=== PATIENT | female | born 1945 | race Caucasian/White ===

== ENCOUNTER → 2017-08-02 13:07 | Outpatient (CLI) | payer MEDICARE, OTHER, SELFPAY ==
--- NOTE | 2017-08-02 13:12 | MRI_ITS ---
STUDY: MRI THORACIC SPINE WITHOUT CONTRAST REASON FOR EXAM: Female, 72 years old. Follow-up bone lesion TECHNIQUE: Standardized fat and water weighted pulse sequences were obtained in the sagittal and axial planes. COMPARISON: January 20 2017 FINDINGS: Normal kyphosis of the thoracic spine. There is no substantial scoliosis. No evidence for acute fracture or subluxation. Tiny central disc protrusion at T7-8 without significant spinal stenosis or cord compression. Normal visualized thoracic cord. Normal conus medullaris that terminates at T12-L1 The lesion in the left T11 pedicle demonstrates slightly increased signal intensity on T1, T2 and STIR imaging sequences. This finding is stable since prior exam The soft tissue structures are unremarkable. MRI/Spine Thoracic (Routine) IMPRESSION: Tiny central disc protrusion at T7-T8 without spinal stenosis or cord compression. Stable appearance to T11 pedicle lesion likely benign Electronically Signed: Faizan Joyce MD at 21:27 EDT , Service support ,
== END ==
PROVIDERS: Family Provider Family Medicine; PCP Family Medicine; Visit Provider Family Medicine
DX: M89.8X9 Other specified disorders of bone, unspecified site (principal)
CPT/HCPCS: 72146

== ENCOUNTER 2018-01-11 08:16 | Observation (INO) | payer MEDICARE, OTHER, SELFPAY ==
[2018-01-11] VITALS (14 sets, daily range): BP systolic 136–163; BP diastolic 59–82; PULSE 60–82; RESP 10–20; TEMP 36.6–36.9; O2SAT 95–99; BMI 33.9; BMI 31.7; BMI 31.8
--- NOTE | 2018-01-11 08:33 | CT_ITS ---
STUDY: CT BRAIN WITHOUT CONTRAST REASON FOR EXAM: Female, 72 years old. Fall and facial abrasions due to a syncopal episode. RADIATION DOSAGE (If Supplied By Facility): CTDIvol = ( 44.99 ) mGy, DLP = ( 812.98 ) mGycm TECHNIQUE: Transaxial CT imaging of the brain was performed without administration of intravenous contrast material. Individualized dose optimization techniques were used for this CT. COMPARISON: None. FINDINGS: Normal soft tissue structures. There is hyperostosis frontalis internus. Normal size ventricles and extra-axial spaces for the patient's age. Normal white matter tracts of the cerebral hemispheres. Normal basal ganglia and thalami. Normal brainstem. Normal cerebellum. There is no intracranial hemorrhage. There are no findings of an acute ischemic infarction. Atherosclerotic calcification of the vertebral arteries and cavernous portions of the internal carotid arteries bilaterally. Normal visualized paranasal sinuses. CT/Brain/Head without Contrast IMPRESSION: Normal unenhanced CT scan of the brain. Electronically Signed: Jeffrey Roman MD at 9:49 EST Tel [phone], Service support ,
--- NOTE | 2018-01-11 08:34 | EKG12_ITS ---
Test Reason : FALL Blood Pressure : / mmHG Vent. 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-2001) Abnormal ECG Confirmed by ROGELIO LIRIANO, JON ([id number]), image editor TRISTAN BROOKS ([id number]) on 01/14/2018 2:24:00 PM Referred By: DAVID Confirmed By:JON MERCADO MD
--- NOTE | 2018-01-11 08:35 | CT_ITS ---
STUDY: CT CERVICAL SPINE WITHOUT CONTRAST REASON FOR EXAM: Female, 72 years old. Fall and facial abrasions secondary to a syncopal episode. RADIATION DOSAGE (If Supplied By Facility): CTDIvol = ( 22.22 ) mGy, DLP = ( 461.97 ) mGycm TECHNIQUE: High resolution transaxial imaging was performed without contrast material. Sagittal and coronal images were reconstructed. Individualized dose optimization techniques were used for this CT. COMPARISON: None FINDINGS: Normal craniovertebral junction. There are degenerative changes of the anterior atlantoaxial articulation. Normal odontoid process. There is straightening of the normal cervical lordosis. Multilevel spondylosis. C2-3: Normal endplates. Normal disc height and morphology. Normal central canal and intervertebral neuroforamina. C3-4: Normal endplates. Normal disc height and morphology. Normal central canal and intervertebral neuroforamina. C4-5: Anterior spondylosis. The disc space height is well maintained. C5-6: Minimal retrolisthesis of C5 on C6. Anterior spondylosis. Moderate degree of disc space narrowing. Uncovertebral arthrosis. Moderate degree of left neural foraminal stenosis. Subchondral sclerosis worse on the left side. C6-7: Minimal retrolisthesis of C6 on C7. Spondylosis. Uncovertebral arthrosis and a mild degree of facet joint osteoarthritis. C7-T1: Normal endplates. Normal disc height and morphology. Normal central canal and intervertebral neuroforamina. Normal visualized soft tissue structures. CT/Spine Cervical without Contras IMPRESSION: Multilevel degenerative changes, as described above. Electronically Signed: Jeffrey Roman MD at 9:51 EST Tel [phone], Service support ,
[2018-01-11] MEDS: 0.9% Normal Saline 1,000 ML 150 ML IV (09:00)
--- NOTE | 2018-01-11 09:05 | ED.RN ---
ABRASION ABOVE RT EYE BROW AND RT CHEEK UNDER EYE.
--- NOTE | 2018-01-11 09:16 | RAD_ITS ---
STUDY: X-RAY CHEST REASON FOR EXAM: Female, 72 years old. Syncopal episode. TECHNIQUE: Single AP portable view of the chest. COMPARISON: Comparison is made with prior study dated July 22, 2012. FINDINGS: EKG electrodes are seen. The lungs are clear and expanded. There is no demonstrated pleural abnormality. Normal size heart. Normal mediastinum and dorota. Normal visualized pulmonary arteries. There is atherosclerotic tortuosity of the aortic arch and descending thoracic aorta. Normal visualized thoracic spine. Normal visualized ribs, clavicles, and shoulders. There is no demonstrated abnormality of the visualized soft tissue structures of the upper abdomen. RAD/Chest 1 View (Portable) IMPRESSION: No acute abnormality is present. Electronically Signed: Jeffrey Roman MD at 9:58 EST Tel [phone], Service support ,
--- NOTE | 2018-01-11 10:18 | ED.RN ---
PT UNABLE TO GIVE UA AT THIS TIME. MD AWARE. NO NEW ORDERS AT THIS TIME.
[2018-01-11 10:20] LABS: Absolute Lymphocyte Count 1.15 X10^3/ul (0.83-4.51); Absolute Neutrophil Count 11.6 X10^3/uL (2.0-7.7); Basophil# 0.03 X10^3/uL; Basophil% 0.2 % (0-1); Eosinophil# 0.02 X10^3/uL; Eosinophils% 0.1 % (0-5); Hematocrit 42.5 % (37-47); Hemoglobin 13.6 g/dl (12.0-15.0); Lymphocyte # 1.15 X10^3/ul (4.0); Lymphocyte % 8.4 % (19-41); Mean Corpuscular Hgb 29.6 pg (27.0-32.0); Mean Corpuscular Volume 92.4 fL (81-99); Mean Platelet Vol. 9.2 fl (6.2-12.0); Monocyte# 0.82 X10^3/uL; Neutrophil # 11.58 X10^3/uL (2.7-7.7); Neutrophil % 85.2 % (47-70); Platelet Count 284 K/mm3 (150-450); RBC Distribution Width CV 14.2 % (11.6-14.6); RBC Distribution Width SD 47.7 fl (35.1-43.9); White Blood Count 13.6 K/mm3 (4.4-11.0)
[2018-01-11 10:23] LABS: POSITIVE COUNT NO; POSITIVE DIFFERENTIAL NO; POSITIVE MORPHOLOGY NO
[2018-01-11 10:36] LABS: Anion Gap 8 (5-15); BUN 10 mg/dL (7-18); BUN/Creat Ratio 13.6 RATIO (10-20); Chloride 109 mmol/L (98-107); Creatinine, Serum 0.73 mg/dL (0.55-1.02); EST Glomerular Filtration Rate 83 mL/min (>60); Est Glom Filt Rate - Afr Amer 101 mL/min (>60); Estimated Creatinine Clearance 44.56 ml/min; Glucose 115 mg/dL (74-106); Sodium Level 144 mmol/L (136-145)
--- NOTE | 2018-01-11 11:26 | ED.VISSUMM ---
- ER Visit Summary Date of Service: 01/11/18 Chief Complaint: [Syncope] History of Present Illness: The patient is a 72 F [ presents to the emergency department with complaint of syncopal episode this morning. Patient woke up to color her hair around 6:30 AM. Patient then went to the kitchen and came back into the bathroom and noted that her arms were weak when she was trying to apply the product in her hair. Patient just recalls a generalized weakness that came over her and the next thing she knew she woke up on the bathroom floor. She was actually able to get up but noted that there was some blood on the carpet where she had fallen. Patient complaining of pain in her neck and she had some burning in both hands. She was able to stand and ambulate afterwards. Patient denies any chest or abdomen pain. She denies any tachycardia or palpitations.] Physical Examination: [HEENT-PERRLA, EOMI. Cranial nerves II through XII grossly intact. TMs clear. Mucous membranes moist. No adenopathy. Patient has diffuse C-spine tenderness on palpation. No bony step-offs noted. Patient had some superficial abrasions about the right forehead and right cheek. No significant bony tenderness on exam. Cardiovascular-regular rate and rhythm without murmur or ectopy Lungs-clear to auscultation, chest wall stable without crepitus or subcu emphysema Abdomen-normoactive bowel sounds, soft, nontender, no rebound or rigidity, no peritoneal signs. Neuro atfr-isxnuj-jjfk and heel rodriguez testing within normal limits, negative Romberg, negative . Patient has normal dance critic strength bilaterally. Extremities-intact ?4, normal range of motion, normal pulses, atraumatic] Test Results: [CT scan of the brain without contrast showed chronic changes. CT of the cervical spine showed chronic changes no fractures. 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 CBC with differential showed white count 13.6, hemoglobin 13.6, hematocrit 42, platelets 284. Chemistries unremarkable. Troponin was less than 0.015. Chest x-ray was unremarkable.] Emergency Department Course and Treatment: [] Treatment Plan: [Patient case was discussed with neurologist on-call as well as the hospitalist will evaluate patient for admission. Given the paresthesias in the hands would consider cervical cord compression in the differential as the etiology for her symptoms. She may need further workup such as possibly MRI to evaluate further.] Disposition: [Admit] Impression: [Syncope Cervical strain-rule out cord compression/contusion] This note was generated with [employer] dictation software. It may contain incorrect words, spelling, and punctuation that were not noted in review of the chart prior to signing ED Disposition - Plan for ED Patient: Chief Complaint: Syncope
--- NOTE | 2018-01-11 11:30 | ED.DCSUM_ITS ---
- ER Visit Summary Date of Service: 01/11/18 Chief Complaint: [Syncope] History of Present Illness: The patient is a 72 F [ presents to the emergency department with complaint of syncopal episode this morning. Patient woke up to color her hair around 6:30 AM. Patient then went to the kitchen and came back into the bathroom and noted that her arms were weak when she was trying to apply the product in her hair. Patient just recalls a generalized weakness that came over her and the next thing she knew she woke up on the bathroom floor. She was actually able to get up but noted that there was some blood on the carpet where she had fallen. Patient complaining of pain in her neck and she had some burning in both hands. She was able to stand and ambulate afterwards. Patient denies any chest or abdomen pain. She denies any tachycardia or palpitations.] Physical Examination: [HEENT-PERRLA, EOMI. Cranial nerves II through XII grossly intact. TMs clear. Mucous membranes moist. No adenopathy. Patient has diffuse C-spine tenderness on palpation. No bony step-offs noted. Patient had some superficial abrasions about the right forehead and right cheek. No significant bony tenderness on exam. Cardiovascular-regular rate and rhythm without murmur or ectopy Lungs-clear to auscultation, chest wall stable without crepitus or subcu emphysema Abdomen-normoactive bowel sounds, soft, nontender, no rebound or rigidity, no peritoneal signs. Neuro drpt-vmcqvq-uebj and heel rodriguez testing within normal limits, negative Romberg, negative . 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 Extremities-intact ?4, normal range of motion, normal pulses, atraumatic] Test Results: [CT scan of the brain without contrast showed chronic changes. CT of the cervical spine showed chronic changes no fractures. 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 CBC with differential showed white count 13.6, hemoglobin 13.6, hematocrit 42, platelets 284. Chemistries unremarkable. Troponin was less than 0.015. Chest x-ray was unremarkable.] Emergency Department Course and Treatment: [] Treatment Plan: [Patient case was discussed with neurologist on-call as well as the hospitalist will evaluate patient for admission. Given the paresthesias in the hands would consider cervical cord compression in the differential as the e tiology for her symptoms. She may need further workup such as possibly MRI to evaluate further.] Disposition: [Admit] Impression: [Syncope Cervical strain-rule out cord compression/contusion] This note was generated with [employer] dictation software. It may contain incorrect words, spelling, and punctuation that were not noted in review of the chart pr ior to signing ED Disposition - Plan for ED Patient: Chief Complaint: Syncope
--- NOTE | 2018-01-11 12:25 | ECHOD_ITS ---
Reason For Study: SYNCOPE/NEAR SYNCOPE Procedure This was a 2D Doppler, Color Flow transthoracic echocardiogram. The study was technically difficult. Exam performed portable in patient room. Left Ventricle Normal LV size. Left ventricular systolic function is normal. The estimated ejection fraction is 65 %. No evidence for diastolic dysfunction. No regional wall motion abnormalities noted. Right Ventricle Normal RV size. Normal systolic function. Atria Normal left atrium. Normal right atrium. No doppler evidence for ASD. Mitral Valve There is no mitral annular calcification. The mitral valve chordae are thickened and/or calcified. Trivial mitral valve insufficiency. Tricuspid Valve Normal tricuspid valve. Trivial tricuspid valve insufficiency. Unable to estimate RV systolic pressure/pulmonary artery pressure due to technically difficult study. Aortic Valve The aortic valve is not well visualized. Mild focal aortic valve thickening. Pulmonic Valve The pulmonic valve is not well visualized. Great Vessels Normal aortic root. Pericardium/Pleural No pericardial effusion. MMode/2D Measurements & Calculations LVIDd: 4.7 cm IVSd: 0.93 cm Ao root diam: 3.4 cm LVIDs: 2.2 cm LVPWd: 0.84 cm RVDd: 3.1 cm FS: 53.2 % LAV(MOD-bp): 29.8 ml LVAd ap4: 29.9 cm2 SV(MOD-sp4): 64.2 ml LAV(MOD-bp) Indexed: 15.3 ml/m2 EDV(MOD-sp4): 91.8 ml LAV(MOD-sp2): 35.0 ml EDV(sp4-el): 96.8 ml LAV(MOD-sp4): 25.8 ml LVAs ap4: 14.6 cm2 ESV(MOD-sp4): 27.5 ml ESV(sp4-el): 28.3 ml EF(MOD-sp4): 70.0 % EF(sp4-el): 70.8 % SV(sp4-el): 68.5 ml LA A4 area: 12.6 cm2 LA dimension(2D): 3.6 cm RA A4 area: 11.3 cm2 Time Measurements MV dec time: 0.25 sec Doppler Measurements & Calculations MV E max ayo: 79.1 cm/sec Lat Peak E' Ayo: 10.9 cm/sec Med Peak E' Ayo: 7.4 cm/sec MV A max ayo: 104.8 cm/sec E/E' lat: 7.3 E/E' med: 10.6 MV E/A: 0.76 Ao V2 max: 142.5 cm/sec LV V1 max: 122.2 cm/sec PA V2 max: 107.6 cm/sec Ao max P.1 mmHg LV V1 max P.0 mmHg Interpretation Summary The study was technically difficult. Left ventricular systolic function is normal. The estimated ejection fraction is 65 %. The mitral valve chordae are thickened and/or calcified. Trivial mitral valve insufficiency. Trivial tricuspid valve insufficiency. Mild focal aortic valve thickening. Unable to estimate RV systolic pressure/pulmonary artery pressure due to technically difficult study. No evidence for diastolic dysfunction. Ordering Physician: Alex Moraes Referring Physician: SHAKEEL WEBSTER Performed By: Malika Ahn RDCS
--- NOTE | 2018-01-11 12:26 | CDU_ITS ---
Reason For Study: syncope Rt. Velocities/BP Lt. Velocities/BP Prox CCA 115.0/24.6 cm/sec. Prox CCA 141.0/34.6 cm/sec. Mid CCA 109.0/22.9 cm/sec. Mid CCA 116.0/29.1 cm/sec. Dist CCA 92.0/25.2 cm/sec. Dist CCA 109.0/33.8 cm/sec. Prox ICA 73.3/25.2 cm/sec. Prox ICA 110.0/28.3 cm/sec. Mid ICA 140.0/47.1 cm/sec. Mid ICA 123.0/46.4 cm/sec. Dist ICA 78.0/24.6 cm/sec. Dist ICA 114.0/44.8 cm/sec. Rt. ICA/CCA = 140.0/109.0=1.3. Lt. ICA/CCA = 123.0/116.0=1.1. Prox ECA 123.0/12.3 cm/sec. Prox ECA 138.0/18.1 cm/sec. Rt. Vert. 63.9/17.6 cm/sec. Lt. Vert. 66.0/19.6 cm/sec. Right Extracranial There is intimal thickening but no significant atherosclerotic plaque noted in the right common carotid artery. There is heterogeneous, irregular atherosclerotic plaque noted in the right internal carotid artery. There is no significant atherosclerotic plaque noted in the right external carotid artery. Antegrade flow is noted in the right vertebral artery. Left Extracranial There is intimal thickening but no significant atherosclerotic plaque noted in the left common carotid artery. There is heterogeneous, smooth atherosclerotic plaque noted in the left internal carotid artery. There is no significant atherosclerotic plaque noted in the left external carotid artery. Antegrade flow is noted in the left vertebral artery. Procedure Carotid Duplex 32721. Exam performed portable in patient room. Interpretation Summary Minimal plague at the proximal right internal carotid with 50-69% stenosis, likely closer to 50% Minimal plague at the proximal left internal carotid with <50% stenosis, close to 50% Normal flow bilateral external carotids Patent and antegrade vertebrals bilaterally Ordering Physician: Alex Moraes Referring Physician: Kannan Allen Performed By: Bernadette Leroy RDCS, RVT
--- NOTE | 2018-01-11 12:33 | PCM.HP.STD ---
Problem List (1) Syncope Status: Acute History of Present Illness Date of Admission: 01/11/18 Chief Complaint: Syncope. The patient is a 72 year old F with no significant past medical history presented to the emergency room because of syncopal event. This morning, she was standing in her bathroom, doing coloring for her, felt dizzy and lightheaded and she passed out. The patient mentioned that she was not aware and she lost her consciousness completely for about 5 minutes. When she woke up, she was still dizzy, nauseated but she woke up very quickly. Apart from dizziness and lightheadedness, she denied any other prodromal symptoms. She denied chest pain, palpitation or shortness of breath. She denies any confusion or headache after she woke up. No reported seizure activity. She denied aggravating or relieving factors. She mentioned that after she woke up, she had blurry vision on the right eye and she thinks that is because some of the hair dye came on her right eye and her vision improved after she washed her right eye. After she woke up, she complained of neck pain which is described as dull aching pain, not so severe, not radiating. Also, she complained of numbness and tingling of both hands, from the wrists down to the fingers and equal on both hands. She denied focal arm or leg weakness. She stated that long time ago, she was told that she had abnormal heart rhythm and nonspecific name given to that abnormal heart rhythm. She denied history of atrial fibrillation or other known cardiac arrhythmias. She mentioned that usually, she tends not to drink lots of water during the daytime because she does not get thirsty often. She denies fever or chills. She denied constipation or diarrhea. She denies urinary symptoms. She denies cough or sputum production. In the emergency department, her vital signs were stable. Her routine blood work was remarkable for mild leukocytosis, otherwise normal. Troponin was negative. EKG revealed normal sinus rhythm, normal GA interval, normal QRS, no evidence of acute ischemic changes or cardiac arrhythmias. Scan brain showed no acute findings. CT scan cervical spine showed mild degenerative changes, no acute fractures or dislocations. Chest x-ray showed no acute findings. She is being admitted for syncope for evaluation. Past Medical History Allergies Sulfa (Sulfonamide Antibiotics) Allergy (Verified 01/11/18 08:20) Rash Home Medications: Ambulatory Orders Medication Instructions Recorded L.acidoph,Paracasei, B.lactis 1 each PO QHS 01/11/18 [Probiotic] Multivitamin [Multiple Vitamins] 1 each PO DAILY 01/11/18 Surgical History: cholecystectomy, hysterectomy, - - Tubal ligation. 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 Review of Systems Constitutional: Reports: Weakness. Denies: Anorexia, Chills, Fever Eyes: Denies: Blurred vision, Double vision, Drainage, Redness HEENT: Denies: Difficulty Hearing, Ear Pain, Eye Pain, Nasal Congestion, Sore Throat Cardiovascular: Reports: Light Headedness, Syncope. Denies: Chest Pain, Chest Pressure, Edema, Heaviness, Palpitations Respiratory: Denies: Cough, Hemoptysis, Pleuritic Pain, Shortness of Breath, Sputum production, Wheezing Gastrointestinal: Reports: Nausea. Denies: Abdominal Pain, Constipation, Diarrhea, Vomiting Genitourinary: Denies: Dysuria, Frequency, Hematuria Musculoskeletal: Denies: Arm Pain, Back Pain, Foot Pain Skin: Denies: Dryness, Rash Neurological: Reports: Blurred vision. Denies: Balance problems, Change in Speech, Slurred speech, Confusion, Focal weakness, Headaches, Incoordination, Numbness, Tingling Psychiatric: Denies: Anxiety, Depression Endocrine: Denies: Change in Body Habitus, Polydipsia VTE Information - Inpt Only VTE Present on Admission: No VTE Mechan Device Prophylaxis: None VTE Pharm Prophylaxis ordered?: Yes Patient Problems: Active and Suspected Problems Syncope (Acute) - Physical Exam General: Alert, Oriented x3, Cooperative, No apparent distress HEENT: Atraumatic, PERRLA, EOMI, Normocephalic Oral: Moist Mucosa, No Gingival or Mucosal Lesions/ Ulcerations Neck: Supple, No JVD, Negative Carotid Bruits, Trachea Midline, Thyroid Normal Size and Texture Lungs: Clear to auscultation, No rhonchi, No wheeze, No rales, Diminished Cardiovascular: Regular rate, Regular Rhythm, Normal S1, Normal S2, No murmurs, PMI Normal Abdomen: Bowel Sounds Present, Soft, Non Tender, Non-Distended, No Hepato-splenomegaly Extremities: No clubbing, No cyanosis, No edema Skin: No rashes, No breakdown Lymphatic: No Cervical, Supraclavicular, or Inguinal Adenopathy Neurological: Cranial nerves II-XII grossly intact, Motor Exam 5/5 strength throughout Psych/Mental Status: Normal Affect, Appropriate, Alert and oriented to time, place, person, mood and affect Vital Signs Temp Pulse Resp BP Pulse Ox 97.8 F 71 10 L 145/71 H 99 01/11/18 08:17 01/11/18 10:00 01/11/18 10:00 01/11/18 10:00 01/11/18 10:00 Oxygen Delivery Method Room Air Weight: 197 lb 12.074 oz Body Mass Index (BMI) 33.9 Laboratory Tests Past 24 Hrs 01/11/18 01/11/18 10:05 10:05 WBC 13.6 H RBC 4.60 Hgb 13.6 Hct 42.5 MCV 92.4 MCH 29.6 MCHC 32.0 RDW 14.2 RDW Differential 47.7 H Plt Count 284 MPV 9.2 Immature Gran % (Auto) 0.100 Neut % (Auto) 85.2 H Lymph % (Auto) 8.4 L Reagan % (Auto) 6.0 Eos % (Auto) 0.1 Baso % (Auto) 0.2 Absolute Neuts (auto) 11.6 H Absolute Lymphs (auto) 1.15 Total Counted Not Reportable Sodium 144 Potassium 4.0 Chloride 109 H Carbon Dioxide 27.0 Anion Gap 8 BUN 10 Creatinine 0.73 Estim Creat Clear Calc 44.56 Est GFR (MDRD) Af Amer 101 Est GFR (MDRD) Non-Af 83 BUN/Creatinine Ratio 13.6 Glucose 115 H Calcium 9.0 Troponin I < 0.015 Clinical Impression(s) from Imaging Studies Brain CT 01/11/18 08:33 IMPRESSION: Normal unenhanced CT scan of the brain. Electronically Signed: Jeffrey Roman MD at 9:49 EST Tel [phone], Service support , Cervical Spine CT 01/11/18 08:35 IMPRESSION: Multilevel degenerative changes, as described above. Electronically Signed: Jeffrey Roman MD at 9:51 EST Tel [phone], Service support , Chest X-Ray 01/11/18 09:16 IMPRESSION: No acute abnormality is present. Electronically Signed: Jeffrey Roman MD at 9:58 EST Tel [phone], Service support , Assessment/Plan All Active Problems Syncope (Acute) This is a 72 years old female patient presented to the emergency room because of syncope and she is being admitted for evaluation. #1 syncope: Unclear etiology at this time. Her vital signs are stable. EKG revealed normal sinus rhythm, no evidence of cardiac arrhythmias or acute ischemic changes. CT scan brain without acute findings. Patient complained of dizziness before she passed out and she mentioned that she does not drink enough fluids. At this time, she had an episode of blurry vision on the right eye which she attributed to hair dye came on her right eye as her vision improved after she washed her right eye. She has no focal deficit on physical exam. CT scan cervical spine showed no acute findings. She complains of bilateral equal numbness and tingling of both hands. Plan: Admit to PCU for observation, cardiac monitoring, serial cardiac enzymes, NIH stroke scale, MRI brain, 2D echocardiogram, bilateral carotid Doppler, IV fluids, orthostatic vitals, repeat orthostatic vitals tomorrow, repeat CBC tomorrow, PT OT evaluation and treatment. #2 leukocytosis: Mild, likely reactive secondary to acute stress and syncope. Patient denies any symptoms or signs of infection. She stated that there was acute at her house who was sick with flulike symptoms. Plan to do a respiratory panel for viruses, as needed Tylenol. Chest x-ray showed no acute findings. #3 DVT prophylaxis: Subcu Lovenox. This note was generated with [employer] dictation software. It may contain incorrect words, spelling, and punctuation that were not noted in checking the note before signing. Code Visit OBSV E&M: 99678 Initial observation care L3
--- NOTE | 2018-01-11 12:38 | HP.PCM_ITS ---
Problem List (1) Syncope Status: Acute History of Present Illness Date of Admission: 01/11/18 Chief Complaint: Syncope. The patient is a 72 year old F with no significant past medical history presented to the emergency room because of syncopal event. This morning, she was standing in her bathroom, doing coloring for her, felt dizzy and lightheaded and she passed out. The patient mentioned that she was not aware and she lost her consciousness completely for about 5 minutes. When she woke up, she was still dizzy, nauseated but she woke up very quickly. Apart from dizziness and lightheadedness, she denied any other prodromal symptoms. She denied chest pain, palpitation or shortness of breath. She denies any confusion or headache after she woke up. No reported seizure activity. She denied aggravating or relieving factors. She mentioned that after she woke up, she had blurry vision on the right eye and she thinks that is because some of the hair dye came on her right eye and her vision improved after she washed her right eye. After she woke up, she complained of neck pain which is described as dull aching pain, not so severe, not radiating. Also, she complained of numbness and tingling of both hands, from the wrists down to the fingers and equal on both hands. She denied focal arm or leg weakness. She stated that long time ago, she was told that she had abnormal heart rhythm and nonspecific name given to that abnormal heart rhythm. She denied history of atrial fibrillation or other known cardiac arrhythmias. She mentioned that usually, she tends not to drink lots of water during the daytime because she does not get thirsty often. She denies fever or chills. She denied constipation or diarrhea. She denies urinary symptoms. She denies cough or sputum production. In the emergency department, her vital signs were stable. Her routine blood work was remarkable for mild leukocytosis, otherwise normal. Troponin was negative. EKG revealed normal sinus rhythm, normal WI interval, normal QRS, no evidence of acute ischemic changes or cardiac arrhythmias. Scan brain showed no acute findings. CT scan cervical spine showed mild degenerative changes, no acute fractures or dislocations. Chest x- ray showed no acute findings. She is being admitted for syncope for evaluation. Past Medical History Allergies Sulfa (Sulfonamide Antibiotics) Allergy (Verified 01/11/18 08:20) Rash Home Medications: Ambulatory Orders Medication Instructions Recorded L.acidoph,Paracasei, B.lactis 1 each PO QHS 01/11/18 [Probiotic] Multivitamin [Multiple Vitamins] 1 each PO DAILY 01/11/18 Surgical History: cholecystectomy, hysterectomy, - - Tubal ligation. Psychiatric History: No pertinent psych hx PATIENT SUPPORT ASSOCIATE History: No pertinent PATIENT SUPPORT ASSOCIATE history Lives: Spouse/ Significant Other Smoking Status: Never smoker Alcohol: None Drugs: None - *Family History Maternal History Items: Heart Disease, Hypertension Paternal History Items: Heart Disease, - - Congestive heart failure. Review of Systems Constitutional: Reports: Weakness. Denies: Anorexia, Chills, Fever Eyes: Denies: Blurred vision, Double vision, Drainage, Redness HEENT: Denies: Difficulty Hearing, Ear Pain, Eye Pain, Nasal Congestion, Sore Throat Cardiovascular: Reports: Light Headedness, Syncope. Denies: Chest Pain, Chest Pressure, Edema, Heaviness, Palpitations Respiratory: Denies: Cough, Hemoptysis, Pleuritic Pain, Shortness of Breath, Sputum production, Wheezing Gastrointestinal: Reports: Nausea. Denies: Abdominal Pain, Constipation, Diarr hea, Vomiting Genitourinary: Denies: Dysuria, Frequency, Hematuria Musculoskeletal: Denies: Arm Pain, Back Pain, Foot Pain Skin: Denies: Dryness, Rash Neurological: Reports: Blurred vision. Denies: Balance problems, Change in Speech, Slurred speech, Confusion, Focal weakness, Headaches, Incoordination, Numbness, Tingling Psychiatric: Denies: Anxiety, Depression Endocrine: Denies: Change in Body Habitus, Polydipsia VTE Information - Inpt Only VTE Present on Admission: No VTE Mechan Device Prophylaxis: None VTE Pharm Prophylaxis ordered?: Yes Patient Problems: Active and Suspected Problems Syncope (Acute) - Physical Exam General: Alert, Oriented x3, Cooperative, No apparent distress HEENT: Atraumatic, PERRLA, EOMI, Normocephalic Oral: Moist Mucosa, No Gingival or Mucosal Lesions/ Ulcerations Neck: Supple, No JVD, Negative Carotid Bruits, Trachea Midline, Thyroid Normal Size and Texture Lungs: Clear to auscultation, No rhonchi, No wheeze, No rales, Diminished Cardiovascular: Regular rate, Regular Rhythm, Normal S1, Normal S2, No murmurs, PMI Normal Abdomen: Bowel Sounds Present, Soft, Non Tender, Non-Distended, No Hepato-splen omegaly Extremities: No clubbing, No cyanosis, No edema Skin: No rashes, No breakdown Lymphatic: No Cervical, Supraclavicular, or Inguinal Adenopathy Neurological: Cranial nerves II-XII grossly intact, Motor Exam 5/5 strength throughout Psych/Mental Status: Normal Affect, Appropriate, Alert and oriented to time, place, person, mood and affect Vital Signs Temp Pulse Resp BP Pulse Ox 97.8 F 71 10 L 145/71 H 99 01/11/18 08:17 01/11/18 10:00 01/11/18 10:00 01/11/18 10:00 01/11/18 10:00 Oxygen Delivery Method Room Air Weight: 197 lb 12.074 oz Body Mass Index (BMI) 33.9 Laboratory Tests Past 24 Hrs 01/11/18 01/11/18 10:05 10:05 WBC 13.6 H RBC 4.60 Hgb 13.6 Hct 42.5 MCV 92.4 MCH 29.6 MCHC 32.0 RDW 14.2 RDW Differential 47.7 H Plt Count 284 MPV 9.2 Immature Gran % (Auto) 0.100 Neut % (Auto) 85.2 H Lymph % (Auto) 8.4 L [place] % (Auto) 6.0 Eos % (Auto) 0.1 Baso % (Auto) 0.2 Absolute Neuts (auto) 11.6 H Absolute Lymphs (auto) 1.15 Total Counted Not Reportable Sodium 144 Potassium 4.0 Chloride 109 H Carbon Dioxide 27.0 Anion Gap 8 BUN 10 Creatinine 0.73 Estim Creat Clear Calc 44.56 Est GFR (MDRD) Af Amer 101 Est GFR (MDRD) Non-Af 83 BUN/Creatinine Ratio 13.6 Glucose 115 H Calcium 9.0 Troponin I < 0.015 Clinical Impression(s) from Imaging Studies Brain CT 01/11/18 08:33 IMPRESSION: Normal unenhanced CT scan of the brain. Electronically Signed: Jeffrey Roman MD at 9:49 EST Tel [phone], Service support , Cervical Spine CT 01/11/18 08:35 IMPRESSION: Multilevel degenerative changes, as described above. Electronically Signed: Jeffrey Roman MD at 9:51 EST Tel [phone], Service support , Chest X-Ray 01/11/18 09:16 IMPRESSION: No acute abnormality is present. Electronically Signed: Jeffrey Roman MD at 9:58 EST Tel [phone], Service support , Assessment/Plan All Active Problems Syncope (Acute) This is a 72 years old female patient presented to the emergency room because of syncope and she is being admitted for evaluation. #1 syncope: Unclear etiology at this time. Her vital signs are stable. EKG revealed normal sinus rhythm, no evidence of cardiac arrhythmias or acute ischemic changes. CT scan brain without acute findings. Patient complained of dizziness before she passed out and she mentioned that she does not drink enough fluids. At this time, she had an episode of blurry vision on the right eye which she attributed to hair dye came on her right eye as her vision improved after she washed her right eye. She has no focal deficit on physical exam. CT scan cervical spine showed no acute findings. She complains of bilateral equal numbness and tingling of both hands. Plan: Admit to PCU for observation, cardiac monitoring, serial cardiac enzymes, NIH stroke scale, MRI brain, 2D echocardiogram, bilateral carotid Doppler, IV fluids, orthostatic vitals, repeat orthostatic vitals tomorrow, repeat CBC tomorrow, PT OT evaluation and treatment. #2 leukocytosis: Mild, likely reactive secondary to acute stress and syncope. Patient denies any symptoms or signs of infection. She stated that there was acute at her house who was sick with flulike symptoms. Plan to do a respiratory panel for viruses, as needed Tylenol. Chest x-ray showed no acute findings. #3 DVT prophylaxis: Subcu Lovenox. This note was generated with [email or web address] dictation software. It may contain incorrect words, spelling, and punctuation that were not noted in checking the note before signing. Code Visit OBSV E&M: 46961 Initial observation care L3
--- NOTE | 2018-01-11 12:41 | MRI_ITS ---
STUDY: MRI BRAIN WITHOUT CONTRAST REASON FOR EXAM: Female, 72 years old. Syncope TECHNIQUE: Standardized multiplanar fat and water weighted pulse sequences were obtained. COMPARISON: CT of the brain January 11, 2018 FINDINGS: Mild atrophy and periventricular white matter ischemic changes without mass effect or restricted diffusion.. Normal bilateral basal ganglia. Normal thalami. There is no extra-axial fluid accumulation. Normal flow voids within the major intracranial circulation suggesting patency by spin echo criteria. Partial empty sella deformity. Normal, infundibular stalk, optic chiasm and hypothalamus. Normal tectal plate and pineal gland. Normal midbrain, brianne and medulla. Normal cerebellum. Normal basal cisterns. Normal bilateral temporal bones. Normal bilateral internal auditory canals. No demonstrated orbital abnormality, within the constraints of a routine brain study. Mild mucosal thickening of the ethmoid air cells. Normal calvarium and skull base. Normal visualized soft tissue structures. Normal visualized upper cervical spine. MRI/Brain without Contrast IMPRESSION: Mild atrophy and periventricular white matter ischemic changes. No evidence for acute infarct. Electronically Signed: Faizan Joyce MD at 17:30 EST , Service support ,
[2018-01-11] MEDS: Acetaminophen 325 MG Tablet 650 MG PO ×2 (14:42→21:16)
[2018-01-11] MEDS: 0.9% Normal Saline 1,000 ML 100 ML IV (17:25)
[2018-01-12] VITALS (9 sets, daily range): BP systolic 109–150; BP diastolic 59–74; PULSE 59–76; RESP 14–18; TEMP 36.3–36.7; O2SAT 92–96
[2018-01-12] MEDS: 0.9% NaCl Peripheral Flush Adult/Peds IV (00:34)
[2018-01-12] MEDS: Acetaminophen 325 MG Tablet 650 MG PO ×2 (04:19→09:36)
[2018-01-12 06:51] LABS: Absolute Lymphocyte Count 2.66 X10^3/ul (0.83-4.51); Absolute Neutrophil Count 5.4 X10^3/uL (2.0-7.7); Basophil# 0.01 X10^3/uL; Basophil% 0.1 % (0-1); Eosinophil# 0.09 X10^3/uL; Hematocrit 38.5 % (37-47); Hemoglobin 12.2 g/dl (12.0-15.0); Lymphocyte # 2.66 X10^3/ul (4.0); Mean Corp Hgb Conc 31.7 g/gl (32-36); Mean Corpuscular Hgb 29.3 pg (27.0-32.0); Mean Corpuscular Volume 92.5 fL (81-99); Mean Platelet Vol. 9.1 fl (6.2-12.0); Monocyte# 0.68 X10^3/uL; Monocyte% 7.7 % (0-10); Neutrophil # 5.41 X10^3/uL (2.7-7.7); Neutrophil % 61.1 % (47-70); Platelet Count 283 K/mm3 (150-450); RBC Distribution Width CV 14.3 % (11.6-14.6); RBC Distribution Width SD 48.7 fl (35.1-43.9); Red Blood Count 4.16 M/mm3 (4.2-5.4); White Blood Count 8.9 K/mm3 (4.4-11.0)
[2018-01-12 06:59] LABS: POSITIVE COUNT NO; POSITIVE DIFFERENTIAL NO; POSITIVE MORPHOLOGY NO
--- NOTE | 2018-01-12 08:29 | DCINST_ITS ---
- Discharge Diagnoses Current Active Problems: Current Active and Chronic Problems Syncope (Acute) You will use the following diet at home:: Regular Your food should be the consistency of: Regular Discharge Activity: Return to Normal Activity Weight Bearing Status: Full weight bearing Call your doctor if you observe: Fever of 101 or Higher, Shortness of breath, Dizziness, Fainting spells, Chest pain, Increased palpitations (irregular heartbeat), Uncontrolled pain Allergies/Adverse Reactions: Allergies Sulfa (Sulfonamide Antibiotics) Allergy (Verified 01/11/18 08:20) Rash Medications to take at Discharge L.acidoph,Paracasei, B.lactis [Probiotic] 1 each PO QHS 01/11/18 Multivitamin [Multiple Vitamins] 1 each PO DAILY 01/11/18 Primary Care Physician: Kannan Allen MD [Primary Care Provider] - Please follow up with your Primary Care Physician in: 2 weeks. Test Results: Test results from this visit will be discussed in further detail at your follow- up appointment, if applicable.
[2018-01-12 09:29] LABS: Mucous, Urine 0 SEEN /hpf (<or=2+)
[2018-01-12 09:30] LABS: Color, Urine Yellow (Yellow); Glucose, Dipstick Normal (Normal); Ketone-Dipstick Negative (Negative); Leukocyte Esterase-Dipstick 500 /ul (Negative); Nitrite-Dipstick Positive (Negative); Occult Blood-Urine 10 /ul (Negative); Protein-Dipstick Negative (Negative); Specific Gravity, Urine 1.015 (1.002-1.030); Urine Bilirubin Dipstick Negative (Negative); Urine Clarity Sl. Cloudy (Clear); Urine Urobilinogen Normal (Normal)
[2018-01-12 09:38] LABS: Bacteria 1+ /hpf (None Seen); Red Blood Cells-Urine 0-5 SEEN /hpf (0-5); Squamous Epithelial Cells - UA 0-5 SEEN /hpf (5-10); White Blood Cells 10-25 SEEN /hpf (0-5)
--- NOTE | 2018-01-12 10:15 | CASEMGMT ---
CHRIS MERAZ INITIAL ASSESSMENT D/C PLAN: Home with and follow-up plans in place. Face to Face with patient for initial transition planning/care coordination assessment. CHRIS MERAZ introduced self and role at [facility]. Pt resting in bed, awake/alert/oriented. Willing to participate in assessment and all questions answered appropriately. Care providers, pharmacy, and demographics verified. PCP: Dr Kannan Vela Specialists: none Preferred Pharmacy: [facility] Insurance: [facility] A [facility], [place] Prescription Benefit: Yes Living Will/HPOA: States does not have either and is interested in further information but does not want to complete at this time. Given AD info packet. Also given [employer] Waste [employer] Technician flyer and made aware she can call in and make an appt to talk with SW. Pt voiced appreciation. LNOK: Living Arrangements: Lives with in a 2-story home. States their home is handicap friendly and has first-floor set up. States no steps to enter. Pt independent with all ADL's. Transportation: Pt drives. DME: Denies using any DME and denies needs. HHC/SMF: No history and denies needs. No needs identified. Pt wishes to return home. CM to follow for any further discharge planning needs that may arise. Tasha MEZA RN, CM
--- NOTE | 2018-01-12 14:19 | PCM.DC.SUM ---
Discharge Date and Diagnosis Date of Admission: 01/11/18 Date of Discharge: 01/12/18 - Primary Discharge Diagnosis #1 syncope, presumed to be vasovagal. #2 leukocytosis, reactive, resolved. #3 fall, no evidence of significant trauma. Hospital Course and Treatment Imaging Results: Clinical Impression(s) from Imaging Studies Brain CT 01/11/18 08:33 IMPRESSION: Normal unenhanced CT scan of the brain. Electronically Signed: Jeffrey Roman MD at 9:49 EST Tel [phone], Service support , Cervical Spine CT 01/11/18 08:35 IMPRESSION: Multilevel degenerative changes, as described above. Electronically Signed: Jeffrey Roman MD at 9:51 EST Tel [phone], Service support , Chest X-Ray 01/11/18 09:16 IMPRESSION: No acute abnormality is present. Electronically Signed: Jeffrey Roman MD at 9:58 EST Tel [phone], Service support , Brain MRI 01/11/18 12:41 IMPRESSION: Mild atrophy and periventricular white matter ischemic changes. No evidence for acute infarct. Electronically Signed: Faizan Joyce MD at 17:30 EST , Service support , Operations: None Procedures: 2-D Echocardiogram, EKG Summary of Care Provided: Patient seen and examined on the day of discharge and appeared to be stable to be discharged home. She has normal complaints, no syncopal episodes overnight. No more dizziness or lightheadedness. Numbness and tingling of both hands improved. Her vital signs are stable. The patient is a 72 year old F admitted because of syncope for evaluation. The syncopal event attributed to possible vasovagal syncope secondary to dehydration. Her EKG revealed normal sinus rhythm without evidence of acute ischemic changes or cardiac arrhythmias. CT scan brain showed no acute findings. Because patient had a fall after syncope, CT scan cervical spine done for neck pain and revealed mild degenerative changes without evidence of acute fractures or dislocations. Patient complains of symmetrical bilateral hand tingling which improved. She has no other focal symptoms. Her routine blood work was unremarkable. Vital signs were stable. Her orthostatic vitals were normal as well. Because of the tingling and numbness of both hands only, MRI brain done and showed no evidence of acute infarction or hemorrhage. 2D echocardiogram revealed normal ejection fraction of 65%, no significant valvular heart disease. Carotid Doppler revealed minimal plaque in the proximal right and left internal carotid arteries with less than 50% stenosis with normal bilateral external carotids and patent vertebral arteries bilaterally. Patient was given IV fluids. On admission, she did have leukocytosis which is reactive to acute illness and syncope. With IV fluids, she has no more dizziness or lightheadedness. Her vital signs stabilized. Acute stroke ruled out. Cardiac enzymes were negative x3. Patient discharged home in a stable medical condition, discharged on no medication at home, recommended follow-up with PCP in 2 week. - Physical Exam General: Alert, Oriented x3, Cooperative, No apparent distress HEENT: Atraumatic, PERRLA, EOMI, Normocephalic Oral: Moist Mucosa, No Gingival or Mucosal Lesions/ Ulcerations Neck: Supple, No JVD, Negative Carotid Bruits, Trachea Midline, Thyroid Normal Size and Texture Lungs: Clear to auscultation, Normal air movement, No rhonchi, No wheeze, No rales Cardiovascular: Regular rate, Regular Rhythm, Normal S1, Normal S2, No murmurs, No Ectopic Activity Abdomen: Bowel Sounds Present, Soft, Non Tender, Non-Distended, No Hepato-splenomegaly Extremities: No clubbing, No cyanosis, No edema Skin: No rashes, No breakdown Lymphatic: No Cervical, Supraclavicular, or Inguinal Adenopathy Neurological: Cranial nerves II-XII grossly intact, Motor Exam 5/5 strength throughout Psych/Mental Status: Normal Affect, Appropriate Vital Signs Temp Pulse Resp BP Pulse Ox 97.8 F 73 18 133/59 H 96 01/12/18 11:40 01/12/18 11:40 01/12/18 11:40 01/12/18 11:40 01/12/18 11:40 Oxygen Delivery Method Room Air Weight: 185 lb Body Mass Index (BMI) 31.7 Intake and Output for Last 24 Hours 01/10/18 01/11/18 01/12/18 23:59 23:59 23:59 Intake Total 618 / 618 1672 / 1672 Output Total 200 / 200 Balance 618 / 618 1472 / 1472 Microbiology Past 72 Hours 01/11/18 13:10 Respiratory Panel (PCR) - Final Mucosa - Nose Laboratory Tests Past 24 Hrs 01/11/18 01/11/18 01/12/18 04:00 17:32 05:55 WBC 8.9 RBC 4.16 L Hgb 12.2 Hct 38.5 MCV 92.5 MCH 29.3 MCHC 31.7 L RDW 14.3 RDW Differential 48.7 H Plt Count 283 MPV 9.1 Immature Gran % (Auto) 0.100 Neut % (Auto) 61.1 Lymph % (Auto) 30.0 [place] % (Auto) 7.7 Eos % (Auto) 1.0 Baso % (Auto) 0.1 Absolute Neuts (auto) 5.4 Absolute Lymphs (auto) 2.66 Total Counted Not Reportable Troponin I < 0.015 Urine Color Yellow Urine Clarity Sl. Cloudy Urine pH 6.0 Ur Specific [place] 1.015 Urine Protein Negative Urine Glucose (UA) Normal Urine Ketones Negative Urine Occult Blood 10 H Urine Nitrite Positive H Urine Bilirubin Negative Urine Urobilinogen Normal Ur Leukocyte Esterase 500 H Urine RBC 0-5 SEEN Urine WBC 10-25 SEEN Ur Squamous Epith Cells 0-5 SEEN Urine Bacteria 1+ Urine Mucus 0 SEEN Discharge Activity: Return to Normal Activity Weight Bearing Status: Full weight bearing Call your doctor if you observe: Fever of 101 or Higher, Shortness of breath, Dizziness, Fainting spells, Chest pain, Increased palpitations (irregular heartbeat), Uncontrolled pain Home Medications: Medications to take at Discharge L.acidoph,Paracasei, B.lactis [Probiotic] 1 each PO QHS 01/11/18 Multivitamin [Multiple Vitamins] 1 each PO DAILY 01/11/18 Primary Care Physician: Kannan Allen MD [Primary Care Provider] - Please follow up with your Primary Care Physician in: 2 weeks. Disposition: Home Minutes spent on discharge:: 25 Patient Condition:: Stable Medical Necessity - Tobacco Use Smoking Status: Never smoker Meaningful Use Info Meaningful Use Diagnoses (Choose all that apply): None applicable Code Visit OBSV E&M: 45653 Observation care discharge
--- NOTE | 2018-01-12 14:24 | DS.PCM_ITS ---
Discharge Date and Diagnosis Date of Admission: 01/11/18 Date of Discharge: 01/12/18 - Primary Discharge Diagnosis #1 syncope, presumed to be vasovagal. #2 leukocytosis, reactive, resolved. #3 fall, no evidence of significant trauma. Hospital Course and Treatment Imaging Results: Clinical Impression(s) from Imaging Studies Brain CT 01/11/18 08:33 IMPRESSION: Normal unenhanced CT scan of the brain. Electronically Signed: Jeffrey Roman MD at 9:49 EST Tel [phone], Service support , Cervical Spine CT 01/11/18 08:35 IMPRESSION: Multilevel degenerative changes, as described above. Electronically Signed: Jeffrey Roman MD at 9:51 EST Tel [phone], Service support , Chest X-Ray 01/11/18 09:16 IMPRESSION: No acute abnormality is present. Electronically Signed: Jeffrey Roman MD at 9:58 EST Tel [phone], Service support , Brain MRI 01/11/18 12:41 IMPRESSION: Mild atrophy and periventricular white matter ischemic changes. No evidence for acute infarct. Electronically Signed: Faizan Joyce MD at 17:30 EST , Service support , Operations: None Procedures: 2-D Echocardiogram, EKG Summary of Care Provided: Patient seen and examined on the day of discharge and appeared to be stable to be discharged home. She has normal complaints, no syncopal episodes overnight. No more dizziness or lightheadedness. Numbness and tingling of both hands improved. Her vital signs are stable. The patient is a 72 year old F admitted because of syncope for evaluation. The syncopal event attributed to possible vasovagal syncope secondary to dehydration. Her EKG revealed normal sinus rhythm without evidence of acute ischemic changes or cardiac arrhythmias. CT scan brain showed no acute findings. Because patient had a fall after syncope, CT scan cervical spine done for neck pain and revealed mild degenerative changes without evidence of acute fractures or dislocations. Patient complains of symmetrical bilateral hand tingling which improved. She has no other focal symptoms. Her routine blood work was unremarkable. Vital signs were stable. Her orthostatic vitals were normal as well. Because of the tingling and numbness of both hands only, MRI brain done and showed no evidence of acute infarction or hemorrhage. 2D echocardiogram revealed normal ejection fraction of 65%, no significant valvular heart disease. Carotid Doppler revealed minimal plaque in the proximal right and left internal carotid arteries with less than 50% stenosis with normal bilateral external carotids and patent vertebral arteries bilaterally. Patient was given IV fluids. On admission, she did have leukocytosis which is reactive to acute illness and syncope. With IV fluids, she has no more dizziness or lightheadedness. Her vital signs stabilized. Acute stroke ruled out. Cardiac enzymes were negative x3. Patient discharged home in a stable medical condition, discharged on no medication at home, recommended follow-up with PCP in 2 week. - Physical Exam General: Alert, Oriented x3, Cooperative, No apparent distress HEENT: Atraumatic, PERRLA, EOMI, Normocephalic Oral: Moist Mucosa, No Gingival or Mucosal Lesions/ Ulcerations Neck: Supple, No JVD, Negative Carotid Bruits, Trachea Midline, Thyroid Normal Size and Texture Lungs: Clear to auscultation, Normal air movement, No rhonchi, No wheeze, No rales Cardiovascular: Regular rate, Regular Rhythm, Normal S1, Normal S2, No murmurs, No Ectopic Activity Abdomen: Bowel Sounds Present, Soft, Non Tender, Non-Distended, No Hepato- splenomegaly Extremities: No clubbing, No cyanosis, No edema Skin: No rashes, No breakdown Lymphatic: No Cervical, Supraclavicular, or Inguinal Adenopathy Neurological: Cranial nerves II-XII grossly intact, Motor Exam 5/5 strength throughout Psych/Mental Status: Normal Affect, Appropriate Vital Signs Temp Pulse Resp BP Pulse Ox 97.8 F 73 18 133/59 H 96 01/12/18 11:40 01/12/18 11:40 01/12/18 11:40 01/12/18 11:40 01/12/18 11:40 Oxygen Delivery Method Room Air Weight: 185 lb Body Mass Index (BMI) 31.7 Intake and Output for Last 24 Hours 01/10/18 01/11/18 01/12/18 23:59 23:59 23:59 Intake Total 618 / 618 1672 / 1672 Output Total 200 / 200 Balance 618 / 618 1472 / 1472 Microbiology Past 72 Hours 01/11/18 13:10 Respiratory Panel (PCR) - Final Mucosa - Nose Laboratory Tests Past 24 Hrs 01/11/18 01/11/18 01/12/18 04:00 17:32 05:55 WBC 8.9 RBC 4.16 L Hgb 12.2 Hct 38.5 MCV 92.5 MCH 29.3 MCHC 31.7 L RDW 14.3 RDW Differential 48.7 H Plt Count 283 MPV 9.1 Immature Gran % (Auto) 0.100 Neut % (Auto) 61.1 Lymph % (Auto) 30.0 [place] % (Auto) 7.7 Eos % (Auto) 1.0 Baso % (Auto) 0.1 Absolute Neuts (auto) 5.4 Absolute Lymphs (auto) 2.66 Total Counted Not Reportable Troponin I < 0.015 Urine Color Yellow Urine Clarity Sl. Cloudy Urine pH 6.0 Ur Specific [place] 1.015 Urine Protein Negative Urine Glucose (UA) Normal Urine Ketones Negative Urine Occult Blood 10 H Urine Nitrite Positive H Urine Bilirubin Negative Urine Urobilinogen Normal Ur Leukocyte Esterase 500 H Urine RBC 0-5 SEEN Urine WBC 10-25 SEEN Ur Squamous Epith Cells 0-5 SEEN Urine Bacteria 1+ Urine Mucus 0 SEEN Discharge Activity: Return to Normal Activity Weight Bearing Status: Full weight bearing Call your doctor if you observe: Fever of 101 or Higher, Shortness of breath, Dizziness, Fainting spells, Chest pain, Increased palpitations (irregular heartbeat), Uncontrolled pain Home Medications: Medications to take at Discharge L.acidoph,Paracasei, B.lactis [Probiotic] 1 each PO QHS 01/11/18 Multivitamin [Multiple Vitamins] 1 each PO DAILY 01/11/18 Primary Care Physician: Kannan Allen MD [Primary Care Provider] - Please follow up with your Primary Care Physician in: 2 weeks. Disposition: Home Minutes spent on discharge:: 25 Patient Condition:: Stable Medical Necessity - Tobacco Use Smoking Status: Never smoker Meaningful Use Info Meaningful Use Diagnoses (Choose all that apply): None applicable Code Visit OBSV E&M: 32766 Observation care discharge
--- OUTSIDE RECORDS SUMMARY | 2018-02-22 22:20 | XMS RPT_ITS ---
:1945 Author Organization OHIP Care Team Providers Name Role Phone Ariel Brown Attending Unavailable Ashelfah, Ghasem Referring Unavailable Shakeel Webster Primary Care Unavailable Ashelfah, Ghasem Admitting Unavailable Ashelfah, Ghasem Attending Unavailable Prashant Salinas Attending Unavailable Ashelfah, Ghasem Referring Unavailable Ashelfah, Ghasem Admitting Unavailable Linkelfah, Ghasem Attending Unavailable Shakeel Webster Primary Care Unavailable Ashelfah, Ghasem Consulting Unavailable Ashelfah, Ghasem Admitting Unavailable Balwinderah, Ghasem Attending Unavailable Shakeel Webster Primary Care Unavailable Aleisha, Ghasem Consulting Unavailable Shakeel Webster Attending Unavailable Shakeel Webster Referring Unavailable Shakeel Webster Primary Care Unavailable PROBLEMS PROBLEMS DATE TYPE CONDITION / CODE ATTENDING STATUS SOURCE 01/24/2018 Unknown R55 - Syncope and Prashant Salinas Active [place] collapse / Community R55(ICD-10) Hospital Repository 08/02/2017 Unknown 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, Community unspecified / Hospital M89.9(ICD-10) Repository PROCEDURES PROCEDURES No Procedure Records FoundRESULTS RESULTS 12 LEAD ELECTROCARDIOGRAM Observed: 01/14/2018 Status: F Source: [facility] 2:24 PM [facility] REPOSITORY [facility] Cardiovascular Services [address] [place] [address] 12 Lead EKG 01/11/18 0818 MR#: [id number] Acct: [id number] Name: MARILUZ DREW Rep #: [id number] : 1945 72 From: Jose L Rivas MD Attending Dr: Alex Moraes Status: DIS CRISTOFER Ordering Dr: Raúl Turner DO Date: 01/11/18 Location: [facility] Sex: F C Admitted: 01/11/18 Test Reason : FALL Blood Pressure : / mmHG Vent. 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-2001) Abnormal ECG Confirmed by JOSE L RIVAS MD ([id number]), news copy editor TRISTAN BROOKS ([id number]) on 01/14/2018 2:24:00 PM Referred By: DAVID Confirmed By:JOSE L RIVAS MD 01/14/18 1424 Date Jose L Rivas MD CC: Alex Moraes; Shakeel Webster MD; Raúl Turner DO Signed DISCHARGE SUMMARY Observed: 01/12/2018 Status: F Source: [facility] 2:26 PM [facility] REPOSITORY [facility] Medical Records Department [address] [place] [address] Discharge Summary 01/12/18 1419 MR#: [id number] Acct: [id number] Name: MARILUZ DREW Rep #: [id number] : 1945 72 From: Alex Moraes MD PCP: Shakeel Webster MD Status: DIS CRISTOFER Y [id number] Dis[facility] Date and Diagnosis Date of Admission: 01/11/18 Date of Discharge: 01/12/18 - Primary Discharge Diagnosis #1 syncope, presumed to be vasovagal. #2 leukocytosis, reactive, resolved. #3 fall, no evidence of significant trauma. Hospital Course and Treatment Imaging Results: Clinical Impression(s) from Imaging Studies Brain CT 01/11/18 08:33 IMPRESSION: Normal unenhanced CT scan of the brain. Electronically Signed: Jeffrey Roman MD at 9:49 EST Tel [phone], Service support , Cervical Spine CT 01/11/18 08:35 IMPRESSION: Multilevel degenerative changes, as described above. Electronically Signed: Jeffrey Roman MD at 9:51 EST Tel [phone], Service support , Chest X-Ray 01/11/18 09:16 IMPRESSION: No acute abnormality is present. Electronically Signed: Jeffrey Roman MD at 9:58 EST Tel [phone], Service support , Brain MRI 01/11/18 12:41 IMPRESSION: Mild atrophy and periventricular white matter ischemic changes. No evidence for acute infarct. Electronically Signed: Faizan Joyce MD at 17:30 EST , Service support , Operations: None Procedures: 2-D Echocardiogram, EKG Summary of Care Provided: Patient seen and examined on the day of discharge and appeared to be stable to be discharged home. She has normal complaints, no syncopal episodes overnight. No more dizziness or lightheadedness. Numbness and tingling of both hands improved. Her vital signs are stable. The patient is a 72 year old F admitted because of syncope for evaluation. The syncopal event attributed to possible vasovagal syncope secondary to dehydration. Her EKG revealed normal sinus rhythm without evidence of acute ischemic changes or cardiac arrhythmias. CT scan brain showed no acute findings. Because patient had a fall after syncope, CT scan cervical spine done for neck pain and revealed mild degenerative changes without evidence of acute fractures or dislocations. Patient complains of symmetrical bilateral hand tingling which improved. She has no other focal symptoms. Her routine blood work was unremarkable. Vital signs were stable. Her orthostatic vitals were normal as well. Because of the tingling and numbness of both hands only, MRI brain done and showed no evidence of acute infarction or hemorrhage. 2D echocardiogram revealed normal ejection fraction of 65%, no significant valvular heart disease. Carotid Doppler revealed minimal plaque in the proximal right and left internal carotid arteries with less than 50% stenosis with normal bilateral external carotids and patent vertebral arteries bilaterally. Patient was given IV fluids. On admission, she did have leukocytosis which is reactive to acute illness and syncope. With IV fluids, she has no more dizziness or lightheadedness. Her vital signs stabilized. Acute stroke ruled out. Cardiac enzymes were negative x3. Patient discharged home in a stable medical condition, discharged on no medication at home, recommended follow-up with PCP in 2 week. - Physical Exam General: Alert, Oriented x3, Cooperative, No apparent distress HEENT: Atraumatic, PERRLA, EOMI, Normocephalic Oral: Moist Mucosa, No Gingival or Mucosal Lesions/ Ulcerations Neck: Supple, No JVD, Negative Carotid Bruits, Trachea Midline, Thyroid Normal Size and Texture Lungs: Clear to auscultation, Normal air movement, No rhonchi, No wheeze, No rales Cardiovascular: Regular rate, Regular Rhythm, Normal S1, Normal S2, No murmurs, No Ectopic Activity Abdomen: Bowel Sounds Present, Soft, Non Tender, Non-Distended, No Hepato-splenomegaly Extremities: No clubbing, No cyanosis, No edema Skin: No rashes, No breakdown Lymphatic: No Cervical, Supraclavicular, or Inguinal Adenopathy Neurological: Cranial nerves II-XII grossly intact, Motor Exam 5/5 strength throughout Psych/Mental Status: Normal Affect, Appropriate Vital Signs Temp Pulse Resp BP Pulse Ox 97.8 F 73 18 133/59 H 96 01/12/18 11:40 01/12/18 11:40 01/12/18 11:40 01/12/18 11:40 01/12/18 11:40 Oxygen Delivery Method Room Air Weight: 185 lb Body Mass Index (BMI) 31.7 Intake and Output for Last 24 Hours Intake Total 618 / 618 1672 / 1672 Output Total 200 / 200 Balance 618 / 618 1472 / 1472 Microbiology Past 72 Hours 01/11/18 13:10 Respiratory Panel (PCR) - Final Mucosa - Nose Laboratory Tests Past 24 Hrs WBC 8.9 RBC 4.16 L Hgb 12.2 Hct 38.5 MCV 92.5 MCH 29.3 MCHC 31.7 L RDW 14.3 RDW Differential 48.7 H Discharge Activity: Return to Normal Activity Weight Bearing Status: Full weight bearing Call your doctor if you observe: Fever of 101 or Higher, Shortness of breath, Dizziness, Fainting spells, Chest pain, Increased palpitations (irregular heartbeat), Uncontrolled pain Home Medications: Medications to take at Discharge L.acidoph,Paracasei, B.lactis [Probiotic] 1 each PO QHS 01/11/18 Multivitamin [Multiple Vitamins] 1 each PO DAILY 01/11/18 Primary Care Physician: Shakeel Webster MD [Primary Care Provider] - Please follow up with your Primary Care Physician in: 2 weeks. Disposition: Home Minutes spent on discharge:: 25 Patient Condition:: Stable Medical Necessity - Tobacco Use Smoking Status: Never smoker Meaningful Use Info Meaningful Use Diagnoses (Choose all that apply): None applicable Code Visit OBSV E AND M: 85596 Observation care discharge 01/12/186 <Electronically signed by Alex Moraes MD> Date Alex Moraes MD Cosigner Signature (if applicable): Date CC: Alex Moraes; Shakeel Webster MD Signed DISCHARGE INSTRUCTION Observed: 01/12/2018 Status: F Source: [facility] 8:29 AM [facility] REPOSITORY [facility] Medical Records Department [address] [place] [address] Instructions for Home/Discharge Instructions 01/12/18 0828 MR#: [id number] Acct: [id number] Name: MARILUZ DREW Rep #: [id number] : 1945 72 From: Alex Moraes MD PCP: Shakeel Webster MD Status: ADM CRISTOFER - Discharge Diagnoses Current Active Problems: Current Active and Chronic Problems Syncope (Acute) You will use the following diet at home:: Regular Your food should be the consistency of: Regular Discharge Activity: Return to Normal Activity Weight Bearing Status: Full weight bearing Call your doctor if you observe: Fever of 101 or Higher, Shortness of breath, Dizziness, Fainting spells, Chest pain, Increased palpitations (irregular heartbeat), Uncontrolled pain Allergies/Adverse Reactions: Allergies Sulfa (Sulfonamide Antibiotics) Allergy (Verified 01/11/18 08:20) Rash Medications to take at Discharge L.acidoph,Paracasei, B.lactis [Probiotic] 1 each PO QHS 01/11/18 Multivitamin [Multiple Vitamins] 1 each PO DAILY 01/11/18 Primary Care Physician: Shakeel Webster MD [Primary Care Provider] - Please follow up with your Primary Care Physician in: 2 weeks. Test Results: Test results from this visit will be discussed in further detail at your follow-up appointment, if applicable. 01/12/18828 <Electronically signed by Alex Moraes MD> Date lAex Moraes MD CC: Shakeel Webster MD CBC W/DIFF, AUTOMATED Collected: 01/12/2018 Status: F Source: [facility] 5:55 AM [facility] REPOSITORY TYPE CODE TESTS RESULT OUT OF RANGE REFERENCE UNITS LAB L100.1000 4.4-11.0 K/mm3 Normal WBC 8.9 LAB L100.1200 4.2-5.4 M/mm3 Low RBC 4.16 LAB L100.1300 12.0-15.0 g/dl Normal HGB 12.2 LAB L100.1400 37-47 % Normal HCT 38.5 LAB L100.1500 81-99 fL Normal MCV 92.5 LAB L100.1600 27.0-32.0 pg Normal MCH 29.3 LAB L100.1700 32-36 g/gl Low MCHC 31.7 LAB L100.1810 11.6-14.6 % Normal RDW CV 14.3 LAB L100.1820 35.1-43.9 fl High RDW SD 48.7 LAB L100.1900 150-450 K/mm3 Normal PLT 283 LAB L100.2000 6.2-12.0 fl Normal MPV 9.1 LAB L100.2100 47-70 % Normal NEUT% 61.1 LAB L100.2200 19-41 % Normal LY% 30.0 LAB L100.2300 0-10 % Normal MONO% 7.7 LAB L100.2400 0-5 % Normal EO% 1.0 LAB L100.2500 0-1 % Normal BASO% 0.1 LAB L100.2550 0.0-0.9 % Normal IM GRAN % 0.100 Result Comment: IG% - Immature Granulocytes (promyelocytes, myelocytes and metamyelocytes) > 1% indicates that a LEFT SHIFT is Present. LAB L100.2620 2.0-7.7 X10 3/uL Normal Absolute Neut 5.4 LAB L100.2720 0.83-4.51 X10 3/ul Normal Absolute Lymph 2.66 Performed By: #### L100.0100 #### [facility] [address] [place], [place], [address] TROPONIN-I Collected: 01/11/2018 Status: F Source: [facility] 5:32 PM [facility] REPOSITORY Order Comment: 'TROP' Serial specimen #1, #2 or #3: 3 TYPE CODE TESTS RESULT OUT OF RANGE REFERENCE UNITS LAB L501.4010 <0.045 ng/mL Normal < 0.015 TROPONIN-I Result Comment: TROPONIN-I EXPECTED VALUES <0.045 Negative 0.045 - 0.590 Consistent with Cardiac Damage > OR = 0.600 Critical Value Not every elevated troponin is indicative of IA. These values should be used with clinical judgement in examining the patient's clinical picture for diagnosis. To establish a diagnosis of IA versus myocardial injury, there must be a demonstrated rise and/or fall in the troponin values, in addition to ischemic symptoms, EKG changes, new regional wall motion abnormality, and/or angiographical evidence. PLEASE NOTE: REFERENCE RANGES EDITED 17 Performed By: #### L501.4010 #### [facility] [address] [place], [address] CAROTID DUPLEX Observed: 01/11/2018 Status: F Source: [facility] ULTRASOUND 4:24 PM [facility] REPOSITORY [facility] Cardiovascular Services [address] [place] [address] Carotid Duplex Ultrasound 01/11/18 1300 MR#: [id number] Acct: [id number] Name: MARILUZ DREW Rep #: [id number] : 1945 72 From: Prashant Salinas MD Attending Dr: Alex Moraes Status: ADM CRISTOFER Ordering Dr: Alex Moraes MD Date: 01/11/18 Location: [facility] Sex: F C Admitted: 01/11/18 Reason For Study: syncope Rt. Velocities/BP Lt. Velocities/BP Prox CCA 115.0/24.6 cm/sec. Prox CCA 141.0/34.6 cm/sec. Mid CCA 109.0/22.9 cm/sec. Mid CCA 116.0/29.1 cm/sec. Dist CCA 92.0/25.2 cm/sec. Dist CCA 109.0/33.8 cm/sec. Prox ICA 73.3/25.2 cm/sec. Prox ICA 110.0/28.3 cm/sec. Mid ICA 140.0/47.1 cm/sec. Mid ICA 123.0/46.4 cm/sec. Dist ICA 78.0/24.6 cm/sec. Dist ICA 114.0/44.8 cm/sec. Rt. ICA/CCA = 140.0/109.0=1.3. Lt. ICA/CCA = 123.0/116.0=1.1. Prox ECA 123.0/12.3 cm/sec. Prox ECA 138.0/18.1 cm/sec. Rt. Vert. 63.9/17.6 cm/sec. Lt. Vert. 66.0/19.6 cm/sec. Right Extracranial There is intimal thickening but no significant atherosclerotic plaque noted in the right common carotid artery. There is heterogeneous, irregular atherosclerotic plaque noted in the right internal carotid artery. There is no significant atherosclerotic plaque noted in the right external carotid artery. Antegrade flow is noted in the right vertebral artery. Left Extracranial There is intimal thickening but no significant atherosclerotic plaque noted in the left common carotid artery. There is heterogeneous, smooth atherosclerotic plaque noted in the left internal carotid artery. There is no significant atherosclerotic plaque noted in the left external carotid artery. Antegrade flow is noted in the left vertebral artery. Procedure Carotid Duplex 18418. Exam performed portable in patient room. Interpretation Summary Minimal plague at the proximal right internal carotid with 50-69% stenosis, likely closer to 50% Minimal plague at the proximal left internal carotid with <50% stenosis, close to 50% Normal flow bilateral external carotids Patent and antegrade vertebrals bilaterally Ordering Physician: Alex Moraes Referring Physician: Shakeel Webster Performed By: Bernadette Leroy, JOSE, RVT 01/11/18 1623 Date Prashant Salinas MD CC: Alex Moraes; Shakeel Webster MD Date Dictated: 01/11/18 1300 Date Transcribed: 01/11/181622 Fox Farmer: Signed ECHOCARDIOGRAM COMPLETE Observed: 01/11/2018 Status: F Source: [facility] 4:12 PM [facility] REPOSITORY [facility] Cardiovascular Services [address] [place] [address] Echo Complete 01/11/18 1501 MR#: [id number] Acct: [id number] Name: MARILUZ DREW Rep #: [id number] : 1945 72 From: Ariel Brown MD Attending Dr: Alex Moraes Status: ADM CRISTOFER Ordering Dr: Alex Moraes MD Date: 01/11/18 Location: [facility] Sex: F C Admitted: 01/11/18 Reason For Study: SYNCOPE/NEAR SYNCOPE Procedure This was a 2D Doppler, Color Flow transthoracic echocardiogram. The study was technically difficult. Exam performed portable in patient room. Left Ventricle Normal LV size. Left ventricular systolic function is normal. The estimated ejection fraction is 65 %. No evidence for diastolic dysfunction. No regional wall motion abnormalities noted. Right Ventricle Normal RV size. Normal systolic function. Atria Normal left atrium. Normal right atrium. No doppler evidence for ASD. Mitral Valve There is no mitral annular calcification. The mitral valve chordae are thickened and/or calcified. Trivial mitral valve insufficiency. Tricuspid Valve Normal tricuspid valve. Trivial tricuspid valve insufficiency. Unable to estimate RV systolic pressure/pulmonary artery pressure due to technically difficult study. Aortic Valve The aortic valve is not well visualized. Mild focal aortic valve thickening. Pulmonic Valve The pulmonic valve is not well visualized. Great Vessels Normal aortic root. Pericardium/Pleural No pericardial effusion. MMode/2D Measurements AND Calculations LVIDd: 4.7 cm IVSd: 0.93 cm Ao root diam: 3.4 cm LVIDs: 2.2 cm LVPWd: 0.84 cm RVDd: 3.1 cm FS: 53.2 % LAV(MOD-bp): 29.8 ml LVAd ap4: 29.9 cm2 SV(MOD-sp4): 64.2 ml LAV(MOD-bp) Indexed: 15.3 ml/m2 EDV(MOD-sp4): 91.8 ml LAV(MOD-sp2): 35.0 ml EDV(sp4-el): 96.8 ml LAV(MOD-sp4): 25.8 ml LVAs ap4: 14.6 cm2 ESV(MOD-sp4): 27.5 ml ESV(sp4-el): 28.3 ml EF(MOD-sp4): 70.0 % EF(sp4-el): 70.8 % SV(sp4-el): 68.5 ml LA A4 area: 12.6 cm2 LA dimension(2D): 3.6 cm RA A4 area: 11.3 cm2 Time Measurements MV dec time: 0.25 sec Doppler Measurements AND Calculations MV E max ayo: 79.1 cm/sec Lat Peak E' Ayo: 10.9 cm/sec Med Peak E' Ayo: 7.4 cm/sec MV A max ayo: 104.8 cm/sec E/E' lat: 7.3 E/E' med: 10.6 MV E/A: 0.76 Ao V2 max: 142.5 cm/sec LV V1 max: 122.2 cm/sec PA V2 max: 107.6 cm/sec Ao max P.1 mmHg LV V1 max P.0 mmHg Interpretation Summary The study was technically difficult. Left ventricular systolic function is normal. The estimated ejection fraction is 65 %. The mitral valve chordae are thickened and/or calcified. Trivial mitral valve insufficiency. Trivial tricuspid valve insufficiency. Mild focal aortic valve thickening. Unable to estimate RV systolic pressure/pulmonary artery pressure due to technically difficult study. No evidence for diastolic dysfunction. Ordering Physician: Alex Moraes Referring Physician: SHAKEEL WEBSTER Performed By: Malika Ahn RDCS 01/11/18 1610 Date Ariel Brown MD CC: Alex Moraes; Shakeel Webster MD Date Dictated: 01/11/18 1501 Date Transcribed: 01/11/18 1610 Fox Farmer: Signed Observed: 01/11/2018 Status: F Source: [facility] RESPIRATORY PANEL 1:10 PM [facility] REPOSITORY Order Date: 01/11/18 Has pt arrived? Y RP PANEL ADENOVIRUS Not Detected HUMAN METAPHNEUMO Not Detected INFLUENZA A Not Detected INFLUENZA A (SUBTYPE H1) Not Detected INFLUENZA A (SUBTYPE H3) Not Detected INFLUENZA B Not Detected PARAINFLUENZA 1 Not Detected PARAINFLUENZA 2 Not Detected PARAINFLUENZA 3 Not Detected PARAINFLUENZA 4 Not Detected RHINOVIRUS Not Detected RSV A Not Detected RSV B Not Detected NAAT METHOD Testing was performed using nucleic acid amplification Performed By: #### M100.638 #### [facility] [address] [place], [address] HISTORY AND PHYSICAL Observed: 01/11/2018 Status: F Source: [facility] EXAM 12:47 PM [facility] REPOSITORY [facility] Medical Records Department [address] [place] [address] History and Physical 01/11/18 1233 MR#: [id number] Acct: [id number] Name: MARILUZ DREW Rep #: [id number] : 1945 72 From: Alex Moraes MD PCP: Shakeel Webster MD Status: ADM CRISTOFER Y Location: [address] Problem List (1) Syncope Status: Acute History of Present Illness Date of Admission: 01/11/18 Chief Complaint: Syncope. The patient is a 72 year old F with no significant past medical history presented to the emergency room because of syncopal event. This morning, she was standing in her bathroom, doing coloring for her, felt dizzy and lightheaded and she passed out. The patient mentioned that she was not aware and she lost her consciousness completely for about 5 minutes. When she woke up, she was still dizzy, nauseated but she woke up very quickly. Apart from dizziness and lightheadedness, she denied any other prodromal symptoms. She denied chest pain, palpitation or shortness of breath. She denies any confusion or headache after she woke up. No reported seizure activity. She denied aggravating or relieving factors. She mentioned that after she woke up, she had blurry vision on the right eye and she thinks that is because some of the hair dye came on her right eye and her vision improved after she washed her right eye. After she woke up, she complained of neck pain which is described as dull aching pain, not so severe, not radiating. Also, she complained of numbness and tingling of both hands, from the wrists down to the fingers and equal on both hands. She denied focal arm or leg weakness. She stated that long time ago, she was told that she had abnormal heart rhythm and nonspecific name given to that abnormal heart rhythm. She denied history of atrial fibrillation or other known cardiac arrhythmias. She mentioned that usually, she tends not to drink lots of water during the daytime because she does not get thirsty often. She denies fever or chills. She denied constipation or diarrhea. She denies urinary symptoms. She denies cough or sputum production. In the emergency department, her vital signs were stable. Her routine blood work was remarkable for mild leukocytosis, otherwise normal. Troponin was negative. EKG revealed normal sinus rhythm, normal NM interval, normal QRS, no evidence of acute ischemic changes or cardiac arrhythmias. Scan brain showed no acute findings. CT scan cervical spine showed mild degenerative changes, no acute fractures or dislocations. Chest x-ray showed no acute findings. She is being admitted for syncope for evaluation. Past Medical History Allergies Sulfa (Sulfonamide Antibiotics) Allergy (Verified 01/11/18 08:20) Rash Home Medications: Ambulatory Orders Medication Instructions Recorded L.acidoph,Paracasei, B.lactis 1 each PO QHS 01/11/18 [Probiotic] Multivitamin [Multiple Vitamins] 1 each PO DAILY 01/11/18 Surgical History: cholecystectomy, hysterectomy, - - Tubal ligation. 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 Review of Systems Constitutional: Reports: Weakness. Denies: Anorexia, Chills, Fever Eyes: Denies: Blurred vision, Double vision, Drainage, Redness HEENT: Denies: Difficulty Hearing, Ear Pain, Eye Pain, Nasal Congestion, Sore Throat Cardiovascular: Reports: Light Headedness, Syncope. Denies: Chest Pain, Chest Pressure, Edema, Heaviness, Palpitations Respiratory: Denies: Cough, Hemoptysis, Pleuritic Pain, Shortness of Breath, Sputum production, Wheezing Gastrointestinal: Reports: Nausea. Denies: Abdominal Pain, Constipation, Diarrhea, Vomiting Genitourinary: Denies: Dysuria, Frequency, Hematuria Musculoskeletal: Denies: Arm Pain, Back Pain, Foot Pain Skin: Denies: Dryness, Rash Neurological: Reports: Blurred vision. Denies: Balance problems, Change in Speech, Slurred speech, Confusion, Focal weakness, Headaches, Incoordination, Numbness, Tingling Psychiatric: Denies: Anxiety, Depression Endocrine: Denies: Change in Body Habitus, Polydipsia VTE Information - Inpt Only VTE Present on Admission: No VTE Mechan Device Prophylaxis: None VTE Pharm Prophylaxis ordered?: Yes Patient Problems: Active and Suspected Problems Syncope (Acute) - Physical Exam General: Alert, Oriented x3, Cooperative, No apparent distress HEENT: Atraumatic, PERRLA, EOMI, Normocephalic Oral: Moist Mucosa, No Gingival or Mucosal Lesions/ Ulcerations Neck: Supple, No JVD, Negative Carotid Bruits, Trachea Midline, Thyroid Normal Size and Texture Lungs: Clear to auscultation, No rhonchi, No wheeze, No rales, Diminished Cardiovascular: Regular rate, Regular Rhythm, Normal S1, Normal S2, No murmurs, PMI Normal Abdomen: Bowel Sounds Present, Soft, Non Tender, Non-Distended, No Hepato-splenomegaly Extremities: No clubbing, No cyanosis, No edema Skin: No rashes, No breakdown Lymphatic: No Cervical, Supraclavicular, or Inguinal Adenopathy Neurological: Cranial nerves II-XII grossly intact, Motor Exam 5/5 strength throughout Psych/Mental Status: Normal Affect, Appropriate, Alert and oriented to time, place, person, mood and affect Vital Signs Temp Pulse Resp BP Pulse Ox 97.8 F 71 10 L 145/71 H 99 01/11/18 08:17 01/11/18 10:00 01/11/18 10:00 01/11/18 10:00 01/11/18 10:00 Oxygen Delivery Method Room Air Weight: 197 lb 12.074 oz Body Mass Index (BMI) 33.9 Laboratory Tests Past 24 Hrs WBC 13.6 H RBC 4.60 Hgb 13.6 Hct 42.5 MCV 92.4 MCH 29.6 MCHC 32.0 RDW 14.2 RDW Differential 47.7 H Clinical Impression(s) from Imaging Studies Brain CT 01/11/18 08:33 IMPRESSION: Normal unenhanced CT scan of the brain. Electronically Signed: Jeffrey Roman MD at 9:49 EST Tel [phone], Service support , Cervical Spine CT 01/11/18 08:35 IMPRESSION: Multilevel degenerative changes, as described above. Electronically Signed: Jeffrey Roman MD at 9:51 EST Tel [phone], Service support , Chest X-Ray 01/11/18 09:16 IMPRESSION: No acute abnormality is present. Electronically Signed: Jeffrey Roman MD at 9:58 EST Tel [phone], Service support , Assessment/Plan All Active Problems Syncope (Acute) This is a 72 years old female patient presented to the emergency room because of syncope and she is being admitted for evaluation. #1 syncope: Unclear etiology at this time. Her vital signs are stable. EKG revealed normal sinus rhythm, no evidence of cardiac arrhythmias or acute ischemic changes. CT scan brain without acute findings. Patient complained of dizziness before she passed out and she mentioned that she does not drink enough fluids. At this time, she had an episode of blurry vision on the right eye which she attributed to hair dye came on her right eye as her vision improved after she washed her right eye. She has no focal deficit on physical exam. CT scan cervical spine showed no acute findings. She complains of bilateral equal numbness and tingling of both hands. Plan: Admit to PCU for observation, cardiac monitoring, serial cardiac enzymes, NIH stroke scale, MRI brain, 2D echocardiogram, bilateral carotid Doppler, IV fluids, orthostatic vitals, repeat orthostatic vitals tomorrow, repeat CBC tomorrow, PT OT evaluation and treatment. #2 leukocytosis: Mild, likely reactive secondary to acute stress and syncope. Patient denies any symptoms or signs of infection. She stated that there was acute at her house who was sick with flulike symptoms. Plan to do a respiratory panel for viruses, as needed Tylenol. Chest x-ray showed no acute findings. #3 DVT prophylaxis: Subcu Lovenox. This note was generated with [employer] dictation software. It may contain incorrect words, spelling, and punctuation that were not noted in checking the note before signing. Code Visit OBSV E AND M: [id number] Initial observation care L3 01/11/18 1247 <Electronically signed by Alex Moraes MD> Date Alex Moraes MD Cosigner Signature: Date (if applicable) CC: Alex Moraes; Shakeel Webster MD Signed BRAIN WITHOUT Observed: 01/11/2018 Status: F Source: [place] CONTRAST 12:42 PM [facility] REPOSITORY [facility] [place] [address] Brain without Contrast MR#: [id number] Acct: [id number] Name: MARILUZ DREW Rep #: [id number] : 1945 F 72 From: Faizan Joyce MD PCP: Shakeel Webster MD Status: ADM CRISTOFER Study: Brain without Contrast Date of Exam: 01/11/18 Exam# [id number] Ordering Dr: Alex Moraes MD STUDY: MRI BRAIN WITHOUT CONTRAST REASON FOR EXAM: Female, 72 years old. Syncope TECHNIQUE: Standardized multiplanar fat and water weighted pulse sequences were obtained. COMPARISON: CT of the brain January 11, 2018 FINDINGS: Mild atrophy and periventricular white matter ischemic changes without mass effect or restricted diffusion.. Normal bilateral basal ganglia. Normal thalami. There is no extra-axial fluid accumulation. Normal flow voids within the major intracranial circulation suggesting patency by spin echo criteria. Partial empty sella deformity. Normal, infundibular stalk, optic chiasm and hypothalamus. Normal tectal plate and pineal gland. Normal midbrain, brianne and medulla. Normal cerebellum. Normal basal cisterns. Normal bilateral temporal bones. Normal bilateral internal auditory canals. No demonstrated orbital abnormality, within the constraints of a routine brain study. Mild mucosal thickening of the ethmoid air cells. Normal calvarium and skull base. Normal visualized soft tissue structures. Normal visualized upper cervical spine. MRI/Brain without Contrast IMPRESSION: Mild atrophy and periventricular white matter ischemic changes. No evidence for acute infarct. Electronically Signed: Faizan Joyce MD at 17:30 EST , Service support , CC: Alex Webster MD Fox Farmer: Signed EMERGENCY DEPARTMENT Observed: 01/11/2018 Status: F Source: OCALA SUMMARY 11:30 AM [facility] REPOSITORY [facility] Medical Records Department [address] [place] [address] Emergency Department Summary 01/11/18 1126 MR#: [id number] Acct: [id number] Name: AMRILUZ DREW Rep #: [id number] : 1945 72 From: Raúl Turner DO PCP: Shakeel Webster MD Status: ADM CRISTOFER - ER Visit Summary Date of Service: 01/11/18 Chief Complaint: [Syncope] History of Present Illness: The patient is a 72 F [ presents to the emergency department with complaint of syncopal episode this morning. Patient woke up to color her hair around 6:30 AM. Patient then went to the kitchen and came back into the bathroom and noted that her arms were weak when she was trying to apply the product in her hair. Patient just recalls a generalized weakness that came over her and the next thing she knew she woke up on the bathroom floor. She was actually able to get up but noted that there was some blood on the carpet where she had fallen. Patient complaining of pain in her neck and she had some burning in both hands. She was able to stand and ambulate afterwards. Patient denies any chest or abdomen pain. She denies any tachycardia or palpitations.] Physical Examination: [HEENT-PERRLA, EOMI. Cranial nerves II through XII grossly intact. TMs clear. Mucous membranes moist. No adenopathy. Patient has diffuse C-spine tenderness on palpation. No bony step-offs noted. Patient had some superficial abrasions about the right forehead and right cheek. No significant bony tenderness on exam. Cardiovascular-regular rate and rhythm without murmur or ectopy Lungs-clear to auscultation, chest wall stable without crepitus or subcu emphysema Abdomen-normoactive bowel sounds, soft, nontender, no rebound or rigidity, no peritoneal signs. Neuro ogxz-aqmayd-mutf and heel rodriguez testing within normal limits, negative Romberg, negative . 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 Extremities-intact 4, normal range of motion, normal pulses, atraumatic] Test Results: [CT scan of the brain without contrast showed chronic changes. CT of the cervical spine showed chronic changes no fractures. 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 CBC with differential showed white count 13.6, hemoglobin 13.6, hematocrit 42, platelets 284. Chemistries unremarkable. Troponin was less than 0.015. Chest x-ray was unremarkable.] Emergency Department Course and Treatment: [] Treatment Plan: [Patient case was discussed with neurologist on-call as well as the hospitalist will evaluate patient for admission. Given the paresthesias in the hands would consider cervical cord compression in the differential as the etiology for her symptoms. She may need further workup such as possibly MRI to evaluate further.] Disposition: [Admit] Impression: [Syncope Cervical strain-rule out cord compression/contusion] This note was generated with [employer] dictation software. It may contain incorrect words, spelling, and punctuation that were not noted in review of the chart prior to signing ED Disposition - Plan for ED Patient: Chief Complaint: Syncope What to do if you have Problems For any increased pain, shortness of breath, bleeding, nausea or vomiting, chest pain, or any unexpected problems, contact your Primary Care Provider. Call [facility] ([phone]) or report to the closest Emergency Room. Call 911 if necessary. 01/11/18 1130 <Electronically signed by Raúl Turner DO> Date Raúl Turner DO Cosigner Signature (If Indicated): Date CC: Shakeel Webster MD CBC W/DIFF, AUTOMATED Collected: 01/11/2018 Status: F Source: DACIA 10:05 AM [facility] REPOSITORY TYPE CODE TESTS RESULT OUT OF RANGE REFERENCE UNITS LAB L100.1000 4.4-11.0 K/mm3 High WBC 13.6 LAB L100.1200 4.2-5.4 M/mm3 Normal RBC 4.60 LAB L100.1300 12.0-15.0 g/dl Normal HGB 13.6 LAB L100.1400 37-47 % Normal HCT 42.5 LAB L100.1500 81-99 fL Normal MCV 92.4 LAB L100.1600 27.0-32.0 pg Normal MCH 29.6 LAB L100.1700 32-36 g/gl Normal MCHC 32.0 LAB L100.1810 11.6-14.6 % Normal RDW CV 14.2 LAB L100.1820 35.1-43.9 fl High RDW SD 47.7 LAB L100.1900 150-450 K/mm3 Normal PLT 284 LAB L100.2000 6.2-12.0 fl Normal MPV 9.2 LAB L100.2100 47-70 % High NEUT% 85.2 LAB L100.2200 19-41 % Low LY% 8.4 LAB L100.2300 0-10 % Normal MONO% 6.0 LAB L100.2400 0-5 % Normal EO% 0.1 LAB L100.2500 0-1 % Normal BASO% 0.2 LAB L100.2550 0.0-0.9 % Normal IM GRAN % 0.100 Result Comment: IG% - Immature Granulocytes (promyelocytes, myelocytes and metamyelocytes) > 1% indicates that a LEFT SHIFT is Present. LAB L100.2620 2.0-7.7 X10 3/uL High Absolute Neut 11.6 LAB L100.2720 0.83-4.51 X10 3/ul Normal Absolute Lymph 1.15 Performed By: #### L100.0100 #### [facility] [address] [place] [address]. [place], [place], [address] BASIC METABOLIC Collected: 01/11/2018 Status: F Source: [place] PROFILE (BMP) 10:05 AM [facility] REPOSITORY TYPE CODE TESTS RESULT OUT OF RANGE REFERENCE UNITS LAB L501.0100 74-106 mg/dL High GLU 115 Result Comment: Fasting Glucose result from 100 to 125 mg/dL suggests IMPAIRED HOMEOSTASIS per A.D.A. criteria. Please note revised GLUCOSE reference range effective 2017. LAB L501.1000 7-18 mg/dL Normal BUN 10 LAB L501.1100 0.55-1.02 mg/dL Normal CREAT,SERUM 0.73 Result Comment: The validity of the calculated GFR AND GFRAA in patients over 70 years has not been determined. Clinical correlation is essential. LAB L501.1110 >60 mL/min Normal EST GFR 83 Result Comment: Non- GFR Calc LAB L501.1115 >60 mL/min Normal EST GFR - AA 101 Result Comment: GFR Calc LAB L501.1255 ml/min Normal Estimated CRCL 44.56 LAB L501.1300 10-20 RATIO Normal BUN/CRE 13.6 LAB L501.2200 8.5-10 mg/dL Normal .1 CA 9.0 LAB L501.5300 136-14 mmol/L Normal 5 NA 144 LAB L501.5600 3.5-5. mmol/L Normal 1 K 4.0 LAB L501.5900 98-107 mmol/L High CL 109 LAB L501.6100 21.0-3 mmol/L Normal 2.0 CO2 27.0 LAB L501.6200 5-15 Normal GAP 8 Performed By: #### L500.2500, L501.4010 #### [facility] [address] [facility]. [place], [place], [address] TROPONIN-I Collected: 01/11/2018 Status: F Source: DACIA 10:05 AM [facility] REPOSITORY TYPE CODE TESTS RESULT OUT OF RANGE REFERENCE UNITS LAB L501.4010 <0.045 ng/mL Normal < 0.015 TROPONIN-I Result Comment: TROPONIN-I EXPECTED VALUES <0.045 Negative 0.045 - 0.590 Consistent with Cardiac Damage > OR = 0.600 Critical Value Not every elevated troponin is indicative of IA. These values should be used with clinical judgement in examining the patient's clinical picture for diagnosis. To establish a diagnosis of IA versus myocardial injury, there must be a demonstrated rise and/or fall in the troponin values, in addition to ischemic symptoms, EKG changes, new regional wall motion abnormality, and/or angiographical evidence. PLEASE NOTE: REFERENCE RANGES EDITED 17 Performed By: #### L500.2500, L501.4010 #### [facility] [address] [place], [place], [address] BRAIN/HEAD WITHOUT Observed: 01/11/2018 Status: F Source: [place] CONTRAST 8:36 AM [facility] REPOSITORY [facility] Imaging Services [address] [place] [address] Brain/Head without Contrast MR#: [id number] Acct: [id number] Name: MARILUZ DREW Rep #: [id number] : 1945 F 72 From: Jeffrey Roman MD PCP: Shakeel Webster MD Status: REG ER Study: Brain/Head without Contrast Date of Exam: 01/11/18 Exam# [id number] Ordering Dr: Raúl Turner DO STUDY: CT BRAIN WITHOUT CONTRAST REASON FOR EXAM: Female, 72 years old. Fall and facial abrasions due to a syncopal episode. RADIATION DOSAGE (If Supplied By Facility): CTDIvol = ( 44.99 ) mGy, DLP = ( 812.98 ) mGycm TECHNIQUE: Transaxial CT imaging of the brain was performed without administration of intravenous contrast material. Individualized dose optimization techniques were used for this CT. COMPARISON: None. FINDINGS: Normal soft tissue structures. There is hyperostosis frontalis internus. Normal size ventricles and extra-axial spaces for the patient's age. Normal white matter tracts of the cerebral hemispheres. Normal basal ganglia and thalami. Normal brainstem. Normal cerebellum. There is no intracranial hemorrhage. There are no findings of an acute ischemic infarction. Atherosclerotic calcification of the vertebral arteries and cavernous portions of the internal carotid arteries bilaterally. Normal visualized paranasal sinuses. CT/Brain/Head without Contrast IMPRESSION: Normal unenhanced CT scan of the brain. Electronically Signed: Jeffrey Roman MD at 9:49 EST Tel [phone], Service support , CC: Shakeel Webster MD; Raúl Turner DO Fox Farmer: Signed SPINE CERVICAL Observed: 01/11/2018 Status: F Source: DACIA WITHOUT CONTRAS 8:36 AM [facility] REPOSITORY [facility] Imaging Services [address] [place] [address] Spine Cervical without Contras MR#: [id number] Acct: [id number] Name: MARILUZ DREW Rep #: [id number] : 1945 F 72 From: Jeffrey Roman MD PCP: Shakeel Webster MD Status: REG ER Study: Spine Cervical without Contras Date of Exam: 01/11/18 Exam# [id number] Ordering Dr: Raúl Turner DO STUDY: CT CERVICAL SPINE WITHOUT CONTRAST REASON FOR EXAM: Female, 72 years old. Fall and facial abrasions secondary to a syncopal episode. RADIATION DOSAGE (If Supplied By Facility): CTDIvol = ( 22.22 ) mGy, DLP = ( 461.97 ) mGycm TECHNIQUE: High resolution transaxial imaging was performed without contrast material. Sagittal and coronal images were reconstructed. Individualized dose optimization techniques were used for this CT. COMPARISON: None FINDINGS: Normal craniovertebral junction. There are degenerative changes of the anterior atlantoaxial articulation. Normal odontoid process. There is straightening of the normal cervical lordosis. Multilevel spondylosis. C2-3: Normal endplates. Normal disc height and morphology. Normal central canal and intervertebral neuroforamina. C3-4: Normal endplates. Normal disc height and morphology. Normal central canal and intervertebral neuroforamina. C4-5: Anterior spondylosis. The disc space height is well maintained. C5-6: Minimal retrolisthesis of C5 on C6. Anterior spondylosis. Moderate degree of disc space narrowing. Uncovertebral arthrosis. Moderate degree of left neural foraminal stenosis. Subchondral sclerosis worse on the left side. C6-7: Minimal retrolisthesis of C6 on C7. Spondylosis. Uncovertebral arthrosis and a mild degree of facet joint osteoarthritis. C7-T1: Normal endplates. Normal disc height and morphology. Normal central canal and intervertebral neuroforamina. Normal visualized soft tissue structures. CT/Spine Cervical without Contras IMPRESSION: Multilevel degenerative changes, as described above. Electronically Signed: Jeffrey Roman MD at 9:51 EST Tel [phone], Service support , CC: Shakeel Webster MD; Raúl Turner DO Fox Farmer: Signed CHEST 1 VIEW Observed: 01/11/2018 Status: F Source: OCALA (PORTABLE) 8:36 AM [facility] REPOSITORY [facility] Imaging Services [address] [place] [address] Chest 1 View (Portable) MR#: [id number] Acct: [id number] Name: MARILUZ DREW Rep #: [id number] : 1945 F 72 From: Jeffrey Roman MD PCP: Shakeel Webster MD Status: REG ER Study: Chest 1 View (Portable) Date of Exam: 01/11/18 Exam# [id number] Ordering Dr: Raúl Turner DO STUDY: X-RAY CHEST REASON FOR EXAM: Female, 72 years old. Syncopal episode. TECHNIQUE: Single AP portable view of the chest. COMPARISON: Comparison is made with prior study dated July 22, 2012. FINDINGS: EKG electrodes are seen. The lungs are clear and expanded. There is no demonstrated pleural abnormality. Normal size heart. Normal mediastinum and dorota. Normal visualized pulmonary arteries. There is atherosclerotic tortuosity of the aortic arch and descending thoracic aorta. Normal visualized thoracic spine. Normal visualized ribs, clavicles, and shoulders. There is no demonstrated abnormality of the visualized soft tissue structures of the upper abdomen. RAD/Chest 1 View (Portable) IMPRESSION: No acute abnormality is present. Electronically Signed: Jeffrey Roman MD at 9:58 EST Tel [phone], Service support , CC: Shakeel Webster MD; Raúl Truner DO Fox Farmer: Signed URINALYSIS, COMPLETE Collected: 01/11/2018 Status: F Source: DACIA 4:00 AM [facility] REPOSITORY Order Comment: How was Urine Obtained? CLEAN CATCH TYPE CODE TESTS RESULT OUT OF RANGE REFERENCE UNITS LAB L400.3000 Yellow COLOR Normal Yellow LAB L400.3050 Clear Normal CLARITY Sl. Cloudy LAB L400.3200 Normal mg/dl Normal GLUCOSE, UR Normal LAB L400.3300 Negative mg/dL Normal BILIRUBIN URINE Negative LAB L400.3400 Negative mg/dl Normal KETONE UR Negative LAB L400.3465 1.002-1.030 Normal SP.GR. DIPSTX 1.015 LAB L400.3550 5.0 - 8.0 pH UR Normal 6.0 LAB L400.3600 Negative mg/dl PROT Normal DIPSTX Negative LAB L400.3700 Normal mg/dl Normal UROBILI Normal LAB L400.3750 Negative High NITRITE UR Positive LAB L400.3780 Negative /ul High 10 OCCULT BLOOD-UR LAB L400.3800 Negative /ul High LEUK ESTERASE 500 LAB L400.4050 0-5 /hpf WBC Normal 10-25 SEEN LAB L400.4100 0-5 /hpf Normal RBC-UA 0-5 SEEN LAB L400.4150 5-10 /hpf SQUAM Normal EPI 0-5 SEEN LAB L400.4300 None Seen /hpf 1+ Normal BACTERIA LAB L400.4350 <or=2+ /hpf 0 Normal MUCUS, URINE SEEN Performed By: #### L400.0001 #### [facility] [address] [place], [address] SPINE THORACIC Observed: 08/02/2017 Status: F Source: DACIA (ROUTINE) 1:12 PM [facility] REPOSITORY [facility] Imaging Services [address] [place] [address] Spine Thoracic (Routine) MR#: [id number] Acct: [id number] Name: MARILUZ DREW Rep #: [id number] : 1945 F 72 From: Faizan Joyce MD PCP: Shakeel Webster MD Status: REG CLI Study: Spine Thoracic (Routine) Date of Exam: 08/02/17 Exam# [id number] Ordering Dr: Shakeel Webster MD STUDY: MRI THORACIC SPINE WITHOUT CONTRAST REASON FOR EXAM: Female, 72 years old. Follow-up bone lesion TECHNIQUE: Standardized fat and water weighted pulse sequences were obtained in the sagittal and axial planes. COMPARISON: January 20 2017 FINDINGS: Normal kyphosis of the thoracic spine. There is no substantial scoliosis. No evidence for acute fracture or subluxation. Tiny central disc protrusion at T7-8 without significant spinal stenosis or cord compression. Normal visualized thoracic cord. Normal conus medullaris that terminates at T12-L1 The lesion in the left T11 pedicle demonstrates slightly increased signal intensity on T1, T2 and STIR imaging sequences. This finding is stable since prior exam The soft tissue structures are unremarkable. MRI/Spine Thoracic (Routine) IMPRESSION: Tiny central disc protrusion at T7-T8 without spinal stenosis or cord compression. Stable appearance to T11 pedicle lesion likely benign Electronically Signed: Faizan Joyce MD at 21:27 EDT , Service support , CC: Shakeel Webster MD Fox Farmer: Signed ALLERGIES ALLERGIES DATE TYPE / CODE NAME / CODE REACTION SEVERITY SOURCE 01/11/2018 Drug Sulfa Rash Unknown [facility] Allergy/4160 (Sulfonamide Hospital 18558(SNOMED Antibiotics)/ Repository CT) [id number](RX NORM) ENCOUNTERS ENCOUNTERS ADMIT/DISCHARGE ACCOUNT ADMITTING ENCOUNTER LOCATION SOURCE NUMBER CLASS 01/11/2018 [id number] Ambulatory BMSBuilding:W [place] 2 [facility] Repository 01/11/2018/ [id number] [place], Ambulatory [place] 8 8 [facility] ing:PCURoom: Repository [id number]: 1 01/11/2018/ [id number] Ambulatory BMSBuilding:B [place] 8 8 MS.[facility] Repository 01/11/2018 [id number] [place], Ambulatory BMSBuilding:B [place] 3 [place] MS.[facility] Repository 01/11/2018 [id number] [facility], Ambulatory BMSBuilding:B [place] 7 [place] MS.[facility] Repository 08/02/2017 [id number] Ambulatory [place] 6 [facility] ing:MRI Repository PAYERS PAYERS ENCOUNTER GUARANTOR PAYER SUBSCRIBER SOURCE 01/11/2018 RICARDA Calhoun Primary [id number] Insurance:MEDICARE DONLEYDOB: [facility] [id number] Number: Repository [id number]: [phone] [id number] [phone] () Date:2018-01-11 01/11/2018 Secondary RICARDA Calhoun [place] Insurance:AULTCAREPol DONLEYDOB: [facility] icy Number: [id number] Hospital [id number] Repository Date:2754-46-01IU [address] [place] [id number]: 01/11/2018 Tertiary NOT GIVENUNK [place] Insurance:SELF PAY [facility] Number: Effective Repository Date:2018-01-11 01/11/2018 RICARDA Calhoun Primary MARILUZ [id number] Insurance:MEDICARE DONLEYDOB: [facility] [id number] Number: Repository [address]Bxt: 330 [id number] [phone] () Date:2018-01-11 01/11/2018 Secondary RICARDA Calhoun [place] Insurance:AULTCAREPol DONLEYDOB: [facility] icy Number: [id number] [facility] [id number] Repository Date:1876-98-16FE [address] [place] [phone]: 01/11/2018 Tertiary NOT GIVENUNK [place] Insurance:SELF PAY [facility] Number: Effective Repository Date:2018-01-11 01/11/2018 RICARDA Calhoun Primary MARILUZ [id number] Insurance:MEDICARE DONLEYDOB: Community DANAE PART A [facility] [id number] Number: Repository [id number]: [phone] [id number] [phone] () Date:2018-01-11 01/11/2018 Secondary RICARDA Calhoun [place] Insurance:AULTCAREPol DONLEYDOB: [facility] icy Number: [id number] Hospital [id number] Repository Date:6985-88-00RX [address] [place] [id number]: 01/11/2018 Tertiary NOT GIVENUNK [place] Insurance:SELF PAY [facility] Number: Effective Repository Date:2018-01-11 01/11/2018 RICARDA Calhoun Primary MARILUZ Pederson [id number] S Insurance:MEDICARE DONLEYDOB: [facility] PART A [facility] [id number] Number: Repository [address]Yxo: 330 [id number] [phone] () Date:2018-01-11 01/11/2018 Secondary RICARDA Calhoun [place] Insurance:AULTCAREPol DONLEYDOB: [facility] icy Number: [id number] [id number] Repository Date:9359-21-39JB [address] [place] [address]GC: 01/11/2018 Tertiary NOT GIVENUNK [place] Insurance:SELF PAY [facility] Number: Effective Repository Date:2018-01-11 01/11/2018 RICARDA F Primary MARILUZ Pederson [id number] S Insurance:MEDICARE DONLEYDOB: [facility] DANAE PART A [facility] [id number] Number: Repository [address]Zgk: 330 [id number] [phone] () Date:2018-01-11 01/11/2018 Secondary RICARDA Calhoun [place] Insurance:AULTCAREPol DONLEYDOB: [facility] icy Number: [id number] Hospital [id number] Repository Date:6435-85-07DI [address] [place] [phone]: 01/11/2018 Tertiary NOT GIVENUNK [place] Insurance:SELF PAY [facility] Effective Repository Date:2018-01-11 08/02/2017 RICARDA Calhoun Primary MARILUZ Pederson [id number] S Insurance:MEDICARE DONLEYDOB: Community DANAE PART A [facility] [id number] Number: Repository [address]Aai: [phone] [id number] [phone] () Date:2017-07-23 08/02/2017 Secondary RICARDA Pederson Insurance:AULTCAREPol DONLEYDOB: Community icy Number: [id number] Hospital [id number] Repository Date:5484-43-38YY GUTIERREZ [address] [place] [phone]: 08/02/2017 Tertiary NOT GIVENUNK [place] Insurance:SELF PAY [facility] Number: Effective Repository Date:2017-07-23
== END 2018-01-12 08:29 | disposition home or self-care (01) ==
LOC: ED 09:11 → PCU 11:24
PROVIDERS: Admitting Provider Hospitalist; Emergency Provider Emergency Medicine; Family Provider Family Medicine; PCP Family Medicine; Visit Provider Hospitalist
DX: R55 Syncope and collapse (principal); Z23 Encounter for immunization; D72.829 Elevated white blood cell count, unspecified; S16.1XXA Strain of muscle, fascia and tendon at neck level, initial encounter; W19.XXXA Unspecified fall, initial encounter; Y93.89 Activity, other specified; Y92.9 Unspecified place or not applicable
CPT/HCPCS: 36415; 70450; 70551; 71045; 72125; 80048; 81001; 84484; 85025; 87633; 93005; 93306; 93880; 96360; 96361; 99218; 99285; G0008; J7030; 90686; A4216; G0378; J2405

== ENCOUNTER → 2018-05-11 07:51 | Outpatient (CLI) | payer MEDICARE, OTHER, SELFPAY ==
[2018-01-11 20:58] VITALS: BMI 31.7
[2018-05-11 10:23] LABS: Cholesterol 270 mg/dL (200); High Density Lipoprotein 46 mg/dL; Triglycerides 159 mg/dL; Very Low Density Lipoprotein 32 mg/dL (5-40)
== END ==
PROVIDERS: Family Provider Family Medicine; PCP Family Medicine; Referring Provider Family Medicine; Visit Provider Family Medicine
DX: E78.00 Pure hypercholesterolemia, unspecified (principal)
CPT/HCPCS: 36415; 80061

== ENCOUNTER → 2018-07-27 | Outpatient (CLI) | payer MEDICARE, OTHER, SELFPAY ==
[2018-01-11 20:58] VITALS: BMI 31.7
[2018-07-27 09:39] LABS: AST(SGOT) 20 U/L (15-37); Cholesterol 167 mg/dL (200); High Density Lipoprotein 47 mg/dL; Triglycerides 123 mg/dL; Very Low Density Lipoprotein 25 mg/dL (5-40)
[2018-07-28 10:40] LABS: Creatinine, Serum 0.66 mg/dL (0.55-1.02); EST Glomerular Filtration Rate 94 mL/min (>60); Est Glom Filt Rate - Afr Amer 114 mL/min (>60)
== END | disposition home or self-care (01) ==
PROVIDERS: Family Provider Family Medicine; PCP Family Medicine; Referring Provider Family Medicine; Visit Provider Family Medicine
DX: E78.00 Pure hypercholesterolemia, unspecified (principal); K86.2 Cyst of pancreas
CPT/HCPCS: 36415; 80061; 82565; 84450

== ENCOUNTER → 2018-08-03 | Outpatient (CLI) | payer MEDICARE, OTHER, SELFPAY ==
[2018-01-11 20:58] VITALS: BMI 31.7
--- NOTE | 2018-08-03 18:26 | MRI_ITS ---
HISTORY: CYST ON PANCREAS, RECHECKsome mid abd pain EXAMINATION: MR Abdomen WO/W Contrast TECHNIQUE: Multiplanar and multisequence MR images of the abdomen were obtained. 15 series. 893 images. IV Contrast dosage and agent: 15 mL of Dotarem COMPARISON: MRI of the abdomen and pancreas from June 24, 2016, and another from June 26, 2015 FINDINGS: LOWER CHEST: No pleural effusion. Small hiatal hernia. LIVER: No discrete mass. No intrahepatic biliary ductal dilation. GALLBLADDER AND BILIARY TREE: The gallbladder has been resected No extrahepatic biliary dilation. No choledochal filling defect observed. KIDNEYS: Normal renal size and position. No hydronephrosis. Small area of scarring on the inferior lateral aspect of the right kidney is unchanged ADRENAL GLANDS: Non-enlarged. PANCREAS: Within the head of the pancreas there remains a cyst. It remains hyperintense on T2, hypointense on T1, and nonenhancing. In long axis dimension on today's study it measures 9 mm, and has the same appearance as the previous studies. Within the tail of the pancreas, there remain 2 additional cysts. One within the tail near the splenic hilum, the other adjacent to the lesser curvature of the stomach. These also are hyperintense on T2, and hypointense on T1. The larger of the 2, the one adjacent to the lesser curvature of the stomach on the anterior aspect of the body/tail of the pancreas measures 10 mm in long axis dimensions. This compares to 11 mm on the June 24, 2016 study, accounting for differences in slice acquisition, and cursor placement, this is unchanged. The lesion within the tail of the pancreas, is perhaps best demonstrated on the T1 post gadolinium series. Is directly above the splenic artery. On today's study, it measures 6 mm. On the June 2016 study it also measures 6 mm. This is unchanged. SPLEEN: Non-enlarged. LYMPH NODES: No enlarged periportal or retroperitoneal lymph nodes. PERITONEUM: No ascites or fluid collection. VESSELS: Aorta is non-dilated. MRI/MRI Abd WITH and W/O Contrast IMPRESSION: 3 pancreatic cysts. One within the head, one at the junction of the body and the tail, and one within the tail. Accounting for differences in slice acquisition and cursor placement, these are stable compared to the June 26, 2015 and June 24, 2016 studies. Stability suggests benignity. Mood be unlikely for a malignancy to be stable for over 3 years. at 0348 Reported and signed by: Ross Helm MD Electronically Signed: Ross Helm MD at 3:47 EDT Tel , Service support ,
== END | disposition home or self-care (01) ==
LOC: MRI 17:41
PROVIDERS: Family Provider Family Medicine; PCP Family Medicine; Referring Provider Family Medicine; Visit Provider Family Medicine
DX: K86.2 Cyst of pancreas (principal)
CPT/HCPCS: 74183; A9575; A4216

== ENCOUNTER → 2019-07-27 10:23 | Outpatient (CLI) | payer MEDICARE, SELFPAY ==
[2018-01-11 20:58] VITALS: BMI 31.7
--- NOTE | 2019-07-27 10:26 | BI_ITS ---
MAMMOGRAPHY - BILATERAL SCREENING REASON FOR EXAM: Female, 74 years old. Routine annual screening examination. PERTINENT HISTORY: Grandmother with breast cancer. TECHNIQUE: Digital bilateral breast rosanna (3D mammographic acquisition) in the CC and MLO projections. 2-D mediolateral oblique (MLO) and craniocaudad (CC) views of both breasts were obtained. CAD: Full Field Digital Mammography with Computer Added Detection was performed. COMPARISON: None. FINDINGS: Breast Composition: The breasts are heterogeneously dense, which may obscure small masses. There are no dominant masses or suspicious calcifications. Small benign-appearing bilateral axillary lymph nodes. No other significant abnormalities are identified. BI/SCREEN MAMM (CAD) W/ROSANNA BILAT IMPRESSION: Negative screening mammogram. Yearly followup mammogram recommended. (A) ASSESSMENT CATEGORY: BIRADS Category 2: Benign. A letter regarding these results will be sent to the patient by the facility within 30 days. Approximately 10% of breast cancers are not detected by mammography. A normal mammogram should not delay biopsy of a clinically suspicious abnormality. [id number] Electronically Signed: Jeffrey Roman, at 11:31 EDT , Service support ,
== END ==
PROVIDERS: PCP Family Medicine; Referring Provider Family Medicine; Visit Provider Family Medicine
DX: Z12.31 Encounter for screening mammogram for malignant neoplasm of breast (principal); Z80.3 Family history of malignant neoplasm of breast
CPT/HCPCS: 77063; 77067

== ENCOUNTER → 2020-08-26 13:43 | Outpatient (CLI) | payer MEDICARE, SELFPAY ==
[2018-01-11 20:58] VITALS: BMI 31.7
--- NOTE | 2020-08-26 13:48 | BI_ITS ---
MAMMOGRAPHY - BILATERAL SCREENING REASON FOR EXAM: Female, 75 years old. Routine annual screening examination. PERTINENT HISTORY: Grandmother with breast cancer. TECHNIQUE: Digital bilateral breast rosanna (3D mammographic acquisition) in the CC and MLO projections. 2-D mediolateral oblique (MLO) and craniocaudad (CC) views of both breasts were obtained. CAD: Full Field Digital Mammography with Computer Added Detection was performed. COMPARISON: Comparison is made with prior study dated 07/27/2019. FINDINGS: Breast Composition: The breasts are heterogeneously dense, which may obscure small masses. There are no dominant masses or suspicious calcifications. Stable benign appearing bilateral axillary lymph nodes. No other significant abnormalities are identified. There has been no significant change since the prior study. BI/SCRN MAMM (CAD)W/ROSANNA BILAT IMPRESSION: Stable bilateral screening mammogram. Yearly follow-up mammogram recommended. (A) ASSESSMENT CATEGORY: BIRADS Category 2: Benign. A letter regarding these results will be sent to the patient by the facility within 30 days. Approximately 10% of breast cancers are not detected by mammography. A normal mammogram should not delay biopsy of a clinically suspicious abnormality. [id number] Electronically Signed: Jeffrey Roman MD at 14:30 EDT , Service support ,
== END ==
PROVIDERS: PCP Family Medicine; Referring Provider Family Medicine; Visit Provider Family Medicine
DX: Z12.31 Encounter for screening mammogram for malignant neoplasm of breast (principal)
CPT/HCPCS: 77063; 77067

== ENCOUNTER 2021-02-12 08:26 | Outpatient (CLI) | payer MEDICARE, SELFPAY ==
[2021-02-12 08:36] VITALS: BP 132/67; PULSE 73; RESP 16; TEMP 36.8; O2SAT 99
[2021-02-12] MEDS: 0.9% Saline Lock 10 ML Syringe IV (08:41)
[2021-02-12 09:24] VITALS: BP 113/62; PULSE 60; RESP 16; TEMP 36.7; O2SAT 98
[2021-02-12 10:13] VITALS: BP 127/65; PULSE 62; RESP 16; TEMP 36.7; O2SAT 98
== END 2021-02-12 10:37 | disposition home or self-care (01) ==
LOC: MS3OUT 08:26 → MS3 08:27
PROVIDERS: PCP Family Medicine; Referring Provider Nurse Practitioner Adult Health; Visit Provider Nurse Practitioner Adult Health
DX: Z23 Encounter for immunization (principal); U07.1 COVID-19
CPT/HCPCS: J7050; M0245; Q0245; A4216

== ENCOUNTER 2021-08-12 06:26 | Emergency (ER) | payer MEDICARE, SELFPAY ==
[2021-08-12] VITALS (17 sets, daily range): BP systolic 105–164; BP diastolic 58–83; PULSE 63–96; RESP 12–24; TEMP 35.8–36.3; O2SAT 93–100; BMI 32.2
--- NOTE | 2021-08-12 06:28 | EKG12_ITS ---
Test Reason : STROKE Blood Pressure : / mmHG Vent. Rate : 077 BPM Atrial Rate : 077 BPM P-R Int : 194 ms QRS Dur : 108 ms QT Int : 396 ms P-R-T Axes : 049 038 048 degrees QTc Int : 448 ms Normal sinus rhythm Normal ECG Confirmed by CLAUDIA LIRIANO, SAMMIE ([id number]), commissioning editor VELASQUEZ RODAS ([id number]) on 08/14/2021 10:52:46 AM Referred By: BB Confirmed By:SAMMIE TAYLOR MD
--- NOTE | 2021-08-12 06:28 | CT_ITS ---
EXAM: CT brain without contrast HISTORY: Neuro deficit, acute, stroke suspected TECHNIQUE: CT Head Stroke Protocol W/O Contrast Injection A radiation dose optimization technique was used for this scan. COMPARISON: CT brain 01/11/2018. LIMITATIONS: None. BRAIN: Right frontal lobe intraparenchymal hematoma measuring 7.4 x 5.7 x 4.8 cm with fluid-fluid level and surrounding vasogenic edema. Vasogenic edema contributes to subfalcine herniation and midline shift the left 5 mm. There is effacement of the right anterior horn and partial effacement of the third ventricle. VENTRICLES: No hydrocephalus. EXTRA-AXIAL SPACES: No fluid collections, or masses. CALVARIUM/SKULL BASE: Normal. FACE/SINUSES: Visualized portions normal. SOFT TISSUES: Normal. OTHER: None. CONCLUSION: 1. Large right frontal intraparenchymal hematoma measuring up to 7.4 cm. 2. Vasogenic edema contributes to subfalcine herniation and midline shift to the left 5 mm as above. Neurosurgical consultation recommended. Findings discussed with Hakeem Wright via phone at 4:01 PM PST on 08/04/2021. N.B. : The above Results were Read Back by Devon Mir MD to MD hakeem, and understanding confirmed on 08/12/2021 07:04:03 (ET). Electronically Signed: Devon Mir MD at 7:03 EDT , CT/STROKE Brain/Head without Cont IMPRESSION: undefined
--- NOTE | 2021-08-12 06:28 | RAD_ITS ---
INDICATION: Neuro deficit, acute, stroke suspected EXAMINATION/TECHNIQUE: X-RAY - XR Chest 1 View COMPARISON: 01/11/2018 FINDINGS: LINES/DEVICES: Enteric tube coiled in the gastric fundus terminating overlying the gastric body. Endotracheal tube terminates 6.5 cm above the gisselle. LUNGS: No consolidation, edema or effusion. No pneumothorax. MEDIASTINUM AND CARDIOVASCULAR STRUCTURES: Cardiac silhouette not enlarged. Central airways and mediastinal contour are unremarkable. BONES AND SOFT TISSUES: Unremarkable. RAD/Chest 1 View IMPRESSION: Endotracheal tube terminates 6.5 cm above the gisselle. Enteric tube in satisfactory position. Electronically Signed: Devon Mir MD at 7:48 EDT ,
--- NOTE | 2021-08-12 06:29 | ED.VIS.STROK ---
HPI History of Present Illness Chief Complaint: Neuro S/Sx Informant: patient and EMS Narrative Narrative: Found lethargic by family members and not acting right this morning. Last known well when she went to bed 11 PM last night, EMS called prehospital stroke team due to very weak throughout the left side. Airway intact, patient seen with EMS in the triage/EMS bay. [facility] Medical History (Updated 08/12/21 @ 07:[address] Randy Hawkins MD) Hyperlipidemia Hypertension Lab test negative for COVID-19 virus Medical History no medical history Home Medications L.acidoph, paracasei,B. lactis 10 billion cell capsule 1 ea PO QHS gut health 01/11/18 [History Last Taken Unknown] multivitamin (Multiple Vitamins) 1 ea PO DAILY supplement 01/11/18 [History Last Taken Unknown] atorvastatin 10 mg tablet 40 mg PO DAILY 11/01/20 [History Last Taken Unknown] Allergy/AdvReac Type Severity Reaction Status Date / Time Sulfa (Sulfonamide Allergy Rash Verified 08/12/21 06:32 Antibiotics) Surgical History H/O: hysterectomy History of laparoscopic cholecystectomy Surgical History no surgical history Social History Smoking Status: Never smoker EXAM Physical Exam Const Vital Signs: 08/12/21 06:38 08/12/21 06:42 08/12/21 06:44 Temperature Temperature Source Pulse Rate 96 Respiratory Rate 24 H Respiratory Effort Respiratory Depth Respiratory Pattern Blood Pressure 160/74 H Blood Pressure Mean 102 Blood Pressure Source Blood Pressure Location Pulse Ox 93 94 Oxygen Delivery Method Room Air Room Air Room Air Oxygen Flow Rate (L/min) Fraction of Inspired Oxygen (FIO2) 08/12/21 06:46 08/12/21 06:50 08/12/21 06:55 Temperature 97.4 F L Temperature Source Temporal Pulse Rate 84 92 Respiratory Rate 17 21 H Respiratory Effort Normal Respiratory Depth Normal Respiratory Pattern Normal Blood Pressure 153/63 H 136/62 H Blood Pressure Mean 93 86 Blood Pressure Source Blood Pressure Location Pulse Ox 94 98 Oxygen Delivery Method Room Air Ambu-Bag Oxygen Flow Rate (L/min) 15 Fraction of Inspired Oxygen (FIO2) 08/12/21 06:59 08/12/21 06:54 08/12/21 07:10 Temperature Temperature Source Pulse Rate 86 89 80 Respiratory Rate 14 14 16 Respiratory Effort Respiratory Depth Respiratory Pattern Normal Blood Pressure 136/82 H 133/83 H Blood Pressure Mean 100 99 Blood Pressure Source Blood Pressure Location Pulse Ox 98 98 99 Oxygen Delivery Method Mechanical Ventilator Mechanical Ventilator Oxygen Flow Rate (L/min) Fraction of Inspired Oxygen (FIO2) 35 35 35 08/12/21 07:14 08/12/21 07:17 08/12/21 07:21 Temperature 96.4 F L 96.6 F L 96.7 F L Temperature Source Core Temporal Pulse Rate 75 78 Respiratory Rate 14 15 Respiratory Effort Respiratory Depth Respiratory Pattern Blood Pressure 133/83 H 143/73 H Blood Pressure Mean 99 96 Blood Pressure Source Blood Pressure Location Pulse Ox 98 100 Oxygen Delivery Method Mechanical Ventilator Oxygen Flow Rate (L/min) Fraction of Inspired Oxygen (FIO2) 35 08/12/21 07:22 08/12/21 07:27 08/12/21 07:31 Temperature 96.9 F L 96.9 F L Temperature Source Core Core Pulse Rate 76 74 68 Respiratory Rate 18 14 14 Respiratory Effort Respiratory Depth Respiratory Pattern Blood Pressure 164/76 H 148/76 H 144/72 H Blood Pressure Mean 105 100 96 Blood Pressure Source Monitor Blood Pressure Location Left Arm Pulse Ox 96 98 100 Oxygen Delivery Method Room Air Mechanical Ventilator Oxygen Flow Rate (L/min) Fraction of Inspired Oxygen (FIO2) 50 35 08/12/21 07:32 08/12/21 07:46 08/12/21 08:04 Temperature 97.0 F L 97.0 F L Temperature Source Core Core Pulse Rate 68 69 64 Respiratory Rate 14 14 12 Respiratory Effort Respiratory Depth Respiratory Pattern Blood Pressure 144/72 H 126/58 H 105/68 Blood Pressure Mean 96 80 80 Blood Pressure Source Blood Pressure Location Pulse Ox 99 98 98 Oxygen Delivery Method Mechanical Ventilator Mechanical Ventilator Mechanical Ventilator Oxygen Flow Rate (L/min) Fraction of Inspired Oxygen (FIO2) 35 28 Positive well nourished and well developed General Appearance ED: well developed and NAD HEENT Reports moist mucous membranes normocephalic and atraumatic Eyes PERRL and EOMs intact bilaterally Eyes Narrative: Pinpoint pupils. No gross field deficits. Neck full ROM and supple Resp normal respiratory effort and clear to auscultation bilaterally Cardio regular rate, regular rhythm and no murmurs GI non-tender and non-distended Auscultation: normoactive bowel sounds Palpation: soft Back/Spine no CVA tenderness General Back: other FROM Extremity normal to inspection General Extremety ED: Negative for edema, pulses abnormal or tenderness General Extremity: Negative for edema or pulses abnormal Neuro Neuro Narrative: Not able to move left arm. Moves left leg but not against gravity. Moves right side well. Mute/aphasic. Stuporous. Sensorium / Orientation: stuporous Skin no rashes or lesions noted and no wounds STROKE Vital Signs/Narrative: Vital Signs Temp Pulse Resp BP Pulse Ox FiO2 08/12/21 08:04 64 12 105/68 98 08/12/21 07:46 97.0 F L 69 14 126/58 H 98 28 08/12/21 07:32 97.0 F L 68 14 144/72 H 99 35 08/12/21 07:31 96.9 F L 68 14 144/72 H 100 35 08/12/21 07:27 96.9 F L 74 14 148/76 H 98 50 08/12/21 07:22 76 18 164/76 H 96 08/12/21 07:21 96.7 F L 08/12/21 07:17 96.6 F L 78 15 143/73 H 100 35 08/12/21 07:14 96.4 F L 75 14 133/83 H 98 08/12/21 07:10 80 16 133/83 H 99 35 08/12/21 06:54 89 14 98 35 08/12/21 06:59 86 14 136/82 H 98 35 08/12/21 06:55 92 21 H 136/62 H 98 08/12/21 06:46 97.4 F L 84 17 153/63 H 94 08/12/21 06:44 94 08/12/21 06:42 96 24 H 160/74 H 93 Inital Vital Signs reviewed: Yes NIHSS Initial: 1a Level of Consciousness: 2 1b LOC Questions (Score 2 if aphasic/stupor): 2 1c LOC Commands (Only score 1st attempt): 0 2 Best Gaze (If aphasic, use reflexive mvmts.): 0 3 Visual: 0 4 Facial Palsy: 0 5 Motor Arm Right (UN = amputation/fusion): 0 5 Motor Arm Left: 4 6 Motor Leg Right: 0 6 Motor Leg Left: 3 7 Limb ataxia (Only + if out of proportion): 0 8 Sensory (Aphasia/stupor=0 or 1, coma=2): 1 9 Best Language: 3 10 Dysarthria (mute, coma=2, intubated=UN): 2 11 Extinction and Inattention (only scored if +): 0 Total Score: 17 MDM MDM MDM Narrative Medical decision making narrative: Patient was seen in the EMS bay around [address] noting that her airway was intact patient was lethargic. I saw the CT images prior to the radiologist, showing a large right frontal lobe intraparenchymal cerebral hemorrhage with midline shift. Soon after the patient arrived in the room from CT, during my examination and discussing with the family at the bedside, the patient began vomiting. Zofran was given and we set up for intubation. I discussed with neurosurgery Dr. Tanner at [facility] at 0645, who was gracious enough to help arrange the transfer and air transport, while we intubated the patient. See the procedure note. Radiology called me later regarding the CT, showing 5 mm midline shift, effacement of the right lateral ventricle, and near effacement of the third ventricle which is still technically open, along with early right subfalcine herniation. I discussed again with Dr. Tanner, he recommended watching her pupils carefully for further signs of herniation prior to transport and administering mannitol with Lasix if she progresses. On multiple reevaluations, her pupils were still 3 mm and equal bilaterally, responsive. ABG shows excellent numbers, neutral after she was on the ventilator for 20 minutes or so. With regards her blood pressure, she was given several aliquots of labetalol per order set/procedure, and when her pressure began rising into the 140-150 range systolic, Cardene drip was started. This kept her blood pressure in the 120s, the last 1 being 126/58. At 0750, again her pupils are reactive and 3 mm/equal. Helicopter crew arrived and I reevaluated the patient. Her pupils are equal and 3 mm. However by now, the paralytic and etomidate should have fully worn off, she is not localizing or withdrawing to pain anywhere, and she is not overbreathing the vent at all even when I turn frequency down to 6. I discussed again with neurosurgery who agreed that it would be reasonable to give her the mannitol and Lasix now, so we will start the mannitol here. Lab Data Attestation: I reviewed the patient's lab results. Labs: Laboratory Results - last 24 hr 08/12/21 08/12/21 08/12/21 06:15 06:15 06:15 WBC 13.1 H RBC 4.51 Hgb 13.9 Hct 41.3 MCV 91.6 MCH 30.8 MCHC 33.7 RDW Std Deviation 44.2 H RDW Coeff of Jeovanny 13.2 Plt Count 332 MPV 10.1 Immature Gran % (Auto) 0.500 Neut % (Auto) 86.6 H Lymph % (Auto) 9.2 L [place] % (Auto) 3.3 Eos % (Auto) 0.1 Baso % (Auto) 0.3 Absolute Neuts (auto) 11.4 H Absolute Lymphs (auto) 1.21 Nucleated RBC % 0 PT Cancelled INR Cancelled APTT Cancelled Sodium Cancelled Potassium Cancelled Chloride Cancelled Carbon Dioxide Cancelled Anion Gap Cancelled BUN Cancelled Creatinine Cancelled Estim Creat Clear Calc Cancelled Est GFR (MDRD) Af Amer Cancelled Est GFR (MDRD) Non-Af Cancelled BUN/Creatinine Ratio Cancelled Glucose Cancelled Calcium Cancelled Troponin I High Sens Cancelled 08/12/21 08/12/21 06:55 06:55 WBC RBC Hgb Hct MCV MCH MCHC RDW Std Deviation RDW Coeff of Jeovanny Plt Count MPV Immature Gran % (Auto) Neut % (Auto) Lymph % (Auto) [place] % (Auto) Eos % (Auto) Baso % (Auto) Absolute Neuts (auto) Absolute Lymphs (auto) Nucleated RBC % PT 13.7 INR 1.1 APTT 27.7 Sodium 142 Potassium 3.5 Chloride 110 H Carbon Dioxide 26.0 Anion Gap 6 BUN 9 Creatinine 0.73 Estim Creat Clear Calc 41.97 Est GFR (MDRD) Af Amer 100 Est GFR (MDRD) Non-Af 83 BUN/Creatinine Ratio 12.3 Glucose 178 H Calcium 9.0 Troponin I High Sens 8 ABG Data ABG results: ABG 08/12/21 07:34 Specimen Type ART Sample Site R Radial pH 7.42 Bicarbonate Actual 23.0 Total CO2 24 Base Excess -2 O2 Saturation 99 O2 % 35 ABG pCO2 35.7 ABG pO2 129 H Prince Test Positive Respiration Rate 14 O2 Delivery Device Adult Vent Vent Mode AC Tidal Volume 450 POC PEEP 5 Radiography Diagnostic Testing: Clinical Impression(s) from Imaging Studies Brain CT 08/12/21 06:28 IMPRESSION: undefined Chest X-Ray 08/12/21 06:28 IMPRESSION: Endotracheal tube terminates 6.5 cm above the gisselle. Enteric tube in satisfactory position. Electronically Signed: Devon Mir MD at 7:48 EDT , Chest X-Ray 08/12/21 07:05 IMPRESSION: Endotracheal tube not visualized. Enteric tube remains in similar position. Electronically Signed: Devon Mir MD at 7:47 EDT , Rhythm Strip Rhythm Strip: Sinus Rhythm Rate: 80 Ectopy: None EKG Initial EKG: Attestation: I personally reviewed and interpreted this EKG as follows: Interpretation: Sinus Rhythm and No Acute Injury Pattern Comments: normal EKG Stroke Documentation Questions Stroke Team Activated: Yes (prehospital) Reviewed Inclusion/Exclusion criteria: Yes Was Patient considered for Endovascular Intervention?: No-CTA not indicated IV Alteplase (t-PA) Administered: No (due to timing/bleed) Procedures Intubations Intubation Method: orotracheal (Video laryngoscopy MAC 3, 7.5 Macanese ETT visualized passing through the cords) Intubation Verification: Positive color change and Bilateral breath sounds confirmed Intubation Complications: O2 saturation decreased (Briefly into mid 80s due to blow-by facemask only, not bagging with positive pressure due to recent emesis) Procedural Sedation 1 (Initial Baseline): Consent Signed: No (Emergent procedure, discussed with family who was in agreement) Any Problems With Anesthesia: No You/Your family experience fever (hyperthermia) w/anesthesia: Unknown Sedation medication: Etomidate Dose: 20 Route: IV Total Moderate Sedation Units: 10 Mallampati Score: Class II ASA Classification: I Comment:: Rocuronium 60 mg given along with etomidate as RSI for intubation. Patient on monitor with blow-by oxygenation avoiding positive pressure due to recent emesis. 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 lactis 1 EACH capsule 1 ea PO QHS Primary Care Provider: Cecile Murillo Referrals: Cecile Murillo MD [Primary Care Provider] - Disposition Disposition: Acute Care Hospital Discharge Location: [facility]
[2021-08-12] MEDS: Ondansetron 4 MG/2 ML Vial IV (06:41)
--- NOTE | 2021-08-12 06:41 | NURSING ---
0601 STROKE ALERT CALLED. ETA IS 15 MIN FACESHEET FAXED
[2021-08-12] MEDS: Labetalol (Prefilled) 20 MG/4 ML IV ×2 (06:44→07:20)
[2021-08-12 06:45] LABS: Absolute Lymphocyte Count 1.21 X10^3/uL (0.83-4.51); Absolute Neutrophil Count 11.4 X10^3/uL (2.0-7.7); Basophil# 0.04 X10^3/uL; Basophil% 0.3 % (0-1); Eosinophil# 0.01 X10^3/uL; Eosinophils% 0.1 % (0-5); Hematocrit 41.3 % (37-47); Hemoglobin 13.9 g/dL (12.0-15.0); Lymphocyte # 1.21 X10^3/ul (0.83-4.51); Lymphocyte % 9.2 % (19-41); Mean Corp Hgb Conc 33.7 g/dL (32-36); Mean Corpuscular Hgb 30.8 pg (27.0-32.0); Mean Corpuscular Volume 91.6 fL (81-99); Mean Platelet Vol. 10.1 fl (6.2-12.0); Monocyte# 0.43 X10^3/uL; Monocyte% 3.3 % (0-10); NRBC Flagged by Analyzer 0 % (0-5); Neutrophil # 11.35 X10^3/uL (2.7-7.7); Neutrophil % 86.6 % (47-70); Platelet Count 332 K/mm3 (150-450); RBC Distribution Width CV 13.2 % (11.6-14.6); RBC Distribution Width SD 44.2 fl (35.1-43.9); Red Blood Count 4.51 M/mm3 (4.2-5.4); White Blood Count 13.1 K/mm3 (4.4-11.0)
[2021-08-12] MEDS: Etomidate 20 MG/10 ML Vial IV (06:52)
--- NOTE | 2021-08-12 07:05 | RAD_ITS ---
INDICATION: ETT recheck after advancement EXAMINATION/TECHNIQUE: X-RAY - XR Chest 1 View COMPARISON: 08/12/2021 FINDINGS: LINES/DEVICES: Enteric tube coiled in the gastric fundus in satisfactory position, similar compared to the prior. Endotracheal tube not visualized. LUNGS: No consolidation, edema or effusion. No pneumothorax. MEDIASTINUM AND CARDIOVASCULAR STRUCTURES: Cardiac silhouette not enlarged. Central airways and mediastinal contour are unremarkable. BONES AND SOFT TISSUES: Unremarkable. RAD/Chest 1 View (Portable) IMPRESSION: Endotracheal tube not visualized. Enteric tube remains in similar position. Electronically Signed: Devon Mir MD at 7:47 EDT ,
[2021-08-12] MEDS: Rocuronium Bromide 50 MG/5 ML Vial 60 MG IV (07:09)
--- NOTE | 2021-08-12 07:10 | ED.RN ---
et tube advanced to 21 at the lips
[2021-08-12 07:23] LABS: Anion Gap 6 (5-15); BUN 9 mg/dL (7-18); BUN/Creat Ratio 12.3 RATIO (10-20); Chloride 110 mmol/L (98-107); Creatinine, Serum 0.73 mg/dL (0.55-1.02); EST Glomerular Filtration Rate 83 mL/min (>60); Est Glom Filt Rate - Afr Amer 100 mL/min (>60); Estimated Creatinine Clearance 41.97 ml/min; Glucose 178 mg/dL (74-106); Potassium 3.5 mmol/L (3.5-5.1); Sodium Level 142 mmol/L (136-145); Troponin-I HS (w/2H Reflex) 8 pg/mL (3.0-54.0)
--- NOTE | 2021-08-12 07:27 | NURSING ---
ETA FOR MEDFLIGHT 20 MIN
[2021-08-12] MEDS: Nicardipine HCl-0.9% Sod Chlor 20 MG/200 ML IV.SOLN 50 MG CONT INF (07:31)
[2021-08-12 07:41] LABS: Allen Test Positive; Base Excess -2 mmol/L (-2 to +2); Blood Gas Specimen Type ART; FI02 35; Mode AC; O2 Delivery Device Adult Vent; PEEP 5; PO2 129 mmHG (75-100); RR 14; SITE R Radial; SO2 99 % (95-99); Total Carbon Dioxide 24 mmol/L; Vt 450; pCO2 35.7 mmHg (35-45); pH 7.42 (7.35-7.45)
[2021-08-12 07:46] LABS: International Normalized Ratio 1.1; Partial Thromboplast Time 27.7 Seconds (24.1-36.2); Prothrombin Time (Protime)PT. 13.7 SECONDS (11.7-14.9)
--- NOTE | 2021-08-12 07:54 | ED.RN ---
medflight at the [facility] for report
[2021-08-12] MEDS: Furosemide 20 MG/2 ML VIAL 10 MG IV (08:07)
[2021-08-12 09:00] LABS: Reflex Troponin-HS? (from REC) Y
== END 2021-08-12 08:25 | disposition short-term general hospital (02) ==
PROVIDERS: Emergency Provider Emergency Medicine; PCP Family Medicine; Visit Provider Emergency Medicine
DX: I61.8 Other nontraumatic intracerebral hemorrhage (principal); I10 Essential (primary) hypertension; E78.5 Hyperlipidemia, unspecified; Z79.899 Other long term (current) drug therapy; R29.717 NIHSS score 17
CPT/HCPCS: 96375; 31500; 36600; 51702; 70450; 71045; 80048; 82803; 84484; 85025; 85610; 85730; 93005; 94002; 96365; 96368; 96376; 99251; 99285; J7030; A4216; G0463; J1940; J2405; J3010

== ENCOUNTER 2021-09-09 17:49 | Inpatient (IN) | payer MEDICARE, SELFPAY ==
[2021-09-09 17:54] VITALS: BP 102/53; PULSE 82; RESP 20; TEMP 36.4; O2SAT 94; O2SAT 96
[2021-09-09 18:52] VITALS: O2SAT 95
[2021-09-09 19:54] VITALS: BMI 29.3
--- NOTE | 2021-09-09 20:27 | HP.PCM_ITS ---
HPI - General General Date of Admission: 09/09/21 Date of Service: 09/10/21 Chief Complaint: Here for rehab. HPI Narrative 08/12/2021 MARILUZ DREW, is a 76 Female who presents to [facility] Emergency Department with Lethargy. CT head showed large right frontal hematoma ( 7.4cm), 5mm midline shift. Intubated, Lasix, Cardene given, patient flown by helicopter to [facility]. Hypotensive during transport, Cardene stopped, Mannitol given, but not finished due to pump failure. 08/12/2021 Admit to [facility]. NIH 19. CT head shows increase in bleed, 1cm midline shift. Consult Neurosurgery, MRI brain, swallowing evaluation, PT/OT/ST/SW. 08/12/2021 Neurosurgery performed left hemicraniectomy for decompression of skull. Supratentorial intraparenchymal clot evaluation. 08/22/2021 Neurosurgery performed right cranioplasty, right chronic SDH drainage. 08/24/2021 Neurosurgery performed removal of retained subgaleal drain. Washout of wound. Removal of lumbar drainage. Patient has tracheostomy, PEG tube. 09/09/2021 Admit to TCU with debility, here for rehabilitation, strengthening, prior to disposition determination. [facility] Medical History (Updated 09/09/21 @ 20:[address] Peter Narayanan MD) Hyperlipidemia Hypertension Lab test negative for COVID-19 virus Home Medications L.acidoph, paracasei,B. lactis 10 billion cell capsule 1 ea PO Q gut health 01/11/18 [History Last Taken Unknown] multivitamin (Multiple Vitamins tablet) 1 ea PO DAILY supplement 01/11/18 [History Last Taken Unknown] atorvastatin 10 mg tablet 40 mg PO DAILY Cholesterol 11/01/20 [History Last Taken Unknown] nutrition tx glu intol,lac-free,soy-fiber 0.08 gram-1.5 kcal/mL liquid (Glucerna 1.5 Godwin) 45 ml feeding tube CONT Supplement 09/09/21 [History Last Taken Unknown] Allergy/AdvReac Type Severity Reaction Status Date / Time Sulfa (Sulfonamide Allergy Rash Verified 08/12/21 06:32 Antibiotics) Surgical History (Updated 09/09/21 @ 20:[address] Peter Narayanan MD) H/O: hysterectomy History of gastrostomy History of laparoscopic cholecystectomy History of tracheostomy Social History (Updated 09/09/21 @ 20:[address] Peter Narayanan MD) household members: spouse Smoking Status: Never smoker alcohol intake: never substance use type: does not use ROS Constitutional Constitutional: Denies chills, fever(s) or weight gain ENT HEENT: Denies headache(s), nasal congestion or nasal discharge Cardiovascular Cardiovascular: Denies chest pain or palpitations Respiratory/Chest Respiratory/Chest: Denies cough, excessive phlegm production or shortness of breath with exertion Gastrointestinal Gastrointestinal: Denies abdominal pain, nausea or vomiting Genitourinary Genitourinary: Denies dysuria Musculoskeletal Musculoskeletal: Denies joint pain or joint swelling Integumentary Integumentary: Denies rash or wounds Neurologic Neurologic: Denies focal weakness, numbness or tingling Psychiatric Psychiatric: Denies anxiety, auditory hallucinations, depression, homicidal ideation or suicidal ideation Vital Signs Vital Signs Vital Signs: 09/09/21 17:54 09/09/21 17:54 09/09/21 18:52 Temperature 97.5 F L Temperature Source Temporal Pulse Rate 82 82 Pulse Rhythm Regular Pulse Strength Normal (2+) Respiratory Rate 20 H 20 H Respiratory Effort Normal Non-Labored Respiratory Depth Normal Respiratory Pattern Normal Blood Pressure 102/53 L Blood Pressure Mean 69 Blood Pressure Source Monitor Blood Pressure Position Semi-Fowlers Blood Pressure Location Right Arm Pulse Ox 94 96 95 Oxygen Delivery Method Trach Collar Trach Collar Trach Collar Oxygen Flow Rate (L/min) 5 8 8 Fraction of Inspired Oxygen (FIO2) 35 35 Physical Exam Const alert General Appearance: cooperative HEENT normocephalic HEENT Narrative: Tracheostomy present. Eyes PERRL and EOMs intact bilaterally Neck supple, no JVD and no carotid bruits Resp normal respiratory effort, normal air movement and clear to auscultation bilaterally Cardio regular rate and regular rhythm GI normal to inspection, nondistended, normoactive bowel sounds, non-tender and non-distended GI Narrative: Gastrostomy present. Extremity normal capillary refill General Extremity: Negative for edema Skin no rashes or lesions noted General Skin Exam: no breakdown Psych affect normal Appearance: appropriate Results Lab / Micro Data Result Diagrams: 09/10/21 05:29 09/10/21 05:29 Micro: Microbiology 09/09/21 18:35 Nasal Secretion SARS-CoV-2 Antigen (Rapid) - Final Assessment & Plan Assessment/Plan (1) Debility: (2) Hemorrhagic stroke: (3) Hypertension: (4) Hyperlipidemia: PLAN: Plan 76 year old female with below past medical history hospitalized for hemorrhagic stroke secondary to hypertension, underwent emergent decompression of skull 08/12/2021, status post tracheostomy, status post PEG, here for rehabilitation, strengthening, prior to disposition determination. * Debility - PT/OT. * Dysphagia - ST. * Pain - Tylenol 1000mg q6h prn pain (1-5), Oxycodone 5mg q4h prn pain (6-10). * Bowel - Miralax 17gm daily prn. * Adult immunization - Administer pneumonia vaccine, covid19 vaccine, flu vaccine as appropriate. * DVT prophylaxis - Lovenox 40mg sc daily. * Hyperlipidemia - Atorvastatin 40mg qhs. * Nutrition - Jevity 1.5 45ml/hour.
[2021-09-09] MEDS: Jevity 1.5 1,000 ML 45 ML GT (20:58)
[2021-09-10] MEDS: Atorvastatin Calcium 40 MG Tablet PO (05:04)
[2021-09-10 05:35] LABS: Absolute Neutrophil Count 5.8 X10^3/uL (2.0-7.7); Basophil# 0.03 X10^3/uL; Basophil% 0.3 % (0-1); Eosinophil# 0.28 X10^3/uL; Eosinophils% 3.1 % (0-5); Hematocrit 32.6 % (37-47); Hemoglobin 9.5 g/dL (12.0-15.0); Lymphocyte % 23.6 % (19-41); Mean Corp Hgb Conc 29.1 g/dL (32-36); Mean Corpuscular Hgb 27.9 pg (27.0-32.0); Mean Corpuscular Volume 95.6 fL (81-99); Mean Platelet Vol. 9.5 fl (6.2-12.0); Monocyte# 0.63 X10^3/uL; Monocyte% 7.1 % (0-10); NRBC Flagged by Analyzer 0 % (0-5); Neutrophil # 5.82 X10^3/uL (2.7-7.7); Neutrophil % 65.5 % (47-70); Platelet Count 404 K/mm3 (150-450); RBC Distribution Width CV 15.5 % (11.6-14.6); RBC Distribution Width SD 53.1 fl (35.1-43.9); Red Blood Count 3.41 M/mm3 (4.2-5.4); White Blood Count 8.9 K/mm3 (4.4-11.0)
[2021-09-10 06:10] LABS: Anion Gap 3 (5-15); BUN 20 mg/dL (7-18); BUN/Creat Ratio 37.5 RATIO (10-20); Calcium,Total 9.3 mg/dL (8.5-10.1); Chloride 111 mmol/L (98-107); Creatinine, Serum 0.53 mg/dL (0.55-1.02); EST Glomerular Filtration Rate 119 mL/min (>60); Est Glom Filt Rate - Afr Amer 143 mL/min (>60); Estimated Creatinine Clearance 41.97 ml/min; Glucose 173 mg/dL (74-106); Potassium 3.9 mmol/L (3.5-5.1); Sodium Level 143 mmol/L (136-145)
--- NOTE | 2021-09-10 06:58 | NURSING ---
Sutures removed from scalp and lower back this morning with assistance from 2nd nurse. Patient tolerated well. Incision edges are well approximated, with scabs noted in front end of incision, mid incision. No s/sx infection, no drainage noted.
--- NOTE | 2021-09-10 09:31 | PHA.CONS_ITS ---
TCU RX Drug Regimen Review Subjective: 76 YOF with recent hemorrhagic stroke, underwent decompression of skull 08/12/21 at [facility]. S/P tracheostomy and PEG tube placement. Admitted to TCU with debility for rehab and strengthening prior to disposition determination. Objective: Allergies Sulfa (Sulfonamide Antibiotics) Allergy (Verified 08/12/21 06:32) Rash Current Medications Generic Name Dose Route Start Last Admin Trade Name Freq PRN Reason Stop Dose Admin Acetaminophen 1,000 mg 09/10/21 07:53 Acetaminophen 500 Mg Tablet PO Q6H PRN PRN Pain Score 1-5 Atorvastatin Calcium 40 mg 09/10/21 06:00 09/10/21 05:04 Atorvastatin Calcium 40 Mg Tablet PO 40 mg DAILY REBEKA Administration Enoxaparin Sodium 40 mg 09/11/21 06:00 Enoxaparin 40 Mg/0.4 Ml Syringe SC DAILY REBEKA Enteral Nutritional Formula 1,000 mls @ 45 mls/hr 09/09/21 19:00 09/09/21 20:58 Jevity 1.5 GT 45 mls/hr .[id number] REBEKA Administration Nystatin 1 applic 09/10/21 06:00 Nystatin Powder 15gm Bottle TOPICAL BID REBEKA Protocol Oxycodone HCl 5 mg 09/10/21 07:53 Oxycodone 5 Mg Tablet PO Q4H PRN PRN Pain Score 6-10 Polyethylene Glycol 17 gm 09/10/21 07:53 Polyethylene Glycol 3350 17 Gm Packet PO DAILY PRN Constipation Tuberculin PPD 0.1 ml 09/10/21 10:00 Tuberculin,Purif.Prot.Deriv. 50 Tu/Ml Vial ID 09/10/21 10:01 X1 ONE Tuberculin PPD 0.1 ml 09/17/21 10:00 Tuberculin,Purif.Prot.Deriv. 50 Tu/Ml Vial ID 09/17/21 10:01 X1 ONE Problem List (Last Reviewed 09/09/21 @ 20:[address] Peter Narayanan MD) Hyperlipidemia (Acute) Hypertension (Chronic) Debility (Acute) Hemorrhagic stroke (Acute) Vital Signs Temp Pulse Resp BP Pulse Ox O2 Del Method O2 Flow Rate 97.5 F L 82 20 H 102/53 L 95 Trach Collar 8 09/09/21 17:54 09/09/21 17:54 09/09/21 17:54 09/09/21 17:54 09/09/21 18:52 09/09/21 18:52 09/09/21 18:52 FiO2 35 09/09/21 18:52 Oxygen Flow Rate (L/min) 8 Oxygen Delivery Method Trach Collar Weight: 77.9 kg Body Mass Index (BMI) 29.3 Sodium 143 mmol/L (136-145) 09/10/21 05:29 Potassium 3.9 mmol/L (3.5-5.1) 09/10/21 05:29 Chloride 111 mmol/L (98-107) H 09/10/21 05:29 Carbon Dioxide 29.0 mmol/L (21.0-32.0) 09/10/21 05:29 Anion Gap 3 (5-15) L 09/10/21 05:29 BUN 20 mg/dL (7-18) H 09/10/21 05:29 Creatinine 0.53 mg/dL (0.55-1.02) L 09/10/21 05:29 Est GFR (MDRD) Af Amer 143 mL/min (>60) 09/10/21 05:29 Est GFR (MDRD) Non-Af 119 mL/min (>60) 09/10/21 05:29 BUN/Creatinine Ratio 37.5 RATIO (10-20) H 09/10/21 05:29 Glucose 173 mg/dL (74-106) H 09/10/21 05:29 Assessment/Plan: Pain; s/p decompression of skull/cranioplasty: Pt currently on acetaminophen 1000mg q6h prn pain score 1-5, oxycodone 5mg q4h prn pain 6-10. Resident has not received any pain meds yet on TCU. There is no current AST/ALT on file, however, AST was normal in 2019. Continue to monitor pain scores, prn usage of meds and ability to participate in PT/OT/ST/function, sx of constipation, mental status, sedation (oxycodone). hyperlipidemia: atorvastatin 40mg daily (high intensity statin): No current AST/ALT on file here (last AST 07/27/18). No current lipid profile in EMR (last 07/27/18). Please consider ordering as clinically appropriate. Also continue to monitor for s/s of muscle pain. DVT prophylaxis: Lovenox 40mg sc daily. SCr 0.53, CrCl 42, Hgb 9.5. Continue to monitor renal function, Hgb periodically, sx of VTE as well as sx of bleeding. Nutrition: Jevity 1.5 continuous PEG tube feeding at 45ml/hr. Continue to monitor intake, weight, prealbumin/albumin as clinically indicated. Constipation: Miralax 17gm daily prn constipation. Unable to find last documented BM. Please continue to monitor for constipation/diarrhea and prn usage. Resident has not received a dose of Miralax yet. Nystatin powder bid under left breast. Continue to monitor for s/s rash/infect ion/irritation. Assessment/Plan for indications treated with psychotropic medications: None Medical chart and medication regimen reviewed. The following medication irregularities or issues were identified: None Date of Note:: 09/10/21
[2021-09-10] MEDS: Tuberculin,Purif.prot.deriv. 50 TU/ML Vial 0.1 ML ID (09:36)
[2021-09-10] MEDS: Nystatin Powder 15gm Bottle 1 APPLIC TOPICAL ×2 (10:02→18:08)
[2021-09-10 13:34] VITALS: PULSE 80; RESP 18; O2SAT 95
[2021-09-10 14:45] VITALS: O2SAT 95
[2021-09-10 15:21] VITALS: BP 112/52; PULSE 82; RESP 20; TEMP 36.7; O2SAT 95
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
[2021-09-10] MEDS: Jevity 1.5 1,000 ML 45 ML GT (21:21)
[2021-09-10 21:33] VITALS: PULSE 82; RESP 18; O2SAT 94
[2021-09-10 23:19] VITALS: RESP 18; O2SAT 97
[2021-09-11 00:50] VITALS: PULSE 81; RESP 16; O2SAT 97
[2021-09-11 03:00] VITALS: PULSE 78; RESP 16; O2SAT 97
[2021-09-11] MEDS: Enoxaparin 40 MG/0.4 ML Syringe SC (04:56)
[2021-09-11] MEDS: Atorvastatin Calcium 40 MG Tablet GT (04:56)
[2021-09-11] MEDS: Nystatin Powder 15gm Bottle 1 APPLIC TOPICAL ×2 (04:56→18:00)
[2021-09-11 04:58] VITALS: PULSE 75; RESP 16; O2SAT 94
[2021-09-11 06:53] VITALS: PULSE 75; RESP 18; O2SAT 93
[2021-09-11 07:19] VITALS: O2SAT 94
--- NOTE | 2021-09-11 10:12 | NURSING ---
checked for residual 0cc, turned tube feed up to goal rate of 50cc/hr per prep manager recommendation. pt resting in bed hob elevated, therapy getting ready to work pt.
--- NOTE | 2021-09-11 11:55 | CASEMGMT ---
Social Work HAZEL met with pt spouse Nabeel to discuss family conflict and visitor restrictions. HAZEL presented options to pt spouse including placing pt on [facility] do not publish list, setting a password for visitors and call ins, all visitors being escorted by spouse, and picture and name of pt's sister posted at nurses station to enable staff to screen for pt sister. Nabeel took time to speak with his dgt Crystal about the options and to confer about how to handle this situation. Nabeel returned to HAZEL office and informed HAZEL that he and his daughter have decided to do nothing at this time. HAZEL clarified with Nabeel that with this choice, staff will do nothing to keep any visitors away from pt. Nabeel expresses understanding and agreement with this plan. HAZEL did inform Nabeel that if he changes his mind, he an update HAZEL. HAZEL did update Bhavna, Folder Tier on above situation. SAEED Arriaga
[2021-09-11 14:44] VITALS: BP 111/59; PULSE 72; RESP 16; TEMP 35.8; O2SAT 97
[2021-09-11] MEDS: NYSTATIN 500,000 UNIT/5 ML UDC 500000 UNIT PO (20:08)
[2021-09-11] MEDS: Jevity 1.5 1,000 ML 50 ML GT (20:08)
[2021-09-12] MEDS: Acetaminophen 650 MG/20 ML UDC 1000 MG GT ×2 (00:54→22:12)
--- NOTE | 2021-09-12 01:34 | NURSING ---
Skin around PEG tube site appears red, irritated. Area washed, drain gauze applied. Will continue to monitor.
--- NOTE | 2021-09-12 01:39 | NURSING ---
Talked with patient for a short time. Noted patient grimacing when moving left arm. Tylenol administered for discomfort. Patient readjusted in bed. Will continue to monitor.
[2021-09-12] MEDS: Nystatin Powder 15gm Bottle 1 APPLIC TOPICAL ×2 (06:28→16:35)
[2021-09-12] MEDS: Atorvastatin Calcium 40 MG Tablet GT (06:28)
[2021-09-12] MEDS: Enoxaparin 40 MG/0.4 ML Syringe SC (06:28)
[2021-09-12] MEDS: NYSTATIN 500,000 UNIT/5 ML UDC 500000 UNIT PO ×4 (06:28→21:28)
--- NOTE | 2021-09-12 07:01 | NURSING ---
Patient had 0 residual this morning. Medications administered. Patient tolerated well. During care, patient had an episode of sneezing and coughing. States she doesn't really have any allergies. Will continue to monitor.
[2021-09-12 08:10] VITALS: O2SAT 96
--- NOTE | 2021-09-12 08:35 | SP.MBSS_ITS ---
Modified Barium Swallow - Patient Information Study Date: 09/12/21 Study Time: 08:35 Direct Billable Minutes: 100 Total Minutes procedure & reportin Diagnosis: dysphagia Referring Physician: Peter Narayanan Chi Reason for Referral: Referred for MBS to objectively assess swallow function for determination of diet texture/liquid consistency/compensatory strategy recommendations and improve specificity of dysphagia interventions selected for maximal patient benefit and outcome. Medical History: MARILUZ DREW, is a 76 Female who presented to [facility] Emergency Department with Lethargy on 08/12/21. CT head showed large right frontal hematoma ( 7.4cm), 5mm midline shift.? Intubated, Lasix, Cardene given, patient flown by helicopter to [facility].? Hypotensive during transport, Cardene stopped, Mannitol given, but not finished due to pump failure. Admit to [facility] on 08/12/21. NIH 19.? CT head shows increase in bleed, 1cm midline shift. Neurosurgery performed left hemicraniectomy for decompression of skull. Supratentorial intraparenchymal clot evaluation. 08/22/2021 Neurosurgery performed right cranioplasty, right chronic SDH drainage. 08/24/2021 Neurosurgery performed removal of retained subgaleal drain.? Washout of wound. Removal of lumbar drainage. Admitted to TCU on 09/09/21 d/t debility s/p CVA, here for rehabilitation. Patient has #6 Shiley tracheostomy, Passy [place] Speaking Valve and PEG tube. Current Diet Ordered: NPO w/ PEG Dentition: Natural Teeth Mental Status: WNL - sufficient for participation in MBS Respiratory Status: Oxygenating on Room Air - via #6 Shiley tracheostomy w/ Passy [place] Speaking Valve applied to trach - Penetration-Aspiration Scale Penetration-Aspiration Scale: OBJECTIVE ASSESSMENT OF SWALLOW FUNCTION (QUANTITATIVE ? PER TRIAL): PENETRATION / ASPIRATION SCALE (NG): 1 = does not enter airway 2 = enters airway/above vocal folds/ejected 3 = enters airway/above vocal folds/not ejected 4 = enters airway/contacts vocal folds/ejected 5 = enters airway/contacts vocal folds/not ejected 6 = enters airway/below vocal folds/ejected 7 = enters airway/below vocal folds/not ejected despite effort 8 = enters airway/below vocal folds/no effort - Penetration-Aspiration Scale Score Thin Liquid via teaspoon Result: 1= does not enter airway Thin Liquid via teaspoon Trial 2 Result: 1= does not enter airway Thin Liquid via sequential sips from cup Result: 1= does not enter airway Pudding Result: 1= does not enter airway Pudding Trial 2 Result: 1= does not enter airway Thin Liquid via sequential sips from straw Result: 1= does not enter airway Cookie Result: 1= does not enter airway Cookie Trial 2 Result: 1= does not enter airway Thin Liquid via sequential sips from cup Trial 2 Result: 2= enter airway/above vocal folds/ejected - Oral Phase Labial Seal: No Labial Escape Tongue Control During Bolus Hold: Posterior escape of less than half of bolus Bolus Preparation/Mastication: Slow prolonged chewing/mashing with complete recollection Bolus Transport/Lingual Motion: Repetitive/disorganized tongue motion Oral Residue: Residue collection on oral structures - Pharyngeal Phase Initiation of Pharyngeal Swallow: Bolus head in pyriforms Soft Palate Elevation: No bolus between soft palate and pharyngeal wall Laryngeal Elevation: Partial superior movement thyroid cart/partial apprx aryt- epig petiole Anterior Hyoid Excursion: Partial anterior movement Epiglottic Movement: Complete inversion Laryngeal Vestibule Closure at Height of Swallow: Incomplete; narrow column of air/contrast in laryngeal vestibule Pharyngeal Stripping Wave: Present - complete Pharyngoesophageal Segment Opening: Complete distension and complete duration; no obstruction of flow Tongue Base Retraction: Narrow column of contrast between tongue base & post. pharyngeal wall Pharyngeal Residue: Collection of residue within or on pharyngeal structures - Esophageal Phase Esophageal Clearance: Complete clearance - Diagnosis/Impression Diagnosis: moderate oral dysphagia (R13.11); mild pharyngeal dysphagia (R13.13) Impression: Swallow function is characterized by suboptimal control w/ bolus spillage into the pharynx prior to swallow onset - spillage to the valleculae w/ all trials except for thin liquid via straw which demonstrated spillage to the pyriforms. Slow and prolonged mastication w/ munching pattern noted. Delayed initiation w/ disorganized lingual motion for A-P bolus transportation. Mod oral residue retention w/ increased bolus viscosity (cookie). Reduced tongue base retraction resulting in bolus residue accumulation along the base of tongue into the valleculae. A liquid wash was effective to clear BOT/vallecular residue. Pharyngeal swallow onset was timely. Despite partially reduced laryngeal elevation/anterior hyoid excursion, the patient was able to maintain sufficient laryngeal vestibule closure w/ transient penetration occurring w/ large volume sequential swallows which ejected entirely w/ swallow completion. Esophageal phase was unremarkable. Diet Recommended: * Pureed Texture (IDDSI: 4) * Thin Liquid (IDDSI: 0) * Recommended diet to initiate 09/15/21 under direct PROFESSIONAL SERVICES MANAGER supervision * Ok for sips and chips w/ staff supervision following thorough oral hygiene until PO diet is initiated * May initially benefit from shorter meals if demonstrating signs of fatigue w/ intake and require PEG tube feeding supplementation Compensatory Strategies Recommended: * Supervised intake * Small bites * Sips one at a time * OK for straw use * Check oral cavity for clearance * Alternate bites w/ sips * Seated upright at 90 degrees for PO intake * Oral hygiene after meals/meds Additional Speech Therapy Services Recommended: * continued diet texture management * training and implementation of recommended compensatory strategies * training and implementation of recommended oral strengthening exercises to facilitate improved lingual strength and coordination * training and implementation of recommended oropharyngeal strengthening exercises to facilitate improved tongue base retraction and laryngeal elevation/anterior hyoid movement for improved laryngeal vestibule closure Education Provided: * Results and recommendations were discussed with the Patient immediately following MBS completion, with the Patient verbalizing understanding and agreement with all recommendations and education provided.?Anticipate need for reinforcement of recommendations/strategies to ensure compliance. - Status Active ST Patient: Active - Contact Information [facility] Speech Therapy:: Charito Wallace M.A., CCC-PROFESSIONAL SERVICES MANAGER [place] [address] [place] [address] [phone] [email or web address]
[2021-09-12 10:00] VITALS: PULSE 69; RESP 20; O2SAT 96
[2021-09-12 15:41] VITALS: BP 106/54; PULSE 69; RESP 20; TEMP 36.4; O2SAT 96
--- NOTE | 2021-09-12 16:07 | NURSING ---
Patient and family updated on COVID positive staff member. Appreciative of update.
[2021-09-12 19:12] VITALS: O2SAT 95
[2021-09-12] MEDS: Jevity 1.5 1,000 ML 50 ML GT (20:07)
[2021-09-12 20:30] VITALS: PULSE 80; RESP 16; O2SAT 97
--- NOTE | 2021-09-12 22:20 | NURSING ---
Facial grimacing observed with turn and reposition, zero residual from peg tube, PRN tylenol administered as ordered via peg tube. Jevity infusing per order via g-tube. Peg site without redness, heat, edema, or drainage. Trach collar in place with O2 at 8l/min. No resp distress observed or reported. Suction per order, patient tolerated well. Call light in reach.
[2021-09-12 22:22] VITALS: PULSE 84; RESP 16; O2SAT 99
[2021-09-13 02:00] VITALS: PULSE 75; RESP 16; O2SAT 97
[2021-09-13] MEDS: Menthol/Lanolin/Calamine/Znox 113 GM Tube 1 APPLIC TOPICAL ×2 (04:55→17:51)
[2021-09-13] MEDS: Nystatin Powder 15gm Bottle 1 APPLIC TOPICAL ×2 (04:55→17:51)
[2021-09-13] MEDS: Atorvastatin Calcium 40 MG Tablet GT (05:03)
[2021-09-13] MEDS: NYSTATIN 500,000 UNIT/5 ML UDC 500000 UNIT PO ×4 (05:03→20:06)
[2021-09-13] MEDS: Enoxaparin 40 MG/0.4 ML Syringe SC (05:03)
[2021-09-13 05:05] VITALS: PULSE 63; RESP 18; O2SAT 99
[2021-09-13 06:54] VITALS: O2SAT 96
[2021-09-13 15:12] VITALS: BP 117/52; PULSE 75; RESP 18; TEMP 36.4; O2SAT 94
[2021-09-13] MEDS: Jevity 1.5 1,000 ML 50 ML GT (19:33)
[2021-09-13 20:15] VITALS: PULSE 80; RESP 16; O2SAT 91
[2021-09-14] MEDS: Atorvastatin Calcium 40 MG Tablet GT (05:57)
[2021-09-14] MEDS: Enoxaparin 40 MG/0.4 ML Syringe SC (05:57)
[2021-09-14] MEDS: NYSTATIN 500,000 UNIT/5 ML UDC 500000 UNIT PO ×4 (05:57→20:37)
[2021-09-14] MEDS: Menthol/Lanolin/Calamine/Znox 113 GM Tube 1 APPLIC TOPICAL ×2 (05:59→17:32)
[2021-09-14] MEDS: Nystatin Powder 15gm Bottle 1 APPLIC TOPICAL ×2 (06:00→17:32)
[2021-09-14] MEDS: Acetaminophen 650 MG/20 ML UDC 1000 MG GT (06:37)
--- NOTE | 2021-09-14 07:03 | NURSING ---
Patient residual 5mL this AM. Tube feed continues at 50mL/hour continuously. Feels warm to touch, temperature temporal 97.3. C/o headache, pain noted on right side and base of skull. No issues with vision. Readjusted in bed, Tylenol administered, will continue to monitor.
[2021-09-14 15:14] VITALS: BP 119/58; PULSE 78; RESP 18; TEMP 36.3; O2SAT 93
[2021-09-14 15:26] VITALS: O2SAT 96
[2021-09-14] MEDS: Jevity 1.5 1,000 ML 50 ML GT (17:36)
[2021-09-14 20:32] VITALS: BP 125/69; PULSE 80; RESP 18; TEMP 36.3; O2SAT 93
[2021-09-15] MEDS: Menthol/Lanolin/Calamine/Znox 113 GM Tube 1 APPLIC TOPICAL ×2 (06:49→18:43)
[2021-09-15] MEDS: Nystatin Powder 15gm Bottle 1 APPLIC TOPICAL ×2 (06:50→18:42)
[2021-09-15] MEDS: NYSTATIN 500,000 UNIT/5 ML UDC 500000 UNIT PO ×4 (06:51→22:10)
[2021-09-15] MEDS: Enoxaparin 40 MG/0.4 ML Syringe SC (06:51)
[2021-09-15] MEDS: Atorvastatin Calcium 40 MG Tablet GT (06:51)
--- NOTE | 2021-09-15 11:58 | NURSING ---
pt to have telehealth appt with Dr. Tanner on 09/29/21 between 3-3:30pm. See nursing communication.
[2021-09-15 12:42] VITALS: O2SAT 97
--- NOTE | 2021-09-15 12:55 | NURSING ---
peg tube residual 0cc at this time. insertion site dressing D/I.
--- NOTE | 2021-09-15 15:52 | NURSING ---
outer trach/skin cleansed per MD order. inner cannula changed at this time. pt suctioned per request with minimal output obtained. tolerated well.
[2021-09-15 15:59] VITALS: BP 108/59; PULSE 88; RESP 18; TEMP 36.2
[2021-09-15] MEDS: Jevity 1.5. 1,000 ML Bottle 300 ML GT ×2 (18:41→22:09)
--- NOTE | 2021-09-15 19:02 | NURSING ---
pt ate 25% on dinner with minimal difficulty. 0cc residual obtained prior to bolus feed given. pt tolerated well. HOB left elevated.
[2021-09-15 22:02] VITALS: PULSE 82; O2SAT 93
--- NOTE | 2021-09-15 22:08 | NURSING ---
This nurse checked patients residual and got back 60ml. residual placed back and bolus feed was given. patient tolerated bolus well. No issues or complaints
[2021-09-15 22:30] VITALS: RESP 18
--- NOTE | 2021-09-16 06:05 | NURSING ---
residual check and 0ml was pulled back. Medication given
[2021-09-16] MEDS: Atorvastatin Calcium 40 MG Tablet GT (06:06)
[2021-09-16] MEDS: Enoxaparin 40 MG/0.4 ML Syringe SC (06:06)
[2021-09-16] MEDS: NYSTATIN 500,000 UNIT/5 ML UDC 500000 UNIT PO ×3 (06:06→21:31)
[2021-09-16] MEDS: Nystatin Powder 15gm Bottle 1 APPLIC TOPICAL ×2 (06:07→21:32)
[2021-09-16] MEDS: Menthol/Lanolin/Calamine/Znox 113 GM Tube 1 APPLIC TOPICAL ×2 (06:07→21:31)
[2021-09-16 07:21] VITALS: O2SAT 93
--- NOTE | 2021-09-16 07:56 | NURSING ---
Patient inner cannula removed and changed on tracheostomy, small amount of drainage noted upon cleansing. Stoma dry and intact, tolerated overall well.
[2021-09-16] MEDS: oxyCODONE 5 MG Tablet GT (08:39)
[2021-09-16] MEDS: Jevity 1.5. 1,000 ML Bottle 300 ML GT ×3 (09:42→21:33)
--- NOTE | 2021-09-16 09:58 | NURSING ---
Patient residual 60cc before bolus feed. Nutritional intake less than 25%. Patient tolerated bolus well with 200 mL free flush. PEG tube flushing patently.
[2021-09-16 10:00] VITALS: PULSE 86; RESP 16
[2021-09-16] MEDS: Acetaminophen 650 MG/20 ML UDC 1000 MG GT (13:54)
--- NOTE | 2021-09-16 14:29 | PN_ITS ---
Subjective Subjective Asked by nursing to see this pt for R side BENITEZ. She is ordered Oxy IR 5 mg every 4 hours as needed for pain however this seems to significantly sedate her. Nursing is requesting I review the pain medication regimen. Pt is a 76 YO female who had a Hemorrhagic CVA with midline shift and went on to have a craniotomy to decompress at [facility] on 08/12/21. While at [facility] she had a trach and a PEG. Afebrile VSS-blood pressure is well controlled. Maintaining appropriate oxygen saturation on RA She is getting Jevity 1.5 TF via PEG. She is incontinent of urine. Date of last bowel movement is 09/14/2021. Discussed with nursing - no problems that need addressed Reviewed the PT/OT/ST notes Medication list reviewed. MRS is a 5 Pt is non-verbal, she was verbal this AM. She also can not write on the Sweeten board and she was doing that previously. She has a dysconjugate gaze. She blinks to confrontation. She can not move the left side at all and it is flaccid. She is not following commands and was in the recent past. No tremors. Does not withdraw the Left leg or arm to a painful stimulus. Good strength on the R side. She is awake with her eyes open, not responding to her today. H-RRR, no gallop Lungs - scattered mild wheezing......may be being transmitted from the trach. Trach site is not erythematous and has no DC. Abd is soft and NT. No distension and BS's are present. No guarding with palpation. Impression 1. Acute mental status change in a pt with hemorrhagic stroke and craniotomy to decompress on 08/12/21. Will send to the ED to be seen. Needs a stat NC CTB to assess for new bleeding. Also will need a W/U to exclude infection as etiology for the acute change. Will D/W the ER doc after results of testing are back. Called ahead to the ED to alert them as to why the pt is being sent to the ED and her recent hx. Objective Data Objective Data Vital Signs: Vital Signs Temp Pulse Resp BP Pulse Ox O2 Del Method O2 Flow Rate 97.1 F L 86 16 108/59 L 93 Room Air 95 09/15/21 15:59 09/16/21 10:00 09/16/21 10:00 09/15/21 15:59 09/16/21 07:21 09/16/21 10:00 09/15/21 15:59 FiO2 94 09/13/21 21:15 Oxygen Flow Rate (L/min) 95 Oxygen Delivery Method Room Air Weight: 171 lb 11.841 oz Body Mass Index (BMI) 29.3 Intake & Output: Intake and Output for Last 24 Hours 09/14/21 09/15/21 09/16/21 23:59 23:59 23:59 Intake Total 1150 / 1150 1570 / 1570 510 / 510 Balance 1150 / 1150 1570 / 1570 510 / 510 Lab / Micro Data Result Diagrams: 09/10/21 05:29 09/10/21 05:29 Micro: Microbiology 09/09/21 18:35 Nasal Secretion SARS-CoV-2 Antigen (Rapid) - Final Charges/Coding Visit Charges Inpatient E&M: [address] [facility] Subs L3
--- NOTE | 2021-09-16 15:00 | NURSING ---
Patient taken to ED for STAT CT Scan per Doctor
--- NOTE | 2021-09-16 15:52 | CASEMGMT ---
Addendum entered by Collette Christie 09/16/21 15:57: BIMS dashed due to patient not participating in assessment. Patient participated in PHQ-9 assessment with shakes of head yes or no. Patient has speaking valve and has been able to talk. Nursing updated. Original Note: Social Work Brief interview for mental status (BIMS) and resident mood interview (PHQ-9) completed on this day. Jackie REED, NIRMALAS
[2021-09-16 16:00] VITALS: BP 104/58; PULSE 82; RESP 16; TEMP 36.3; O2SAT 93
--- NOTE | 2021-09-16 18:30 | NURSING ---
respiratory notified of pt needing EEG per Dr Samaniego order, they wont be able to get to it until tomorrow AM
[2021-09-16 22:10] LABS: Bedside Glucose 74 mg/dL (74-106)
[2021-09-17 05:43] LABS: Absolute Lymphocyte Count 2.22 X10^3/uL (0.83-4.51); Absolute Neutrophil Count 4.9 X10^3/uL (2.0-7.7); Basophil# 0.04 X10^3/uL; Basophil% 0.5 % (0-1); Eosinophil# 0.23 X10^3/uL; Eosinophils% 2.9 % (0-5); Hematocrit 30.3 % (37-47); Lymphocyte # 2.22 X10^3/ul (0.83-4.51); Lymphocyte % 27.5 % (19-41); Mean Corp Hgb Conc 29.7 g/dL (32-36); Mean Corpuscular Volume 94.1 fL (81-99); Mean Platelet Vol. 9.5 fl (6.2-12.0); Monocyte# 0.68 X10^3/uL; Monocyte% 8.4 % (0-10); NRBC Flagged by Analyzer 0 % (0-5); Neutrophil # 4.88 X10^3/uL (2.7-7.7); Neutrophil % 60.5 % (47-70); Platelet Count 333 K/mm3 (150-450); RBC Distribution Width CV 15.5 % (11.6-14.6); RBC Distribution Width SD 53.4 fl (35.1-43.9); Red Blood Count 3.22 M/mm3 (4.2-5.4); White Blood Count 8.1 K/mm3 (4.4-11.0)
[2021-09-17] MEDS: Menthol/Lanolin/Calamine/Znox 113 GM Tube 1 APPLIC TOPICAL ×2 (05:49→16:23)
[2021-09-17] MEDS: Nystatin Powder 15gm Bottle 1 APPLIC TOPICAL ×2 (05:50→16:24)
[2021-09-17] MEDS: Atorvastatin Calcium 40 MG Tablet GT (05:50)
[2021-09-17] MEDS: Enoxaparin 40 MG/0.4 ML Syringe SC (05:50)
[2021-09-17] MEDS: NYSTATIN 500,000 UNIT/5 ML UDC 500000 UNIT PO ×4 (05:51→21:44)
[2021-09-17 06:19] LABS: Anion Gap 4 (5-15); BUN 10 mg/dL (7-18); BUN/Creat Ratio 22.2 RATIO (10-20); Calcium,Total 8.8 mg/dL (8.5-10.1); Chloride 108 mmol/L (98-107); Creatinine, Serum 0.45 mg/dL (0.55-1.02); EST Glomerular Filtration Rate 144 mL/min (>60); Est Glom Filt Rate - Afr Amer 175 mL/min (>60); Estimated Creatinine Clearance 41.97 ml/min; Glucose 91 mg/dL (74-106); Potassium 3.9 mmol/L (3.5-5.1); Sodium Level 142 mmol/L (136-145)
[2021-09-17 07:36] LABS: Hemoglobin A1c 4.8 % (3.8-5.6)
--- NOTE | 2021-09-17 07:41 | TELEMED_ITS ---
SOC Telemed has confirmed receipt of a request for visit. This document confirms receipt of the order initiating the consult. To find the results of the consultation, please view the patient's reports for the scanned Telemed Consult.
[2021-09-17] MEDS: Jevity 1.5. 1,000 ML Bottle 300 ML GT ×3 (08:56→21:40)
--- NOTE | 2021-09-17 09:49 | CASEMGMT ---
Social Work Plan of care meeting held. Patient present as well as patient spouse, Nabeel and daughter, Oumou. Patient working with physical, occupational and speech therapy. Patient progressing with therapies. This certified social workers in health care communicating that next insurance update is due on 09/23/2021 with anticipated discharge/discontinued coverage to be on 10/02/2021. This certified social workers in health care communicating to patient/patient family that continued stay approval past 10/02/2021 is not anticipated but no guarantee of what insurance will decide to do based on patient progress and medical status. This certified social workers in health care broached conversation of discharge plan for patient in the event that patient is not able to return to home with spouse. Patient/patient family open to mcc placement, if needed. This certified social workers in health care provided list of nursing facilities that are local to patient geographical region. This certified social workers in health care communicating that if insurance discontinues coverage on the Transitional Care Unit they are discontinuing coverage of skilled services and this included all mcc. This certified social workers in health care communicating that patient would be private pay at another mcc if transitioning after insurance discontinues coverage. Patent family voiced understanding and report that private pay is not an issue for paying the mcc. This certified social workers in health care thanked family for information. This certified social workers in health care encouraged patient/patient family to look over mcc list and pick out their top three choices and social work will follow up with family next week on options. Active support and listening provided. Patient to continue with further care and treatment on the Transitional Care Unit. Social Work to continue to follow. Jackie REED, BOBBY
[2021-09-17 10:00] VITALS: PULSE 84; RESP 18; O2SAT 96
[2021-09-17 10:18] VITALS: O2SAT 93
[2021-09-17] MEDS: Tuberculin,Purif.prot.deriv. 50 TU/ML Vial 0.1 ML ID (10:51)
--- NOTE | 2021-09-17 14:08 | NURSING ---
Patient not wearing helmet at this time. Patient says it's uncomfortable. Educated on the importance of wearing helmet when out of bed. Bolus given d/t intake of less than 50%. Will continue to monitor.
[2021-09-17 16:00] VITALS: BP 112/62; PULSE 84; RESP 18; TEMP 36.7; O2SAT 94
[2021-09-17] MEDS: Acetaminophen 650 MG/20 ML UDC 1000 MG GT (21:42)
[2021-09-18] MEDS: NYSTATIN 500,000 UNIT/5 ML UDC 500000 UNIT PO ×3 (04:53→18:34)
[2021-09-18] MEDS: Enoxaparin 40 MG/0.4 ML Syringe SC (04:53)
[2021-09-18] MEDS: Atorvastatin Calcium 40 MG Tablet GT (04:53)
[2021-09-18] MEDS: Menthol/Lanolin/Calamine/Znox 113 GM Tube 1 APPLIC TOPICAL ×2 (04:54→18:34)
[2021-09-18] MEDS: Nystatin Powder 15gm Bottle 1 APPLIC TOPICAL ×2 (04:54→18:35)
[2021-09-18 07:13] VITALS: O2SAT 93
[2021-09-18 12:06] VITALS: PULSE 85; RESP 18; O2SAT 96
[2021-09-18 15:18] VITALS: BP 117/67; PULSE 87; RESP 18; TEMP 36.3; O2SAT 95
--- NOTE | 2021-09-18 16:53 | PCM.PROGNOTE ---
Subjective Subjective Afebrile VSS Maintaining appropriate oxygen saturation on RA Oral intake getting better. She has not had to receive the bolus feeding through the PEG tube for 3 times in a row now and has been eating at least 50% of her meals. Fluid intake over the past 3 days has not been good. Discussed with nursing - no problems that need addressed Reviewed the PT/OT/ST notes Medication list reviewed. I reviewed the SOC EEG report and it is abnormal. There is right hemispheric slowing which is maximal in the frontotemporal region with rare sharp waves that are suggestive of a focal cerebral dysfunction. The presence of sharp waves denotes increased risk for partial seizures. On 09/16/2021 she became unresponsive, could not talk, could not write, could not follow commands and could not move her left side. A noncontrast CT brain showed resolution of the previous right frontal parenchymal hematoma with no evidence of acute hemorrhage. While she was in the ER she became more alert and was back to her baseline.......I suspect she had a seizure and was post ictal when I saw her. She is not on an antiepileptic. Nursing has asked me to see her today because of a pruritic rash on her back. Objective Data Objective Data Vital Signs: Vital Signs Temp Pulse Resp BP Pulse Ox O2 Del Method O2 Flow Rate 97.4 F L 87 18 117/67 95 Room Air 95 09/18/21 15:18 09/18/21 15:18 09/18/21 15:18 09/18/21 15:18 09/18/21 15:18 09/18/21 15:18 09/15/21 15:59 FiO2 94 09/13/21 21:15 Oxygen Flow Rate (L/min) 95 Oxygen Delivery Method Room Air Weight: 171 lb 11.841 oz Body Mass Index (BMI) 29.3 Intake & Output: Intake and Output for Last 24 Hours 09/16/21 09/17/21 09/18/21 23:59 23:59 23:59 Intake Total 510 / 510 630 / 630 560 / 560 Balance 510 / 510 630 / 630 560 / 560 Lab / Micro Data Result Diagrams: 09/17/21 05:23 09/17/21 05:23 Micro: Microbiology 09/17/21 06:00 Nasal Secretion SARS-CoV-2 Antigen (Rapid) - Final 09/09/21 18:35 Nasal Secretion SARS-CoV-2 Antigen (Rapid) - Final Physical Exam Const alert Constitutional Narrative: Able to speak and is appropriate. She told me that the rash and the itching only involve her back. Skin Skin Narrative: She is in a gown with the back open but, she now has a second gown on to cover her back. She has a maculopapular rash on her back that appears to be an allergic dermatitis. I see this frequently and it is usually due to friction between the sheets and the skin and the detergent the hospital uses. Neuro Neuro Narrative: She is moving all extremities now. She is verbal and appropriate. Assessment & Plan Assessment/Plan (1) Hemorrhagic stroke: (2) S/P craniotomy: (3) Seizure disorder: PLAN: Start Keppra 500 mg BID. (4) Abnormal EEG: (5) Allergic dermatitis: PLAN: Keep the back covered and start hydrocortisone cream. Charges/Coding Visit Charges Inpatient E&M: 97929 [facility] Subs L2
[2021-09-18] MEDS: levETIRAcetam Oral Solution 500 MG/5 ML GT (18:39)
[2021-09-18] MEDS: Hydrocortisone 2.5% Crm 1 APPLIC TOPICAL (23:10)
[2021-09-18] MEDS: Jevity 1.5. 1,000 ML Bottle 300 ML GT (23:11)
--- NOTE | 2021-09-19 00:59 | NURSING ---
Trach care completed. New inner cannula placed. Patient tolerated well.
[2021-09-19] MEDS: Hydrocortisone 2.5% Crm 1 APPLIC TOPICAL ×3 (05:11→22:13)
[2021-09-19] MEDS: levETIRAcetam Oral Solution 500 MG/5 ML GT ×2 (05:12→17:38)
[2021-09-19] MEDS: Atorvastatin Calcium 40 MG Tablet GT (05:12)
[2021-09-19] MEDS: NYSTATIN 500,000 UNIT/5 ML UDC 500000 UNIT PO ×4 (05:12→22:21)
[2021-09-19] MEDS: Enoxaparin 40 MG/0.4 ML Syringe SC (05:12)
[2021-09-19] MEDS: Menthol/Lanolin/Calamine/Znox 113 GM Tube 1 APPLIC TOPICAL ×2 (05:35→17:38)
[2021-09-19] MEDS: Nystatin Powder 15gm Bottle 1 APPLIC TOPICAL ×2 (05:36→17:40)
[2021-09-19 08:38] VITALS: O2SAT 94
[2021-09-19 15:27] VITALS: BP 100/54; PULSE 86; RESP 16; TEMP 36.1; O2SAT 94
[2021-09-19 22:00] VITALS: O2SAT 98
[2021-09-19] MEDS: Jevity 1.5. 1,000 ML Bottle 300 ML GT (22:24)
[2021-09-20] MEDS: levETIRAcetam Oral Solution 500 MG/5 ML GT ×2 (05:22→17:38)
[2021-09-20] MEDS: Enoxaparin 40 MG/0.4 ML Syringe SC (05:22)
[2021-09-20] MEDS: Atorvastatin Calcium 40 MG Tablet GT (05:22)
[2021-09-20] MEDS: NYSTATIN 500,000 UNIT/5 ML UDC 500000 UNIT PO ×4 (05:22→21:58)
[2021-09-20] MEDS: Nystatin Powder 15gm Bottle 1 APPLIC TOPICAL ×2 (05:23→17:39)
[2021-09-20] MEDS: Menthol/Lanolin/Calamine/Znox 113 GM Tube 1 APPLIC TOPICAL ×2 (05:23→17:38)
[2021-09-20] MEDS: Hydrocortisone 2.5% Crm 1 APPLIC TOPICAL ×3 (05:23→21:58)
[2021-09-20] MEDS: Jevity 1.5. 1,000 ML Bottle 300 ML GT ×4 (09:39→21:59)
[2021-09-20 10:00] VITALS: PULSE 81; RESP 18; O2SAT 97
[2021-09-20 15:22] VITALS: BP 110/58; PULSE 81; RESP 18; TEMP 36.8; O2SAT 97
[2021-09-21] MEDS: Menthol/Lanolin/Calamine/Znox 113 GM Tube 1 APPLIC TOPICAL ×2 (05:07→18:09)
[2021-09-21] MEDS: Hydrocortisone 2.5% Crm 1 APPLIC TOPICAL ×2 (05:07→14:40)
[2021-09-21] MEDS: levETIRAcetam Oral Solution 500 MG/5 ML GT ×2 (05:07→18:09)
[2021-09-21] MEDS: Enoxaparin 40 MG/0.4 ML Syringe SC (05:08)
[2021-09-21] MEDS: Atorvastatin Calcium 40 MG Tablet GT (05:08)
[2021-09-21] MEDS: NYSTATIN 500,000 UNIT/5 ML UDC 500000 UNIT PO ×4 (05:08→20:52)
[2021-09-21] MEDS: Nystatin Powder 15gm Bottle 1 APPLIC TOPICAL ×2 (05:08→18:09)
[2021-09-21] MEDS: Jevity 1.5. 1,000 ML Bottle 300 ML GT ×3 (09:30→20:52)
[2021-09-21] MEDS: Acetaminophen 650 MG/20 ML UDC 1000 MG GT (15:16)
[2021-09-21 16:00] VITALS: BP 131/54; PULSE 77; RESP 18; TEMP 36.7; O2SAT 96
--- NOTE | 2021-09-21 23:49 | NURSING ---
new disposable shilley 5.5 put in. Site cleaned with ns and 1/2 hydrogen peroxide. Pt tolerated it well. sutures intact
[2021-09-22] MEDS: Enoxaparin 40 MG/0.4 ML Syringe SC (05:47)
[2021-09-22] MEDS: levETIRAcetam Oral Solution 500 MG/5 ML GT ×2 (05:48→18:32)
[2021-09-22] MEDS: Atorvastatin Calcium 40 MG Tablet GT (05:48)
[2021-09-22] MEDS: Menthol/Lanolin/Calamine/Znox 113 GM Tube 1 APPLIC TOPICAL ×2 (05:49→18:32)
[2021-09-22] MEDS: Nystatin Powder 15gm Bottle 1 APPLIC TOPICAL ×2 (05:49→18:31)
[2021-09-22] MEDS: Acetaminophen 650 MG/20 ML UDC 1000 MG GT (10:04)
--- NOTE | 2021-09-22 11:18 | PCM.PN.BLA ---
Progress Note Afebrile Vital signs are stable She is well saturated on room air Asked by nursing to see her for a swollen red hand on the R. Continues with the rash on her back but, denies pruritis. She is alert, cooperative and appears in no acute distress. She tells me that the redness of the R hand is chronic and comes and goes. She tells me it is due to arthritis. She denies pruritus and Hydrocortisone is now PRN. Physical Exam Extremity Extremity Narrative: The dorsal surface of the middle finger from the PIP joint through the MCP joint is red. There are no openings in the skin. There is a very mild increased warmth to touch. No previous IV sticks apparent. There is mild swelling of the CMP joint and she has mild pain with palpation of the MCP joint. Assessment & Plan Assessment/Plan (1) Allergic dermatitis: PLAN: Still with a rash but the pruritus has resolved. Hydrocortisone has been changed to twice daily as needed pruritus. I suspect the rash is due to a combination of sweating when sitting for long periods of time in a chair with a plastic covering and detergent. No sign infection. (2) Osteoarthritis: PLAN: This has been a recurring problem for Magali in the R hand. Will try applying a compounded arthritis cream containing baclofen, Voltaren and lidocaine to see if this is effective. (3) History of tracheostomy: PLAN: Will start capping the trach and when she can tolerate 24 H the RT will notify Dr. Redd or Dr. Louise and they will address decanulation at that time. Visit Charges Inpatient E&M: 88278 [facility] Subs L1
--- NOTE | 2021-09-22 12:01 | EX.PCM.CONCC ---
HPI Consult Data Date of Consult: 09/22/21 HPI Narrative Reason for Consultation: Tracheostomy decannulation HPI Narrative: The patient is a 76-year-old female, with a history as outlined below, who was admitted to the inpatient rehab unit on September 09 after following an intracranial bleed which required surgical intervention in July 2021. During her hospitalization at [facility] she did require tracheostomy and PEG tube placement. [facility] Medical History Hyperlipidemia Hypertension Lab test negative for COVID-19 virus Home Medications L.acidoph, paracasei,B. lactis 10 billion cell capsule 1 ea PO QHS gut health 01/11/18 [History Last Taken Unknown] multivitamin (Multiple Vitamins tablet) 1 ea PO DAILY supplement 01/11/18 [History Last Taken Unknown] atorvastatin 10 mg tablet 40 mg PO DAILY Cholesterol 11/01/20 [History Last Taken Unknown] nutrition tx glu intol,lac-free,soy-fiber 0.08 gram-1.5 kcal/mL liquid (Glucerna 1.5 Godwin) 45 ml feeding tube CONT Supplement 09/09/21 [History Last Taken Unknown] Allergy/AdvReac Type Severity Reaction Status Date / Time Sulfa (Sulfonamide Allergy Rash Verified 09/16/21 15:12 Antibiotics) Surgical History H/O: hysterectomy History of gastrostomy History of laparoscopic cholecystectomy History of tracheostomy Social History household members: spouse Smoking Status: Never smoker alcohol intake: never substance use type: does not use Lab / Micro Data Result Diagrams: 09/17/21 05:23 09/17/21 05:23
--- NOTE | 2021-09-22 12:55 | MDS.RN ---
Information for the mds was obtained from review of the clinical record, interview of resident, staff, and direct obsvation of resident's care.
[2021-09-22] MEDS: Hydrocortisone 2.5% Crm 1 APPLIC TOPICAL (13:40)
[2021-09-22] MEDS: Jevity 1.5. 1,000 ML Bottle 300 ML GT ×3 (13:42→22:32)
[2021-09-22 13:54] VITALS: O2SAT 100
[2021-09-22 15:24] VITALS: BP 121/62; PULSE 82; RESP 18; TEMP 36.4; O2SAT 98
--- NOTE | 2021-09-22 15:32 | CPS ---
Resident was placed on Cap Trach trial at 13:54 09/22/21. Tolerating well, will continue to monitor. RN aware.
[2021-09-22] MEDS: Arthritis Pain Compound 60 CLICK TUBE TOPICAL ×2 (15:33→22:05)
[2021-09-23] MEDS: Menthol/Lanolin/Calamine/Znox 113 GM Tube 1 APPLIC TOPICAL ×2 (05:40→18:14)
[2021-09-23] MEDS: Arthritis Pain Compound 60 CLICK TUBE TOPICAL ×3 (05:40→22:53)
[2021-09-23] MEDS: levETIRAcetam Oral Solution 500 MG/5 ML GT ×2 (05:40→18:14)
[2021-09-23] MEDS: Atorvastatin Calcium 40 MG Tablet GT (05:41)
[2021-09-23] MEDS: oxyCODONE 5 MG Tablet 2.5 MG GT (05:42)
[2021-09-23] MEDS: Nystatin Powder 15gm Bottle 1 APPLIC TOPICAL ×2 (05:47→18:14)
[2021-09-23] MEDS: Enoxaparin 40 MG/0.4 ML Syringe SC (05:47)
[2021-09-23] MEDS: Jevity 1.5. 1,000 ML Bottle 300 ML GT ×4 (09:40→22:53)
[2021-09-23] MEDS: Acetaminophen 650 MG/20 ML UDC 1000 MG GT (10:47)
[2021-09-23 14:30] VITALS: BP 116/59; PULSE 89; RESP 18; TEMP 36.4; O2SAT 95
[2021-09-23 14:58] VITALS: O2SAT 96
--- NOTE | 2021-09-23 14:59 | CPS ---
Removed cap, placed speaking valve on. Tolerates well, denies any dyspnea, distress.
--- NOTE | 2021-09-23 18:34 | NURSING ---
Inner cannula changed this shift, site care provided. pt had zero residual before each feeding.
[2021-09-23 22:00] VITALS: PULSE 85; RESP 18; O2SAT 94
[2021-09-24] MEDS: Acetaminophen 650 MG/20 ML UDC 1000 MG GT ×2 (01:53→18:37)
[2021-09-24] MEDS: Arthritis Pain Compound 60 CLICK TUBE TOPICAL ×3 (05:44→22:15)
[2021-09-24] MEDS: Menthol/Lanolin/Calamine/Znox 113 GM Tube 1 APPLIC TOPICAL ×2 (05:45→18:36)
[2021-09-24] MEDS: Enoxaparin 40 MG/0.4 ML Syringe SC (05:45)
[2021-09-24] MEDS: Atorvastatin Calcium 40 MG Tablet GT (05:45)
[2021-09-24] MEDS: levETIRAcetam Oral Solution 500 MG/5 ML GT ×2 (05:45→18:37)
[2021-09-24 05:52] LABS: Absolute Lymphocyte Count 3.22 X10^3/uL (0.83-4.51); Absolute Neutrophil Count 6.6 X10^3/uL (2.0-7.7); Basophil# 0.04 X10^3/uL; Basophil% 0.4 % (0-1); Eosinophil# 0.21 X10^3/uL; Eosinophils% 1.9 % (0-5); Hematocrit 31.3 % (37-47); Hemoglobin 9.7 g/dL (12.0-15.0); Lymphocyte # 3.22 X10^3/ul (0.83-4.51); Lymphocyte % 29.3 % (19-41); Mean Corpuscular Volume 93.4 fL (81-99); Mean Platelet Vol. 9.4 fl (6.2-12.0); Monocyte% 8.2 % (0-10); NRBC Flagged by Analyzer 0 % (0-5); Neutrophil % 59.9 % (47-70); Platelet Count 391 K/mm3 (150-450); RBC Distribution Width CV 15.9 % (11.6-14.6); RBC Distribution Width SD 54.4 fl (35.1-43.9); Red Blood Count 3.35 M/mm3 (4.2-5.4)
[2021-09-24 06:22] LABS: Anion Gap 3 (5-15); BUN 12 mg/dL (7-18); BUN/Creat Ratio 30.5 RATIO (10-20); Calcium,Total 9.2 mg/dL (8.5-10.1); Chloride 108 mmol/L (98-107); Creatinine, Serum 0.39 mg/dL (0.55-1.02); EST Glomerular Filtration Rate 168 mL/min (>60); Est Glom Filt Rate - Afr Amer 204 mL/min (>60); Estimated Creatinine Clearance 41.97 ml/min; Glucose 83 mg/dL (74-106); Potassium 3.9 mmol/L (3.5-5.1); Sodium Level 141 mmol/L (136-145)
[2021-09-24] MEDS: Nystatin Powder 15gm Bottle 1 APPLIC TOPICAL ×2 (07:02→18:36)
[2021-09-24 09:00] VITALS: O2SAT 95
--- NOTE | 2021-09-24 09:18 | CPS ---
Trach Cap placed on @09:00, cap is to be left on for [address] Louise
[2021-09-24] MEDS: Jevity 1.5. 1,000 ML Bottle 300 ML GT (09:48)
[2021-09-24 10:00] VITALS: PULSE 82; RESP 18; O2SAT 94
[2021-09-24 15:04] VITALS: BP 122/56; PULSE 82; RESP 18; TEMP 36.6; O2SAT 94
[2021-09-24] MEDS: Jevity 1.5. 1,000 ML Bottle 240 ML GT ×2 (18:41→22:16)
[2021-09-25] MEDS: Enoxaparin 40 MG/0.4 ML Syringe SC (05:49)
[2021-09-25] MEDS: levETIRAcetam Oral Solution 500 MG/5 ML GT ×2 (05:49→18:27)
[2021-09-25] MEDS: Menthol/Lanolin/Calamine/Znox 113 GM Tube 1 APPLIC TOPICAL ×2 (05:49→18:27)
[2021-09-25] MEDS: Atorvastatin Calcium 40 MG Tablet GT (05:49)
[2021-09-25] MEDS: Arthritis Pain Compound 60 CLICK TUBE TOPICAL ×3 (05:49→20:50)
[2021-09-25] MEDS: Nystatin Powder 15gm Bottle 1 APPLIC TOPICAL ×2 (05:50→18:28)
--- NOTE | 2021-09-25 08:24 | NURSING ---
CT approved by insurance, approval #[id number]
--- NOTE | 2021-09-25 09:50 | CPS ---
Took pt's tracheostomy out per Dr Louise, pt alert, site pink on outer edges, removed one stitch, covered with multiple layers of gauze. small dot of blood noted, no complications. SpO2=97%. pt says site is sore so RT will let RN know pt wants something for pain.
[2021-09-25 09:55] VITALS: O2SAT 97
[2021-09-25 14:28] VITALS: BP 132/57; PULSE 94; RESP 17; TEMP 36.5; O2SAT 100
[2021-09-25] MEDS: Acetaminophen 650 MG/20 ML UDC 1000 MG GT (15:35)
[2021-09-25] MEDS: Jevity 1.5. 1,000 ML Bottle 240 ML GT ×2 (18:28→20:51)
[2021-09-25 22:00] VITALS: PULSE 94; RESP 16; O2SAT 97
[2021-09-26] MEDS: Arthritis Pain Compound 60 CLICK TUBE TOPICAL ×3 (04:58→22:35)
[2021-09-26] MEDS: levETIRAcetam Oral Solution 500 MG/5 ML GT ×2 (04:59→18:13)
[2021-09-26] MEDS: Atorvastatin Calcium 40 MG Tablet GT (04:59)
[2021-09-26] MEDS: Nystatin Powder 15gm Bottle 1 APPLIC TOPICAL ×2 (04:59→18:13)
[2021-09-26] MEDS: Menthol/Lanolin/Calamine/Znox 113 GM Tube 1 APPLIC TOPICAL ×2 (04:59→18:13)
[2021-09-26] MEDS: Enoxaparin 40 MG/0.4 ML Syringe SC (04:59)
[2021-09-26 07:51] VITALS: O2SAT 97
[2021-09-26 15:08] VITALS: BP 106/64; PULSE 95; RESP 14; TEMP 36.1; O2SAT 94
[2021-09-26] MEDS: Acetaminophen 650 MG/20 ML UDC 1000 MG GT (22:35)
[2021-09-26] MEDS: Jevity 1.5. 1,000 ML Bottle 240 ML GT (22:36)
[2021-09-26 23:50] VITALS: PULSE 67; RESP 16; O2SAT 94
[2021-09-27] MEDS: Nystatin Powder 15gm Bottle 1 APPLIC TOPICAL ×2 (04:53→18:35)
[2021-09-27] MEDS: Enoxaparin 40 MG/0.4 ML Syringe SC (04:55)
[2021-09-27] MEDS: Atorvastatin Calcium 40 MG Tablet GT (04:55)
[2021-09-27] MEDS: levETIRAcetam Oral Solution 500 MG/5 ML GT ×2 (04:55→18:31)
[2021-09-27] MEDS: Arthritis Pain Compound 60 CLICK TUBE TOPICAL ×3 (04:55→22:17)
[2021-09-27] MEDS: Menthol/Lanolin/Calamine/Znox 113 GM Tube 1 APPLIC TOPICAL ×2 (04:56→18:36)
[2021-09-27] MEDS: Jevity 1.5. 1,000 ML Bottle 240 ML GT ×3 (08:24→22:21)
[2021-09-27 15:45] VITALS: BP 128/53; PULSE 100; RESP 18; TEMP 36.7; O2SAT 94
[2021-09-27] MEDS: Acetaminophen 650 MG/20 ML UDC 1000 MG GT (22:17)
[2021-09-28] VITALS: BP 126/57; PULSE 82; RESP 16; TEMP 36.2; O2SAT 94
[2021-09-28 00:20] LABS: Bedside Glucose 194 mg/dL (74-106)
--- NOTE | 2021-09-28 00:20 | NURSING ---
Addendum entered by Carol Denton 09/28/21 07:49: Pt. loan servicing representative/spouse (Nabeel) contacted per facesheet, notified of fall, CT in ED, UTI and new order for Cipro per . Nabeel states he is ok with room change if needed to promote safety and states will be in later this morning to visit. Addendum entered by Carol Denton 09/28/21 06:26: updated via telephone regarding urinalysis and CT scan finding. Allergy and blood thinner reviewed. Urine culture pending. New order received for Cipro 250mg BID PO x7days start first dose now. Orders repeated back. Addendum entered by Carol Denton 09/28/21 03:59: Patient transferred back to unit from ED via cot at 03:30, no new orders reported by ED RN, CT of head completed. Urine obtained via straight cath for UA C&S with patient consent upon return to TCU, tolerated well, neuro checks WNL, trach site dry and intact with no s/sx infection. No distress observed or reported. Encouraged not to get out of bed unassisted, educated on fall prevention. Patient forgetful, alert and oriented x2 at this time. Toileting schedule in place, continue frequent rounds. Bed locked, in lowest position, personal items within reach. Call light within reach. Urine sent to lab. 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 ED able to accept patient at this time Original Note: at 00:00 rounds patient observed on bilat knees kneeling at bedside, sitting upright with bilat elbows resting on mattress. Second RN present to assist. Patient poor historian alert to person/place. Assisted to bed x3 assist. No inward/outward rotation observed to any extremity, no c/o pain. Denies head strike. Patient states I was just going to go to the bathroom. NO obvious signs of injury observed or reported. Observed incontinent of urine at this time, urine foul in odor. VSS. Neuro WNL. Left arm weak per baseline. contacted via telephone notified of fall, received new order for CT of head without contrast, send to ED if needed due to insurance, straight cath UA C&S.
[2021-09-28 04:03] VITALS: BP 137/64; PULSE 84; RESP 16
[2021-09-28 04:03] LABS: Mucous, Urine 0 SEEN /hpf (<or=2+)
[2021-09-28 04:33] LABS: Color, Urine Yellow (Yellow); Glucose, Dipstick Normal (Normal); Ketone-Dipstick Negative (Negative); Leukocyte Esterase-Dipstick 500 /ul (Negative); Nitrite-Dipstick Positive (Negative); Occult Blood-Urine 10 /ul (Negative); Protein-Dipstick 30 mg/dl (Negative); Urine Bilirubin Dipstick Negative (Negative); Urine Clarity Sl. Cloudy (Clear); Urine Urobilinogen Normal (Normal)
[2021-09-28 04:44] LABS: Red Blood Cells-Urine 0-5 SEEN /hpf (0-5); Squamous Epithelial Cells - UA 0-5 SEEN /hpf (5-10); White Blood Cells 50-100 SEEN /hpf (0-5)
[2021-09-28 04:45] LABS: Bacteria 4+ /hpf (None Seen)
[2021-09-28 05:00] VITALS: BP 127/63; PULSE 75; RESP 14
[2021-09-28] MEDS: Nystatin Powder 15gm Bottle 1 APPLIC TOPICAL ×2 (05:30→18:08)
[2021-09-28] MEDS: Enoxaparin 40 MG/0.4 ML Syringe SC (05:31)
[2021-09-28] MEDS: Arthritis Pain Compound 60 CLICK TUBE TOPICAL ×3 (05:31→19:30)
[2021-09-28] MEDS: Menthol/Lanolin/Calamine/Znox 113 GM Tube 1 APPLIC TOPICAL ×2 (05:31→18:07)
[2021-09-28] MEDS: Atorvastatin Calcium 40 MG Tablet GT (05:31)
[2021-09-28] MEDS: levETIRAcetam Oral Solution 500 MG/5 ML GT ×2 (05:31→18:08)
[2021-09-28 08:41] VITALS: O2SAT 95
[2021-09-28] MEDS: Ciprofloxacin 250 MG Tablet GT ×2 (08:42→18:08)
[2021-09-28] MEDS: Jevity 1.5. 1,000 ML Bottle 240 ML GT ×3 (08:43→19:29)
[2021-09-28] MEDS: Hydrocortisone 2.5% Crm 1 APPLIC TOPICAL (14:03)
[2021-09-28 16:00] VITALS: BP 125/66; PULSE 94; RESP 16; TEMP 35.7; O2SAT 96
[2021-09-28] MEDS: Acetaminophen 650 MG/20 ML UDC 1000 MG GT (19:30)
[2021-09-28 22:51] VITALS: PULSE 88; RESP 16; O2SAT 92
[2021-09-29] MEDS: Arthritis Pain Compound 60 CLICK TUBE TOPICAL ×3 (05:18→21:55)
[2021-09-29] MEDS: levETIRAcetam Oral Solution 500 MG/5 ML GT ×2 (05:18→18:40)
[2021-09-29] MEDS: Atorvastatin Calcium 40 MG Tablet GT (05:18)
[2021-09-29] MEDS: Enoxaparin 40 MG/0.4 ML Syringe SC (05:18)
[2021-09-29] MEDS: Nystatin Powder 15gm Bottle 1 APPLIC TOPICAL ×2 (05:19→18:40)
[2021-09-29] MEDS: Ciprofloxacin 250 MG Tablet GT ×2 (05:19→18:40)
[2021-09-29] MEDS: Menthol/Lanolin/Calamine/Znox 113 GM Tube 1 APPLIC TOPICAL ×2 (05:34→18:41)
[2021-09-29 07:20] VITALS: O2SAT 93
[2021-09-29] MEDS: Jevity 1.5. 1,000 ML Bottle 240 ML GT ×2 (13:32→22:08)
[2021-09-29] MEDS: Acetaminophen 650 MG/20 ML UDC 1000 MG GT ×2 (13:33→21:59)
[2021-09-29] MEDS: oxyCODONE 5 MG Tablet 2.5 MG GT (15:14)
[2021-09-29 16:00] VITALS: BP 111/62; PULSE 88; RESP 16; TEMP 36.9; O2SAT 97
--- NOTE | 2021-09-29 16:32 | CASEMGMT ---
Addendum entered by Jillian Marrufo 09/30/21 15:01: [facility] able to accept in a semi-private room. SW spoke with - agreed to semi-private room and placement. appreciative. Goal DC to [facility] once insurance issues DC date. Addendum entered by Jillian Marrufo 09/30/21 12:45: Received voicemail from dtr requesting referral to [facility]. Referral made via email. Original Note: Social Work Received call from dtr inquiring about DC plan and the next steps. Answered questions and discussed options. Dtr states family knows pt is not ready to DC home at this time and are agreeable to a SNF placement. SW encouraged to provide SNF choices to this worker to begin referrals. Dtr to discuss with family from list SW previously provided and notify SW. SW received insurance outcome of approval with [facility] 10/03. Contacted dtr to update. Dtr appreciative. SW to continue to follow. Jillian Marrufo, BRIANNA MEDELLINW
[2021-09-29 20:00] VITALS: PULSE 85; RESP 16; O2SAT 93
[2021-09-30 06:03] VITALS: BP 108/57; PULSE 86; RESP 16; O2SAT 93
[2021-09-30] MEDS: Arthritis Pain Compound 60 CLICK TUBE TOPICAL ×3 (06:05→21:16)
[2021-09-30] MEDS: Menthol/Lanolin/Calamine/Znox 113 GM Tube 1 APPLIC TOPICAL ×2 (06:07→17:57)
[2021-09-30] MEDS: Ciprofloxacin 250 MG Tablet GT ×2 (06:07→17:58)
[2021-09-30] MEDS: Enoxaparin 40 MG/0.4 ML Syringe SC (06:08)
[2021-09-30] MEDS: levETIRAcetam Oral Solution 500 MG/5 ML GT ×2 (06:08→17:58)
[2021-09-30] MEDS: Atorvastatin Calcium 40 MG Tablet GT (06:08)
[2021-09-30] MEDS: Nystatin Powder 15gm Bottle 1 APPLIC TOPICAL ×2 (06:09→17:58)
[2021-09-30] MEDS: Acetaminophen 650 MG/20 ML UDC 1000 MG GT ×3 (06:09→21:16)
[2021-09-30 09:53] VITALS: PULSE 84; RESP 17
[2021-09-30 14:54] VITALS: BP 111/60; PULSE 85; RESP 14; TEMP 36.6; O2SAT 96
--- NOTE | 2021-09-30 15:28 | NURSING ---
Late entry. Updated next of kin that a staff member tested positive for COVID.
--- NOTE | 2021-09-30 16:22 | CHAPLAIN ---
Type of Pastoral Visit _x__ Initial Visit ___ Follow-up Visit ___ On-call Visit ___ General Patient Visit ___ Spiritual Assessment ___ Family Conference ___ Bereavement ___ Rapid Response ___ Code Blue ___ Other (describe below) Pastoral Care Referral From ___ Patient ___ Family _x__ Nurse ___ Physician ___ Tip Banding Machine Operator ___ Panel Saw Operator ___ Other (describe below) Sacrament/Intervention _x__ Active listening ___ Anointing ___ Taoism ___ Bereavement ___ Communion _x__ Citlaly exploration ___ _x__ Life review _x__ Prayer ___ Reconciliation ___ Sacrament of Sick __x_ Supportive presence ___ Wedding ___ Other (describe below) Pastoral Comments [facility] notifies this submarine operator that patient would like cheondoism reading material and a visit from submarine operator; patient, spouse, and a visitor were in the room but visitor soon left; introduction to role of submarine operator to pt and spouse; both are very welcoming and stated such; pt would like reading material; pt is asked some question but she defers to ; defers back to her you have to work on your memory so you should answer these questions; pt speaks of God being the one to get her through this and that she has had a blessed life; after visit this submarine operator brought requested materials to pt to read; [facility] had given a Bible to pt too
--- NOTE | 2021-09-30 18:08 | NURSING ---
message left with daughterOumou regarding Telehealth appt w/Dr Ciro CHAPPELL neurology appt. Therapy wondering how long pt has to wear helmet?
[2021-09-30] MEDS: Jevity 1.5. 1,000 ML Bottle 240 ML GT (21:16)
[2021-09-30 22:00] VITALS: PULSE 72; RESP 16; O2SAT 96
[2021-10-01 05:29] LABS: Absolute Lymphocyte Count 2.88 X10^3/uL (0.83-4.51); Basophil# 0.03 X10^3/uL; Basophil% 0.3 % (0-1); Eosinophil# 0.21 X10^3/uL; Eosinophils% 2.4 % (0-5); Hematocrit 33.7 % (37-47); Hemoglobin 10.1 g/dL (12.0-15.0); Lymphocyte # 2.88 X10^3/ul (0.83-4.51); Lymphocyte % 32.8 % (19-41); Mean Corpuscular Hgb 28.4 pg (27.0-32.0); Mean Corpuscular Volume 94.7 fL (81-99); Mean Platelet Vol. 8.9 fl (6.2-12.0); Monocyte# 0.64 X10^3/uL; Monocyte% 7.3 % (0-10); NRBC Flagged by Analyzer 0 % (0-5); Neutrophil # 4.95 X10^3/uL (2.7-7.7); Neutrophil % 56.4 % (47-70); Platelet Count 406 K/mm3 (150-450); RBC Distribution Width CV 16.2 % (11.6-14.6); RBC Distribution Width SD 55.8 fl (35.1-43.9); Red Blood Count 3.56 M/mm3 (4.2-5.4); White Blood Count 8.8 K/mm3 (4.4-11.0)
[2021-10-01] MEDS: Menthol/Lanolin/Calamine/Znox 113 GM Tube 1 APPLIC TOPICAL ×2 (05:51→18:18)
[2021-10-01] MEDS: Arthritis Pain Compound 60 CLICK TUBE TOPICAL ×3 (05:51→21:28)
[2021-10-01] MEDS: levETIRAcetam Oral Solution 500 MG/5 ML GT ×2 (05:52→18:20)
[2021-10-01] MEDS: Nystatin Powder 15gm Bottle 1 APPLIC TOPICAL ×2 (05:52→18:20)
[2021-10-01] MEDS: Atorvastatin Calcium 40 MG Tablet GT (05:52)
[2021-10-01] MEDS: Enoxaparin 40 MG/0.4 ML Syringe SC (05:52)
[2021-10-01] MEDS: Ciprofloxacin 250 MG Tablet GT ×2 (05:52→18:20)
[2021-10-01] MEDS: Acetaminophen 650 MG/20 ML UDC 1000 MG GT ×3 (05:53→21:28)
[2021-10-01 05:55] LABS: Anion Gap 2 (5-15); BUN 11 mg/dL (7-18); BUN/Creat Ratio 21.6 RATIO (10-20); Chloride 109 mmol/L (98-107); Creatinine, Serum 0.51 mg/dL (0.55-1.02); EST Glomerular Filtration Rate 125 mL/min (>60); Est Glom Filt Rate - Afr Amer 152 mL/min (>60); Estimated Creatinine Clearance 41.97 ml/min; Glucose 94 mg/dL (74-106); Potassium 4.1 mmol/L (3.5-5.1); Sodium Level 142 mmol/L (136-145)
[2021-10-01 13:43] VITALS: BP 114/64; PULSE 82; RESP 16; TEMP 36.4; O2SAT 96
[2021-10-01] MEDS: Jevity 1.5. 1,000 ML Bottle 240 ML GT ×2 (18:20→21:28)
[2021-10-01 22:00] VITALS: PULSE 74; RESP 18; O2SAT 96
[2021-10-02] MEDS: levETIRAcetam Oral Solution 500 MG/5 ML GT ×2 (05:36→18:55)
[2021-10-02] MEDS: Menthol/Lanolin/Calamine/Znox 113 GM Tube 1 APPLIC TOPICAL ×2 (05:36→18:54)
[2021-10-02] MEDS: Enoxaparin 40 MG/0.4 ML Syringe SC (05:36)
[2021-10-02] MEDS: Ciprofloxacin 250 MG Tablet GT ×2 (05:36→18:54)
[2021-10-02] MEDS: Arthritis Pain Compound 60 CLICK TUBE TOPICAL ×3 (05:36→23:03)
[2021-10-02] MEDS: Atorvastatin Calcium 40 MG Tablet GT (05:37)
[2021-10-02] MEDS: Nystatin Powder 15gm Bottle 1 APPLIC TOPICAL ×2 (05:37→18:55)
[2021-10-02] MEDS: Acetaminophen 650 MG/20 ML UDC 1000 MG GT ×3 (05:38→23:02)
[2021-10-02] MEDS: Jevity 1.5. 1,000 ML Bottle 240 ML GT ×3 (09:18→23:03)
--- NOTE | 2021-10-02 12:58 | NURSING ---
Talked to by phone and informed him of a covid positive patient in TCU.
[2021-10-02 13:43] VITALS: BP 110/59; PULSE 84; RESP 14; TEMP 36.3; O2SAT 97
[2021-10-03] MEDS: Arthritis Pain Compound 60 CLICK TUBE TOPICAL ×3 (06:26→23:32)
[2021-10-03] MEDS: Acetaminophen 650 MG/20 ML UDC 1000 MG GT ×3 (06:26→23:34)
[2021-10-03] MEDS: levETIRAcetam Oral Solution 500 MG/5 ML GT ×2 (06:27→19:11)
[2021-10-03] MEDS: Enoxaparin 40 MG/0.4 ML Syringe SC (06:27)
[2021-10-03] MEDS: Atorvastatin Calcium 40 MG Tablet GT (06:28)
[2021-10-03] MEDS: Menthol/Lanolin/Calamine/Znox 113 GM Tube 1 APPLIC TOPICAL ×2 (06:28→19:11)
[2021-10-03] MEDS: Ciprofloxacin 250 MG Tablet GT ×2 (06:28→19:11)
[2021-10-03] MEDS: Nystatin Powder 15gm Bottle 1 APPLIC TOPICAL ×2 (06:39→19:12)
--- NOTE | 2021-10-03 13:49 | DS.PCM_ITS ---
Providers Date of Admission: 09/09/21 Primary Care Physician: Dr. Cecile Murillo MD Consultations 09/22/21 10:59 Consult: Ceo And Founder / Pulmonary Medicine Routine Consulting Provider: Pulmonary Medicine cheyanne Pederson Reason for Consult: EVAL FOR READINESS TO D/C TRACH EMERGENT Consult: No MD Notified: Yes Date Notified: 09/22/21 Time Notified: 11:01 Method of Notification: Verbal Method of Consult:: In-Person Comments:: DR LOUISE INFORMED VIA TELEPHONE Reason For Visit: CVA Diagnosis Discharge Diagnosis (1) Hemorrhagic stroke: Status: Acute Code(s): I61.9 - Nontraumatic intracerebral hemorrhage, unspecified (2) S/P craniotomy: Status: Acute Code(s): Z98.890 - Other specified postprocedural states (3) Seizure disorder: Status: Acute Code(s): G40.909 - Epilepsy, unspecified, not intractable, without status epilepticus (4) Abnormal EEG: Status: Acute Code(s): R94.01 - Abnormal electroencephalogram [EEG] (5) Allergic dermatitis: Status: Acute Code(s): L23.9 - Allergic contact dermatitis, unspecified cause Plan 76 year old female with below past medical history hospitalized for hemorrhagic stroke secondary to hypertension, underwent emergent decompression of skull 08/12/2021, status post tracheostomy, status post PEG, here for rehabilitation, strengthening, prior to disposition determination. * Debility - PT/OT. * Dysphagia - ST. * Pain - Tylenol 1000mg q6h prn pain (1-5), Oxycodone 5mg q4h prn pain (6-10). * Bowel - Miralax 17gm daily prn. * Adult immunization - Administer pneumonia vaccine, covid19 vaccine, flu vaccine as appropriate. * DVT prophylaxis - Lovenox 40mg sc daily. * Hyperlipidemia - Atorvastatin 40mg qhs. * Nutrition - Jevity 1.5 45ml/hour. Medications at Discharge Home Medications atorvastatin 10 mg tablet 40 mg feeding tube DAILY Cholesterol 11/01/20 acetaminophen 650 mg/20.3 mL oral solution 1,000 mg (31.2308 mL) G-tube TID #0 mL 10/03/21 enoxaparin 40 mg/0.4 mL subcutaneous syringe 40 mg (0.4 mL) subcut DAILY #0 mL 10/03/21 lactose-reduced food with fiber 0.06 gram-1.5 kcal/mL oral liquid (Jevity 1.5 Godwin) 240 ml G-tube QHS #0 mL 10/03/21 lactose-reduced food with fiber 0.06 gram-1.5 kcal/mL oral liquid (Jevity 1.5 Godwin) 240 ml G-tube [facility] #0 mL 10/03/21 levetiracetam 100 mg/mL oral solution 500 mg (5 mL) G-tube BID #0 mL 10/03/21 menthol 0.44 %-zinc oxide 20.6 % topical ointment (Calmoseptine) 1 applic topical BID #0 grams 10/03/21 nystatin 100,000 unit/gram topical powder (Nyamyc) 1 applic topical BID #0 grams 10/03/21 Hospital Course Operations - (decompression of skull.) Procedures None Summary of Care Provided Minutes Spent on Discharge: 35 Hospital Course: 76 year old female with below past medical history hospitalized for hemorrhagic stroke secondary to hypertension, underwent emergent decompression of skull 08/12/2021, status post tracheostomy, status post PEG, here for rehabilitation, strengthening, prior to disposition determination. Discharge to [facility] 10/06/2021, intermediate level of care, PT/OT/ST. Physical Exam Const alert General Appearance: cooperative HEENT normocephalic HEENT Narrative: Helmet. Eyes PERRL and EOMs intact bilaterally Neck supple, no JVD and no carotid bruits Resp normal respiratory effort, normal air movement and clear to auscultation bilaterally Cardio regular rate and regular rhythm GI normal to inspection, nondistended, normoactive bowel sounds, non-tender and non-distended Extremity normal capillary refill General Extremity: Negative for edema Skin no rashes or lesions noted General Skin Exam: no breakdown Psych affect normal Appearance: appropriate Weight / BMI Weight Weight: 77.655 kg Body Mass Index (BMI) 29.3 ABG / Lab / Microbiology Data Result Diagrams: 10/01/21 05:23 10/01/21 05:23 Microbiology: Microbiology 10/02/21 06:00 Nasal Secretion SARS-CoV-2 Antigen (Rapid) - Final 09/28/21 03:50 Urine, Random Urine Culture - Final Presumptive E. coli 09/25/21 15:49 Nasal Secretion SARS-CoV-2 Antigen (Rapid) - Final 09/18/21 18:30 Nasal Secretion SARS-CoV-2 Antigen (Rapid) - Final 09/17/21 06:00 Nasal Secretion SARS-CoV-2 Antigen (Rapid) - Final 09/09/21 18:35 Nasal Secretion SARS-CoV-2 Antigen (Rapid) - Final D/C Instructions Discharge Diet: No restrictions Discharge Activity: Return to Normal Activity, May Shower and Use Walker Weight Bearing Status: Weight bearing as tolerated Call your doctor if you observe: Fever of 101 or Higher, Inability to urinate, Inability to have a bowel movement, Shortness of breath, Dizziness, Fainting spells, Swelling in the ankles, Chest pain and Uncontrolled pain Additional Instructions: Discharge to [facility] 10/06/2021, intermediate level of care, PT/OT/ST. Please Follow Up With: Dante Tanner MD When: As scheduled. Meaningful Use Info Meaningful Use Diagnoses (Choose all that apply): Hemorrhagic CVA CVA Therapy Assessed for PT,OT and/or ST?: Yes Discharge Plan Admission Admit Date/Time: 09/09/21 17:49 Primary Reason for Your Visit: Debility. Attending Provider: Peter Narayanan Chi Primary Care Provider: Cecile Murillo Consulting Providers: Ken Redd ; Kyle Louise ; Aleshia Welsh SUPERVISOR BRINE Instructions Additional Instructions / Restrictions: Discharge to [facility] 10/06/2021, intermediate level of care, PT/OT/ST. Discharge Orders/Prescriptions Prescriptions: New enoxaparin 40 mg/0.4 mL Syringe 40 mg subcut DAILY Qty: 0 0RF levetiracetam 100 mg/mL Solution 500 mg G-tube BID Qty: 0 0RF acetaminophen 650 mg/20.3 mL Solution 1,000 mg G-tube TID Qty: 0 0RF menthol-zinc oxide [Calmoseptine] 0.44-20.6 % Ointment 1 applic topical BID Qty: 0 0RF Protocol: *Topical Application Instructions APPLICATION INSTRUCTIONS: bilat buttocks Jevity 1.5 Godwin 0.06 gram-1.5 kcal/mL Liquid 240 ml G-tube QHS Qty: 0 0RF Jevity 1.5 Godwin 0.06 gram-1.5 kcal/mL Liquid 240 ml G-tube [facility] Qty: 0 0RF nystatin [Nyamyc] 100,000 unit/gram Powder 1 applic topical BID Qty: 0 0RF Protocol: *Topical Application Instructions APPLICATION INSTRUCTIONS: Apply under left breast Continued atorvastatin 10 mg tablet 40 mg feeding tube DAILY Discontinued polyethylene glycol 3350 [Miralax] 17 gram Powder In Packet 17 g PO DAILY levetiracetam 500 mg Tablet 500 mg PO BID enoxaparin [Lovenox] 40 mg/0.4 mL Syringe 40 mg SUBCUT DAILY menthol-zinc oxide [Calmoseptine] 0.44-20.6 % Ointment 1 applic TOPICAL BID Jevity 1.5 Godwin 0.06 gram-1.5 kcal/mL Liquid 240 ml feeding tube 4X/DAY Rx Instructions: [facility], [facility] Referrals / Follow Up: Cecile Murillo MD [Primary Care Provider] - Disposition Disposition (needs filled in before D/C Order can be placed): NonSkilled NH/Intermed Care
--- NOTE | 2021-10-03 13:55 | TREXTCAR_ITS ---
Diet Diet Order/Speech Therapy: 09/15/21 13:51 Diet: Regular - General Food consistency:: Mechanical (Minced/Moist) Liquid Consistency:: Regular/Thin Type of Dietary Supplement:: Ensure Compact Is pt able to select menu?: No Diet Comments: ensure compact tid, MC w/ L - 1:1 sup w/ all PO intake, asp precautions Routine Orders/Code Status Code Status: Full Code Wound(s) Midline surgical incision to proximal scalp extending down to the right side to proximal earlobe: Wound Type: Surgical Incision Left breast fold: Wound Type: Excoriation Dressing Change: Nystatin powder applied Old drain site to lower back: Wound Type: Surgical Incision PEG to Left upper quad: Wound Type: PEG Dressing Change: split gauze Tracheostomy site: Wound Type: Surgical Incision Dressing Change: Dry Sterile Dressing Therapies Weight Bearing: Weight bearing as tolerated Extremity Affected:: Bilateral Lower Physical Therapy: Eval and Treat Occupational Therapy: Eval and Treat Speech Therapy: Eval and Treat Problem/Diagnosis (1) Hemorrhagic stroke: Status: Acute Code(s): I61.9 - Nontraumatic intracerebral hemorrhage, unspecified (2) S/P craniotomy: Status: Acute Code(s): Z98.890 - Other specified postprocedural states (3) Seizure disorder: Status: Acute Code(s): G40.909 - Epilepsy, unspecified, not intractable, without status epilepticus (4) Abnormal EEG: Status: Acute Code(s): R94.01 - Abnormal electroencephalogram [EEG] (5) Allergic dermatitis: Status: Acute Code(s): L23.9 - Allergic contact dermatitis, unspecified cause Plan 76 year old female with below past medical history hospitalized for hemorrhagic stroke secondary to hypertension, underwent emergent decompression of skull 08/12/2021, status post tracheostomy, status post PEG, here for rehabilitation, strengthening, prior to disposition determination. * Debility - PT/OT. * Dysphagia - ST. * Pain - Tylenol 1000mg q6h prn pain (1-5), Oxycodone 5mg q4h prn pain (6-10). * Bowel - Miralax 17gm daily prn. * Adult immunization - Administer pneumonia vaccine, covid19 vaccine, flu vaccine as appropriate. * DVT prophylaxis - Lovenox 40mg sc daily. * Hyperlipidemia - Atorvastatin 40mg qhs. * Nutrition - Jevity 1.5 45ml/hour. Allergies/Procedures Done in Hospital Allergies Sulfa (Sulfonamide Antibiotics) Allergy (Verified 09/16/21 15:12) Rash Procedures: - (Craniotomy, tracheostomy.) Type of Care/Length of Stay Estimated LOS: More Than 30 Days Type of Care Needed: Intermediate Rehab Potential: Fair Prognosis: Fair Additional Orders/Day of Discharge Day of Discharge: 10/06/21 Dietary and Speech Recommendations Dietitian Recommendations/Changes: Will provide magic cup ice cream w/ lunch for increased nutrition if consumed. Will provide ensure compact tid w/ meals Will continue liberal Regular diet - consistency per [employer]PER[employer]ING [employer]AMPING Will continue bolus feedings as ordered: 240 ml Jevity 1.5 w/ 150 ml water flush IF PO intake <50% at meals 240 ml Jevity 1.5 w/ 150 ml water flush at HS Each bolus feed would provide ~ 360 bryan/ 16 gm pro/ 328 ml free water per bolus feed. Monitor wts daily Speech Linguistic Eval Summary: Informal Cognitive-Linguistic evaluation completed. Pt w/ cuffed Shiley #[address] 8L O2 via trach collar. Cuff deflated and Passy Dameon Speaking Valve applied to trach. Pt tolerated PMSV placement well w/ minor coughing upon application. O2 sats and RR remained stable t/o 45 minute trial of PMSV. Verbal expression: Pt able to state first/last name and spouses name. Able to repeat at the word, phrase (3 word) and sentence (5 word) level. Confrontation namin/3. Patient denies word finding deficits. Pt is able to achieve voicing w/ PMSV in place, albeit breathy. Requires encouragement to use verbal expression rather than gestures. Comprehension: Bradyphrenia evident w/ slowed processing and increased response time appreciated. Able to follow 1 step commands w/ 3/3 accuracy. Able to read at the word level and demonstrate comprehension. Immediate recall of 3 word sequence was 3/3. Answered yes/no questions re: self/environment w/ 80% accuracy (errored response to ?Did you have a stroke??), simple concept yes/no ?s w/ 100% accuracy and grammatically complex/comparison yes/no ?s answered w/ 50-75% accuracy. Follow Up Care Please Follow Up With: Dante Tanner MD Please Follow Up With: Department of Radiology Please Follow Up With: Dai Cox APRN GARBAGE TRUCK HELPER Discharge Plan Admission Admit Date/Time: 09/09/21 17:49 Primary Reason for Your Visit: Debility. Attending Provider: Peter Narayanan Chi Primary Care Provider: Cecile Murillo Consulting Providers: Ken Redd ; Kyle Louise ; Aleshia Welsh TOP LIFT TRIMMER Instructions Additional Instructions / Restrictions: Discharge to [facility] 10/06/2021, intermediate level of care, PT/OT/ST. Discharge Orders/Prescriptions Prescriptions: New enoxaparin 40 mg/0.4 mL Syringe 40 mg subcut DAILY Qty: 0 0RF levetiracetam 100 mg/mL Solution 500 mg G-tube BID Qty: 0 0RF acetaminophen 650 mg/20.3 mL Solution 1,000 mg G-tube TID Qty: 0 0RF menthol-zinc oxide [Calmoseptine] 0.44-20.6 % Ointment 1 applic topical BID Qty: 0 0RF Protocol: *Topical Application Instructions APPLICATION INSTRUCTIONS: bilat buttocks Jevity 1.5 Bryan 0.06 gram-1.5 kcal/mL Liquid 240 ml G-tube QHS Qty: 0 0RF Jevity 1.5 Bryan 0.06 gram-1.5 kcal/mL Liquid 240 ml G-tube TIDPC Qty: 0 0RF nystatin [Nyamyc] 100,000 unit/gram Powder 1 applic topical BID Qty: 0 0RF Protocol: *Topical Application Instructions APPLICATION INSTRUCTIONS: Apply under left breast Continued atorvastatin 10 mg tablet 40 mg feeding tube DAILY Discontinued polyethylene glycol 3350 [Miralax] 17 gram Powder In Packet 17 g PO DAILY levetiracetam 500 mg Tablet 500 mg PO BID enoxaparin [Lovenox] 40 mg/0.4 mL Syringe 40 mg SUBCUT DAILY menthol-zinc oxide [Calmoseptine] 0.44-20.6 % Ointment 1 applic TOPICAL BID Jevity 1.5 Bryan 0.06 gram-1.5 kcal/mL Liquid 240 ml feeding tube 4X/DAY Rx Instructions: TIDPC, QHS Referrals / Follow Up: Cecile Murillo MD [Primary Care Provider] - Disposition Disposition (needs filled in before D/C Order can be placed): NonSkilled [facility]
[2021-10-03] MEDS: Jevity 1.5. 1,000 ML Bottle 240 ML GT ×3 (14:41→23:33)
[2021-10-03 15:15] VITALS: BP 107/56; PULSE 77; RESP 16; TEMP 36.5; O2SAT 91
--- NOTE | 2021-10-03 16:13 | CASEMGMT ---
Social Work Insurance issued LCD 10/05, DC 10/06. Spoke with whom is agreeable. Updated W. Cot transport scheduled through [facility] for 10 am. Attempted to complete PASRR but pt has open document from [facility]. Attempted to contact [facility] but unsuccessful. DARWIN provided email of [facility] CM - email sent to contact this worker. DC orders emailed to [facility]. Plan: DC 10/06 to [facility], nonskilled BRIANNA Phan RETAIL MARKETING SPECIALIST
--- NOTE | 2021-10-03 20:30 | NURSING ---
updated COVID positive staff member and on patient status. Appreciative of update.
[2021-10-03 23:40] VITALS: PULSE 85; RESP 16; O2SAT 95
[2021-10-04] MEDS: Acetaminophen 650 MG/20 ML UDC 1000 MG GT ×3 (06:33→22:28)
[2021-10-04] MEDS: Arthritis Pain Compound 60 CLICK TUBE TOPICAL ×3 (06:34→22:37)
[2021-10-04] MEDS: Menthol/Lanolin/Calamine/Znox 113 GM Tube 1 APPLIC TOPICAL ×2 (06:35→18:58)
[2021-10-04] MEDS: Enoxaparin 40 MG/0.4 ML Syringe SC (06:35)
[2021-10-04] MEDS: levETIRAcetam Oral Solution 500 MG/5 ML GT ×2 (06:35→18:48)
[2021-10-04] MEDS: Ciprofloxacin 250 MG Tablet GT ×2 (06:36→18:47)
[2021-10-04] MEDS: Atorvastatin Calcium 40 MG Tablet GT (06:36)
[2021-10-04] MEDS: Nystatin Powder 15gm Bottle 1 APPLIC TOPICAL ×2 (06:37→18:57)
[2021-10-04 10:01] VITALS: BP 126/62; PULSE 84; RESP 16; TEMP 37.1; O2SAT 95
[2021-10-04] MEDS: Jevity 1.5. 1,000 ML Bottle 240 ML GT ×3 (13:08→22:28)
--- NOTE | 2021-10-04 14:02 | NURSING ---
Pt spouse notified of positive COVID pt on TCU.
[2021-10-04 15:26] VITALS: BP 109/60; PULSE 83; RESP 14; TEMP 36.4; O2SAT 93
--- NOTE | 2021-10-04 17:44 | CASEMGMT ---
HAZEL called software developer consultant social science analyst at [facility] and spoke to Edgar. Edgar was able to delete the HENS that was started at [facility]. HAZEL completed the PASSR for patient. HAZEL went to TCU and put the completed PASSR under HAZEL Lin's office door. No further HAZEL services needed at this time. Mirlande DUBON
[2021-10-04 18:00] VITALS: BP 128/61; PULSE 90; RESP 17; TEMP 37; O2SAT 95
[2021-10-05] MEDS: Menthol/Lanolin/Calamine/Znox 113 GM Tube 1 APPLIC TOPICAL ×2 (05:19→18:22)
[2021-10-05] MEDS: Arthritis Pain Compound 60 CLICK TUBE TOPICAL ×3 (05:19→22:58)
[2021-10-05] MEDS: Enoxaparin 40 MG/0.4 ML Syringe SC (05:19)
[2021-10-05] MEDS: Ciprofloxacin 250 MG Tablet GT (05:21)
[2021-10-05] MEDS: Acetaminophen 650 MG/20 ML UDC 1000 MG GT ×3 (05:21→22:45)
[2021-10-05] MEDS: Atorvastatin Calcium 40 MG Tablet GT (05:21)
[2021-10-05] MEDS: Nystatin Powder 15gm Bottle 1 APPLIC TOPICAL ×2 (05:23→18:20)
[2021-10-05] MEDS: levETIRAcetam Oral Solution 500 MG/5 ML GT ×2 (05:24→18:21)
[2021-10-05 15:51] VITALS: BP 104/73; PULSE 82; RESP 16; TEMP 36.8; O2SAT 95
[2021-10-05 22:30] VITALS: PULSE 70; RESP 16; O2SAT 94
[2021-10-05] MEDS: Jevity 1.5. 1,000 ML Bottle 240 ML GT (22:58)
[2021-10-06] MEDS: Atorvastatin Calcium 40 MG Tablet GT (06:57)
[2021-10-06] MEDS: Arthritis Pain Compound 60 CLICK TUBE TOPICAL (06:57)
[2021-10-06] MEDS: Enoxaparin 40 MG/0.4 ML Syringe SC (06:57)
[2021-10-06] MEDS: levETIRAcetam Oral Solution 500 MG/5 ML GT (06:58)
[2021-10-06] MEDS: Menthol/Lanolin/Calamine/Znox 113 GM Tube 1 APPLIC TOPICAL (06:58)
[2021-10-06] MEDS: Acetaminophen 650 MG/20 ML UDC 1000 MG GT (06:59)
[2021-10-06] MEDS: Nystatin Powder 15gm Bottle 1 APPLIC TOPICAL (06:59)
[2021-10-06] MEDS: Jevity 1.5. 1,000 ML Bottle 240 ML GT (09:06)
[2021-10-06 09:59] VITALS: BP 116/57; PULSE 83; RESP 18; TEMP 36.1; O2SAT 95
== END 2021-10-06 10:09 | DRG 949 ==
PROVIDERS: Internal Medicine; Admitting Provider Family Medicine Geriatric Medicine; PCP Family Medicine; Visit Provider Family Medicine Geriatric Medicine
DX: Z48.812 Encounter for surgical aftercare following surgery on the circulatory system (principal); I61.9 Nontraumatic intracerebral hemorrhage, unspecified; Z93.0 Tracheostomy status; G40.909 Epilepsy, unspecified, not intractable, without status epilepticus; Z93.1 Gastrostomy status; E78.5 Hyperlipidemia, unspecified; I10 Essential (primary) hypertension; M19.90 Unspecified osteoarthritis, unspecified site; L23.89 Allergic contact dermatitis due to other agents; Z79.899 Other long term (current) drug therapy; Z79.01 Long term (current) use of anticoagulants
CPT/HCPCS: 36415; 74230; 80048; 81001; 82962; 83036; 85025; 87086; 87088; 87186; 87811; 92507; 92523; 92526; 92610; 92611; 95819; 97110; 97112; 97116; 97140; 97162; 97166; 97530; 97535; 97802; 97803

== ENCOUNTER 2021-09-16 15:06 | Emergency (ER) | payer MEDICARE, SELFPAY ==
[2021-09-16 15:07] VITALS: BP 113/63; PULSE 84; RESP 12; TEMP 36.9; O2SAT 95; BMI 31.3
--- NOTE | 2021-09-16 15:30 | EKG12_ITS ---
Test Reason : neuro Blood Pressure : / mmHG Vent. Rate : 076 BPM Atrial Rate : 076 BPM P-R Int : 172 ms QRS Dur : 092 ms QT Int : 382 ms P-R-T Axes : 052 048 047 degrees QTc Int : 429 ms Sinus rhythm with Premature supraventricular complexes Possible Lateral infarct , age undetermined Abnormal ECG Confirmed by ROGELIO LIRIANO, JON ([id number]), newspaper photo editor VELASQUEZ RODAS ([id number]) on 09/18/2021 2:02:06 PM Referred By: Jarred Confirmed By:JON MERCADO MD
--- NOTE | 2021-09-16 15:31 | ED.VIS.STROK ---
HPI History of Present Illness Chief Complaint: Neuro S/Sx Narrative Narrative: 76-year-old female presenting from the TCU due to change in ability to right. Patient had a hemorrhagic stroke on 08/12/2021 and was transferred to [facility]. Patient has been in the TCU since 09/09/2021 for rehab. Per her who is at the bedside he states that her baseline deficits since her stroke are left arm and left leg weakness. She has a trach. She has been unable to speak but has been able to nod and shake her head to communicate yes and no. She was previously able to write some things but has not been able to do this today. Her states that he tried to get her right today and she just karan a yurok. also states that she was able to feed herself previously but has not been able to do that today either. When I asked her if her vision has changed she shakes her head no. When asked if she has a headache, dizziness, nausea she shakes her head no. When asked if she has any pain she shakes her head no. There has been no reported fever. [facility] Medical History Hyperlipidemia Hypertension Lab test negative for COVID-19 virus Home Medications L.acidoph, paracasei,B. lactis 10 billion cell capsule 1 ea PO Q gut health 01/11/18 [History Last Taken Unknown] multivitamin (Multiple Vitamins tablet) 1 ea PO DAILY supplement 01/11/18 [History Last Taken Unknown] atorvastatin 10 mg tablet 40 mg PO DAILY Cholesterol 11/01/20 [History Last Taken Unknown] nutrition tx glu intol,lac-free,soy-fiber 0.08 gram-1.5 kcal/mL liquid (Glucerna 1.5 Godwin) 45 ml feeding tube CONT Supplement 09/09/21 [History Last Taken Unknown] Allergy/AdvReac Type Severity Reaction Status Date / Time Sulfa (Sulfonamide Allergy Rash Verified 09/16/21 15:12 Antibiotics) Surgical History H/O: hysterectomy History of gastrostomy History of laparoscopic cholecystectomy History of tracheostomy Social History household members: spouse Smoking Status: Never smoker alcohol intake: never substance use type: does not use ROS ROS ED Constitutional Constitutional ED: Denies chills or fever(s) Eyes Eyes: Denies change in vision or diplopia ENT ENT ED: Denies rhinorrhea or sore throat Cardiovascular Cardiovascular: Denies chest pain or palpitations Respiratory/Chest Respiratory/Chest: Denies cough or dyspnea Gastrointestinal Gastrointestinal: Denies abdominal pain, nausea or vomiting Genitourinary Genitourinary ED: Denies dysuria Musculoskeletal Musculoskeletal: Denies arthralgias or back pain Integumentary Denies abscess or Abrasions Neurologic Neurologic: Denies headache(s) Psychiatric Psychiatric: Denies anxiety or depression EXAM Physical Exam Const Vital Signs: 09/16/21 15:07 09/16/21 16:38 09/16/21 17:18 Temperature 98.4 F Temperature Source Temporal Pulse Rate 84 74 81 Respiratory Rate 12 15 13 Blood Pressure 113/63 101/45 L 97/50 L Blood Pressure Mean 79 63 65 Pulse Ox 95 97 97 Oxygen Delivery Method Room Air Room Air Room Air Positive well nourished General Appearance ED: NAD HEENT Reports dry mucous membranes Mouth ED: Yes dry mucous membranes Mouth: dry mucous membranes Eyes PERRL and EOMs intact bilaterally General Eye ED: Negative for pale conjunctiva or scleral icterus Resp normal respiratory effort and clear to auscultation bilaterally Auscultation: Negative for rales, rhonchi or wheezes Cardio Rate: regular rate Rhythm: regular rhythm GI normal to inspection, nondistended, normoactive bowel sounds Neuro oriented x3 Sensorium / Orientation: awake and alert STROKE Vital Signs/Narrative: Vital Signs Temp Pulse Resp BP Pulse Ox O2 Del Method 09/16/21 17:18 81 13 97/50 L 97 Room Air 09/16/21 16:38 74 15 101/45 L 97 Room Air 09/16/21 15:07 98.4 F 84 12 113/63 95 Room Air MDM MDM MDM Narrative Medical decision making narrative: Patient presenting with decreased ability to write words and decreased speaking. Initially the told me she could only write words, but later stated that she could talk. Her examination appears to be at baseline when testing with the patient's at the bed side. She is able to move all 4 extremities although her left arm and left leg are weak. She is answering questions by head nods and shaking her head but appears appropriate. She does not seem to have any complaints. Her CBC and CMP are unremarkable. EKG on my interpretation is sinus rhythm with a ventricular of 76 bpm. No evidence of ischemic change on my interpretation. Chest x-ray on my trip this shows no acute cardiopulmonary process. Radiologist agree. Urinalysis negative for infection. High sensitive troponin is 4. CT of the brain shows resolution of previous hemorrhagic stroke. On reevaluation patient still at baseline. states that she has talking and requested a cup of decaf coffee. I discussed this with Dr. Samaniego who felt the patient could come back over to the TCU. All results discussed patient's and he is amenable to this as well. Patient transferred in stable condition. Impression: 1. History of hemorrhagic stroke 2. Altered mental status resolved 3. Weakness Lab Data Labs: Laboratory Results - last 24 hr 09/16/21 09/16/21 09/16/21 14:30 15:15 15:15 WBC 8.9 RBC 3.56 L Hgb 9.9 L Hct 33.8 L MCV 94.9 MCH 27.8 MCHC 29.3 L RDW Std Deviation 55.1 H RDW Coeff of Jeovanny 15.9 H Plt Count 387 MPV 10.0 Immature Gran % (Auto) 0.500 Neut % (Auto) 61.4 Lymph % (Auto) 27.3 Story % (Auto) 7.8 Eos % (Auto) 2.7 Baso % (Auto) 0.3 Absolute Neuts (auto) 5.4 Absolute Lymphs (auto) 2.42 Nucleated RBC % 0 Sodium 140 Potassium 4.1 Chloride 107 Carbon Dioxide 32.0 Anion Gap 1 L BUN 13 Creatinine 0.60 Estim Creat Clear Calc 41.97 Est GFR (MDRD) Af Amer 125 Est GFR (MDRD) Non-Af 103 BUN/Creatinine Ratio 21.6 H Glucose 179 H Calcium 9.0 Total Bilirubin 0.50 AST 19 ALT 28 Alkaline Phosphatase 104 Troponin I High Sens 4 Total Protein 6.4 Albumin 2.4 L Globulin 4.0 Albumin/Globulin Ratio 0.6 L Urine Color Yellow Urine Clarity Sl. Cloudy Urine pH 6.5 Ur Specific [place] 1.020 Urine Protein Negative Urine Glucose (UA) Normal Urine Ketones Negative Urine Occult Blood 25 H Urine Nitrite Negative Urine Bilirubin Negative Urine Urobilinogen Normal Ur Leukocyte Esterase 500 H Urine RBC 0-5 SEEN Urine WBC 5-10 SEEN Ur Squamous Epith Cells 5-10 SEEN Urine Bacteria 1+ Urine Mucus 0 SEEN Urine Yeast 4+ Radiography Diagnostic Testing: Clinical Impression(s) from Imaging Studies Chest X-Ray 09/16/21 15:40 IMPRESSION: No radiographic evidence of acute cardiopulmonary disease. Electronically Signed: John Chowdary MD at 16:30 EDT , Brain CT 09/16/21 16:02 IMPRESSION: Resolution of the previously visualized right frontal parenchymal hematoma, no evidence of acute hemorrhage is is seen. Electronically Signed: John Chowdary MD at 16:28 EDT Reading Location ID and State: [facility] / [place] Tel , Service support , Discharge Plan Triage Chief Complaint: Neuro S/Sx ED Provider: Abdirizak Stern Dx/Rx/DC Orders Instructions: ED ALOC Prescriptions: No Action atorvastatin 10 mg tablet 40 mg PO DAILY multivitamin [Multiple Vitamins] 1 EACH tablet 1 ea PO DAILY L.acidoph, paracasei,B. lactis 1 EACH capsule 1 ea PO QHS Glucerna 1.5 Godwin 0.08-1.5 gram-kcal/mL Liquid 45 ml feeding tube CONT Rx Instructions: 45ml/hr Primary Care Provider: Cecile Murillo Referrals: Cecile Murillo MD [Primary Care Provider] - Disposition Disposition: Home, Self Care
--- NOTE | 2021-09-16 15:40 | RAD_ITS ---
INDICATION: ams EXAMINATION/TECHNIQUE: X-RAY - XR Chest 1 View COMPARISON: None. FINDINGS: LINES/DEVICES: Tracheostomy tube visualized in position.. LUNGS: No consolidation, edema or effusion. No pneumothorax. MEDIASTINUM AND CARDIOVASCULAR STRUCTURES: Cardiac silhouette not enlarged. Central airways and mediastinal contour are unremarkable. BONES AND SOFT TISSUES: Unremarkable. RAD/Chest 1 View (Portable) IMPRESSION: No radiographic evidence of acute cardiopulmonary disease. Electronically Signed: John Chowdary MD at 16:30 EDT ,
[2021-09-16 15:48] LABS: Absolute Lymphocyte Count 2.42 X10^3/uL (0.83-4.51); Absolute Neutrophil Count 5.4 X10^3/uL (2.0-7.7); Basophil# 0.03 X10^3/uL; Basophil% 0.3 % (0-1); Eosinophil# 0.24 X10^3/uL; Eosinophils% 2.7 % (0-5); Hematocrit 33.8 % (37-47); Hemoglobin 9.9 g/dL (12.0-15.0); Lymphocyte # 2.42 X10^3/ul (0.83-4.51); Lymphocyte % 27.3 % (19-41); Mean Corp Hgb Conc 29.3 g/dL (32-36); Mean Corpuscular Hgb 27.8 pg (27.0-32.0); Mean Corpuscular Volume 94.9 fL (81-99); Monocyte# 0.69 X10^3/uL; Monocyte% 7.8 % (0-10); NRBC Flagged by Analyzer 0 % (0-5); Neutrophil # 5.44 X10^3/uL (2.7-7.7); Neutrophil % 61.4 % (47-70); Platelet Count 387 K/mm3 (150-450); RBC Distribution Width CV 15.9 % (11.6-14.6); RBC Distribution Width SD 55.1 fl (35.1-43.9); Red Blood Count 3.56 M/mm3 (4.2-5.4); White Blood Count 8.9 K/mm3 (4.4-11.0)
--- NOTE | 2021-09-16 16:02 | CT_ITS ---
INDICATION: ams EXAMINATION: CT BRAIN - CT Head or Brain W/O Contrast Injection TECHNIQUE: Multiple axial images were obtained of the head without intravenous contrast. A radiation dose optimization technique was used for this scan. IV Contrast dosage and agent: None. COMPARISON: 08/12/2021. FINDINGS: Right frontoparietal craniectomy visualized. Area of low attenuation visualized in the anterolateral right frontal lobe underlying the operative site, there has been resolution of the previously visualized hematoma, focal central low attenuation with overlying tong matter is visualized, mild prominence of the extra-axial CSF spaces is visualized but no evidence of acute hemorrhage is seen. No evidence of new parenchymal hemorrhages visualized. No evidence of parenchymal hemorrhages or contusions. No evidence of intra or extra-axial fluid collection. Subtle areas of low attenuation are visualized but no evidence of acute territorial infarct. No evidence of intracranial mass or mass effect, no evidence of midline shift is seen. Unremarkable aeration of the paranasal sinuses and the mastoid air cells. No discrete lytic or blastic bone abnormalities. Both globes, extraocular muscles, optic nerves and retrobulbar fat appear unremarkable. CT/Brain/Head without Contrast IMPRESSION: Resolution of the previously visualized right frontal parenchymal hematoma, no evidence of acute hemorrhage is is seen. Electronically Signed: John Chowdary MD at 16:28 EDT Reading Location ID and State: [facility] / [place] Tel , Service support ,
[2021-09-16 16:10] LABS: ALB/GLOB Ratio 0.6 RATIO (0.9-2.4); AST(SGOT) 19 U/L (15-37); Alanine Aminotransfer ALT/SGPT 28 U/L (13-56); Albumin, Serum 2.4 g/dL (3.2-5.0); Alkaline Phosphatase 104 U/L (45-117); Anion Gap 1 (5-15); BUN 13 mg/dL (7-18); BUN/Creat Ratio 21.6 RATIO (10-20); Chloride 107 mmol/L (98-107); EST Glomerular Filtration Rate 103 mL/min (>60); Est Glom Filt Rate - Afr Amer 125 mL/min (>60); Estimated Creatinine Clearance 41.97 ml/min; Glucose 179 mg/dL (74-106); Potassium 4.1 mmol/L (3.5-5.1); Protein, Total 6.4 g/dL (6.4-8.2); Sodium Level 140 mmol/L (136-145); Troponin-I HS 4 pg/mL (3.0-54.0)
[2021-09-16 16:38] VITALS: BP 101/45; PULSE 74; RESP 15; O2SAT 97
[2021-09-16 16:42] LABS: Mucous, Urine 0 SEEN /hpf (<or=2+)
[2021-09-16 16:51] LABS: Color, Urine Yellow (Yellow); Glucose, Dipstick Normal (Normal); Ketone-Dipstick Negative (Negative); Leukocyte Esterase-Dipstick 500 /ul (Negative); Nitrite-Dipstick Negative (Negative); Occult Blood-Urine 25 /ul (Negative); Protein-Dipstick Negative (Negative); Urine Bilirubin Dipstick Negative (Negative); Urine Clarity Sl. Cloudy (Clear); Urine Urobilinogen Normal (Normal); Urine pH 6.5 (5.0 - 8.0)
[2021-09-16 17:09] LABS: Red Blood Cells-Urine 0-5 SEEN /hpf (0-5); White Blood Cells 5-10 SEEN /hpf (0-5)
[2021-09-16 17:10] LABS: Bacteria 1+ /hpf (None Seen); Squamous Epithelial Cells - UA 5-10 SEEN /hpf (5-10); Yeast-Urine 4+ /hpf (None Seen)
[2021-09-16 17:18] VITALS: BP 97/50; PULSE 81; RESP 13; O2SAT 97
== END 2021-09-16 19:20 | disposition home or self-care (01) ==
PROVIDERS: Emergency Provider Student in an Organized Health Care Education/Training Program; PCP Family Medicine; Visit Provider Student in an Organized Health Care Education/Training Program
DX: R53.1 Weakness (principal); I10 Essential (primary) hypertension; E78.5 Hyperlipidemia, unspecified; Z86.73 Personal history of transient ischemic attack (TIA), and cerebral infarction without residual deficits; Z79.899 Other long term (current) drug therapy
CPT/HCPCS: 70450; 71045; 80053; 81001; 84484; 85025; 93005; 96360; 99285; J7040; A4216

== ENCOUNTER → 2021-09-16 | Outpatient (CLI) | payer MEDICARE, SELFPAY | END | disposition home or self-care (01) | LOC: CT 15:02 | PROVIDERS: PCP Family Medicine; Referring Provider Internal Medicine; Visit Provider Internal Medicine | DX: Z00.00 Encounter for general adult medical examination without abnormal findings (principal) ==

== ENCOUNTER → 2021-09-25 | Outpatient (CLI) | payer MEDICARE, SELFPAY ==
--- NOTE | 2021-09-25 11:56 | CT_ITS ---
STUDY: CT BRAIN WITHOUT CONTRAST REASON FOR EXAM: Female, 76 years old. STROKE. Left arm and leg weakness. RADIATION DOSAGE (If Supplied By Facility): CTDIvol = ( 44.99 ) mGy, DLP = ( 812.98 ) mGycm TECHNIQUE: Transaxial CT imaging of the brain was performed without administration of intravenous contrast material. Individualized dose optimization techniques were used for this CT. COMPARISON: Comparison is made with prior study dated 09/23/2021. FINDINGS: Normal soft tissue structures. There is hyperostosis frontalis internus. The patient is status post right frontal craniotomy. Postoperative change. Stable small right chronic subdural CSF collection. There is evidence of decreased attenuation in the right frontal lobe. This is unchanged and most likely represents an area of Normal white matter tracts of the cerebral hemispheres. Normal basal ganglia and thalami. Normal brainstem. Normal cerebellum. There is no intracranial hemorrhage. There are no findings of an acute ischemic infarction. Normal visualized paranasal sinuses. CT/Brain/Head without Contrast IMPRESSION: Stable examination. Electronically Signed: Jeffrey Roman MD at 13:16 EDT ,
== END | disposition home or self-care (01) ==
PROVIDERS: PCP Family Medicine; Referring Provider Family Medicine Geriatric Medicine; Visit Provider Family Medicine Geriatric Medicine
DX: I63.9 Cerebral infarction, unspecified (principal)
CPT/HCPCS: 70450

== ENCOUNTER 2021-09-28 00:45 | Emergency (ER) | payer MEDICARE, SELFPAY ==
[2021-09-28 00:45] VITALS: BP 109/55; PULSE 78; RESP 18; TEMP 36.3; O2SAT 96; BMI 29.9
--- NOTE | 2021-09-28 01:23 | CT_ITS ---
STUDY: CT BRAIN WITHOUT CONTRAST REASON FOR EXAM: Female, 76 years old. trauma RADIATION DOSAGE (If Supplied By Facility): CTDIvol = ( 44.99 ) mGy, DLP = ( 846.73 ) mGycm TECHNIQUE: Transaxial CT imaging of the brain was performed without administration of intravenous contrast material. Individualized dose optimization techniques were used for this CT. COMPARISON: CT head 09/25/2021. FINDINGS: BRAIN: No acute bleed. Decreased attenuation in the right frontal region is not significantly changed. No midline shift. VENTRICLES AND SULCI: Not dilated. EXTRA-AXIAL: Small low-attenuation extra-axial collection in the right frontoparietal region 6 mm thickness is unchanged. No acute extra-axial hematoma. CALVARIUM / SKULL BASE: Right craniotomy. FACE/SINUSES: Unremarkable. SOFT TISSUES: Unremarkable. CT/Brain/Head without Contrast IMPRESSION: No acute findings. Postsurgical changes stable with small right chronic subdural collection and low attenuation in the right frontal lobe. Electronically Signed: America Martinez MD at 2:41 EDT ,
--- NOTE | 2021-09-28 01:23 | EDS_ITS ---
HPI HPI - Fall History of Present Illness Chief Complaint: Fall Informant: patient Narrative Narrative: Did not presents after possible fall. She is on TCU. She had recent hemorrhagic stroke and surgery. She does not recall this. She does not recall having surgery. She does recall being on her knees next to the bed and not being able to get up. She does not know if she fell. Evidently she was found by staff so they do not know if she fell. She denies any pain anywhere. She in fact denies any and all review of system questions. But she is alert to person. She knew she was in a hospital but it took quite some time to get that from her. I cannot get the date. PFSH PFS Medical History Hemorrhagic stroke Hyperlipidemia Hypertension Lab test negative for COVID-19 virus Home Medications atorvastatin 10 mg tablet 40 mg feeding tube DAILY Cholesterol 11/01/20 [History Last Taken Unknown] enoxaparin 40 mg/0.4 mL subcutaneous syringe (Lovenox) 40 mg subcut DAILY 09/28/21 [History Last Taken Unknown] lactose-reduced food with fiber 0.06 gram-1.5 kcal/mL oral liquid (Jevity 1.5 Godwin) 240 ml feeding tube 4X/DAY 09/28/21 [History Last Taken Unknown] levetiracetam 500 mg tablet 500 mg PO BID 09/28/21 [History Last Taken Unknown] menthol 0.44 %-zinc oxide 20.6 % topical ointment (Calmoseptine) 1 applic topical BID 09/28/21 [History Last Taken Unknown] polyethylene glycol 3350 17 gram oral powder packet (Miralax) 17 g PO DAILY 09/28/21 [History Last Taken Unknown] Allergy/AdvReac Type Severity Reaction Status Date / Time Sulfa (Sulfonamide Allergy Rash Verified 09/16/21 15:12 Antibiotics) Surgical History H/O: hysterectomy History of gastrostomy History of laparoscopic cholecystectomy History of tracheostomy Social History household members: spouse Smoking Status: Never smoker alcohol intake: never substance use type: does not use ROS ROS ED Constitutional Constitutional ED: Denies fever(s) Eyes Eyes: Denies blurry vision ENT ENT ED: Denies rhinorrhea Cardiovascular Cardiovascular: Denies chest pain Respiratory/Chest Respiratory/Chest: Denies dyspnea Gastrointestinal Gastrointestinal: Denies abdominal pain or nausea Musculoskeletal Musculoskeletal: Denies arthralgias, back pain, myalgias or neck pain Neurologic Neurologic: Denies headache(s) Hematologic/Lymphatic Hematologic/Lymphatic: Denies easy bleeding or easy bruising Allergic/Immunologic Allergic/Immunologic ED: Denies urticaria EXAM Physical Exam Const Vital Signs: 09/28/21 00:45 09/28/21 01:00 Temperature 97.4 F L Temperature Source Temporal Pulse Rate 78 Respiratory Rate 18 Respiratory Effort Normal Non-Labored Respiratory Depth Normal Respiratory Pattern Normal Blood Pressure 109/55 L Blood Pressure Mean 73 Pulse Ox 96 Oxygen Delivery Method Room Air Room Air Positive well nourished and well developed Constitutional Narrative: Patient is alert and pleasant. No acute distress. General Appearance ED: well developed and NAD HEENT HEENT Narrative: Well-healing scar on the top of the head. No sign of any acute contusions or abrasions are found anywhere. Eyes General Eye ED: Negative for scleral icterus Neck full ROM and no lymphadenopathy General: Negative for tenderness Chest Wall inspection of chest normal and palpation of chest normal Resp normal respiratory effort and no retractions Cardio regular rate and regular rhythm GI non-tender and non-distended GI Narrative: PEG tube looks clean. Back/Spine no CVA tenderness Cervical Spine: Negative for cervical spine tenderness Thoracic Spine / Upper Back: Negative for thoracic spinal tenderness Lumbar Spine / Lower Back: Negative for lumbar spinal tenderness or paraspinal muscle tenderness Neuro Neuro Narrative: Oriented to person and place. Patient does have some slight weakness on the left side. She describes it as heavy. This is most likely related to her recent event Sensorium / Orientation: alert Psych mental status grossly normal Attitude: No agitated Mood & Affect: Negative for anxious Skin Skin Narrative: I see no abrasions or contusions anywhere. This includes on her head and not her knees. Lesions: no lesions Rashes: no rashes MDM MDM MDM Narrative Medical decision making narrative: Patient CT scan showed no acute processes but there are postsurgical changes. Every port that we had that is that she was on her knees. There is no indication she hit her head. There is no sign of external trauma. Her CT is normal and she is at baseline. I think she can go back to rehab. No sign of other areas of pain. No pain with motion of her hips. No shortening or rotation. No spinal tenderness. Radiography Diagnostic Testing: Clinical Impression(s) from Imaging Studies Brain CT 09/28/21 01:23 IMPRESSION: No acute findings. Postsurgical changes stable with small right chronic subdural collection and low attenuation in the right frontal lobe. Electronically Signed: America Martinez MD at 2:41 EDT , Discharge Plan Triage Chief Complaint: Fall ED Provider: Titi Cabezas Dx/Rx/DC Orders Clinical Impression: Fall at intermediate Instructions: ED Fall Prevention Prescriptions: No Action atorvastatin 10 mg tablet 40 mg feeding tube DAILY polyethylene glycol 3350 [Miralax] 17 gram Powder In Packet 17 g PO DAILY levetiracetam 500 mg Tablet 500 mg PO BID enoxaparin [Lovenox] 40 mg/0.4 mL Syringe 40 mg SUBCUT DAILY menthol-zinc oxide [Calmoseptine] 0.44-20.6 % Ointment 1 applic TOPICAL BID Jevity 1.5 Godwin 0.06 gram-1.5 kcal/mL Liquid 240 ml feeding tube 4X/DAY Rx Instructions: [facility], [facility] Primary Care Provider: Cecile Murillo Referrals: Cecile Murillo MD [Primary Care Provider] - Peter Naraaynan Chi, MD [Med Staff - Active Staff] - 1 Day for another exam Disposition Disposition: Inpatient Rehab Unit/Facility
[2021-09-28 02:55] VITALS: BP 108/58; PULSE 78; RESP 15; O2SAT 97
== END 2021-09-28 03:21 ==
PROVIDERS: Emergency Provider Emergency Medicine; PCP Family Medicine; Visit Provider Emergency Medicine
DX: R53.1 Weakness (principal); I10 Essential (primary) hypertension; E78.5 Hyperlipidemia, unspecified; Z79.899 Other long term (current) drug therapy; W19.XXXA Unspecified fall, initial encounter; Y92.122 Bedroom in nursing home as the place of occurrence of the external cause; Z86.73 Personal history of transient ischemic attack (TIA), and cerebral infarction without residual deficits
CPT/HCPCS: 70450; 99281

== ENCOUNTER 2021-10-11 18:57 | Emergency (ER) | payer MEDICARE, SELFPAY ==
[2021-10-11 18:59] VITALS: BP 131/64; PULSE 90; RESP 18; TEMP 37.1; O2SAT 97; BMI 25.1
--- NOTE | 2021-10-11 19:00 | EKG12_ITS ---
Test Reason : DYSRHYTHMIA Blood Pressure : / mmHG Vent. Rate : 088 BPM Atrial Rate : 088 BPM P-R Int : 162 ms QRS Dur : 094 ms QT Int : 368 ms P-R-T Axes : 035 010 030 degrees QTc Int : 445 ms Normal sinus rhythm Normal ECG Confirmed by CLAUDIA LIRIANO, SAMMIE ([id number]), editorial manager VELASQUEZ RODAS ([id number]) on 10/14/2021 7:51:11 AM Referred By: VELMA Confirmed By:SAMMIE TAYLOR MD
[2021-10-11 19:07] VITALS: O2SAT 96
--- NOTE | 2021-10-11 19:10 | CT_ITS ---
STUDY: CT BRAIN WITHOUT CONTRAST REASON FOR EXAM: Female, 76 years old. HEAD INJURY RADIATION DOSAGE (If Supplied By Facility): CTDIvol = ( 44.99 ) mGy, DLP = ( 812.98 ) mGycm TECHNIQUE: Transaxial CT imaging of the brain was performed without administration of intravenous contrast material. Individualized dose optimization techniques were used for this CT. COMPARISON: 09/28/2021 FINDINGS: Normal soft tissue structures. Right frontal/parietal craniotomy/operative changes. There is mild cerebral atrophy with widening of the extra-axial spaces and ventricular dilatation. There are areas of decreased attenuation within the white matter tracts of the supratentorial brain, consistent with microvascular disease changes. Localized encephalomalacia and gliosis of the right frontal lobe is stable. Persistent low density right frontal-parietal subdural fluid. Normal basal ganglia and thalami. Normal brainstem. Normal cerebellum. There is no intracranial hemorrhage. There are no findings of an acute ischemic infarction. Normal visualized paranasal sinuses. CT/Brain/Head without Contrast IMPRESSION: Stable exam. Electronically Signed: Derek Tong MD (Brooks) at 20:15 EDT Reading Location ID and State: [facility] / [place] , Service support ,
--- NOTE | 2021-10-11 20:32 | CT_ITS ---
STUDY: CT CERVICAL SPINE WITHOUT CONTRAST REASON FOR EXAM: Female, 76 years old. Trauma. Fall. Head trauma. RADIATION DOSAGE (If Supplied By Facility): CTDIvol = ( 20.33 ) mGy, DLP = ( 856.67 ) mGycm TECHNIQUE: High resolution transaxial imaging was performed without contrast material. Sagittal and coronal images were reconstructed. Individualized dose optimization techniques were used for this CT. COMPARISON: 01/11/2018 FINDINGS: Normal craniovertebral junction. There are degenerative changes of the anterior atlantoaxial articulation. Normal odontoid process. There is straightening of the normal cervical lordosis. Normal vertebral bodies and posterior osseous elements. C2-3: Minimal endplate spondylosis. Slight loss of disc height with bulging annulus. Mild facet joint degenerative change. Normal central canal and intervertebral neuroforamina. C3-4: Normal endplates. Normal disc height and morphology. Mild facet joint degenerative change. Normal central canal and intervertebral neuroforamina. C4-5: Endplate spondylosis. Mild loss of disc height with bulging annulus. Facet joint degenerative change. Normal central canal and intervertebral neuroforamina. C5-6: Endplate spondylosis. Marked loss of disc height with bulging annulus. Facet and uncovertebral joint degenerative change. Mild stenosis of central canal and narrowing the bilateral intervertebral neuroforamina. C6-7: Endplate spondylosis. Marked loss of disc height with bulging annulus. Facet and uncovertebral joint degenerative change. Mild stenosis of central canal and narrowing the bilateral intervertebral neuroforamina. C7-T1: Normal endplates. Normal disc height and morphology. Normal central canal and intervertebral neuroforamina. Normal visualized soft tissue structures. CT/Spine Cervical without Contras IMPRESSION: Stable degenerative changes of the cervical spine without visualized fracture or subluxation. Note: MRI is more sensitive than CT in detecting cord injury, ligamentous injury and epidural hematoma. If there is continued clinical concern for any of these entities, MRI should be considered. Electronically Signed: Prosper Huggins DO at 21:27 EDT Reading Location ID and State: [facility] Tel [phone], Service support ,
--- NOTE | 2021-10-11 20:38 | ED.VIS.FALL ---
HPI HPI - Fall History of Present Illness Chief Complaint: Fall Informant: patient Narrative Narrative: Patient states she tripped on something and fell backwards. She is not sure what she tripped on. She states she hit her head. She has soreness in the left side of her forehead, her neck and her left wrist. She states she never lost consciousness. She had no palpitations chest pain or trouble breathing. She feels fine now other than soreness in those 3 areas. PFSH PFSH Medical History Arthritis Dysphagia Epilepsy Hemorrhagic stroke Hyperlipidemia Hypertension Lab test negative for COVID-19 virus Home Medications atorvastatin 10 mg tablet 40 mg feeding tube DAILY Cholesterol 11/01/20 [History Last Taken Unknown] acetaminophen 650 mg/20.3 mL oral solution 1,000 mg (31.2308 mL) G-tube TID #0 mL 10/03/21 [Rx Last Taken Unknown] enoxaparin 40 mg/0.4 mL subcutaneous syringe 40 mg (0.4 mL) subcut DAILY #0 mL 10/03/21 [Rx Last Taken Unknown] lactose-reduced food with fiber 0.06 gram-1.5 kcal/mL oral liquid (Jevity 1.5 Godwin) 240 ml G-tube QHS #0 mL 10/03/21 [Rx Last Taken Unknown] lactose-reduced food with fiber 0.06 gram-1.5 kcal/mL oral liquid (Jevity 1.5 Godwin) 240 ml G-tube TIDPC #0 mL 10/03/21 [Rx Last Taken Unknown] levetiracetam 100 mg/mL oral solution 500 mg (5 mL) G-tube BID #0 mL 10/03/21 [Rx Last Taken Unknown] menthol 0.44 %-zinc oxide 20.6 % topical ointment (Calmoseptine) 1 applic topical BID #0 grams 10/03/21 [Rx Last Taken Unknown] nystatin 100,000 unit/gram topical powder (Nyamyc) 1 applic topical BID #0 grams 10/03/21 [Rx Last Taken Unknown] Allergy/AdvReac Type Severity Reaction Status Date / Time Sulfa (Sulfonamide Allergy Rash Verified 09/16/21 15:12 Antibiotics) Surgical History H/O: hysterectomy History of gastrostomy History of laparoscopic cholecystectomy History of tracheostomy Social History household members: spouse Smoking Status: Never smoker alcohol intake: never substance use type: does not use ROS ROS ED Constitutional Constitutional ED: Denies fever(s) Eyes Eyes: Denies change in vision ENT ENT ED: Denies sore throat Cardiovascular Cardiovascular: Denies chest pain or palpitations Respiratory/Chest Respiratory/Chest: Denies cough or dyspnea Gastrointestinal Gastrointestinal: Denies nausea or vomiting Musculoskeletal Musculoskeletal: Reports arthralgias and neck pain; Denies back pain Integumentary Reports other Details: Laceration left forehead. Neurologic Neurologic: Reports headache(s) Hematologic/Lymphatic Hematologic/Lymphatic: Reports easy bleeding and easy bruising Allergic/Immunologic Allergic/Immunologic ED: Denies urticaria EXAM Physical Exam Const Vital Signs: 10/11/21 18:59 10/11/21 19:07 10/11/21 21:15 Temperature 98.7 F Temperature Source Temporal Pulse Rate 90 Respiratory Rate 18 16 Respiratory Effort Normal Respiratory Depth Normal Respiratory Pattern Normal Blood Pressure 131/64 H Blood Pressure Mean 86 Pulse Ox 97 96 Oxygen Delivery Method Room Air Room Air Positive well nourished and well developed General Appearance ED: well developed HEENT HEENT Narrative: Patient is about 2 cm laceration above the left eye that is not bleeding. No notable swelling. She also has a well-healed incision across top of her head. Eyes EOMs intact bilaterally Neck Neck Narrative: There is nonfocal posterior cervical tenderness but no step-off. No focal bony tenderness. General: Negative for tenderness Chest Wall inspection of chest normal and palpation of chest normal Resp normal respiratory effort Cardio regular rate and regular rhythm GI non-tender and non-distended Back/Spine Cervical Spine: cervical spine tenderness Thoracic Spine / Upper Back: Negative for thoracic spinal tenderness Lumbar Spine / Lower Back: Negative for lumbar spinal tenderness Neuro Neuro Narrative: Patient is alert oriented to person, hospital. She thought it was 2020. She did know that Tello Red was the president. Despite being relatively oriented, she did not recall the reason for the surgical wound on her head. Sensorium / Orientation: alert Psych mental status grossly normal Psych Narrative: Mildly flat affect. Skin Skin Narrative: Laceration left forehead as above. MDM MDM MDM Narrative Medical decision making narrative: Patient CT shows stable exam with no acute process. CT of the C-spine is also okay. Wrist x-ray shows questionable small avulsion fracture. She will be placed in a splint. Procedure: Suture laceration: Here above the eye was cleansed and draped. It is too close to the eyebrow related to glue. It was anesthetized with LET then about 1-1/2 cc of 1% lidocaine locally. Good anesthesia. It was scrubbed and cleaned further. It was sutured with 4 interrupted 6-0 Ethilon sutures with good cosmesis hemostasis. No significant bleeding. Patient tolerated well. Radiography Diagnostic Testing: Clinical Impression(s) from Imaging Studies Brain CT 10/11/21 19:10 IMPRESSION: Stable exam. Electronically Signed: Derek Tong MD (Brooks) at 20:15 EDT Reading Location ID and State: [facility] / [place] , Service support , Cervical Spine CT 10/11/21 20:32 IMPRESSION: Stable degenerative changes of the cervical spine without visualized fracture or subluxation. Note: MRI is more sensitive than CT in detecting cord injury, ligamentous injury and epidural hematoma. If there is continued clinical concern for any of these entities, MRI should be considered. Electronically Signed: Prosper Huggins DO at 21:27 EDT Reading Location ID and State: [facility] / [place] Tel [phone], Service support , Wrist X-Ray 10/11/21 20:55 IMPRESSION: 1. Osteopenia and degenerative changes. 2. Small bony density posterior to the lunate seen lateral views questionable small avulsion fracture. Electronically Signed: Prosper Huggins DO at 21:32 EDT Reading Location ID and State: [facility] / [place] Tel [phone], Service support , Discharge Plan Triage Chief Complaint: Fall ED Provider: Titi Cabezas Dx/Rx/DC Orders Clinical Impression: Fall, Forehead laceration, Closed head injury, Fracture of left wrist Instructions: ED Head Injury (Adult), ED Laceration: All Closures, ED Fracture, Wrist, General Prescriptions: No Action atorvastatin 10 mg tablet 40 mg feeding tube DAILY enoxaparin 40 mg/0.4 mL Syringe 40 mg subcut DAILY Qty: 0 0RF levetiracetam 100 mg/mL Solution 500 mg G-tube BID Qty: 0 0RF acetaminophen 650 mg/20.3 mL Solution 1,000 mg G-tube TID Qty: 0 0RF menthol-zinc oxide [Calmoseptine] 0.44-20.6 % Ointment 1 applic topical BID Qty: 0 0RF Protocol: *Topical Application Instructions APPLICATION INSTRUCTIONS: bilat buttocks Jevity 1.5 Godwin 0.06 gram-1.5 kcal/mL Liquid 240 ml G-tube QHS Qty: 0 0RF Jevity 1.5 Godwin 0.06 gram-1.5 kcal/mL Liquid 240 ml G-tube TIDPC Qty: 0 0RF nystatin [Nyamyc] 100,000 unit/gram Powder 1 applic topical BID Qty: 0 0RF Protocol: *Topical Application Instructions APPLICATION INSTRUCTIONS: Apply under left breast Primary Care Provider: Cecile Murillo Referrals: Cecile Murillo MD [Primary Care Provider] - 5 Days for suture removal Phuc Brannon DO [Med Staff - Active Staff] - 3-5 Days Disposition Disposition: [facility]
[2021-10-11] MEDS: Lidocaine/Epi/Tetracaine 50 ML 1 APPLIC TOPICAL (20:40)
[2021-10-11] MEDS: Lidocaine 1% (20 ml mdv) 20 ML Vial INFILT (20:41)
--- NOTE | 2021-10-11 20:55 | RAD_ITS ---
STUDY: X-RAY - LEFT WRIST REASON FOR EXAM: Female, 76 years old. Fall today. Left wrist pain. TECHNIQUE: 3 view(s) of the wrist were obtained. COMPARISON: None. FINDINGS: There is demineralization of the radius and ulna. There is degenerative arthrosis of the radiocarpal articulation. Normal distal radioulnar articulation. There is demineralization of the carpal bones. Small bony density posterior to the lunate. The possibility of small avulsion fracture cannot be ruled out. There is degenerative arthrosis of the carpal articulations. There is degenerative arthrosis of the carpometacarpal articulation of the thumb. Normal second through fifth carpometacarpal articulations. There is demineralization of the metacarpal bones. There is mild generalized soft tissue swelling about the wrist. RAD/Wrist min 3 Views IMPRESSION: 1. Osteopenia and degenerative changes. 2. Small bony density posterior to the lunate seen lateral views questionable small avulsion fracture. Electronically Signed: Prosper Huggins DO at 21:32 EDT ,
[2021-10-11 21:15] VITALS: RESP 16
[2021-10-11 22:52] VITALS: BP 140/78; PULSE 75; RESP 17; O2SAT 99
--- NOTE | 2021-10-11 22:56 | ED.RN ---
updated on patient and aware waiting on ride back
--- NOTE | 2021-10-11 22:59 | NURSING ---
[facility] updated
[2021-10-11 23:00] VITALS: RESP 16
== END 2021-10-11 23:14 | disposition skilled nursing facility (03) ==
PROVIDERS: Emergency Provider Emergency Medicine; PCP Family Medicine; Visit Provider Emergency Medicine
DX: S01.81XA Laceration without foreign body of other part of head, initial encounter (principal); I10 Essential (primary) hypertension; E78.5 Hyperlipidemia, unspecified; M19.90 Unspecified osteoarthritis, unspecified site; Z79.899 Other long term (current) drug therapy; W01.0XXA Fall on same level from slipping, tripping and stumbling without subsequent striking against object, initial encounter; S62.102A Fracture of unspecified carpal bone, left wrist, initial encounter for closed fracture
CPT/HCPCS: 12011; 70450; 72125; 73110; 93005; 99284; A4216

== ENCOUNTER → 2021-10-15 | Outpatient (REF) | payer MEDICARE, SELFPAY ==
[2021-10-15 09:22] LABS: Hematocrit 35.6 % (37-47); Hemoglobin 10.6 g/dL (12.0-15.0); Mean Corp Hgb Conc 29.8 g/dL (32-36); Mean Corpuscular Hgb 28.6 pg (27.0-32.0); Mean Corpuscular Volume 96.2 fL (81-99); Mean Platelet Vol. 9.7 fl (6.2-12.0); Platelet Count 450 K/mm3 (150-450); RBC Distribution Width CV 16.6 % (11.6-14.6); White Blood Count 8.7 K/mm3 (4.4-11.0)
[2021-10-15 09:46] LABS: Anion Gap 6 (5-15); BUN 9 mg/dL (7-18); BUN/Creat Ratio 18.1 RATIO (10-20); Calcium,Total 9.7 mg/dL (8.5-10.1); Chloride 109 mmol/L (98-107); EST Glomerular Filtration Rate 128 mL/min (>60); Est Glom Filt Rate - Afr Amer 155 mL/min (>60); Glucose 97 mg/dL (74-106); Potassium 3.7 mmol/L (3.5-5.1); Sodium Level 141 mmol/L (136-145)
== END ==
LOC: OLS.WHLEAS 05:00
PROVIDERS: PCP Family Medicine; Visit Provider Family Medicine
DX: I10 Essential (primary) hypertension (principal); I61.9 Nontraumatic intracerebral hemorrhage, unspecified; G40.909 Epilepsy, unspecified, not intractable, without status epilepticus; R54 Age-related physical debility; Z48.811 Encounter for surgical aftercare following surgery on the nervous system
CPT/HCPCS: 36415; 80048; 85027

== ENCOUNTER → 2021-11-10 | Outpatient (REF) | payer MEDICARE, SELFPAY ==
[2021-11-10 09:08] LABS: Hemoglobin 11.3 g/dL (12.0-15.0); Mean Corp Hgb Conc 30.5 g/dL (32-36); Mean Corpuscular Hgb 29.4 pg (27.0-32.0); Mean Corpuscular Volume 96.4 fL (81-99); Mean Platelet Vol. 9.5 fl (6.2-12.0); Platelet Count 404 K/mm3 (150-450); RBC Distribution Width CV 15.5 % (11.6-14.6); RBC Distribution Width SD 55.3 fl (35.1-43.9); Red Blood Count 3.84 M/mm3 (4.2-5.4); White Blood Count 8.2 K/mm3 (4.4-11.0)
[2021-11-10 09:23] LABS: Anion Gap 7 (5-15); BUN 12 mg/dL (7-18); BUN/Creat Ratio 26.4 RATIO (10-20); Calcium,Total 9.4 mg/dL (8.5-10.1); Chloride 109 mmol/L (98-107); Creatinine, Serum 0.46 mg/dL (0.55-1.02); EST Glomerular Filtration Rate 142 mL/min (>60); Est Glom Filt Rate - Afr Amer 172 mL/min (>60); Glucose 97 mg/dL (74-106); Sodium Level 142 mmol/L (136-145)
== END ==
LOC: OLS.WHLEAS 05:00
PROVIDERS: PCP Family Medicine; Visit Provider Family Medicine
DX: I10 Essential (primary) hypertension (principal); I61.9 Nontraumatic intracerebral hemorrhage, unspecified; G40.909 Epilepsy, unspecified, not intractable, without status epilepticus; R54 Age-related physical debility; Z48.811 Encounter for surgical aftercare following surgery on the nervous system
CPT/HCPCS: 36415; 80048; 85027

== ENCOUNTER → 2021-11-12 | Outpatient (REF) | payer MEDICARE, SELFPAY ==
[2021-11-12 08:42] LABS: Hematocrit 39.4 % (37-47); Hemoglobin 12.1 g/dL (12.0-15.0); Mean Corp Hgb Conc 30.7 g/dL (32-36); Mean Corpuscular Volume 97.5 fL (81-99); Mean Platelet Vol. 9.7 fl (6.2-12.0); Platelet Count 380 K/mm3 (150-450); RBC Distribution Width CV 15.6 % (11.6-14.6); Red Blood Count 4.04 M/mm3 (4.2-5.4); White Blood Count 9.1 K/mm3 (4.4-11.0)
[2021-11-12 08:55] LABS: Anion Gap 7 (5-15); BUN 10 mg/dL (7-18); BUN/Creat Ratio 21.1 RATIO (10-20); Calcium,Total 9.6 mg/dL (8.5-10.1); Chloride 111 mmol/L (98-107); Creatinine, Serum 0.47 mg/dL (0.55-1.02); EST Glomerular Filtration Rate 136 mL/min (>60); Est Glom Filt Rate - Afr Amer 165 mL/min (>60); Glucose 84 mg/dL (74-106); Potassium 4.3 mmol/L (3.5-5.1); Sodium Level 143 mmol/L (136-145)
== END ==
LOC: OLS.WHLEAS 05:03
PROVIDERS: PCP Family Medicine; Visit Provider Family Medicine
DX: I10 Essential (primary) hypertension (principal); I61.9 Nontraumatic intracerebral hemorrhage, unspecified; G40.909 Epilepsy, unspecified, not intractable, without status epilepticus; R54 Age-related physical debility; Z48.811 Encounter for surgical aftercare following surgery on the nervous system
CPT/HCPCS: 36415; 80048; 85027

== ENCOUNTER 2021-11-22 18:32 | Emergency (ER) | payer MEDICARE, SELFPAY ==
[2021-11-22 18:32] VITALS: BP 116/57; PULSE 85; RESP 16; TEMP 36.7; O2SAT 97; BMI 25.4
--- NOTE | 2021-11-22 18:59 | EX.ED.DYSGE1 ---
HPI History of Present Illness Chief Complaint: Other, Pain/Inj Detail of Chief Complaint: Pulled out Peg tube. Informant: patient and spouse/S.O. Onset/Context/Timing Onset: Today and Hours Context: Sudden Onset Timing: Continuous Narrative Narrative: 76 yo female. Hx of IC Bleed / CVA. Able to eat and swallow. No aspiration per spouse. Peg tube accidentally pulled out today. Sent in by SNF to replace. Pt to be d/c from SNF to home on Wednesday. Denies any complaints. Prior similar symptoms: No Recent Illness/Hospitalization: Yes [facility]SH [facility], [facility] Medical History Arthritis Dysphagia Epilepsy Hemorrhagic stroke Hyperlipidemia Hypertension Lab test negative for COVID-19 virus Stroke/cerebrovascular accident Home Medications atorvastatin 10 mg tablet 40 mg feeding tube DAILY Cholesterol 11/01/20 [History Last Taken Unknown] acetaminophen 650 mg/20.3 mL oral solution 1,000 mg (31.2308 mL) G-tube TID #0 mL 10/03/21 [Rx Last Taken Unknown] enoxaparin 40 mg/0.4 mL subcutaneous syringe 40 mg (0.4 mL) subcut DAILY #0 mL 10/03/21 [Rx Last Taken Unknown] lactose-reduced food with fiber 0.06 gram-1.5 kcal/mL oral liquid (Jevity 1.5 Godwin) 240 ml G-tube QHS #0 mL 10/03/21 [Rx Last Taken Unknown] lactose-reduced food with fiber 0.06 gram-1.5 kcal/mL oral liquid (Jevity 1.5 Godwin) 240 ml G-tube TIDPC #0 mL 10/03/21 [Rx Last Taken Unknown] levetiracetam 100 mg/mL oral solution 500 mg (5 mL) G-tube BID #0 mL 10/03/21 [Rx Last Taken Unknown] menthol 0.44 %-zinc oxide 20.6 % topical ointment (Calmoseptine) 1 applic topical BID #0 grams 10/03/21 [Rx Last Taken Unknown] nystatin 100,000 unit/gram topical powder (Nyamyc) 1 applic topical BID #0 grams 10/03/21 [Rx Last Taken Unknown] Allergy/AdvReac Type Severity Reaction Status Date / Time Sulfa (Sulfonamide Allergy Rash Verified 11/22/21 18:36 Antibiotics) Surgical History H/O: hysterectomy History of embolic filter insertion History of gastrostomy History of laparoscopic cholecystectomy History of tracheostomy Social History household members: spouse Smoking Status: Never smoker alcohol intake: never substance use type: does not use ROS ROS ED ROS Narrative Denies. Review of Systems ROS Unobtainable: Denies due to encephalopathy Constitutional Constitutional ED: Denies chills or fever(s) Eyes Eyes: Denies blurry vision ENT ENT ED: Denies ear pain Cardiovascular Cardiovascular: Denies chest pain Respiratory/Chest Respiratory/Chest: Denies cough or dyspnea Gastrointestinal Gastrointestinal: Denies abdominal pain Genitourinary Genitourinary ED: Denies dysuria or hematuria Musculoskeletal Musculoskeletal: Denies arthralgias Integumentary Denies abscess or Abrasions Neurologic Neurologic: Denies headache(s) Psychiatric Psychiatric: Denies anxiety Endocrine Endocrinology: Denies cold intolerance Hematologic/Lymphatic Hematologic/Lymphatic: Reports none Allergic/Immunologic Allergic/Immunologic ED: Denies mouth swelling or tongue swelling EXAM Physical Exam Narrative Exam Narrative: 76 yo female. NAD. VS stable and afebrile. Exam benigne. Left arm weakness from prior stroke. Otherwise unremarkable. Gastrostomy hole but no gastrostomy tube in place. Abdomen benign. Nontender nondistended. Const Vital Signs: 11/22/21 18:32 11/22/21 19:15 Temperature 98.0 F Temperature Source Oral Pulse Rate 85 84 Respiratory Rate 16 16 Blood Pressure 116/57 L 116/57 L Blood Pressure Mean 76 76 Pulse Ox 97 98 Oxygen Delivery Method Room Air Room Air Positive well nourished and well developed; Negative for obese, cachectic, contractures or unkempt General Appearance ED: well developed and NAD; Negative for unkempt, cachectic, contractures, cyanotic, diaphoretic or pallor Nutritional Appearance: Negative for cachectic or obese HEENT Reports moist mucous membranes; Denies dry mucous membranes Negative for trauma or tenderness Mouth ED: No dry mucous membranes Mouth: No dry mucous membranes Eyes PERRL and EOMs intact bilaterally General Eye ED: Negative for pale conjunctiva or scleral icterus Neck no lymphadenopathy, supple and no JVD General: Negative for tenderness Lymph Lymphatic: Negative for other Chest Wall inspection of chest normal and palpation of chest normal Chest: Negative for other Resp normal respiratory effort and clear to auscultation bilaterally Effort and Inspection: Negative for retractions Auscultation: Negative for rales, rhonchi or wheezes Cardio regular rate, regular rhythm, S1 normal heart sound, S2 normal heart sound and no murmurs Palpation: Negative for palpable S3 Rate: Negative for bradycardia Rhythm: Negative for abnormal rhythm GI normal to inspection, nondistended, normoactive bowel sounds, non-tender, non-distended and no masses Inspection: Negative for abdominal distention Auscultation: normoactive bowel sounds Palpation: soft; Negative for tender or guarding Back/Spine no CVA tenderness General Back: Negative for CVA tenderness Cervical Spine: Negative for cervical spine tenderness Thoracic Spine / Upper Back: Negative for thoracic spinal tenderness Lumbar Spine / Lower Back: Negative for lumbar spinal tenderness Extremity normal to inspection Extremity Narrative: Left arm weakness. Old from prior CVA. General Extremety ED: Negative for edema or tenderness General Extremity: Negative for edema Neuro oriented x3 Sensorium / Orientation: alert; Negative for orientation impaired, lethargic or stuporous Motor Exam: strength abnormal; Negative for strength 5/5 throughout Psych mental status grossly normal Appearance: Negative for unkempt Attitude: No agitated Mood & Affect: Negative for depressed, anxious or tearful Skin no rashes or lesions noted and no wounds General Skin Exam: Negative for jaundice or pallor Lesions: No lesion noted Rashes: No rashes noted Trauma: Negative for abrasion Wounds: Negative for wounds noted MDM MDM MDM Narrative Medical decision making narrative: 76-year-old female from a prison who is gastrostomy tube came out. We were able to easily replace it. We did a KUB with Gastrografin and appears to be in good position. She will be [facility] back to the prison. Discussed with the patient and her . Patient doing well will be discharged home on repeat exam at 10:05 PM. Radiography Diagnostic Testing: Clinical Impression(s) from Imaging Studies KUB X-Ray 11/22/21 19:18 IMPRESSION: Gastrostomy tube in satisfactory position. Electronically Signed: Prosper Huggins DO at 19:55 EDT Reading Location ID and State: [address] [place] [address] Tel [phone], Service support , KUB, single view, interpreted by myself and radiologist. Shows a gastrostomy tube in good position with contrast in the stomach. Otherwise nonspecific bowel gas pattern. Discharge Plan Triage Chief Complaint: Other, Pain/Inj ED Provider: Jeramie Wells Dx/Rx/DC Orders Clinical Impression: Problem with gastrostomy tube, History of stroke Prescriptions: No Action atorvastatin 10 mg tablet 40 mg feeding tube DAILY enoxaparin 40 mg/0.4 mL Syringe 40 mg subcut DAILY Qty: 0 0RF levetiracetam 100 mg/mL Solution 500 mg G-tube BID Qty: 0 0RF acetaminophen 650 mg/20.3 mL Solution 1,000 mg G-tube TID Qty: 0 0RF menthol-zinc oxide [Calmoseptine] 0.44-20.6 % Ointment 1 applic topical BID Qty: 0 0RF Protocol: *Topical Application Instructions APPLICATION INSTRUCTIONS: bilat buttocks Jevity 1.5 Godwin 0.06 gram-1.5 kcal/mL Liquid 240 ml G-tube QHS Qty: 0 0RF Jevity 1.5 Godwin 0.06 gram-1.5 kcal/mL Liquid 240 ml G-tube TIDPC Qty: 0 0RF nystatin [Nyamyc] 100,000 unit/gram Powder 1 applic topical BID Qty: 0 0RF Protocol: *Topical Application Instructions APPLICATION INSTRUCTIONS: Apply under left breast Primary Care Provider: Cecile Murillo Referrals: Cecile Murillo MD [Primary Care Provider] - As Needed Activity Restrictions/Additional Instructions: We replaced the feeding tube. X-ray showed some good position. You may use it as needed. Disposition Disposition: Home, Self Care
[2021-11-22 19:15] VITALS: BP 116/57; PULSE 84; RESP 16; O2SAT 98
--- NOTE | 2021-11-22 19:18 | RAD_ITS ---
STUDY: X-RAY - ABDOMEN/PELVIS REASON FOR EXAM: Female, 76 years old. Percutaneous gastrostomy tube placement. TECHNIQUE: A single AP view the abdomen was performed following the injection of Via indwelling gastrostomy tube. COMPARISON: None. FINDINGS: Normal visualized lung bases. There is an unremarkable bowel gas pattern. Contrast is seen within the gastric lumen. The balloon lies within the gastric body. There is no evidence of leakage. There is no reflux. There is no demonstrated free abdominal air. The visualized liver, spleen and kidneys are grossly normal in size and morphology. Normal soft tissue structures. Normal visualized osseous structures. RAD/Abdomen Single View IMPRESSION: Gastrostomy tube in satisfactory position. Electronically Signed: Prosper Huggins DO at 19:55 EDT ,
--- NOTE | 2021-11-22 19:46 | NURSING ---
#[address] PÉREZ. PT TOLERATED WELL.
[2021-11-22 21:00] VITALS: BP 112/50; PULSE 70; RESP 16; O2SAT 97
[2021-11-22 22:33] VITALS: BP 112/54; PULSE 73; RESP 16; O2SAT 97
--- NOTE | 2021-11-22 22:35 | NURSING ---
REPORT CALLED TO [facility]. NOTIFIED TO TRANSPORT PT BACK. DC INSTRUCTIONS SENT WITH PT AND
== END 2021-11-22 22:42 | disposition skilled nursing facility (03) ==
PROVIDERS: Emergency Provider Emergency Medicine; PCP Family Medicine; Visit Provider Emergency Medicine
DX: K94.29 Other complications of gastrostomy (principal); E78.5 Hyperlipidemia, unspecified; I10 Essential (primary) hypertension; Z86.73 Personal history of transient ischemic attack (TIA), and cerebral infarction without residual deficits; Z79.899 Other long term (current) drug therapy
CPT/HCPCS: 43762; 74018; 99284

== ENCOUNTER 2021-11-23 05:15 | Emergency (ER) | payer MEDICARE, SELFPAY ==
[2021-11-23 05:16] VITALS: BP 131/66; PULSE 73; RESP 15; TEMP 36.1; O2SAT 97; BMI 27.8
--- NOTE | 2021-11-23 05:20 | EX.ED.GENINJ ---
HPI History of Present Illness Chief Complaint: Other, Pain/Inj Informant: patient Narrative Narrative: Peg came out at [facility] again. Came in with balloon deflated. [facility] Medical History Arthritis Dysphagia Epilepsy Hemorrhagic stroke Hyperlipidemia Hypertension Lab test negative for COVID-19 virus Stroke/cerebrovascular accident Home Medications atorvastatin 10 mg tablet 40 mg feeding tube DAILY Cholesterol 11/01/20 [History Last Taken Unknown] acetaminophen 650 mg/20.3 mL oral solution 1,000 mg (31.2308 mL) G-tube TID #0 mL 10/03/21 [Rx Last Taken Unknown] enoxaparin 40 mg/0.4 mL subcutaneous syringe 40 mg (0.4 mL) subcut DAILY #0 mL 10/03/21 [Rx Last Taken Unknown] lactose-reduced food with fiber 0.06 gram-1.5 kcal/mL oral liquid (Jevity 1.5 Godwin) 240 ml G-tube QHS #0 mL 10/03/21 [Rx Last Taken Unknown] lactose-reduced food with fiber 0.06 gram-1.5 kcal/mL oral liquid (Jevity 1.5 Godwin) 240 ml G-tube TIDPC #0 mL 10/03/21 [Rx Last Taken Unknown] levetiracetam 100 mg/mL oral solution 500 mg (5 mL) G-tube BID #0 mL 10/03/21 [Rx Last Taken Unknown] menthol 0.44 %-zinc oxide 20.6 % topical ointment (Calmoseptine) 1 applic topical BID #0 grams 10/03/21 [Rx Last Taken Unknown] nystatin 100,000 unit/gram topical powder (Nyamyc) 1 applic topical BID #0 grams 10/03/21 [Rx Last Taken Unknown] Allergy/AdvReac Type Severity Reaction Status Date / Time Sulfa (Sulfonamide Allergy Rash Verified 11/22/21 18:36 Antibiotics) Surgical History H/O: hysterectomy History of embolic filter insertion History of gastrostomy History of laparoscopic cholecystectomy History of tracheostomy Social History household members: spouse Smoking Status: Never smoker alcohol intake: never substance use type: does not use ROS ROS ED Constitutional Constitutional ED: Denies chills or fever(s) Cardiovascular Cardiovascular: Denies chest pain Respiratory/Chest Respiratory/Chest: Denies dyspnea Gastrointestinal Gastrointestinal: Denies abdominal pain, constipation, diarrhea, melena, nausea or vomiting Musculoskeletal Musculoskeletal: Denies back pain Integumentary Denies rash Neurologic Neurologic: Denies headache(s) Allergic/Immunologic Allergic/Immunologic ED: Denies urticaria EXAM Physical Exam Const Vital Signs: 11/23/21 05:16 11/23/21 05:21 Temperature 96.9 F L Temperature Source Temporal Pulse Rate 73 Respiratory Rate 15 Respiratory Effort Normal Non-Labored Respiratory Pattern Normal Blood Pressure 131/66 H Blood Pressure Mean 87 Pulse Ox 97 Oxygen Delivery Method Room Air Positive well nourished and well developed General Appearance ED: well developed and NAD Chest Wall inspection of chest normal Resp normal respiratory effort and clear to auscultation bilaterally Cardio regular rhythm and no murmurs GI normal to inspection, nondistended, normoactive bowel sounds, non-tender, non-distended and no masses GI Narrative: Peg sight looks mature. Not red or swollen. PEG tube out but deflated. When I inflated with air it did not leak and was functional and intact. Not sure how it was deflated. Extremity General Extremety ED: Negative for tenderness Neuro Sensorium / Orientation: alert Skin no rashes or lesions noted PROC Procedures Other Procedures Procedure(s): PEG tube replacement-see MDM MDM MDM MDM Narrative Medical decision making narrative: Procedure: PEG tube replacement. 20 Fr PEG lubricated and inserted without any difficulty and patient tolerated very well. Positive gastric content flashback. Again inflated with 8cc (Had tested before insertion and held air). Xray ordered for placement Xray looked at by me shows good placement. Port will be taped over to avoid accidental deflation. Discharge Plan Triage Chief Complaint: Other, Pain/Inj ED Provider: Titi Cabezas Dx/Rx/DC Orders Clinical Impression: Problem with gastrostomy tube Instructions: ED Feeding Tube Replacement Prescriptions: No Action atorvastatin 10 mg tablet 40 mg feeding tube DAILY enoxaparin 40 mg/0.4 mL Syringe 40 mg subcut DAILY Qty: 0 0RF levetiracetam 100 mg/mL Solution 500 mg G-tube BID Qty: 0 0RF acetaminophen 650 mg/20.3 mL Solution 1,000 mg G-tube TID Qty: 0 0RF menthol-zinc oxide [Calmoseptine] 0.44-20.6 % Ointment 1 applic topical BID Qty: 0 0RF Protocol: *Topical Application Instructions APPLICATION INSTRUCTIONS: bilat buttocks Jevity 1.5 Godwin 0.06 gram-1.5 kcal/mL Liquid 240 ml G-tube QHS Qty: 0 0RF Jevity 1.5 Godwin 0.06 gram-1.5 kcal/mL Liquid 240 ml G-tube TIDPC Qty: 0 0RF nystatin [Nyamyc] 100,000 unit/gram Powder 1 applic topical BID Qty: 0 0RF Protocol: *Topical Application Instructions APPLICATION INSTRUCTIONS: Apply under left breast Primary Care Provider: Cecile Murillo Referrals: Cecile Murillo MD [Primary Care Provider] - As Needed Disposition Disposition: Home, Self Care
--- NOTE | 2021-11-23 06:00 | RAD_ITS ---
STUDY: X-RAY - ABDOMEN/PELVIS REASON FOR EXAM: Female, 76 years old. PEG TUBE PLACEMENT TECHNIQUE: AP portable. 6:00 AM. COMPARISON: Abdominal x-ray 11/22/2021. FINDINGS: G tube overlying the left mid abdomen. There is contrast in the stomach which confirms intraluminal placement. There is less opaque contrast in the distal small bowel and colon from prior study. No definite extraluminal contrast, although somewhat limited due to the background of contrast from earlier. No dilated bowel. RAD/Abdomen Single View (Portable) IMPRESSION: G-tube as described. Electronically Signed: America Martinez MD at 6:51 EDT ,
[2021-11-23 06:32] VITALS: BP 129/66; PULSE 71; RESP 15; O2SAT 97
[2021-11-23 06:33] VITALS: BP 129/66; PULSE 71; RESP 15; O2SAT 97
== END 2021-11-23 07:19 | disposition home or self-care (01) ==
PROVIDERS: Emergency Provider Emergency Medicine; PCP Family Medicine; Visit Provider Emergency Medicine
DX: K94.23 Gastrostomy malfunction (principal); E78.5 Hyperlipidemia, unspecified; I10 Essential (primary) hypertension
CPT/HCPCS: 43762; 74018; 99284

== ENCOUNTER 2022-01-07 20:19 | Inpatient (IN) | payer MEDICARE, SELFPAY ==
[2022-01-07] VITALS (8 sets, daily range): BP systolic 101–127; BP diastolic 59–72; PULSE 71–118; RESP 16–22; TEMP 36.6–38.3; O2SAT 93–98; BMI 28.1; BMI 28.6
--- NOTE | 2022-01-07 20:42 | EKG12_ITS ---
Test Reason : WEAKNESS Blood Pressure : / mmHG Vent. Rate : 110 BPM Atrial Rate : 110 BPM P-R Int : 172 ms QRS Dur : 086 ms QT Int : 320 ms P-R-T Axes : 043 019 037 degrees QTc Int : 433 ms Sinus tachycardia Possible Lateral infarct , age undetermined Abnormal ECG Confirmed by ROGELIO LIRIANO, JON ([id number]), legal editor VELASQUEZ RODAS ([id number]) on 01/12/2022 11:45:36 AM Referred By: Confirmed By:JON MERCADO MD
--- NOTE | 2022-01-07 20:43 | EX.ED.DYSGE1 ---
HPI History of Present Illness Chief Complaint: Weakness Informant: patient, spouse/S.O. and family Narrative Narrative: 76-year-old female presenting to the emergency room with altered mental status. The patient suffered a hemorrhagic stroke status postcraniotomy in the spring. She has finally returned home where she has in-home care. She lives with her . Normally she is able to get up and ambulate and is conversant. Today was noted to not really be able to get out of bed and was sleeping more than normal. EMS was called and they noted to of 100.7. She has not had any diarrhea but has been constipated. No cough rhinorrhea. She denies any urinary symptoms. No nausea. She has no wounds. [facility] Medical History Arthritis Dysphagia Epilepsy Hemorrhagic stroke Hyperlipidemia Hypertension Lab test negative for COVID-19 virus Stroke/cerebrovascular accident Home Medications atorvastatin 10 mg tablet 40 mg PO DAILY Cholesterol 11/01/20 [History Last Taken Unknown] acetaminophen 650 mg/20.3 mL oral solution 1,000 mg (31.2308 mL) G-tube TID #0 mL 10/03/21 [Rx Last Taken Unknown] enoxaparin 40 mg/0.4 mL subcutaneous syringe 40 mg (0.4 mL) subcut DAILY #0 mL 10/03/21 [Rx Last Taken Unknown] lactose-reduced food with fiber 0.06 gram-1.5 kcal/mL oral liquid (Jevity 1.5 Godwin) 240 ml G-tube QHS #0 mL 10/03/21 [Rx Last Taken Unknown] lactose-reduced food with fiber 0.06 gram-1.5 kcal/mL oral liquid (Jevity 1.5 Godwin) 240 ml G-tube TIDPC #0 mL 10/03/21 [Rx Last Taken Unknown] menthol 0.44 %-zinc oxide 20.6 % topical ointment (Calmoseptine) 1 applic topical BID #0 grams 10/03/21 [Rx Last Taken Unknown] nystatin 100,000 unit/gram topical powder (Nyamyc) 1 applic topical BID #0 grams 10/03/21 [Rx Last Taken Unknown] levetiracetam 100 mg/mL oral solution 500 mg PO BID 01/07/22 [History Last Taken Unknown] Allergy/AdvReac Type Severity Reaction Status Date / Time Sulfa (Sulfonamide Allergy Rash Verified 01/07/22 20:20 Antibiotics) Surgical History H/O: hysterectomy History of embolic filter insertion History of gastrostomy History of laparoscopic cholecystectomy History of tracheostomy Social History household members: spouse Smoking Status: Never smoker alcohol intake: never substance use type: does not use ROS ROS ED ROS Narrative Lethargy Constitutional Constitutional ED: Reports chills and fever(s); Denies weight loss Eyes Eyes: Denies change in vision or diplopia ENT ENT ED: Denies ear pain, rhinorrhea or sore throat Cardiovascular Cardiovascular: Denies chest pain, orthopnea, palpitations or racing heartbeat Respiratory/Chest Respiratory/Chest: Denies cough, dyspnea or orthopnea Gastrointestinal Gastrointestinal: Reports constipation; Denies abdominal pain, diarrhea, nausea or vomiting Genitourinary Genitourinary ED: Denies dysuria, hematuria or urinary frequency Musculoskeletal Musculoskeletal: Denies arthralgias or myalgias Integumentary Denies abscess or rash Neurologic Neurologic: Denies headache(s) or weakness Psychiatric Psychiatric: Denies anxiety, depression, suicidal ideation or suicidal thoughts Endocrine Endocrinology: Denies polydipsia, polyphagia or polyuria Allergic/Immunologic Allergic/Immunologic ED: Denies mouth swelling, tongue swelling or urticaria EXAM Physical Exam Const Vital Signs: 01/07/22 20:21 01/07/22 20:23 01/07/22 20:24 Temperature 101 F H 101 F H Temperature Source Oral Oral Pulse Rate 118 H 118 H Respiratory Rate 22 H 22 H Respiratory Effort Normal Non-Labored Respiratory Pattern Normal Blood Pressure 119/72 119/72 Blood Pressure Mean 87 87 Pulse Ox 98 98 Oxygen Delivery Method Room Air Room Air 01/07/22 20:44 01/07/22 21:45 Temperature 99.3 F H Temperature Source Temporal Pulse Rate 101 H Respiratory Rate 22 H Respiratory Effort Respiratory Pattern Blood Pressure 127/66 H Blood Pressure Mean 86 Pulse Ox 96 95 Oxygen Delivery Method Room Air Room Air Positive well nourished, well developed and obese General Appearance ED: well developed Nutritional Appearance: obese HEENT Reports normocephalic, head/scalp atraumatic and moist mucous membranes Eyes PERRL and EOMs intact bilaterally Neck no lymphadenopathy, supple and no JVD Resp normal respiratory effort and clear to auscultation bilaterally Cardio regular rate, regular rhythm and no murmurs GI normal to inspection, nondistended, normoactive bowel sounds and non-tender Palpation: soft Back/Spine no CVA tenderness and normal ROM Extremity normal to inspection General Extremety ED: Negative for edema General Extremity: Negative for edema Neuro CN's II-XII intact bilaterally Sensorium / Orientation: alert and orientation impaired Motor Exam: strength 5/5 throughout Psych mental status grossly normal Mood & Affect: Negative for depressed or tearful Skin no rashes or lesions noted and no wounds MDM MDM MDM Narrative Medical decision making narrative: White count is 8.5 with a hemoglobin of 13.6 and platelet count of 316. Lactic acid elevated at 2.4. Urinalysis cath specimen which does not demonstrate any infection. My interpretation of the chest x-ray is no acute process. COVID and influenza swabs were negative. Glucose of 142. Coags normal. Patient received IV fluids as well as Tylenol. Blood and urine cultures were obtained. She received a dose of Zosyn. Fever at this point we do not see a obvious source for the patient's fever but we will continue to await the cultures and will add on a respiratory panel. Lab Data Attestation: I reviewed the patient's lab results. Labs: Laboratory Results - last 24 hr 01/07/22 01/07/22 01/07/22 20:39 20:39 20:45 WBC 8.5 RBC 4.60 Hgb 13.6 Hct 41.8 MCV 90.9 MCH 29.6 MCHC 32.5 RDW Std Deviation 45.4 H RDW Coeff of Jeovanny 13.7 Plt Count 316 MPV 9.6 Immature Gran % (Auto) 0.400 Neut % (Auto) 76.6 H Lymph % (Auto) 11.0 L Claiborne % (Auto) 11.5 H Eos % (Auto) 0.1 Baso % (Auto) 0.4 Absolute Neuts (auto) 6.5 Absolute Lymphs (auto) 0.94 Nucleated RBC % 0 PT INR APTT Sodium Potassium Chloride Carbon Dioxide Anion Gap BUN Creatinine Estim Creat Clear Calc Est GFR (MDRD) Af Amer Est GFR (MDRD) Non-Af BUN/Creatinine Ratio Glucose Lactic Acid 2.4 H* Calcium Total Bilirubin AST ALT Alkaline Phosphatase Troponin I High Sens Total Protein Albumin Globulin Albumin/Globulin Ratio Urine Color Yellow Urine Clarity Sl. Cloudy Urine pH 7.0 Ur Specific Hollenberg 1.015 Urine Protein 15 H Urine Glucose (UA) Normal Urine Ketones Negative Urine Occult Blood 10 H Urine Nitrite Negative Urine Bilirubin Negative Urine Urobilinogen Normal Ur Leukocyte Esterase 25 H Urine RBC 0 SEEN Urine WBC 0-5 SEEN Ur Squamous Epith Cells 0 SEEN Amorphous Sediment 1+ Urine Bacteria 0 SEEN Urine Mucus 0 SEEN 01/07/22 01/07/22 20:45 20:45 WBC RBC Hgb Hct MCV MCH MCHC RDW Std Deviation RDW Coeff of Jeovanny Plt Count MPV Immature Gran % (Auto) Neut % (Auto) Lymph % (Auto) Claiborne % (Auto) Eos % (Auto) Baso % (Auto) Absolute Neuts (auto) Absolute Lymphs (auto) Nucleated RBC % PT 13.5 INR 1.1 APTT 29.4 Sodium 140 Potassium 3.7 Chloride 107 Carbon Dioxide 25.0 Anion Gap 8 BUN 8 Creatinine 0.75 Estim Creat Clear Calc 45.50 Est GFR (MDRD) Af Amer 97 Est GFR (MDRD) Non-Af 80 BUN/Creatinine Ratio 10.7 Glucose 142 H Lactic Acid Calcium 9.6 Total Bilirubin 0.60 AST 27 ALT 49 Alkaline Phosphatase 116 Troponin I High Sens 7 Total Protein 7.8 Albumin 3.5 Globulin 4.3 H Albumin/Globulin Ratio 0.8 L Urine Color Urine Clarity Urine pH Ur Specific Hollenberg Urine Protein Urine Glucose (UA) Urine Ketones Urine Occult Blood Urine Nitrite Urine Bilirubin Urine Urobilinogen Ur Leukocyte Esterase Urine RBC Urine WBC Ur Squamous Epith Cells Amorphous Sediment Urine Bacteria Urine Mucus Radiography Diagnostic Testing: Clinical Impression(s) from Imaging Studies Chest X-Ray 01/07/22 21:05 IMPRESSION: There are no acute findings. Electronically Signed: Prakash Vernon MD at 21:30 EST , EKG Initial EKG: Attestation: I personally reviewed and interpreted this EKG as follows: Comments: Sinus tachycardia with a ventricular rate of 110 bpm Discharge Plan Dx/Rx/DC Orders Clinical Impression: Acute febrile illness, Acute encephalopathy Disposition Disposition: Acute Care Hospital [facility]
[2022-01-07 20:53] LABS: Bacteria 0 SEEN /hpf (None Seen); Mucous, Urine 0 SEEN /hpf (<or=2+); Red Blood Cells-Urine 0 SEEN /hpf (0-5); Squamous Epithelial Cells - UA 0 SEEN /hpf (5-10)
[2022-01-07] MEDS: Acetaminophen 500 MG Tablet 1000 MG PO (20:56)
[2022-01-07] MEDS: 0.9% Normal Saline 1,000 ML 999 ML IV ×2 (20:56→22:05)
[2022-01-07 20:58] LABS: Absolute Lymphocyte Count 0.94 X10^3/uL (0.83-4.51); Absolute Neutrophil Count 6.5 X10^3/uL (2.0-7.7); Basophil# 0.03 X10^3/uL; Basophil% 0.4 % (0-1); Eosinophil# 0.01 X10^3/uL; Eosinophils% 0.1 % (0-5); Hematocrit 41.8 % (37-47); Hemoglobin 13.6 g/dL (12.0-15.0); Lymphocyte # 0.94 X10^3/ul (0.83-4.51); Mean Corp Hgb Conc 32.5 g/dL (32-36); Mean Corpuscular Hgb 29.6 pg (27.0-32.0); Mean Corpuscular Volume 90.9 fL (81-99); Mean Platelet Vol. 9.6 fl (6.2-12.0); Monocyte# 0.98 X10^3/uL; Monocyte% 11.5 % (0-10); NRBC Flagged by Analyzer 0 % (0-5); Neutrophil # 6.52 X10^3/uL (2.7-7.7); Neutrophil % 76.6 % (47-70); Platelet Count 316 K/mm3 (150-450); RBC Distribution Width CV 13.7 % (11.6-14.6); RBC Distribution Width SD 45.4 fl (35.1-43.9); White Blood Count 8.5 K/mm3 (4.4-11.0)
[2022-01-07 21:00] LABS: Color, Urine Yellow (Yellow); Glucose, Dipstick Normal (Normal); Ketone-Dipstick Negative (Negative); Leukocyte Esterase-Dipstick 25 /ul (Negative); Nitrite-Dipstick Negative (Negative); Occult Blood-Urine 10 /ul (Negative); Protein-Dipstick 15 mg/dl (Negative); Specific Gravity, Urine 1.015 (1.002-1.030); Urine Bilirubin Dipstick Negative (Negative); Urine Clarity Sl. Cloudy (Clear); Urine Urobilinogen Normal (Normal)
[2022-01-07 21:03] LABS: White Blood Cells 0-5 SEEN /hpf (0-5)
[2022-01-07 21:04] LABS: Amorphous Sediment 1+
--- NOTE | 2022-01-07 21:05 | RAD_ITS ---
STUDY: X-RAY CHEST REASON FOR EXAM: Female, 76 years old. fever TECHNIQUE: XR Chest 1 View COMPARISON: 8.2.22 FINDINGS: There is atherosclerotic calcification of the aortic arch with tortuosity. There are diffuse degenerative changes of the visualized thoracic spine. There is degenerative osteoarthritis of the bilateral shoulders. There is no demonstrated pleural abnormality. Normal size heart. Normal mediastinum and dorota. Normal visualized pulmonary arteries. There is no demonstrated abnormality of the visualized soft tissue structures of the upper abdomen. RAD/Chest 1 View (Portable) IMPRESSION: There are no acute findings. Electronically Signed: Prakash Vernon MD at 21:30 EST ,
[2022-01-07 21:11] LABS: International Normalized Ratio 1.1; Prothrombin Time (Protime)PT. 13.5 SECONDS (11.7-14.9)
[2022-01-07 21:12] LABS: Partial Thromboplast Time 29.4 Seconds (24.1-36.2)
[2022-01-07 21:20] LABS: ALB/GLOB Ratio 0.8 RATIO (0.9-2.4); AST(SGOT) 27 U/L (15-37); Alanine Aminotransfer ALT/SGPT 49 U/L (13-56); Albumin, Serum 3.5 g/dL (3.2-5.0); Alkaline Phosphatase 116 U/L (45-117); Anion Gap 8 (5-15); BUN 8 mg/dL (7-18); BUN/Creat Ratio 10.7 RATIO (10-20); Calcium,Total 9.6 mg/dL (8.5-10.1); Chloride 107 mmol/L (98-107); Creatinine, Serum 0.75 mg/dL (0.55-1.02); EST Glomerular Filtration Rate 80 mL/min (>60); Est Glom Filt Rate - Afr Amer 97 mL/min (>60); Globulin 4.3 g/dL (2.2-4.2); Glucose 142 mg/dL (74-106); Potassium 3.7 mmol/L (3.5-5.1); Protein, Total 7.8 g/dL (6.4-8.2); Sodium Level 140 mmol/L (136-145); Troponin-I HS 7 pg/mL (3.0-54.0)
[2022-01-07 21:36] LABS: Lactic Acid 2.4 mmol/L (0.4-1.9)
--- NOTE | 2022-01-07 22:20 | HP.PCM.HOS_ITS ---
HPI - General General Date of Admission: 01/07/22 Date of Service: 01/07/22 Chief Complaint: altered mental status HPI Narrative MARILUZ DREW, is a 76 F with a significant history of hemorrhagic stroke status post craniotomy who presents to the emergency department with progressive worsening altered mental status that started the same day of presentation. Reportedly patient has been very sleepy. Also she has been very weak. Her voice has been low. Reportedly patient temperature was 101.7 F en route to the hospital. History was taken for patient was at the bedside because patient could not provide history [facility] Medical History Arthritis Dysphagia Epilepsy Hemorrhagic stroke Hyperlipidemia Hypertension Lab test negative for COVID-19 virus Stroke/cerebrovascular accident Home Medications atorvastatin 10 mg tablet 40 mg PO DAILY Cholesterol 11/01/20 [History Last Taken Unknown] acetaminophen 650 mg/20.3 mL oral solution 1,000 mg (31.2308 mL) G-tube TID #0 m L 10/03/21 [Rx Last Taken Unknown] enoxaparin 40 mg/0.4 mL subcutaneous syringe 40 mg (0.4 mL) subcut DAILY #0 mL 10/03/21 [Rx Last Taken Unknown] lactose-reduced food with fiber 0.06 gram-1.5 kcal/mL oral liquid (Jevity 1.5 Godwin) 240 ml G-tube QHS #0 mL 10/03/21 [Rx Last Taken Unknown] lactose-reduced food with fiber 0.06 gram-1.5 kcal/mL oral liquid (Jevity 1.5 Godwin) 240 ml G-tube TIDPC #0 mL 10/03/21 [Rx Last Taken Unknown] menthol 0.44 %-zinc oxide 20.6 % topical ointment (Calmoseptine) 1 applic topical BID #0 grams 10/03/21 [Rx Last Taken Unknown] nystatin 100,000 unit/gram topical powder (Nyamyc) 1 applic topical BID #0 grams 10/03/21 [Rx Last Taken Unknown] levetiracetam 100 mg/mL oral solution 500 mg PO BID 01/07/22 [History Last Taken Unknown] Allergy/AdvReac Type Severity Reaction Status Date / Time Sulfa (Sulfonamide Allergy Rash Verified 01/07/22 20:20 Antibiotics) Family History unable to obtain unable to obtain (secondary to confusion) Surgical History H/O: hysterectomy History of embolic filter insertion History of gastrostomy History of laparoscopic cholecystectomy History of tracheostomy Social History household members: spouse Smoking Status: Never smoker alcohol intake: never substance use type: does not use ROS Review of Systems ROS Unobtainable: due to mental status Vital Signs Vital Signs Vital Signs: 01/07/22 20:21 01/07/22 20:23 01/07/22 20:24 Temperature 101 F H 101 F H Temperature Source Oral Oral Pulse Rate 118 H 118 H Respiratory Rate 22 H 22 H Respiratory Effort Normal Non-Labored Respiratory Pattern Normal Blood Pressure 119/72 119/72 Blood Pressure Mean 87 87 Pulse Ox 98 98 Oxygen Delivery Method Room Air Room Air 01/07/22 20:44 01/07/22 21:45 Temperature 99.3 F H Temperature Source Temporal Pulse Rate 101 H Respiratory Rate 22 H Respiratory Effort Respiratory Pattern Blood Pressure 127/66 H Blood Pressure Mean 86 Pulse Ox 96 95 Oxygen Delivery Method Room Air Room Air Weight Weight: 79.2 kg Body Mass Index (BMI) 28.1 Physical Exam Narrative Physical exam: General: Well-nourished, well-developed. Head: Normocephalic, atraumatic, no tenderness Eyes: Vision is grossly intact. EOMI ENT, no trauma, moist mucous membranes, no rhinorrhea Neck: Nontender, full range of motion, no spinal tenderness, deformities, step- off CVS: Regular rate and rhythm. S1-S2 present. No murmur, gallop or rub. Respiratory : clear to auscultation bilaterally, chest wall nontender, no wheezing Abdomen: Soft, nontender, nondistended, normal bowel sounds, no masses : Deferred Back: Nontender, no CVA tenderness, no midline spinal tenderness, deformities, step-offs Extremities: Nontender full range of motion, no trauma Skin: Normal color, no trauma, abrasions; clammy Neuro: Lethargic; confused; knows the month; cranial nerves II through XII grossly intact. Psychiatry: Normal mood. Normal affect. Not depressed. Not anxious. Results Lab / Micro Data Result Diagrams: 01/07/22 20:45 01/07/22 20:45 Labs: Laboratory Results - last 24 hr 01/07/22 20:39: Lactic Acid 2.4 H* 01/07/22 20:39: Urine Color Yellow, Urine Clarity Sl. Cloudy, Urine pH 7.0, Ur Specific [place] 1.015, Urine Protein 15 H, Urine Glucose (UA) Normal, Urine Ketones Negative, Urine Occult Blood 10 H, Urine Nitrite Negative, Urine Bilirubin Negative, Urine Urobilinogen Normal, Ur Leukocyte Esterase 25 H, Urine RBC 0 SEEN, Urine WBC 0-5 SEEN, Ur Squamous Epith Cells 0 SEEN, Amorphous Sediment 1+, Urine Bacteria 0 SEEN, Urine Mucus 0 SEEN 01/07/22 20:45: WBC 8.5, RBC 4.60, Hgb 13.6, Hct 41.8, MCV 90.9, MCH 29.6, MCHC 32.5, RDW Std Deviation 45.4 H, RDW Coeff of Jeovanny 13.7, Plt Count 316, MPV 9.6, Immature Gran % (Auto) 0.400, Neut % (Auto) 76.6 H, Lymph % (Auto) 11.0 L, [place] % (Auto) 11.5 H, Eos % (Auto) 0.1, Baso % (Auto) 0.4, Absolute Neuts (auto) 6.5, Absolute Lymphs (auto) 0.94, Nucleated RBC % 0 01/07/22 20:45: PT 13.5, INR 1.1, APTT 29.4 01/07/22 20:45: Sodium 140, Potassium 3.7, Chloride 107, Carbon Dioxide 25.0, Anion Gap 8, BUN 8, Creatinine 0.75, Estim Creat Clear Calc 45.50, Est GFR (MDRD) Af Amer 97, Est GFR (MDRD) Non-Af 80, BUN/Creatinine Ratio 10.7, Glucose 142 H, Calcium 9.6, Total Bilirubin 0.60, AST 27, ALT 49, Alkaline Phosphatase 116, Troponin I High Sens 7, Total Protein 7.8, Albumin 3.5, Globulin 4.3 H, Albumin/Globulin Ratio 0.8 L Micro: Microbiology 01/07/22 20:50 Nasal Secretion SARS-CoV-2 & FLU Antigen (Rapid) - Final Radiology Impression Chest X-Ray 01/07/22 21:05 IMPRESSION: There are no acute findings. Electronically Signed: Prakash Vernon MD at 21:30 EST , Assessment & Plan Assessment/Plan (1) Acute febrile illness: (2) Acute encephalopathy: PLAN: Plan Acute febrile illness/acute infectious encephalopathy Urinalysis was reviewed; unremarkable. Actual chest x-ray image was visualized and independently interpreted. I agree with radiologist interpretation of no acute cardiopulmonary process. Rapid COVID antigen and rapid flu negative. Respiratory pathogen panel PCR negative. Blood culture x2 obtained at the emergency department and pending. BMP is unremarkable. CBC showed normal white count. Trend CBC and BMP. Tylenol as needed ordered. Started on Zosyn at the emergency department and continued. Dehydration Patient with dry mucous membrane. Gentle IV hydration ordered. Trend BMP. DVT prophylaxis With history of a brain bleed. Will avoid chemical chemoprophylaxis. SCDs ordered. Charges/Coding Visit Charges Inpatient E&M: 03910 Init Hosp L3
[2022-01-07] MEDS: 0.9% Normal Saline 1,000 ML 150 ML IV (23:55)
[2022-01-08] VITALS (9 sets, daily range): BP systolic 101–140; BP diastolic 57–70; PULSE 77–97; RESP 16–18; TEMP 36.9–38.2; O2SAT 93–98
[2022-01-08 00:53] LABS: Reflex Lactate? Y
[2022-01-08 02:16] LABS: Lactic Acid 0.7 mmol/L (0.4-1.9)
[2022-01-08] MEDS: 0.9% Normal Saline 1,000 ML 100 ML IV ×3 (02:27→23:04)
[2022-01-08 05:10] LABS: Absolute Lymphocyte Count 1.04 X10^3/uL (0.83-4.51); Basophil# 0.01 X10^3/uL; Basophil% 0.1 % (0-1); Eosinophil# 0.01 X10^3/uL; Eosinophils% 0.1 % (0-5); Hematocrit 38.9 % (37-47); Hemoglobin 12.2 g/dL (12.0-15.0); Lymphocyte # 1.04 X10^3/ul (0.83-4.51); Mean Corp Hgb Conc 31.4 g/dL (32-36); Mean Corpuscular Hgb 29.6 pg (27.0-32.0); Mean Corpuscular Volume 94.4 fL (81-99); Mean Platelet Vol. 9.5 fl (6.2-12.0); Monocyte# 0.35 X10^3/uL; Monocyte% 4.7 % (0-10); NRBC Flagged by Analyzer 0 % (0-5); Neutrophil % 80.7 % (47-70); Platelet Count 250 K/mm3 (150-450); RBC Distribution Width CV 13.8 % (11.6-14.6); Red Blood Count 4.12 M/mm3 (4.2-5.4); White Blood Count 7.4 K/mm3 (4.4-11.0)
[2022-01-08 06:20] LABS: Anion Gap 6 (5-15); BUN 7 mg/dL (7-18); BUN/Creat Ratio 12.1 RATIO (10-20); Calcium,Total 8.9 mg/dL (8.5-10.1); Chloride 113 mmol/L (98-107); Creatinine, Serum 0.58 mg/dL (0.55-1.02); EST Glomerular Filtration Rate 108 mL/min (>60); Est Glom Filt Rate - Afr Amer 131 mL/min (>60); Estimated Creatinine Clearance 41.97 ml/min; Glucose 101 mg/dL (74-106); Potassium 3.7 mmol/L (3.5-5.1); Sodium Level 142 mmol/L (136-145)
--- NOTE | 2022-01-08 08:16 | PN.HOSP_ITS ---
Subjective Subjective Doing better, according to the . However not back to baseline. Patient had a very complicated picture over the summer where she developed what sounds like either a subdural or epidural hematoma that required surgical decompression with removing part of her skull. I was on the right, while she was in the h ospital, she developed a left bleed as well and then they treated that by actually replacing the removed skull back which seemed to alleviate the problem. Patient was in the hospital for 30 days then was in rehab for around 60 more days. Patient has been home for about a month and a half. She has been getting around okay. Patient did have a broken bone in her hand which required her to have a splint on her arm. It was not removed as had been requested and since then she has been having difficulty moving her left arm. Objective Data Objective Data Vital Signs: Vital Signs Temp Pulse Resp BP Pulse Ox O2 Del Method 37.5 C H 88 18 140/70 H 94 Room Air 01/08/22 04:33 01/08/22 04:33 01/08/22 04:33 01/08/22 04:33 01/08/22 07:49 01/08/22 07:49 Oxygen Delivery Method Room Air Weight: 75.8 kg Body Mass Index (BMI) 28.6 Intake & Output: Intake and Output for Last 24 Hours 01/06/22 01/07/22 01/08/22 23:59 23:59 23:59 Intake Total 2099 372.5 / 372.5 Balance 2099 372.5 / 372.5 Lab / Micro Data Result Diagrams: 01/08/22 04:50 01/08/22 04:50 Labs: Laboratory Results - last 24 hr 01/07/22 20:39: Lactic Acid 2.4 H* 01/07/22 20:39: Urine Color Yellow, Urine Clarity Sl. Cloudy, Urine pH 7.0, Ur Specific [place] 1.015, Urine Protein 15 H, Urine Glucose (UA) Normal, Urine Ketones Negative, Urine Occult Blood 10 H, Urine Nitrite Negative, Urine Bilirubin Negative, Urine Urobilinogen Normal, Ur Leukocyte Esterase 25 H, Urine RBC 0 SEEN, Urine WBC 0-5 SEEN, Ur Squamous Epith Cells 0 SEEN, Amorphous Sediment 1+, Urine Bacteria 0 SEEN, Urine Mucus 0 SEEN 01/07/22 20:45: WBC 8.5, RBC 4.60, Hgb 13.6, Hct 41.8, MCV 90.9, MCH 29.6, MCHC 32.5, RDW Std Deviation 45.4 H, RDW Coeff of Jeovanny 13.7, Plt Count 316, MPV 9.6, Immature Gran % (Auto) 0.400, Neut % (Auto) 76.6 H, Lymph % (Auto) 11.0 L, [place] % (Auto) 11.5 H, Eos % (Auto) 0.1, Baso % (Auto) 0.4, Absolute Neuts (auto) 6.5, Absolute Lymphs (auto) 0.94, Nucleated RBC % 0 01/07/22 20:45: PT 13.5, INR 1.1, APTT 29.4 01/07/22 20:45: Sodium 140, Potassium 3.7, Chloride 107, Carbon Dioxide 25.0, Anion Gap 8, BUN 8, Creatinine 0.75, Estim Creat Clear Calc 45.50, Est GFR (MDRD) Af Amer 97, Est GFR (MDRD) Non-Af 80, BUN/Creatinine Ratio 10.7, Glucose 142 H, Calcium 9.6, Total Bilirubin 0.60, AST 27, ALT 49, Alkaline Phosphatase 116, Troponin I High Sens 7, Total Protein 7.8, Albumin 3.5, Globulin 4.3 H, Albumin/Globulin Ratio 0.8 L 01/08/22 01:05: Lactic Acid 0.7 01/08/22 04:50: WBC 7.4, RBC 4.12 L, Hgb 12.2, Hct 38.9, MCV 94.4, MCH 29.6, MCHC 31.4 L, RDW Std Deviation 48.0 H, RDW Coeff of Jeovanny 13.8, Plt Count 250, MPV 9.5, Immature Gran % (Auto) 0.400, Neut % (Auto) 80.7 H, Lymph % (Auto) 14.0 L, [place] % (Auto) 4.7, Eos % (Auto) 0.1, Baso % (Auto) 0.1, Absolute Neuts (auto) 6.0, Absolute Lymphs (auto) 1.04, Nucleated RBC % 0 01/08/22 04:50: Sodium 142, Potassium 3.7, Chloride 113 H, Carbon Dioxide 23.0, Anion Gap 6, BUN 7, Creatinine 0.58, Estim Creat Clear Calc 41.97, Est GFR (MDRD) Af Amer 131, Est GFR (MDRD) Non-Af 108, BUN/Creatinine Ratio 12.1, Glucose 101, Calcium 8.9 Micro: Microbiology 01/07/22 21:59 Mucosa - Nose Respiratory Panel (PCR) - Final 01/07/22 20:50 Nasal Secretion SARS-CoV-2 & FLU Antigen (Rapid) - Final Radiography Diagnostic Testing: Radiology Impression Chest X-Ray 01/07/22 21:05 IMPRESSION: There are no acute findings. Electronically Signed: Prakash Vernon MD at 21:30 EST , Physical Exam Const alert and no apparent distress HEENT head/scalp atraumatic and moist oral mucous membranes Resp normal respiratory effort, no retractions, no use of accessory muscles and clear to auscultation bilaterally Cardio regular rate, regular rhythm, S1 normal heart sound and S2 normal heart sound GI normal to inspection, nondistended, normoactive bowel sounds Extremity normal to inspection Neuro Neuro Narrative: Muscle strength 3 out of 5 in the left upper extremity and 4-5 in the left lower extremity. Psych Psych Narrative: Flat affect Assessment & Plan Assessment/Plan (1) Acute febrile illness: PLAN: Work-up thus far has been unremarkable. Chest x-ray, urinalysis, respiratory panel, COVID-19, influenza all negative. In the absence of any clear infection will discontinue antibiotics (2) Acute encephalopathy: PLAN: Resolved but not back to her baseline. Likely what ever was the acute illness likely led to exaggerated symptoms. Patient has had a history of what sounds like to brain bleeds, the etiology I do not have the records to validate the patient did require her skull being removed to help with the edema.. The patient's paints a picture that she does pretty well but it sounds, the more I speak with him that she is really not back to her baseline and likely these brain lesions had a pretty dramatic effect on her chronically. I did discuss with the patient's daughter, Oumou. Likely due to what may be causing her fever plus dehydration plus her history of a hemorrhagic stroke and prior craniotomy PT OT evaluate and treat PLAN: Plan DVT prophylaxis With history of a brain bleed. Will avoid chemical chemoprophylaxis. SCDs ordered. Greater than 35 minutes of which greater than 50% of time was discussing the patient's history and reviewing the patient's history with the , discussing her symptoms and how the likelihood of her significant brain bleeds has led to chest profound deconditioning of the patient. Charges/Coding Visit Charges Inpatient E&M: 22540 Subs Hosp L3
[2022-01-08] MEDS: Acetaminophen 325 MG Tablet 650 MG PO ×2 (08:54→18:39)
[2022-01-08] MEDS: levETIRAcetam Oral Solution 500 MG/5 ML PO ×2 (09:30→23:04)
[2022-01-08] MEDS: Ensure Plus High Protein 120 ML LIQUID PO ×2 (18:40→23:04)
[2022-01-08] MEDS: 0.9% Saline Lock 10 ML Syringe IV (23:04)
[2022-01-08] MEDS: Atorvastatin Calcium 40 MG Tablet PO (23:04)
[2022-01-09] VITALS (9 sets, daily range): BP systolic 111–137; BP diastolic 57–65; PULSE 75–88; RESP 16–18; TEMP 36.9–38; O2SAT 93–95
[2022-01-09] MEDS: Acetaminophen 325 MG Tablet 650 MG PO (02:34)
--- NOTE | 2022-01-09 08:16 | PCM.PN.HOSP ---
Subjective Subjective Still feels weak Objective Data Objective Data Vital Signs: Vital Signs Temp Pulse Resp BP Pulse Ox O2 Del Method 36.9 C 75 18 111/57 L 93 Room Air 01/09/22 08:15 01/09/22 08:15 01/09/22 08:15 01/09/22 08:15 01/09/22 08:15 01/09/22 08:15 Oxygen Delivery Method Room Air Weight: 75.8 kg Body Mass Index (BMI) 28.6 Intake & Output: Intake and Output for Last 24 Hours 01/07/22 01/08/22 01/09/22 23:59 23:59 23:59 Intake Total 2099 2782.5 / 2782.5 Output Total 850 / 1150 400 / 400 Balance 2099 1932.5 / 1632.5 -400 / -400 Lab / Micro Data Result Diagrams: 01/08/22 04:50 01/08/22 04:50 Micro: Microbiology 01/07/22 21:59 Mucosa - Nose Respiratory Panel (PCR) - Final 01/07/22 20:50 Nasal Secretion SARS-CoV-2 & FLU Antigen (Rapid) - Final Physical Exam Const alert and no apparent distress Constitutional Narrative: Listless. Afebrile. Resp normal respiratory effort, no retractions, no use of accessory muscles and clear to auscultation bilaterally Cardio regular rate, regular rhythm, S1 normal heart sound and S2 normal heart sound GI normal to inspection, nondistended, normoactive bowel sounds Neuro Neuro Narrative: Muscle strength 3 out of 3 in the left upper and left lower extremity. Assessment & Plan Assessment/Plan (1) Acute febrile illness: PLAN: Work-up thus far has been unremarkable. Chest x-ray, urinalysis, respiratory panel, COVID-19, influenza all negative. In the absence of any clear infection will discontinue antibiotics (2) Acute encephalopathy: PLAN: Resolved but not back to her baseline. Likely what ever was the acute illness likely led to exaggerated symptoms. Patient has had a history of what sounds like to brain bleeds, the etiology I do not have the records to validate the patient did require her skull being removed to help with the edema.. The patient's paints a picture that she does pretty well but it sounds, the more I speak with him that she is really not back to her baseline and likely these brain lesions had a pretty dramatic effect on her chronically. I did discuss with the patient's daughter, Oumou. Likely due to what may be causing her fever plus dehydration plus her history of a hemorrhagic stroke and prior craniotomy PT OT evaluate and treat Check head CT given patient's prior history PLAN: Plan DVT prophylaxis With history of a brain bleed. Will avoid chemical chemoprophylaxis. SCDs ordered. Greater than 35 minutes of which greater than 50% of time was discussing the patient's history and reviewing the patient's history with the , discussing her symptoms and how the likelihood of her significant brain bleeds has led to chest profound deconditioning of the patient. Charges/Coding Visit Charges Inpatient E&M: 07432 Subs Hosp L2
[2022-01-09] MEDS: 0.9% Normal Saline 1,000 ML 100 ML IV ×2 (08:20→17:32)
[2022-01-09] MEDS: levETIRAcetam Oral Solution 500 MG/5 ML PO ×2 (08:21→21:07)
[2022-01-09] MEDS: Ensure Plus High Protein 120 ML LIQUID PO ×3 (14:30→21:08)
--- NOTE | 2022-01-09 15:29 | CT_ITS ---
EXAM: CT HEAD WITHOUT INTRAVENOUS CONTRAST CLINICAL INDICATION: left sided weakness. h/o ICH. TECHNIQUE: Multiple axial images were obtained of the head without intravenous contrast. This CT exam was performed using one or more of the following dose reduction techniques: automated exposure control, adjustment of the mA and/or kV according to patient size, and/or use of iterative reconstruction technique. This report was created using [employer] report generation technology. COMPARISON: CT Head dated 10/11/2021 FINDINGS: BRAIN AND EXTRA-AXIAL SPACES: Encephalomalacic changes of the right frontal and temporal lobes related to prior surgery. 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 No intra- or extra-axial hemorrhage. No evidence of acute infarct. No intracranial mass or mass effect. There is preservation of the tong/white matter interface. Posterior fossa structures are unremarkable. Basal cisterns are patent. BONES/JOINTS: Extensive right-sided craniectomy defect again seen. No discrete lytic or blastic abnormalities. SINUSES: Unremarkable as visualized. No acute sinusitis. MASTOID AIR CELLS: Normal. Clear. ORBITS: Visualized globes, extraocular muscles, optic nerves and retrobulbar fat appear unremarkable. CT/Brain/Head without Contrast IMPRESSION: No acute intracranial abnormality. No significant interval change. Electronically Signed: Shamar Salazar MD at 16:18 EST ,
--- NOTE | 2022-01-09 15:30 | CASEMGMT ---
Addendum entered by Nuris Hudson 01/09/22 16:50: states pt was getting [facility] for therapy and that it was set up through [facility]. RN MARIYA placed call to [facility]. They confirmed they set pt up w/[facility] but pt has been discharged from [facility]. states, if pt is strong enough to return home, then he would like her to have them again. He declines wanting list of other [facility] agencies. Addendum entered by Nuris Hudson 01/09/22 16:41: Trupti OLIVA, made aware would like to go to [facility] if she has any skilled days remaining under her insurance. Original Note: RN CM SHIRT CREASER CM to room to meet with patient and for initial transition planning/care coordination assessment. RN MARIYA introduced self and role at [facility]. voices understanding and consents to assessment at this time. Pt sitting up in recliner chair. Pt is awake, but talking very quietly, and let pt do most of the talking. Care providers, pharmacy, and demographics verified/updated at this time. PCP: Dr Murillo Specialists: JOSE FRANCISCO Sandy-onur Preferred Pharmacy: [facility] Insurance: [employer] [facility] Prescription Benefit: Yes Living Will/HPOA: Pt does not currently have LW/HCPOA and declines info at this time. LNOK: , Nabeel. 4 adult children Living Arrangements: Lives w/ in 2-story home. [employer]. No steps to enter. Someone is with pt 07/09. They hire private-duty caregiver 40 hrs/week who assists pt w/bathing/dressing, medications, meals, and home mgmt tasks. or other family members are with pt any time caregiver is not there. states when pt is @ her baseline, she ambulates independently w/no DME. Pt became very weak this past Wed and started needing 1-2 assist when up. Transportation: DME: Has the following DME: shower chair, cane, 2 walkers, grab bars, W/C, adjustable bed. HHC/SNF: [facility] and [facility]. states pt was private-pay @ [facility]. He is not sure if pt has any more skilled days remaining. He states if she does have skilled days available, he is interested in pt going to [facility]. A list of SNF providers including quality and resource use data and consistent with the patient?s preferred geographic region, medical needs, and insurance network were provided from the [employer]. states, if pt has no SNF days available, then they do have enough family and available caregivers that he thinks they can have 2 people w/pt / for awhile until pt becomes stronger. also provided w/list of local Private-duty agency's for aides. PLAN: TBD by pt's progress w/therapy and if pt has any skilled days available @ a SNF. SNF vs Home w/HHC. Tasha MEZA RN CM
[2022-01-09] MEDS: Atorvastatin Calcium 40 MG Tablet PO (21:07)
[2022-01-10] VITALS (8 sets, daily range): BP systolic 113–124; BP diastolic 57–67; PULSE 62–77; RESP 16; TEMP 36.5–37.7; O2SAT 92–96
[2022-01-10] MEDS: 0.9% Normal Saline 1,000 ML 100 ML IV ×3 (03:12→22:47)
--- NOTE | 2022-01-10 06:56 | PCM.PN.HOSP ---
Subjective Subjective Still feels weak Objective Data Objective Data Vital Signs: Vital Signs Temp Pulse Resp BP Pulse Ox O2 Del Method 37.7 C H 73 16 124/59 H 92 Room Air 01/10/22 03:11 01/10/22 03:11 01/10/22 03:11 01/10/22 03:11 01/10/22 03:11 01/10/22 03:11 Oxygen Delivery Method Room Air Weight: 75.8 kg Body Mass Index (BMI) 28.6 Intake & Output: Intake and Output for Last 24 Hours 01/08/22 01/09/22 01/10/22 23:59 23:59 23:59 Intake Total 2782.5 / 2782.5 2566.67 / 2566.67 1086.67 / 1086.67 Output Total 850 / 1150 975 / 975 Balance 1932.5 / 1632.5 1591.67 / 1591.67 1086.67 / 1086.67 Lab / Micro Data Result Diagrams: 01/10/22 06:53 01/10/22 06:53 Micro: Microbiology 01/07/22 20:39 Urine, Catheterized Urine Culture - Final Culture exhibits no growth. 01/07/22 21:59 Mucosa - Nose Respiratory Panel (PCR) - Final 01/07/22 20:50 Nasal Secretion SARS-CoV-2 & FLU Antigen (Rapid) - Final Radiography Diagnostic Testing: Radiology Impression Brain CT 01/09/22 15:29 IMPRESSION: No acute intracranial abnormality. No significant interval change. Electronically Signed: Shamar Salazar MD at 16:18 EST , Physical Exam Const alert and no apparent distress Constitutional Narrative: Flat affect Resp normal respiratory effort, no retractions, no use of accessory muscles and clear to auscultation bilaterally Cardio regular rate, regular rhythm, S1 normal heart sound and S2 normal heart sound GI normal to inspection, nondistended, normoactive bowel sounds Extremity Extremity Narrative: Tenderness in right glenohumeral joint Psych Psych Narrative: Flat affect Assessment & Plan Assessment/Plan (1) Acute febrile illness: PLAN: Work-up thus far has been unremarkable. Chest x-ray, urinalysis, respiratory panel, COVID-19, influenza all negative. Blood cultures negative In the absence of any clear infection will discontinue antibiotics (2) Acute encephalopathy: PLAN: Resolved but not back to her baseline. Likely what ever was the acute illness likely led to exaggerated symptoms. Patient has had a history of what sounds like to brain bleeds, the etiology I do not have the records to validate the patient did require her skull being removed to help with the edema.. The patient's paints a picture that she does pretty well but it sounds, the more I speak with him that she is really not back to her baseline and likely these brain lesions had a pretty dramatic effect on her chronically. I did discuss with the patient's daughter, Oumou. 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 No change from September. Ventricles are noted to be enlarged PLAN: Plan DVT prophylaxis With history of a brain bleed. Will avoid chemical chemoprophylaxis. SCDs ordered. Disposition: To be determined. Looking to see if patient has more skilled days or not. Patient is very debilitated and unable to be adequately cared for at home by her given the patient's history of brain injury and complications associated with that. Charges/Coding Visit Charges Inpatient E&M: 86302 Subs Hosp L2
[2022-01-10 07:13] LABS: Absolute Lymphocyte Count 2.16 X10^3/uL (0.83-4.51); Absolute Neutrophil Count 2.2 X10^3/uL (2.0-7.7); Basophil# 0.01 X10^3/uL; Basophil% 0.2 % (0-1); Eosinophil# 0.01 X10^3/uL; Eosinophils% 0.2 % (0-5); Hematocrit 34.2 % (37-47); Hemoglobin 10.9 g/dL (12.0-15.0); Lymphocyte # 2.16 X10^3/ul (0.83-4.51); Lymphocyte % 45.4 % (19-41); Mean Corp Hgb Conc 31.9 g/dL (32-36); Mean Corpuscular Hgb 29.8 pg (27.0-32.0); Mean Corpuscular Volume 93.4 fL (81-99); Monocyte# 0.37 X10^3/uL; Monocyte% 7.8 % (0-10); NRBC Flagged by Analyzer 0 % (0-5); Neutrophil % 46.2 % (47-70); Platelet Count 170 K/mm3 (150-450); RBC Distribution Width CV 13.5 % (11.6-14.6); RBC Distribution Width SD 46.2 fl (35.1-43.9); Red Blood Count 3.66 M/mm3 (4.2-5.4); White Blood Count 4.8 K/mm3 (4.4-11.0)
[2022-01-10 08:10] LABS: Anion Gap 6 (5-15); BUN 6 mg/dL (7-18); BUN/Creat Ratio 16.7 RATIO (10-20); Calcium,Total 8.1 mg/dL (8.5-10.1); Chloride 112 mmol/L (98-107); Creatinine, Serum 0.36 mg/dL (0.55-1.02); EST Glomerular Filtration Rate 187 mL/min (>60); Est Glom Filt Rate - Afr Amer 226 mL/min (>60); Estimated Creatinine Clearance 41.97 ml/min; Glucose 87 mg/dL (74-106); Potassium 3.2 mmol/L (3.5-5.1); Sodium Level 143 mmol/L (136-145)
[2022-01-10] MEDS: levETIRAcetam Oral Solution 500 MG/5 ML PO ×2 (10:14→22:45)
[2022-01-10] MEDS: Ensure Plus High Protein 120 ML LIQUID PO ×4 (10:32→22:44)
[2022-01-10] MEDS: Atorvastatin Calcium 40 MG Tablet PO (22:46)
[2022-01-11 03:49] VITALS: BP 110/64; PULSE 61; RESP 16; TEMP 36.5; O2SAT 93
[2022-01-11 05:00] VITALS: BP 110/64; PULSE 61; RESP 16; TEMP 36.5; O2SAT 93
--- NOTE | 2022-01-11 08:12 | PN.HOSP_ITS ---
Subjective Subjective Feels much better today. Objective Data Objective Data Vital Signs: Vital Signs Temp Pulse Resp BP Pulse Ox O2 Del Method 36.5 C L 61 16 110/64 93 Room Air 01/11/22 05:00 01/11/22 05:00 01/11/22 05:00 01/11/22 05:00 01/11/22 05:00 01/11/22 08:10 Oxygen Delivery Method Room Air Weight: 75.8 kg Body Mass Index (BMI) 28.6 Intake & Output: Intake and Output for Last 24 Hours 01/09/22 01/10/22 01/11/22 23:59 23:59 23:59 Intake Total 2566.67 / 2566.67 4085.00 / 4085.00 Output Total 975 / 975 1700 / 2100 800 / 800 Balance 1591.67 / 1591.67 2385.00 / 1985.00 -800 / -800 Lab / Micro Data Result Diagrams: 01/10/22 06:53 01/10/22 06:53 Micro: Microbiology 01/07/22 21:30 Blood Culture (Wb) - Anticubital Right Blood Culture - Preliminary No growth in 48 hours. 01/07/22 20:45 Blood Culture (Wb) - Anticubital Right Blood Culture - Preliminary No growth in 48 hours. 01/07/22 20:39 Urine, Catheterized Urine Culture - Final Culture exhibits no growth. 01/07/22 21:59 Mucosa - Nose Respiratory Panel (PCR) - Final 01/07/22 20:50 Nasal Secretion SARS-CoV-2 & FLU Antigen (Rapid) - Final Physical Exam Const alert and no apparent distress Constitutional Narrative: Flat affect HEENT head/scalp atraumatic and moist oral mucous membranes Resp normal respiratory effort, no retractions, no use of accessory muscles and clear to auscultation bilaterally Cardio regular rate, regular rhythm, S1 normal heart sound and S2 normal heart sound GI normal to inspection, nondistended, normoactive bowel sounds Extremity normal to inspection Extremity Narrative: Tenderness in right glenohumeral joint Neuro Neuro Narrative: Muscle strength limited in left upper extremity due to pain in her left shoulder. Muscle strength is 5-5 in the left lower extremity Psych Psych Narrative: Flat affect Assessment & Plan Assessment/Plan (1) Acute febrile illness: PLAN: Work-up thus far has been unremarkable. Chest x-ray, urinalysis, respirat ory panel, COVID-19, influenza all negative. Blood cultures negative In the absence of any clear infection will discontinue antibiotics (2) Acute encephalopathy: PLAN: Resolved but not back to her baseline. Likely what ever was the acute illness likely led to exaggerated symptoms. Patient has had a history of what sounds like to brain bleeds, the etiology I do not have the records to validate the patient did require her skull being removed to help with the edema.. The patient's paints a picture that she does pretty well but it sounds, the more I speak with him that she is really not back to her baseline and likely these brain lesions had a pretty dramatic effect on her chronically. I did discuss with the patient's daughter, Oumou. 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 No change from September. Ventricles are noted to be enlarged PLAN: Plan DVT prophylaxis With history of a brain bleed. Will avoid chemical chemoprophylaxis. SCDs ordered. Disposition: To be determined. Looking to see if patient has more skilled days or not. Patient is very debilitated and unable to be adequately cared for at home by her given the patient's history of brain injury and complications associated with that. Discussed with patient's at bedside Charges/Coding Visit Charges Inpatient E&M: 59199 Subs Hosp L2
[2022-01-11] MEDS: levETIRAcetam Oral Solution 500 MG/5 ML PO ×2 (08:43→22:15)
[2022-01-11] MEDS: Ensure Plus High Protein 120 ML LIQUID PO ×4 (08:43→22:15)
[2022-01-11] MEDS: 0.9% Normal Saline 1,000 ML 100 ML IV ×2 (08:43→18:43)
[2022-01-11 09:40] VITALS: BP 108/47; PULSE 77; RESP 16; TEMP 37.1; O2SAT 94
[2022-01-11] MEDS: Potassium Chloride Oral Tablet 20 MEQ 40 MEQ PO (12:45)
[2022-01-11 15:40] VITALS: BP 118/62; PULSE 61; RESP 16; TEMP 37.2; O2SAT 98
[2022-01-11 21:40] VITALS: BP 115/65; PULSE 75; RESP 17; TEMP 36.7; O2SAT 98
[2022-01-11] MEDS: Atorvastatin Calcium 40 MG Tablet PO (22:15)
[2022-01-11 23:00] VITALS: BP 115/65; PULSE 81; RESP 17; TEMP 36.6
[2022-01-12 03:40] VITALS: BP 135/90; PULSE 73; RESP 16; TEMP 36.8; O2SAT 97
[2022-01-12] MEDS: 0.9% Normal Saline 1,000 ML 100 ML IV (03:45)
[2022-01-12 04:19] VITALS: BP 135/90; PULSE 73; RESP 16; TEMP 36.8; O2SAT 97
[2022-01-12] MEDS: levETIRAcetam Oral Solution 500 MG/5 ML PO ×2 (09:20→21:52)
[2022-01-12] MEDS: Ensure Plus High Protein 120 ML LIQUID PO ×2 (09:23→17:23)
[2022-01-12 09:40] VITALS: BP 132/70; PULSE 70; RESP 15; TEMP 36.9; O2SAT 94
--- NOTE | 2022-01-12 10:35 | CASEMGMT ---
SW was advised patient did not do well with therapy and patient's preferred [facility] TCU. TCU is able to take patient. SW called patient's , Nabeel. Introduced self and role at [facility]. HAZEL confirmed he would like [facility] TCU for patient. HAZEL let Nabeel know that TCU can take patient once insurance approves. HAZEL let him know someone would call him and let him know when she is leaving. Plan: d/c to [facility] TCU under skilled level of care pending insurance approval. Krystina Kidd MOLD ENGRAVERLee SCHRADER
--- NOTE | 2022-01-12 11:56 | TREXTCAR_ITS ---
Diet Diet Order/Speech Therapy: 01/08/22 02:21 Diet: Cardiac - Heart Healthy Food consistency:: Regular Liquid Consistency:: Regular/Thin Routine Orders/Code Status Code Status: DNRCC-A (no intubation) Therapies Weight Bearing: Full weight bearing Physical Therapy: Eval and Treat Occupational Therapy: Eval and Treat Speech Therapy: Eval and Treat (cognitive issues) Problem/Diagnosis (1) Acute febrile illness: Status: Acute Code(s): R50.9 - Fever, unspecified Comment: cause unknown (2) Acute encephalopathy: Status: Acute Code(s): G93.40 - Encephalopathy, unspecified Comment: etiology unknown (3) Seizure disorder: Status: Chronic Code(s): G40.909 - Epilepsy, unspecified, not intractable, without status epilepticus (4) History of stroke: Status: Chronic Code(s): Z86.73 - Personal history of transient ischemic attack (TIA), and cerebral infarction without residual deficits (5) Hyperlipidemia: Status: Chronic Code(s): E78.5 - Hyperlipidemia, unspecified Allergies/Procedures Done in Hospital Allergies Sulfa (Sulfonamide Antibiotics) Allergy (Verified 01/07/22 20:20) Rash Procedures: None Type of Care/Length of Stay Estimated LOS: Convalescent Care Less Than 30 days Type of Care Needed: Skilled Rehab Potential: Good Prognosis: Good Additional Orders/Day of Discharge H&P will serve as current which was dated: 01/07/22 Day of Discharge: 01/12/22 Dietary and Speech Recommendations Dietitian Recommendations/Changes: Will continue Cardiac diet as ordered Continue 4 oz ensure plus high protein w/ meals for increased nutrition if consumed. Discharge Plan Admission Admit Date/Time: 01/07/22 22:08 Primary Reason for Your Visit: debility, decreased mental status Attending Provider: Fabio Kaur Primary Care Provider: Cecile Murillo Consulting Providers: Neal Mullen ; Radhames Nance Discharge Orders/Prescriptions Prescriptions: New acetaminophen [Tylenol] 325 mg Tablet 650 mg PO Q6H PRN PRN (Reason: Pain 1-10 Or Fever) Qty: 0 0RF Ensure Plus High Protein 0.08 gram-1.5 kcal/mL Liquid 120 ml PO 4X/DAY Qty: 0 0RF Continued atorvastatin 10 mg tablet 40 mg PO DAILY levetiracetam 100 mg/mL solution 500 mg PO BID Discontinued enoxaparin 40 mg/0.4 mL Syringe 40 mg subcut DAILY Qty: 0 0RF acetaminophen 650 mg/20.3 mL Solution 1,000 mg G-tube TID Qty: 0 0RF menthol-zinc oxide [Calmoseptine] 0.44-20.6 % Ointment 1 applic topical BID Qty: 0 0RF Protocol: *Topical Application Instructions APPLICATION INSTRUCTIONS: bilat buttocks Jevity 1.5 Godwin 0.06 gram-1.5 kcal/mL Liquid 240 ml G-tube QHS Qty: 0 0RF Jevity 1.5 Godwin 0.06 gram-1.5 kcal/mL Liquid 240 ml G-tube TIDPC Qty: 0 0RF nystatin [Nyamyc] 100,000 unit/gram Powder 1 applic topical BID Qty: 0 0RF Protocol: *Topical Application Instructions APPLICATION INSTRUCTIONS: Apply under left breast Referrals / Follow Up: Cecile Murillo MD [Primary Care Provider] - Disposition Disposition (needs filled in before D/C Order can be placed): Nursing Home Facility
--- NOTE | 2022-01-12 12:17 | DS.PCM_ITS ---
Providers Date of Admission: 01/07/22 Date of Discharge: 01/13/22 Primary Care Physician: Dr. Cecile Murillo MD Reason For Visit: ACUTE FEBRILE ILLNESS Diagnosis Discharge Diagnosis (1) Acute febrile illness: Status: Acute Code(s): R50.9 - Fever, unspecified (2) Acute encephalopathy: Status: Acute Code(s): G93.40 - Encephalopathy, unspecified (3) Seizure disorder: Status: Chronic Code(s): G40.909 - Epilepsy, unspecified, not intractable, without status epilepticus (4) History of stroke: Status: Chronic Code(s): Z86.73 - Personal history of transient ischemic attack (TIA), and cerebral infarction without residual deficits (5) Hyperlipidemia: Status: Chronic Code(s): E78.5 - Hyperlipidemia, unspecified Plan Final diagnosis: #1 COVID-19 infection without hypoxia causing fever #2 acute metabolic encephalopathy secondary to COVID-19 infection #3 seizure disorder #4 cerebrovascular disease #5 hyperlipidemia Medications at Discharge Home Medications atorvastatin 10 mg tablet 40 mg PO DAILY Cholesterol 11/01/20 levetiracetam 100 mg/mL oral solution 500 mg PO BID 01/07/22 acetaminophen 325 mg tablet (Tylenol) 650 mg PO Q6H PRN PRN Pain 1-10 Or Fever #0 tabs 01/12/22 food supplemt, lactose-reduced 0.08 gram-1.5 kcal/mL oral liquid (Ensure Plus High Protein) 120 ml PO 4X/DAY ##0 01/12/22 Hospital Course Operations None Procedures None Summary of Care Provided Minutes Spent on Discharge: 31 Hospital Course: This 76-year-old white female presented to the emergency room at [facility] with altered mental status, patient had previous craniotomy in the spring 2021 due to a hemorrhagic stroke, patient normally is able to get up and ambulate on her own and is conversant, she was brought to the emergency room because she was not able to get out of bed and was sleeping more than normal. Squad noted the patient's temperature to be 100.7, labs obtained in the emergency room showed normal white blood cell count, chest x-ray showed no acute process, patient had COVID and influenza swabs obtained and these were negative. Urinalysis was unremarkable. Patient received IV fluids and Tylenol in the e mergency room, blood and urine cultures were obtained and she was given a dose of Zosyn. Patient was admitted to PCU, IV antibiotics were continued and labs were followed. Patient became more alert over the next several days, she was seen by PT and OT, it was recommended that the patient go to a group home facility for short-term rehab services. Due to negative blood cultures and urine cultures, patient's antibiotic coverage was stopped, her mental status did not deteriorate. Patient was set to go to an extended care facility for short- term rehab services and this required a COVID antigen test and unfortunately it was positive and plans had to be made to transfer the patient to a different facility. It was felt that the patient's febrile illness was due to COVID-19 infection. On 01/13/2022, patient was seen and examined: On examination she does not appear to be in any distress. Vital signs as documented. Skin warm and dry and without overt rashes. Neck without JVD, thyroid appears normal, trachea is midline, neck is supple. Lungs clear, normal air movement was noted. Heart exam notable for regular rhythm, normal sounds and absence of murmurs, rubs or gallops. Abdomen unremarkable and without evidence of organomegaly, masses, or abdominal aortic enlargement, bowel sounds are present in all 4 quadrants, no abdominal tenderness was noted. Extremities nonedematous, no cyanosis was noted, no clubbing was noted. Neuro: Cranial nerves II through XII are grossly intact, no focal motor deficits were noted, sensation to light touch and pinprick is intact, motor exam 5/5 throughout. Psych: Patient is alert and oriented x3, she does not appear anxious or depressed, she does not appear agitated. Patient's affect is flat On 01/13/2022, patient appeared medically stable for [facility]. Weight / BMI Weight Weight: 75.8 kg Body Mass Index (BMI) 28.6 ABG / Lab / Microbiology Data Result Diagrams: 01/10/22 06:53 01/10/22 06:53 Microbiology: Microbiology 01/07/22 21:30 Blood Culture (Wb) - Anticubital Right Blood Culture - Preliminary No growth in 48 hours. 01/07/22 20:45 Blood Culture (Wb) - Anticubital Right Blood Culture - Preliminary No growth in 48 hours. 01/07/22 20:39 Urine, Catheterized Urine Culture - Final Culture exhibits no growth. 01/07/22 21:59 Mucosa - Nose Respiratory Panel (PCR) - Final 01/07/22 20:50 Nasal Secretion SARS-CoV-2 & FLU Antigen (Rapid) - Final Meaningful Use Info Meaningful Use Diagnoses (Choose all that apply): None applicable Discharge Plan Admission Admit Date/Time: 01/07/22 22:08 Primary Reason for Your Visit: debility, decreased mental status Attending Provider: Fabio Kaur Primary Care Provider: Cecile Murillo Consulting Providers: Neal Mullen ; Radhames Nance Discharge Orders/Prescriptions Prescriptions: New acetaminophen [Tylenol] 325 mg Tablet 650 mg PO Q6H PRN PRN (Reason: Pain 1-10 Or Fever) Qty: 0 0RF Ensure Plus High Protein 0.08 gram-1.5 kcal/mL Liquid 120 ml PO 4X/DAY Qty: 0 0RF Continued atorvastatin 10 mg tablet 40 mg PO DAILY levetiracetam 100 mg/mL solution 500 mg PO BID Discontinued enoxaparin 40 mg/0.4 mL Syringe 40 mg subcut DAILY Qty: 0 0RF acetaminophen 650 mg/20.3 mL Solution 1,000 mg G-tube TID Qty: 0 0RF menthol-zinc oxide [Calmoseptine] 0.44-20.6 % Ointment 1 applic topical BID Qty: 0 0RF Protocol: *Topical Application Instructions APPLICATION INSTRUCTIONS: bilat buttocks Jevity 1.5 Godwin 0.06 gram-1.5 kcal/mL Liquid 240 ml G-tube QHS Qty: 0 0RF Jevity 1.5 Godwin 0.06 gram-1.5 kcal/mL Liquid 240 ml G-tube TIDPC Qty: 0 0RF nystatin [Nyamyc] 100,000 unit/gram Powder 1 applic topical BID Qty: 0 0RF Protocol: *Topical Application Instructions APPLICATION INSTRUCTIONS: Apply under left b reast Referrals / Follow Up: Cecile Murillo MD [Primary Care Provider] - Disposition Disposition (needs filled in before D/C Order can be placed): [facility]irement Facility Charges/Coding Visit Charges Inpatient E&M: 99741 Disch Hosp
--- NOTE | 2022-01-12 12:50 | CASEMGMT ---
Patient is ready for discharge to TCU today. This SW and SW Jacque went to patient's room. Patient's was present and he was aware patient was going to TCU today as he spoke with physician. Plan: d/c to [facility] TCU under skilled level of care. Krystina SCHRADER
--- NOTE | 2022-01-12 13:04 | CHAPLAIN ---
Type of Pastoral Visit _x__ Initial Visit ___ Follow-up Visit ___ On-call Visit ___ General Patient Visit ___ Spiritual Assessment ___ Family Conference ___ Bereavement ___ Rapid Response ___ Code Blue ___ Other (describe below) Pastoral Care Referral From ___ Patient _x__ Family ___ Nurse ___ Physician ___ Review Manager ___ Entertainment Lawyer ___ Other (describe below) Sacrament/Intervention ___ Active listening ___ Anointing ___ Sikhism ___ Bereavement ___ Communion ___ Citlaly exploration ___ ___ Life review ___ Prayer ___ Reconciliation ___ Sacrament of Sick _x__ Supportive presence ___ Wedding ___ Other (describe below) Pastoral Comments patient is quietly resting in bed; spouse is at bedside; pt responds to questions but does not engage in conversation; pt spouse reports that pt has had a set back of unknown reason or understanding; pt is expected to be moved to [facility] today; pt does say thank you for coming but does not indicate concerns; offer of spouse support as desired as well
--- NOTE | 2022-01-12 13:52 | PHA.DC.MR ---
Pharmacy Service has performed discharge medication reconciliation for this patient. The patient's discharge medication list was reviewed for discrepancies and discrepancies were resolved. Home Medications atorvastatin 10 mg tablet 40 mg PO DAILY Cholesterol 11/01/20 levetiracetam 100 mg/mL oral solution 500 mg PO BID 01/07/22 acetaminophen 325 mg tablet (Tylenol) 650 mg PO Q6H PRN PRN Pain 1-10 Or Fever #0 tabs 01/12/22 food supplemt, lactose-reduced 0.08 gram-1.5 kcal/mL oral liquid (Ensure Plus High Protein) 120 ml PO 4X/DAY ##0 01/12/22
--- NOTE | 2022-01-12 14:25 | CASEMGMT ---
Patient tested positive for COVID therefore she cannot go to TCU. HAZEL spoke with patient's and let him know. HAZEL gave patient's a list of the 3 facilities that are accepting positive COVID patients. After reviewing [facility] [employer] website the only facility on the list that takes patient's insurance is [facility]. SW went to patient's room. Patient's was on the phone with their daughter, Oumou. HAZEL explained [facility] is the only in network facility that takes patient's insurance out of the 3 places. They were not happy with this option. Oumou asked HAZEL to send a referral to [facility] and maybe her out of network benefits are okay. Plan B would be [facility]. HZAEL asked Shelly augustine/c planning management it specialist to please send a referral to [facility]. HAZEL notified Kathy in TCU that patient is positive for COVID so she won't be coming. RN CM notified physician. Krystina Kidd GOLD LEAF LAYER RACIEL
--- NOTE | 2022-01-12 14:27 | CASEMGMT ---
Discharge Finance Associate This ad copy writer sent a referral to [facility] via [facility]. Amina ROJAS Lockstitch Front Edge Tape Sewer
--- NOTE | 2022-01-12 15:35 | CASEMGMT ---
Discharge Print Finishing Worker This consumer loan underwriter sent referral to [facility]. Mindy from [facility] reached out and due to there bed situation they are unable to take patient. HAZEL Falherty notified. Amina ROJAS Property Management Supervisor
[2022-01-12 15:40] VITALS: BP 117/74; PULSE 87; RESP 16; TEMP 36.6; O2SAT 98
--- NOTE | 2022-01-12 15:49 | CASEMGMT ---
SW let patient's know that [facility] is not going to have any availability for patient. SW let patient's know SW can send the referral to [facility], their second choice. SW will check back in with them tomorrow. SW did send a referral to [facility]. Plan: SNF accepting COVID patients. Krystina SCHRADER
--- NOTE | 2022-01-12 16:56 | PN.HOSP_ITS ---
Subjective Subjective Patient was seen and examined today, she answers some questions appropriately but was slow to answer them. I talked with her at length, we did obtain a bed in PCU for the patient to be transferred to for rehab services, unfortunately the patient tested positive for COVID-19 and the transfer had to be canceled. Patient is not requiring any oxygen and appears comfortable at rest. Objective Data Objective Data Vital Signs: Vital Signs Temp Pulse Resp BP Pulse Ox O2 Del Method 97.9 F 87 16 117/74 98 Room Air 01/12/22 15:40 01/12/22 15:40 01/12/22 15:40 01/12/22 15:40 01/12/22 15:40 01/12/22 15:40 Oxygen Delivery Method Room Air Weight: 75.8 kg Body Mass Index (BMI) 28.6 Intake & Output: Intake and Output for Last 24 Hours 01/10/22 01/11/22 01/12/22 23:59 23:59 23:59 Intake Total 4085.00 / 4085.00 2593.33 / 2593.33 2023.33 / 2023.33 Output Total 1700 / 2100 1450 / 2150 1400 / 1400 Balance 2385.00 / 1985.00 1143.33 / 443.33 623.33 / 623.33 Lab / Micro Data Result Diagrams: 01/10/22 06:53 01/10/22 06:53 Micro: Microbiology 01/12/22 13:15 Nasal Secretion SARS-CoV-2 Antigen (Rapid) - Final SARS-CoV-2 (COVID 19) 01/07/22 21:30 Blood Culture (Wb) - Anticubital Right Blood Culture - Preliminary No growth in 48 hours. 01/07/22 20:45 Blood Culture (Wb) - Anticubital Right Blood Culture - Preliminary No growth in 48 hours. 01/07/22 20:39 Urine, Catheterized Urine Culture - Final Culture exhibits no growth. 01/07/22 21:59 Mucosa - Nose Respiratory Panel (PCR) - Final 01/07/22 20:50 Nasal Secretion SARS-CoV-2 & FLU Antigen (Rapid) - Final Physical Exam Const alert, no apparent distress and well nourished HEENT head/scalp atraumatic, moist oral mucous membranes and oropharynx normal Eyes PERRL, EOMs intact bilaterally and conjunctivae normal Neck supple and no JVD Resp normal respiratory effort, no retractions and no use of accessory muscles Cardio regular rate, regular rhythm, S1 normal heart sound, S2 normal heart sound, no murmurs and no rub GI normal to inspection, nondistended, normoactive bowel sounds, soft to palpation and non-tender Extremity normal to inspection and full ROM Neuro CN's II-XII intact bilaterally and moves all extremities Sensorium / Orientation: awake, alert and oriented to person Psych Psych Narrative: Patient has a flat affect and is slow to answer questions Assessment & Plan Assessment/Plan (1) Acute encephalopathy: PLAN: Plan 1. Acute encephalopathy-etiology unclear, continue supportive care, patient will need placement in a jail facility for rehab services on a short- term basis #2 febrile illness-most probably secondary to COVID-19 infection, patient is not hypoxic, I do not feel she needs treatment with any medication #3 seizure disorder-patient will remain on her present medication #4 hyperlipidemia-patient remains on atorvastatin #5 acute debility-PT and OT will continue to see the patient, she will need placement for short-term rehab services and jail facility Charges/Coding Visit Charges Inpatient E&M: 58331 Subs Hosp L2
[2022-01-12] MEDS: Atorvastatin Calcium 40 MG Tablet PO (21:52)
[2022-01-12] MEDS: Hydrocortisone 2.5% Crm 1 APPLIC TOPICAL (21:56)
[2022-01-12] MEDS: Nystatin Powder 15gm Bottle 1 APPLIC TOPICAL (21:56)
[2022-01-12 22:05] VITALS: BP 104/69; PULSE 79; RESP 14; TEMP 36.5; O2SAT 99
[2022-01-13 04:49] VITALS: BP 114/58; PULSE 71; RESP 16; TEMP 36.9; O2SAT 98
--- NOTE | 2022-01-13 08:15 | CASEMGMT ---
Discharge Color Repairer HAZEL reached out. Patient has been accepted. Pre-cert will be started today. Amina ROJAS Early Head Start Director
--- NOTE | 2022-01-13 09:30 | CASEMGMT ---
HAZEL called patient's . HAZEL let him know [facility] is accepting COVID patients. He asked SW to send a referral to [facility]. Patient's then told SW that he is now sick so he will not be in to the hospital. HAZEL asked if he would like SW to call his daughter and he said he would. HAZEL called patient's daughter Oumou. HAZEL let Oumou know [facility] is accepting COVID patients and would she like a referral sent there. Oumou wanted a referral sent. Shelly d/c housing assistant found out that [facility] is taking some COVID patients. In the meantime [facility] declined patient. HAZEL called Oumou and let her know [facility] declined patient, however [facility] is now taking some COVID patients. Oumou wanted a referral sent to [facility]. Oumou said she will call patient's and notify him. Shelly augustine/robin housing assistant sent a referral and [facility] accepted patient and they will start pre-cert. Plan: d/c to [facility] pending pre-cert. Krystina Kidd DIRECTOR OF CARDIOLOGY SERVICE LINE RACIEL
--- NOTE | 2022-01-13 10:05 | CASEMGMT ---
Addendum entered by Shelly Watkins 01/13/22 10:20: This race and sports book writer also sent referral to [facility] [place] via [facility]. Amina ROJAS Registered Nurse Fetal Original Note: Discharge Roustabout Crew This race and sports book writer sent a referral to [facility] via [facility] [place] Registered Nurse Fetal
--- NOTE | 2022-01-13 10:24 | CASEMGMT ---
Discharge Leaflet Distributor [facility] declined patient due to bed status. Amina ROJAS Chemical Strength Tester
--- NOTE | 2022-01-13 10:39 | CASEMGMT ---
Discharge Medical [facility] Representative Referral with [facility] canceled. [facility] accepted and starting pre-cert. Amina ROJAS Release And Technical Records Clerk
[2022-01-13 10:48] VITALS: BP 125/64; PULSE 74; RESP 14; TEMP 36.1; O2SAT 92
[2022-01-13 10:50] VITALS: BP 125/64; PULSE 74; RESP 14; TEMP 36.1; O2SAT 96
[2022-01-13] MEDS: levETIRAcetam Oral Solution 500 MG/5 ML PO (10:51)
[2022-01-13] MEDS: Nystatin Powder 15gm Bottle 1 APPLIC TOPICAL (10:52)
[2022-01-13] MEDS: Ensure Plus High Protein 120 ML LIQUID PO ×2 (10:52→13:51)
[2022-01-13] MEDS: 0.9% Saline Lock 10 ML Syringe IV (10:55)
[2022-01-13 11:15] VITALS: O2SAT 96
--- NOTE | 2022-01-13 12:17 | PCM.DC.SUM ---
Providers Date of Admission: 01/07/22 Date of Discharge: 01/13/22 Primary Care Physician: Dr. Cecile Murillo MD Reason For Visit: ACUTE FEBRILE ILLNESS Diagnosis Discharge Diagnosis (1) Acute febrile illness: Status: Acute Code(s): R50.9 - Fever, unspecified (2) Acute encephalopathy: Status: Acute Code(s): G93.40 - Encephalopathy, unspecified (3) Seizure disorder: Status: Chronic Code(s): G40.909 - Epilepsy, unspecified, not intractable, without status epilepticus (4) History of stroke: Status: Chronic Code(s): Z86.73 - Personal history of transient ischemic attack (TIA), and cerebral infarction without residual deficits (5) Hyperlipidemia: Status: Chronic Code(s): E78.5 - Hyperlipidemia, unspecified Plan Final diagnosis: #1 COVID-19 infection without hypoxia causing fever #2 acute metabolic encephalopathy secondary to COVID-19 infection #3 seizure disorder #4 cerebrovascular disease #5 hyperlipidemia Medications at Discharge Home Medications atorvastatin 10 mg tablet 40 mg PO DAILY Cholesterol 11/01/20 levetiracetam 100 mg/mL oral solution 500 mg PO BID 01/07/22 acetaminophen 325 mg tablet (Tylenol) 650 mg PO Q6H PRN PRN Pain 1-10 Or Fever #0 tabs 01/12/22 food supplemt, lactose-reduced 0.08 gram-1.5 kcal/mL oral liquid (Ensure Plus High Protein) 120 ml PO 4X/DAY ##0 01/12/22 Hospital Course Operations None Procedures None Summary of Care Provided Minutes Spent on Discharge: 31 Hospital Course: This 76-year-old white female presented to the emergency room at [facility] with altered mental status, patient had previous craniotomy in the spring 2021 due to a hemorrhagic stroke, patient normally is able to get up and ambulate on her own and is conversant, she was brought to the emergency room because she was not able to get out of bed and was sleeping more than normal. Squad noted the patient's temperature to be 100.7, labs obtained in the emergency room showed normal white blood cell count, chest x-ray showed no acute process, patient had COVID and influenza swabs obtained and these were negative. Urinalysis was unremarkable. Patient received IV fluids and Tylenol in the emergency room, blood and urine cultures were obtained and she was given a dose of Zosyn. Patient was admitted to PCU, IV antibiotics were continued and labs were followed. Patient became more alert over the next several days, she was seen by PT and OT, it was recommended that the patient go to a half-way facility for short-term rehab services. Due to negative blood cultures and urine cultures, patient's antibiotic coverage was stopped, her mental status did not deteriorate. Patient was set to go to an extended care facility for short-term rehab services and this required a COVID antigen test and unfortunately it was positive and plans had to be made to transfer the patient to a different facility. It was felt that the patient's febrile illness was due to COVID-19 infection. On 01/13/2022, patient was seen and examined: On examination she does not appear to be in any distress. Vital signs as documented. Skin warm and dry and without overt rashes. Neck without JVD, thyroid appears normal, trachea is midline, neck is supple. Lungs clear, normal air movement was noted. Heart exam notable for regular rhythm, normal sounds and absence of murmurs, rubs or gallops. Abdomen unremarkable and without evidence of organomegaly, masses, or abdominal aortic enlargement, bowel sounds are present in all 4 quadrants, no abdominal tenderness was noted. Extremities nonedematous, no cyanosis was noted, no clubbing was noted. Neuro: Cranial nerves II through XII are grossly intact, no focal motor deficits were noted, sensation to light touch and pinprick is intact, motor exam 5/5 throughout. Psych: Patient is alert and oriented x3, she does not appear anxious or depressed, she does not appear agitated. Patient's affect is flat On 01/13/2022, patient appeared medically stable for transfer to the [facility] for inpatient half-way services. Weight / BMI Weight Weight: 75.8 kg Body Mass Index (BMI) 28.6 ABG / Lab / Microbiology Data Result Diagrams: 01/10/22 06:53 01/10/22 06:53 Microbiology: Microbiology 01/07/22 21:30 Blood Culture (Wb) - Anticubital Right Blood Culture - Preliminary No growth in 48 hours. 01/07/22 20:45 Blood Culture (Wb) - Anticubital Right Blood Culture - Preliminary No growth in 48 hours. 01/07/22 20:39 Urine, Catheterized Urine Culture - Final Culture exhibits no growth. 01/07/22 21:59 Mucosa - Nose Respiratory Panel (PCR) - Final 01/07/22 20:50 Nasal Secretion SARS-CoV-2 & FLU Antigen (Rapid) - Final Meaningful Use Info Meaningful Use Diagnoses (Choose all that apply): None applicable Discharge Plan Admission Admit Date/Time: 01/07/22 22:08 Primary Reason for Your Visit: debility, decreased mental status Attending Provider: Fabio Kaur Primary Care Provider: Cecile Murlilo Consulting Providers: Neal Mullen ; Radhames Nance Discharge Orders/Prescriptions Prescriptions: New acetaminophen [Tylenol] 325 mg Tablet 650 mg PO Q6H PRN PRN (Reason: Pain 1-10 Or Fever) Qty: 0 0RF Ensure Plus High Protein 0.08 gram-1.5 kcal/mL Liquid 120 ml PO 4X/DAY Qty: 0 0RF Continued atorvastatin 10 mg tablet 40 mg PO DAILY levetiracetam 100 mg/mL solution 500 mg PO BID Discontinued enoxaparin 40 mg/0.4 mL Syringe 40 mg subcut DAILY Qty: 0 0RF acetaminophen 650 mg/20.3 mL Solution 1,000 mg G-tube TID Qty: 0 0RF menthol-zinc oxide [Calmoseptine] 0.44-20.6 % Ointment 1 applic topical BID Qty: 0 0RF Protocol: *Topical Application Instructions APPLICATION INSTRUCTIONS: bilat buttocks Jevity 1.5 Godwin 0.06 gram-1.5 kcal/mL Liquid 240 ml G-tube QHS Qty: 0 0RF Jevity 1.5 Godwin 0.06 gram-1.5 kcal/mL Liquid 240 ml G-tube TIDPC Qty: 0 0RF nystatin [Nyamyc] 100,000 unit/gram Powder 1 applic topical BID Qty: 0 0RF Protocol: *Topical Application Instructions APPLICATION INSTRUCTIONS: Apply under left breast Referrals / Follow Up: Cecile Murillo MD [Primary Care Provider] - Disposition Disposition (needs filled in before D/C Order can be placed): Halfway Facility Charges/Coding Visit Charges Inpatient E&M: 43534 Disch Hosp
[2022-01-13 12:23] VITALS: O2SAT 96
--- NOTE | 2022-01-13 14:16 | CASEMGMT ---
Discharge Stock Receiver [facility] reached out. Pre-cert has been obtained. HAZEL Flaherty and Dr. Kaur notified. Amina ROJAS Certified Appliance Service Technician
--- NOTE | 2022-01-13 15:03 | CASEMGMT ---
Patient was approved. HAZEL completed 7000 in [employer] system. Shelly d/c planning and analysis manager is setting up discharge. Plan: d/c to [facility] [place] under skilled level of care on a convalescent stay. Krystina Kidd MSW RACIEL
--- NOTE | 2022-01-13 15:08 | CASEMGMT ---
Discharge Saw Filer This automotive service writer sent d/c orders to [facility]. This automotive service writer called [facility] with a pick time of 3:30pm. Nursing staff made aware. Amina ROJAS Neurology Manager
[2022-01-13 15:13] VITALS: BP 102/60; PULSE 73; RESP 16; TEMP 36.1; O2SAT 96
== END 2022-01-13 15:52 | disposition skilled nursing facility (03) | DRG 177 ==
LOC: ED 22:25 → PCU 22:56
PROVIDERS: Admitting Provider Hospitalist; Emergency Provider Emergency Medicine; PCP Family Medicine; Visit Provider Internal Medicine
DX: U07.1 COVID-19 (principal); G93.41 Metabolic encephalopathy; G40.909 Epilepsy, unspecified, not intractable, without status epilepticus; E78.5 Hyperlipidemia, unspecified; G93.9 Disorder of brain, unspecified; I10 Essential (primary) hypertension; G93.89 Other specified disorders of brain; Z79.01 Long term (current) use of anticoagulants; Z66 Do not resuscitate; Z86.73 Personal history of transient ischemic attack (TIA), and cerebral infarction without residual deficits
CPT/HCPCS: 36415; 70450; 71045; 80048; 80053; 81001; 83605; 84484; 85025; 85610; 85730; 87040; 87086; 87426; 87428; 87633; 93005; 97110; 97116; 97162; 97166; 97530; 97535; 97802; 99285; J7030; A4216

== ENCOUNTER → 2022-08-20 | Outpatient (CLI) | payer MEDICARE, SELFPAY ==
[2022-08-20 12:12] LABS: Hemoglobin 14.1 g/dL (12.0-15.0); Mean Corpuscular Hgb 30.5 pg (27.0-32.0); Mean Corpuscular Volume 101.7 fL (81-99); Mean Platelet Vol. 10.7 fl (6.2-12.0); Platelet Count 224 K/mm3 (150-450); RBC Distribution Width CV 13.4 % (11.6-14.6); RBC Distribution Width SD 50.4 fl (35.1-43.9); Red Blood Count 4.62 M/mm3 (4.2-5.4); White Blood Count 10.7 K/mm3 (4.4-11.0)
[2022-08-20 12:51] LABS: Vitamin B12 405 pg/mL (211-911)
[2022-08-20 13:18] LABS: ALB/GLOB Ratio 0.7 RATIO (0.9-2.4); AST(SGOT) 35 U/L (15-37); Alanine Aminotransfer ALT/SGPT 79 U/L (13-56); Albumin, Serum 2.9 g/dL (3.2-5.0); Alkaline Phosphatase 98 U/L (45-117); Anion Gap 6 (5-15); BUN 16 mg/dL (7-18); BUN/Creat Ratio 25.6 RATIO (10-20); Chloride 111 mmol/L (98-107); Cholesterol 174 mg/dL (200); Creatinine, Serum 0.63 mg/dL (0.55-1.02); EST Glomerular Filtration Rate 98 mL/min (>60); Est Glom Filt Rate - Afr Amer 119 mL/min (>60); Globulin 3.9 g/dL (2.2-4.2); Glucose 89 mg/dL (74-106); High Density Lipoprotein 62 mg/dL; Magnesium 2.3 mg/dL (1.6-2.6); Protein, Total 6.8 g/dL (6.4-8.2); Sodium Level 142 mmol/L (136-145); Thyroid Stim Hormone (TSH) 1.97 uIU/mL (0.358-3.74); Triglycerides 103 mg/dL; Very Low Density Lipoprotein 21 mg/dL (5-40)
[2022-08-24 19:07] LABS: Free Kappa Light Chains 14.4 mg/L (3.3-19.4); Free Lambda Light Chains 15.4 mg/L (5.7-26.3); KEPPRA (LEVETIRACETAM) 6.4 ug/mL (10.0-40.0); Vitamin B1, Thiamine 135.8 nmol/L (66.5-200.0)
== END | disposition home or self-care (01) ==
LOC: MFPLAB 10:31
PROVIDERS: PCP Family Medicine; Visit Provider Psychiatry & Neurology Neurology
DX: G62.9 Polyneuropathy, unspecified (principal); R94.01 Abnormal electroencephalogram [EEG]; Z86.79 Personal history of other diseases of the circulatory system; E78.5 Hyperlipidemia, unspecified; R53.81 Other malaise
CPT/HCPCS: 36415; 80053; 80061; 80177; 82140; 82607; 82746; 83735; 83883; 84425; 84443; 85027

== ENCOUNTER → 2022-08-28 | Outpatient (CLI) | payer MEDICARE, SELFPAY ==
--- NOTE | 2022-08-28 09:45 | CDU_ITS ---
Reason For Study: HX Frontal Lobe Infarct Rt. Velocities/BP Lt. Velocities/BP Prox CCA 46.7/6.1 cm/sec. Prox CCA 59.8/8.4 cm/sec. Mid CCA 44.6/7.5 cm/sec. Mid CCA 59.0/11.0 cm/sec. Dist CCA 44.3/6.6 cm/sec. Dist CCA 43.3/11.9 cm/sec. Prox ICA 46.6/10.7 cm/sec. Prox ICA 35.4/10.1 cm/sec. Mid ICA 71.5/16.4 cm/sec. Mid ICA 63.4/19.2 cm/sec. Dist ICA 58.9/15.4 cm/sec. Dist ICA 69.5/19.2 cm/sec. Rt. ICA/CCA = 1.6. Lt. ICA/CCA = 1.2. Prox ECA 96.6/6.0 cm/sec. Prox ECA 79.3/9.3 cm/sec. Rt. Vert. 29.5/5.3 cm/sec. Lt. Vert. 39.8/7.5 cm/sec. Right Extracranial There is intimal thickening but no significant atherosclerotic plaque noted in the right common carotid artery. There is heterogeneous, irregular atherosclerotic plaque noted in the right internal carotid artery. There is intimal thickening but no significant atherosclerotic plaque noted in the right external carotid artery. Antegrade flow is noted in the right vertebral artery. Left Extracranial There is homogeneous, smooth atherosclerotic plaque noted in the left common carotid artery. There is heterogeneous, irregular atherosclerotic plaque noted in the left internal carotid artery. There is intimal thickening but no significant atherosclerotic plaque noted in the left external carotid artery. Antegrade flow is noted in the left vertebral artery. Procedure Carotid Duplex 91632. This is a Carotid Duplex examination using B-mode, color flow and specral Doppler. The exam was diagnostic. Exam performed in department. VL/Carotid Duplex Ultrasound Interpretation Summary Mild (<50%) stenosis right extracranial internal carotid. Mild (<50%) stenosis left extracranial internal carotid. Patent and antegrade vertebrals bilaterally Ordering Physician: Fan Wei Referring Physician: Ariana Muniz Performed By: Sadiq Dunaway RVT
--- NOTE | 2022-08-28 09:45 | ECHOD_ITS ---
Reason For Study: ISCH CMP Procedure This was a 2D Doppler, Color Flow transthoracic echocardiogram. Exam performed in department. Left Ventricle Normal LV size. Left ventricular systolic function is normal. The estimated ejection fraction is 60 %. No regional wall motion abnormalities noted. Right Ventricle Normal RV size. Normal systolic function. Atria Normal left atrium. Normal right atrium. Mitral Valve Mild (1+) mitral valve insufficiency. Tricuspid Valve Normal tricuspid valve. Mild (1+) tricuspid valve insufficiency. Pulmonary artery systolic pressure is 26 mmHg. Aortic Valve Trisinus/trileaflet aortic valve. Mild focal aortic valve calcification. Pulmonic Valve Normal pulmonic valve. Great Vessels Normal aortic root. The pulmonary artery is normal size. Normal inferior vena cava. Pericardium/Pleural No pericardial effusion. MMode/2D Measurements & Calculations LVIDd: 5.0 cm IVSd: 0.95 cm Ao root diam: 3.6 cm LVIDs: 2.5 cm LVPWd: 1.0 cm RVDd: 3.7 cm FS: 49.7 % LAV(MOD-bp): 44.5 ml LVAd ap4: 25.2 cm2 SV(MOD-sp4): 48.5 ml LAV(MOD-bp) Indexed: 24.3 ml/m2 LVLd ap4: 7.2 cm LAV(MOD-sp2): 40.4 ml EDV(MOD-sp4): 69.7 ml LAV(MOD-sp4): 43.8 ml EDV(sp4-el): 74.7 ml LVAs ap4: 12.4 cm2 LVLs ap4: 6.0 cm ESV(MOD-sp4): 21.2 ml ESV(sp4-el): 21.8 ml EF(MOD-sp4): 69.6 % EF(sp4-el): 70.8 % SV(sp4-el): 52.9 ml LA A4 area: 16.3 cm2 LA dimension(2D): 3.3 cm RA A4 area: 16.5 cm2 TAPSE: 1.5 cm Time Measurements MV dec time: 0.20 sec Doppler Measurements & Calculations MV E max ayo: 82.8 cm/sec Lat Peak E' Ayo: 5.3 cm/sec Med Peak E' Ayo: 6.0 cm/sec MV A max ayo: 72.1 cm/sec E/E' lat: 15.5 E/E' med: 13.9 MV E/A: 1.1 MV V2 max: 83.7 cm/sec Ao V2 max: 113.4 cm/sec MV max P.8 mmHg MV dec slope: 417.8 cm/sec2 Ao max P.1 mmHg MV V2 mean: 47.3 cm/sec Ao V2 mean: 78.8 cm/sec MV mean P.1 mmHg Ao mean P.8 mmHg MV V2 VTI: 29.5 cm Ao V2 VTI: 29.0 cm AV (velocity ratio): 0.74 LV V1 max: 83.5 cm/sec PA V2 max: 71.2 cm/sec TR max ayo: 242.7 cm/sec LV V1 max P.8 mmHg PA V2 mean: 52.4 cm/sec TR max P.6 mmHg LV V1 mean P.5 mmHg LV V1 mean: 57.9 cm/sec LV V1 VTI: 21.6 cm ECHO/Echo Complete Interpretation Summary Normal LV size. Left ventricular systolic function is normal. The estimated ejection fraction is 60 %. Pulmonary artery systolic pressure is 26 mmHg. Ordering Physician: Fan Wei Referring Physician: Fan Wei Performed By: Crystal Canales RCS
== END | disposition home or self-care (01) ==
LOC: CVS 09:44
PROVIDERS: PCP Family Medicine; Referring Provider Psychiatry & Neurology Neurology; Visit Provider Psychiatry & Neurology Neurology
DX: I25.2 Old myocardial infarction (principal); I63.9 Cerebral infarction, unspecified; R94.31 Abnormal electrocardiogram [ECG] [EKG]; Z86.79 Personal history of other diseases of the circulatory system; R55 Syncope and collapse
CPT/HCPCS: 93306; 93880

== ENCOUNTER → 2022-09-01 | Outpatient (CLI) | payer MEDICARE, SELFPAY | END | disposition home or self-care (01) | LOC: PSN 08:23 | PROVIDERS: PCP Family Medicine; Referring Provider Psychiatry & Neurology Neurology; Visit Provider Psychiatry & Neurology Neurology | DX: I63.9 Cerebral infarction, unspecified (principal); Z98.890 Other specified postprocedural states; Z86.79 Personal history of other diseases of the circulatory system | CPT/HCPCS: 95819 ==

== ENCOUNTER 2022-11-15 10:19 | Inpatient (IN) | payer MEDICARE, SELFPAY ==
[2022-11-15] VITALS (8 sets, daily range): BP systolic 112–153; BP diastolic 78–80; PULSE 64–106; RESP 14–18; TEMP 35.9–36.8; O2SAT 93–99; BMI 30.4; BMI 30.6
--- NOTE | 2022-11-15 10:50 | CT_ITS ---
STUDY: CT BRAIN WITHOUT CONTRAST REASON FOR EXAM: Female, 77 years old. Seizure RADIATION DOSAGE (If Supplied By Facility): CTDIvol = ( ) mGy, DLP = ( 1780 ) mGycm TECHNIQUE: Transaxial CT imaging of the brain was performed without administration of intravenous contrast material. Individualized dose optimization techniques were used for this CT. COMPARISON: January 09, 2022 FINDINGS: Normal soft tissue structures. There are right-sided craniotomies. There is moderate cerebral atrophy with widening of the extra-axial spaces and ventricular dilatation. There are areas of decreased attenuation within the white matter tracts of the supratentorial brain, consistent with microvascular disease changes. There is right frontal and temporal volume loss and encephalomalacia. Normal basal ganglia and thalami. Normal brainstem. Normal cerebellum. There is no intracranial hemorrhage. There are no findings of an acute ischemic infarction. Normal visualized paranasal sinuses. CT/Brain/Head without Contrast IMPRESSION: Chronic involutional changes of the brain. Stable appearance. Electronically Signed: Randy Mcgowan MD at 12:00 EDT ,
--- NOTE | 2022-11-15 10:50 | EKG12_ITS ---
Test Reason : GENERAL Blood Pressure : / mmHG Vent. Rate : 089 BPM Atrial Rate : 089 BPM P-R Int : 210 ms QRS Dur : 096 ms QT Int : 382 ms P-R-T Axes : 046 037 051 degrees QTc Int : 464 ms Sinus rhythm with 1st degree A-V block Possible Lateral infarct (cited on or before 07-JAN-2022) Possible Inferior infarct , age undetermined Abnormal ECG Confirmed by JON MERCADO MD ([id number]), market editor JONATHAN HATHAWAY ([id number]) on 11/17/2022 2:32:21 PM Referred By: Confirmed By:JON MERCADO MD
[2022-11-15 11:03] LABS: Absolute Neutrophil Count 6.9 X10^3/uL (2.0-7.7); Basophil# 0.07 X10^3/uL; Basophil% 0.6 % (0-1); Eosinophil# 0.14 X10^3/uL; Eosinophils% 1.1 % (0-5); Hematocrit 43.9 % (37-47); Hemoglobin 14.1 g/dL (12.0-15.0); Lymphocyte % 34.5 % (19-41); Mean Corp Hgb Conc 32.1 g/dL (32-36); Mean Corpuscular Hgb 30.9 pg (27.0-32.0); Mean Corpuscular Volume 96.3 fL (81-99); Mean Platelet Vol. 9.3 fl (6.2-12.0); Monocyte# 0.67 X10^3/uL; Monocyte% 5.5 % (0-10); NRBC Flagged by Analyzer 0 % (0-5); Neutrophil # 6.91 X10^3/uL (2.7-7.7); Neutrophil % 56.7 % (47-70); Platelet Count 315 K/mm3 (150-450); RBC Distribution Width CV 13.8 % (11.6-14.6); RBC Distribution Width SD 49.2 fl (35.1-43.9); Red Blood Count 4.56 M/mm3 (4.2-5.4); White Blood Count 12.2 K/mm3 (4.4-11.0)
--- NOTE | 2022-11-15 11:14 | ED.RN ---
PT WAS ON WAY BACK FROM CT. STARTED TO SIEZE. DR. REYES TO ROOM. PT. PLACED ON 15L NON-REBREATHER.
[2022-11-15] MEDS: 0.9% Normal Saline (1000mL) 1,000 ML 1000 ML IV (11:17)
--- NOTE | 2022-11-15 11:17 | RAD_ITS ---
STUDY: X-RAY CHEST REASON FOR EXAM: Female, 77 years old. Stroke TECHNIQUE: Single AP portable view of the chest. COMPARISON: January 07, 2022 FINDINGS: The lungs are clear and expanded. There is no demonstrated pleural abnormality. There is mild cardiac enlargement. Normal mediastinum and dorota. Normal visualized pulmonary arteries. Normal visualized aortic arch and descending thoracic aorta. There is demineralization of the osseous structures. Normal visualized ribs, clavicles, and shoulders. There is no demonstrated abnormality of the visualized soft tissue structures of the upper abdomen. RAD/Chest 1 View (Portable) IMPRESSION: No acute cardiopulmonary disease. Electronically Signed: Randy Mcgowan MD at 11:42 EDT ,
[2022-11-15 11:22] LABS: AST(SGOT) 23 U/L (15-37); Alanine Aminotransfer ALT/SGPT 48 U/L (13-56); Albumin, Serum 2.9 g/dL (3.2-5.0); Alkaline Phosphatase 96 U/L (45-117); Anion Gap 9 (5-15); BUN 17 mg/dL (7-18); BUN/Creat Ratio 20.7 RATIO (10-20); Bilirubin, Direct 0.13 mg/dL (0.00-0.30); Calcium,Total 8.9 mg/dL (8.5-10.1); Chloride 114 mmol/L (98-107); Creatinine, Serum 0.82 mg/dL (0.55-1.02); EST Glomerular Filtration Rate 72 mL/min (>60); Est Glom Filt Rate - Afr Amer 87 mL/min (>60); Globulin 3.4 g/dL (2.2-4.2); Glucose 116 mg/dL (74-106); Potassium 3.8 mmol/L (3.5-5.1); Protein, Total 6.3 g/dL (6.4-8.2); Sodium Level 143 mmol/L (136-145); Troponin-I HS 6 pg/mL (3.0-54.0)
[2022-11-15] MEDS: LORazepam 2 MG/ML Syringe 0.5 MG IV (11:35)
[2022-11-15 11:36] LABS: Mucous, Urine 0 SEEN /hpf (<or=2+); Red Blood Cells-Urine 0 SEEN /hpf (0-5)
[2022-11-15 11:39] LABS: Color, Urine Yellow (Yellow); Glucose, Dipstick Normal (Normal); Ketone-Dipstick 5 mg/dl (Negative); Leukocyte Esterase-Dipstick 100 /ul (Negative); Nitrite-Dipstick Positive (Negative); Occult Blood-Urine 10 /ul (Negative); Protein-Dipstick 15 mg/dl (Negative); Urine Bilirubin Dipstick Negative (Negative); Urine Clarity Sl. Cloudy (Clear); Urine Urobilinogen Normal (Normal)
[2022-11-15] MEDS: levETIRAcetam IV 500 MG in 0.9% Normal Saline (100mL Bag) 100 ML 400 MG IV (11:53)
[2022-11-15 11:54] LABS: Bacteria 3+ /hpf (None Seen); Squamous Epithelial Cells - UA 0-5 SEEN /hpf (5-10); White Blood Cells 10-25 SEEN /hpf (0-5)
[2022-11-15 12:12] LABS: Partial Thromboplast Time 27.2 Seconds (24.1-36.2)
--- NOTE | 2022-11-15 12:19 | EDS_ITS ---
HPI History of Present Illness Chief Complaint: Seizure Informant: family and EMS Narrative Narrative: 77-year-old female presenting to the emergency department chief complaint of seizure. Patient had a hemorrhagic right frontal stroke in spring 2021. Daughter states that since that time she has been on Keppra. This morning she had a reported approximately 1 minute generalized seizure. Reportedly was postictal for EMS and concern was for left-sided weakness which coincides with her prior hemorrhagic stroke. Patient is DNR comfort care only per the daughter but I do not have paperwork readily available to me at this time. The patient appears postictal answering some questions but appearing very drowsy. Nursing notes that her urine is very foul-smelling. No reports that she has not taken her medications PFSH PFSH Medical History Arthritis Dysphagia Epilepsy Hemorrhagic stroke History of stroke Hyperlipidemia Hypertension Lab test negative for COVID-19 virus Stroke/cerebrovascular accident Home Medications acetaminophen 325 mg tablet (Tylenol) 650 mg (2 x 325 mg) PO Q6H PRN PRN Pain 1- 10 Or Fever #0 tabs 01/12/22 [Rx Last Taken Unknown] food supplemt, lactose-reduced 0.08 gram-1.5 kcal/mL oral liquid (Ensure Plus High Protein) 120 ml PO 4X/DAY ##0 01/12/22 [Rx Last Taken Unknown] atorvastatin 40 mg tablet 40 mg PO DAILY #30 tabs 08/20/22 [Rx Last Taken Unknown] levetiracetam 500 mg tablet 500 mg PO BID #60 tabs 10/15/22 [Rx Last Taken Unknown] Allergy/AdvReac Type Severity Reaction Status Date / Time Sulfa (Sulfonamide Allergy Rash Verified 11/15/22 10:20 Antibiotics) Surgical History H/O: hysterectomy History of embolic filter insertion History of gastrostomy History of laparoscopic cholecystectomy History of tracheostomy Social History household members: spouse Smoking Status: Never smoker alcohol intake: never substance use type: does not use ROS ROS ED Review of Systems ROS Unobtainable: due to mental status EXAM Physical Exam Const Vital Signs: 11/15/22 10:20 11/15/22 10:19 11/15/22 10:28 Temperature 97.6 F L Temperature Source Temporal Pulse Rate 100 64 Respiratory Rate 16 16 Blood Pressure 144/80 H 140/79 H Blood Pressure Mean 101 99 Pulse Ox 93 95 Oxygen Delivery Method Room Air Room Air 11/15/22 11:59 Temperature Temperature Source Pulse Rate 102 H Respiratory Rate 14 Blood Pressure 153/78 H Blood Pressure Mean 103 Pulse Ox 98 Oxygen Delivery Method Room Air Positive well nourished, well developed and obese General Appearance ED: well developed Nutritional Appearance: obese HEENT Reports normocephalic, head/scalp atraumatic and moist mucous membranes Eyes PERRL and EOMs intact bilaterally Neck no lymphadenopathy, supple and no JVD Resp normal respiratory effort and clear to auscultation bilaterally Cardio regular rate, regular rhythm and no murmurs Rate: tachycardic GI normal to inspection, nondistended, normoactive bowel sounds and non-tender Palpation: soft Back/Spine no CVA tenderness and normal ROM Extremity normal to inspection General Extremety ED: Negative for edema General Extremity: Negative for edema Neuro Neuro Narrative: Moves right and left leg. Right arm movement. Minimal left arm movement but not against gravity participation exam is minimal as she falls asleep quickly Sensorium / Orientation: lethargic Skin no rashes or lesions noted and no wounds MDM MDM MDM Narrative Medical decision making narrative: White count 12.2. Urinalysis shows infection was sent for culture. Blood cultures obtained. Patient received IV fluids. My interpretation of the chest x-ray is no acute process. On the way back from the CT scan the patient had a less than 1 minute generalized seizure per transport. She had postictal symptoms. She received 1/2 mg of Ativan followed by 500 mg of Keppra IV. Patient's lactic acid is 6.1. I believe this is most likely due to her seizure activity rather than overwhelming sepsis as she is not hypotensive. Plan is admission into the hospital. Lab Data Attestation: I reviewed the patient's lab results. Labs: Laboratory Results - last 24 hr 11/15/22 11/15/22 11/15/22 10:40 11:30 12:00 WBC 12.2 H RBC 4.56 Hgb 14.1 Hct 43.9 MCV 96.3 MCH 30.9 MCHC 32.1 RDW Std Deviation 49.2 H RDW Coeff of Jeovanny 13.8 Plt Count 315 MPV 9.3 Immature Gran % (Auto) 1.600 H Neut % (Auto) 56.7 Lymph % (Auto) 34.5 [place] % (Auto) 5.5 Eos % (Auto) 1.1 Baso % (Auto) 0.6 Absolute Neuts (auto) 6.9 Absolute Lymphs (auto) 4.20 Nucleated RBC % 0 PT Cancelled 13.7 INR Cancelled 1.1 APTT Cancelled 27.2 Sodium 143 Potassium 3.8 Chloride 114 H Carbon Dioxide 20.0 L Anion Gap 9 BUN 17 Creatinine 0.82 Estim Creat Clear Calc 50.40 Est GFR (MDRD) Af Amer 87 Est GFR (MDRD) Non-Af 72 BUN/Creatinine Ratio 20.7 H Glucose 116 H Lactic Acid 6.1 H* Calcium 8.9 Total Bilirubin 0.60 Direct Bilirubin 0.13 AST 23 ALT 48 Alkaline Phosphatase 96 Troponin I High Sens 6 Total Protein 6.3 L Albumin 2.9 L Globulin 3.4 Urine Color Yellow Urine Clarity Sl. Cloudy Urine pH 5.0 Ur Specific [place] 1.030 Urine Protein 15 H Urine Glucose (UA) Normal Urine Ketones 5 H Urine Occult Blood 10 H Urine Nitrite Positive H Urine Bilirubin Negative Urine Urobilinogen Normal Ur Leukocyte Esterase 100 H Urine RBC 0 SEEN Urine WBC 10-25 SEEN Ur Squamous Epith Cells 0-5 SEEN Urine Bacteria 3+ Urine Mucus 0 SEEN Radiography Diagnostic Testing: Clinical Impression(s) from Imaging Studies Brain CT 11/15/22 10:50 IMPRESSION: Chronic involutional changes of the brain. Stable appearance. Electronically Signed: Randy Mcgowan MD at 12:00 EDT , Chest X-Ray 11/15/22 11:17 IMPRESSION: No acute cardiopulmonary disease. Electronically Signed: Randy Mcgowan MD at 11:42 EDT , EKG Initial EKG: Attestation: I personally reviewed and interpreted this EKG as follows: Comments: Sinus rhythm with a first-degree AV block and a ventricular rate of 89 bpm. Management Discussion w/another healthcare provider: Hospitalist Discharge Plan Dx/Rx/DC Orders Clinical Impression: Urinary tract infection, History of cerebral parenchymal hemorrhage, Epileptic seizure Disposition Disposition: Acute Care Hospital [facility]
[2022-11-15] MEDS: Ceftriaxone 1 GM/50 ML BAG IV (12:22)
[2022-11-15 12:23] LABS: International Normalized Ratio 1.1; Prothrombin Time (Protime)PT. 13.7 SECONDS (11.7-14.9)
[2022-11-15 13:01] LABS: Lactic Acid 6.1 mmol/L (0.4-1.9)
--- NOTE | 2022-11-15 13:05 | HP.PCM.HOS_ITS ---
HPI - General General Date of Admission: 11/15/22 Date of Service: 11/15/22 Chief Complaint: seizure HPI Narrative MARILUZ DREW, is a 77 F who presented to the emergency [place] at [facility] on 11/15/2022 with new onset seizure. Patient has a history of a right frontal hemorrhagic stroke in 2021 after which she was placed on Keppra prophylactically. She has had no previous seizure however this morning she had about 1 minute generalized tonic-clonic seizure and was postictal at the time of EMS arrival. There was concern for new onset left-sided weakness which coincides with her previous hemorrhagic stroke however her daughter reports this is chronic. At this time of evaluation in the emergency department she was transported to [place] for imaging and on return from transport she had another generalized tonic-clonic seizure which was treated with a half a milligram of Ativan and aborted. Her daughter reports that she had some urinary frequency yesterday but does not note the quality of her urine and her mother has not had any complaints. At baseline she lives with her however is very dependent for care. Baseline mental status is oriented to self only. Her health and quality of life have dramatically decreased since her hemorrhagic stroke in the spring 2021. Vital signs on presentation showed temperature of 97.6, heart rate has been anywhere from 64-102, blood pressure is 140/79, respirate 16 oxygen saturations of anywhere from 93 to 99% on room air. CBC shows a mild leukocytosis at 12.2. Coags are normal. Her chemistry panel shows fairly unremarkable electrolytes. Her serum bicarb is down a little on her initial with a normal gap however I suspect this is related to her lactic acidosis from her seizure activity. Renal function is normal. Glucose was 116. Lactic acid was 6.1 but again I suspect this is related to her seizure activity prior to arrival. Her liver functions are unremarkable. EKG is normal sinus rhythm with a first-degree heart block and no ST-T wave changes concerning for acute ischemia. WA interval is 202. Her urine is suggestive of infection showing nitrites, positive leuk esterase, white cells and 3+ bacteria. CT of the brain shows no acute abnormalities and chest x-ray is unremarkable. We suspect that her seizure activity is related to her infection. She follows with Dr. Wei as an outpatient for her previous hemorrhagic stroke. She was loaded with Keppra IV in the emergency department 500 mg and started on ceftriaxone for her suspected UTI. Cultures were sent prior to initiating antibiotics. [facility] Medical History Arthritis Dysphagia Epilepsy Hemorrhagic stroke History of stroke Hyperlipidemia Hypertension Lab test negative for COVID-19 virus Stroke/cerebrovascular accident Home Medications atorvastatin 40 mg tablet 40 mg PO DAILY cholesterol #30 tabs 08/20/22 [Rx Last Taken 11/14/22] levetiracetam 500 mg tablet 500 mg PO BID seizures #60 tabs 10/15/22 [Rx Last Taken 11/14/22] Allergy/AdvReac Type Severity Reaction Status Date / Time Sulfa (Sulfonamide Allergy Rash Verified 11/15/22 10:20 Antibiotics) Surgical History (Updated 11/15/22 @ 13:[address] Cynthia Abraham DO) H/O: hysterectomy History of craniotomy History of embolic filter insertion History of gastrostomy History of laparoscopic cholecystectomy History of tracheostomy Social History household members: spouse Smoking Status: Never smoker alcohol intake: never substance use type: does not use ROS ROS Narrative Most of history provided by her daughter who was at the bedside Review of Systems ROS Unobtainable: due to mental status Vital Signs Vital Signs Vital Signs: 11/15/22 10:20 11/15/22 10:19 11/15/22 10:28 Temperature 97.6 F L Temperature Source Temporal Pulse Rate 100 64 Respiratory Rate 16 16 Blood Pressure 144/80 H 140/79 H Blood Pressure Mean 101 99 Pulse Ox 93 95 Oxygen Delivery Method Room Air Room Air 11/15/22 11:59 Temperature Temperature Source Pulse Rate 102 H Respiratory Rate 14 Blood Pressure 153/78 H Blood Pressure Mean 103 Pulse Ox 98 Oxygen Delivery Method Room Air Weight Weight: 80.3 kg Body Mass Index (BMI) 30.4 Physical Exam Const alert and well nourished Constitutional Narrative: Obese, elderly, white female, lying in bed, daughter at bedside, appears comfortable and nontoxic oriented only to self, daughter reports this is pretty close to baseline for her General Appearance: cooperative HEENT normocephalic, head/scalp atraumatic, hearing grossly normal bilaterally and moist oral mucous membranes HEENT Narrative: Mallampati 3, thrush Resp normal respiratory effort, no retractions, no use of accessory muscles and clear to auscultation bilaterally Auscultation: Negative for rales, rhonchi or wheezes Cardio regular rate, regular rhythm, S1 normal heart sound, S2 normal heart sound, no murmurs, no rub, no gallops and no clicks GI normal to inspection, nondistended, normoactive bowel sounds and soft to palpation; Negative for non-tender GI Narrative: Mild suprapubic tenderness Extremity no clubbing, cyanosis or edema Extremity Narrative: Pedal pulses are 1+ bilaterally Neuro oriented x3 Neuro Narrative: Able to move all extremities Speech: speech normal Psych Psych Narrative: Affect is flat Results Lab / Micro Data Attestation: I reviewed the patient's lab results. 11/15/22 10:40 11/15/22 10:40 Labs: Laboratory Results - last 24 hr 11/15/22 10:40: WBC 12.2 H, RBC 4.56, Hgb 14.1, Hct 43.9, MCV 96.3, MCH 30.9, MCHC 32.1, RDW Std Deviation 49.2 H, RDW Coeff of Jeovanny 13.8, Plt Count 315, MPV 9.3, Immature Gran % (Auto) 1.600 H, Neut % (Auto) 56.7, Lymph % (Auto) 34.5, [place] % (Auto) 5.5, Eos % (Auto) 1.1, Baso % (Auto) 0.6, Absolute Neuts (auto) 6.9, Absolute Lymphs (auto) 4.20, Nucleated RBC % 0, PT Cancelled, INR Cancelled, APTT Cancelled, Sodium 143, Potassium 3.8, Chloride 114 H, Carbon Dioxide 20.0 L, Anion Gap 9, BUN 17, Creatinine 0.82, Estim Creat Clear Calc 50.40, Est GFR (MDRD) Af Amer 87, Est GFR (MDRD) Non-Af 72, BUN/Creatinine Ratio 20.7 H, Glucose 116 H, Lactic Acid 6.1 H*, Calcium 8.9, Total Bilirubin 0.60, Direct Bilirubin 0.13, AST 23, ALT 48, Alkaline Phosphatase 96, Troponin I High Sens 6, Total Protein 6.3 L, Albumin 2.9 L, Globulin 3.4 11/15/22 11:30: Urine Color Yellow, Urine Clarity Sl. Cloudy, Urine pH 5.0, Ur Specific [place] 1.030, Urine Protein 15 H, Urine Glucose (UA) Normal, Urine Ketones 5 H, Urine Occult Blood 10 H, Urine Nitrite Positive H, Urine Bilirubin Negative, Urine Urobilinogen Normal, Ur Leukocyte Esterase 100 H, Urine RBC 0 SEEN, Urine WBC 10-25 SEEN, Ur Squamous Epith Cells 0-5 SEEN, Urine Bacteria 3+, Urine Mucus 0 SEEN 11/15/22 12:00: PT 13.7, INR 1.1, APTT 27.[address] 11/15/22 10:50 IMPRESSION: Chronic involutional changes of the brain. Stable appearance. Electronically Signed: Randy Mcgowan MD at 12:00 EDT , Chest X-Ray 11/15/22 11:17 IMPRESSION: No acute cardiopulmonary disease. Electronically Signed: Randy Mcgowan MD at 11:42 EDT , Assessment & Plan Assessment/Plan (1) Epileptic seizure: (2) Urinary tract infection: (3) Lactic acidosis: (4) Leukocytosis: PLAN: Plan Generalized tonic-clonic seizure -Suspect related to UTI with previous infarct -Patient did have an EEG in August 2022 that showed an left epileptogenic structural abnormality in the right temporal region with superimposed mild on moderate diffuse encephalopathy with no seizure patterns -We will check an EEG currently to make sure there is no active seizure activity -Increase Keppra dose from 500 mg p.o. twice daily to 750 -We will hold off on any further imaging at this time with history -Consult [facility] neurology Acute cystitis -UA is suggestive of infection -Culture was sent -Continue ceftriaxone 1 mg daily -Narrow antibiotics once identification and sensitivities have been reported Lactic acidosis -Suspect related to seizure activity and not infection -Repeat per protocol Leukocytosis -Overall suspect reactive and likely not related to acute UTI however will repeat CBC in a.m. History of right hemorrhagic stroke -Status postcraniotomy -Has been on Keppra prophylactically prescribed by neurosurgery -No new findings -We will hold off on MRI unless recommended by neurology -Continue outpatient follow-up with Dr. Mukherjee Hyperlipidemia -Continue home simvastatin Hypertension -Patient is not on any baseline medications -Blood pressures are somewhat elevated on admission -Monitor and evaluate need for antihypertensives DVT prophylaxis -Subcu Lovenox 40 daily CODE STATUS -DNR CCA with no intubation as per discussion with daughter on presentation Charges/Coding Visit Charges Inpatient E&M: 04200 Init Hosp L2
[2022-11-15] MEDS: levETIRAcetam 750 MG Tablet PO (15:23)
[2022-11-15 16:13] LABS: Reflex Lactate? Y
[2022-11-15 16:59] LABS: Lactic Acid 1.3 mmol/L (0.4-1.9)
[2022-11-16 02:45] VITALS: BP 128/74; PULSE 76; RESP 16; TEMP 36.2; O2SAT 97
[2022-11-16 03:56] LABS: Absolute Lymphocyte Count 2.84 X10^3/uL (0.83-4.51); Absolute Neutrophil Count 8.8 X10^3/uL (2.0-7.7); Basophil# 0.05 X10^3/uL; Basophil% 0.4 % (0-1); Eosinophil# 0.19 X10^3/uL; Eosinophils% 1.5 % (0-5); Hematocrit 40.7 % (37-47); Hemoglobin 13.1 g/dL (12.0-15.0); Lymphocyte # 2.84 X10^3/ul (0.83-4.51); Lymphocyte % 22.1 % (19-41); Mean Corp Hgb Conc 32.2 g/dL (32-36); Mean Corpuscular Hgb 30.1 pg (27.0-32.0); Mean Corpuscular Volume 93.6 fL (81-99); Mean Platelet Vol. 9.4 fl (6.2-12.0); Monocyte# 0.94 X10^3/uL; Monocyte% 7.3 % (0-10); NRBC Flagged by Analyzer 0 % (0-5); Neutrophil # 8.79 X10^3/uL (2.7-7.7); Neutrophil % 68.4 % (47-70); Platelet Count 309 K/mm3 (150-450); RBC Distribution Width CV 13.7 % (11.6-14.6); RBC Distribution Width SD 46.5 fl (35.1-43.9); Red Blood Count 4.35 M/mm3 (4.2-5.4); White Blood Count 12.9 K/mm3 (4.4-11.0)
[2022-11-16 04:34] LABS: ALB/GLOB Ratio 0.8 RATIO (0.9-2.4); AST(SGOT) 21 U/L (15-37); Alanine Aminotransfer ALT/SGPT 44 U/L (13-56); Alkaline Phosphatase 100 U/L (45-117); Anion Gap 4 (5-15); BUN 12 mg/dL (7-18); BUN/Creat Ratio 24.9 RATIO (10-20); Calcium,Total 8.9 mg/dL (8.5-10.1); Chloride 111 mmol/L (98-107); Creatinine, Serum 0.48 mg/dL (0.55-1.02); EST Glomerular Filtration Rate 133 mL/min (>60); Est Glom Filt Rate - Afr Amer 161 mL/min (>60); Estimated Creatinine Clearance 41.33 ml/min; Globulin 3.6 g/dL (2.2-4.2); Glucose 95 mg/dL (74-106); Magnesium 2.3 mg/dL (1.6-2.6); Phosphorus 2.9 mg/dL (2.5-4.9); Potassium 3.4 mmol/L (3.5-5.1); Protein, Total 6.6 g/dL (6.4-8.2); Sodium Level 142 mmol/L (136-145)
--- NOTE | 2022-11-16 10:55 | PN_ITS ---
Subjective Subjective Patient seen and examined. She had no active complaints. She had just had an EEG of the brain. She denied any dizziness, fever, chills, cough, chest pain, palpitations, dizziness, nausea, vomiting or any other symptoms. REview of systems is otherwise negative. Objective Data Objective Data Vital Signs: Vital Signs Temp Pulse Resp BP Pulse Ox O2 Del Method O2 Flow Rate 97.1 F L 76 16 128/74 H 97 Room Air 2 11/16/22 02:45 11/16/22 02:45 11/16/22 02:45 11/16/22 02:45 11/16/22 02:45 11/16/22 02:45 11/15/22 20:45 Oxygen Flow Rate (L/min) 2 Oxygen Delivery Method Room Air Weight: 178 lb 5.663 oz Body Mass Index (BMI) 30.6 Intake & Output: Intake and Output for Last 24 Hours 11/14/22 11/15/22 11/16/22 23:59 23:59 23:59 Intake Total 1205 / 1205 100 / 100 Output Total 200 / 300 100 / 100 Balance 1005 / 905 0 / 0 Lab / Micro Data 11/16/22 03:44 11/16/22 03:44 Labs: Laboratory Results - last 24 hr 11/15/22 06:30: Lactic Acid 1.3 11/15/22 10:40: WBC 12.2 H, RBC 4.56, Hgb 14.1, Hct 43.9, MCV 96.3, MCH 30.9, MCHC 32.1, RDW Std Deviation 49.2 H, RDW Coeff of Jeovanny 13.8, Plt Count 315, MPV 9.3, Immature Gran % (Auto) 1.600 H, Neut % (Auto) 56.7, Lymph % (Auto) 34.5, Wallace % (Auto) 5.5, Eos % (Auto) 1.1, Baso % (Auto) 0.6, Absolute Neuts (auto) 6.9, Absolute Lymphs (auto) 4.20, Nucleated RBC % 0, PT Cancelled, INR Cancelled, APTT Cancelled, Sodium 143, Potassium 3.8, Chloride 114 H, Carbon Dioxide 20.0 L, Anion Gap 9, BUN 17, Creatinine 0.82, Estim Creat Clear Calc 50.40, Est GFR (MDRD) Af Amer 87, Est GFR (MDRD) Non-Af 72, BUN/Creatinine Ratio 20.7 H, Glucose 116 H, Lactic Acid 6.1 H*, Calcium 8.9, Total Bilirubin 0.60, Direct Bilirubin 0.13, AST 23, ALT 48, Alkaline Phosphatase 96, Troponin I High Sens 6, Total Protein 6.3 L, Albumin 2.9 L, Globulin 3.4 11/15/22 11:30: Urine Color Yellow, Urine Clarity Sl. Cloudy, Urine pH 5.0, Ur Specific [place] 1.030, Urine Protein 15 H, Urine Glucose (UA) Normal, Urine Ketones 5 H, Urine Occult Blood 10 H, Urine Nitrite Positive H, Urine Bilirubin Negative, Urine Urobilinogen Normal, Ur Leukocyte Esterase 100 H, Urine RBC 0 SEEN, Urine WBC 10-25 SEEN, Ur Squamous Epith Cells 0-5 SEEN, Urine Bacteria 3+, Urine Mucus 0 SEEN 11/15/22 12:00: PT 13.7, INR 1.1, APTT 27.2 11/16/22 03:44: WBC 12.9 H, RBC 4.35, Hgb 13.1, Hct 40.7, MCV 93.6, MCH 30.1, MCHC 32.2, RDW Std Deviation 46.5 H, RDW Coeff of Jeovanny 13.7, Plt Count 309, MPV 9.4, Immature Gran % (Auto) 0.300, Neut % (Auto) 68.4, Lymph % (Auto) 22.1, [place] % (Auto) 7.3, Eos % (Auto) 1.5, Baso % (Auto) 0.4, Absolute Neuts (auto) 8.8 H, Absolute Lymphs (auto) 2.84, Nucleated RBC % 0, Sodium 142, Potassium 3.4 L, Chloride 111 H, Carbon Dioxide 27.0, Anion Gap 4 L, BUN 12, Creatinine 0.48 L, Estim Creat Clear Calc 41.33, Est GFR (MDRD) Af Amer 161, Est GFR (MDRD) Non-Af 133, BUN/Creatinine Ratio 24.9 H, Glucose 95, Calcium 8.9, Phosphorus 2.9, Magnesium 2.3, Total Bilirubin 1.10 H, AST 21, ALT 44, Alkaline Phosphatase 100, Total Protein 6.6, Albumin 3.0 L, Globulin 3.6, Albumin/Globulin Ratio 0.8 L, TSH 1.60 Micro: Microbiology 11/15/22 11:30 Urine Catheter - Catheter Urine Culture - Preliminary GNR 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 Stable appearance. Electronically Signed: Randy Mcgowan MD at 12:00 EDT , Chest X-Ray 11/15/22 11:17 IMPRESSION: No acute cardiopulmonary disease. Electronically Signed: Randy Mcgowan MD at 11:42 EDT , Physical Exam Const alert and oriented x3 General Appearance: cooperative Orientation / Consciousness: lethargic HEENT normocephalic, head/scalp atraumatic, moist oral mucous membranes and oropharynx normal Eyes PERRL and EOMs intact bilaterally Neck no lymphadenopathy and supple Lymph Lymphatic: no lymphadenopathy noted and no lymphedema noted Resp normal respiratory effort, normal air movement and clear to auscultation bilaterally Cardio regular rate, regular rhythm, S1 normal heart sound, S2 normal heart sound and no murmurs GI normal to inspection, nondistended, normoactive bowel sounds, soft to palpation and non-tender Extremity normal capillary refill, no clubbing, cyanosis or edema and no calf tenderness Skin General Skin Exam: no breakdown Neuro CN's II-XII intact bilaterally, no focal motor deficits, no sensory deficits noted and deep tendon reflexes 2+ bilaterally Psych cooperative Mood & Affect: flat affect Assessment & Plan Assessment/Plan (1) Epileptic seizure: (2) Urinary tract infection: PLAN: Plan #Seizures * admitted with a complaint of seizure. Hadnt had seizure in the past, though she was on Keppra o.a of history of frontal hemorrhagic stroke. * She had EEG in August 2022 which showed a left epileptogenic structural abnormality in the right temporal region with superimposed mild to moderate diffuse encephalopathy with no seizure patterns. * Keppra increased to 750 mg twice daily. She did have an EEG done today. Read is pending. * [facility] neurology consulted. Await recommendations. * Seizure precautions. PT OT also on board. Fall precautions. #Acute cystitis: Urinalysis showed evidence of UTI. On IV ceftriaxone. 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 Will replace and trend. #Lactic acidosis. Thought to be due to seizure activity. Should improve. #History of right hemorrhagic stroke * Status postcraniotomy. On Keppra prophylactically to prevent seizures. * Follows up with Dr. Wei outpatient basis. He is being managed for seizure disorder. * #Hypertension: not on any baseline meds. IV hydralazine prn #Hyperlipidemia: on statin DVT prophylaxis; lovenox Charges/Coding Visit Charges Inpatient E&M: 74651 Subs Hosp L2
[2022-11-16 11:24] VITALS: BP 132/66; PULSE 79; RESP 97; TEMP 36.8
[2022-11-16] MEDS: Enoxaparin 40 MG/0.4 ML Syringe SC (11:41)
[2022-11-16] MEDS: Atorvastatin Calcium 40 MG Tablet PO (11:41)
[2022-11-16] MEDS: Potassium Chloride Oral Tablet 20 MEQ PO (11:41)
[2022-11-16 11:50] VITALS: O2SAT 95
[2022-11-16] MEDS: Ceftriaxone 1 GM/50 ML BAG IV (11:58)
[2022-11-16] MEDS: 0.9% Saline Lock 10 ML Syringe IV (11:59)
--- NOTE | 2022-11-16 12:43 | CASEMGMT ---
CHRIS MERAZ Discharge Planning Assessment: Face to Face with patient for initial transition planning/care coordination assessment. Noted documentation by nursing that pt is oriented x1. Pt is alert but not answering questions appropriately. Call placed to pt's spouse, role of CHRIS MERAZ explained and pt's spouse voices understanding and is agreeable to participating in the assessment.? Care providers, pharmacy,?and demographics verified. ? Admitting Dx: Seizure, UTI PCP: Cristy Tay Pharmacy: [facility] Insurance: [facility] Prescription Benefit:?Yes Living Will/HPOA: yes, HPOA is spouse Nabeel. Per Nabeel, documents were brought in approximately one month ago to be scanned in. LNOK: spouse Nabeel Living Arrangements: Pt lives in a three story home with a first floor setup. Pt uses a walker to ambulate in the home and a w/c when outside of the home. Pt is able to ambulate independently but requires assistance with bathing and dressing. Transportation: pt's spouse or family DME: shower chair, raised toilet seat, grab bars, hand held shower, walker, w/c, adjustable mattress, bed alarm, pulse oximeter, BP monitor SNF: [facility]: denies skilled providers but currently has a DIRECTOR INDEPENDENT 9-5, 40hrs/week. Goal: Pt's spouse states he prefers for pt to return home at discharge with ongoing care from himself and their hired DIRECTOR INDEPENDENT. Pt's spouse states he is currently under the care of [facility] for skilled services. Pt's spouse states he was not happy with the care at the SNF and prefers that pt return home. Noted PT/OT evaluations ordered but results pending. Will continue to monitor and determine if pt is at baseline or requires additional therapy. Will follow-up with spouse to confirm DC plan. Jessica Mcdonald RN CM
--- NOTE | 2022-11-16 13:59 | CASEMGMT ---
Social Work Per chart review, patient has living will and power of finance attorney, identified as her , Nabeel. Documents were brought in to be scanned into patient's medical record about a month ago. BRIANNA Mantilla, THERAPIST RADIATION
[2022-11-16 15:14] VITALS: BP 122/97; PULSE 97; RESP 16; TEMP 36.4; O2SAT 97
--- NOTE | 2022-11-16 15:28 | CASEMGMT ---
CHRIS MERAZ: Phone call placed to pt's spouse to inform of pt's poor mobility with therapy this afternoon. Pt's spouse states he will contact his children to see what help they will be able to provide and decide from there what is needed at discharge. Will follow-up with pt's spouse tomorrow for further decision making. Jessica Mcdonald RN CM
[2022-11-16 20:10] VITALS: BP 129/78; PULSE 108; RESP 18; TEMP 37.1; O2SAT 95
[2022-11-16 20:15] VITALS: O2SAT 95
[2022-11-17] MEDS: 0.9% Saline Lock 10 ML Syringe IV ×3 (00:25→22:12)
[2022-11-17 03:30] VITALS: BP 119/70; PULSE 95; RESP 18; TEMP 36.5
--- NOTE | 2022-11-17 06:25 | NURSING ---
Documentation from Dai HASSAN reviewed. This RN oversaw patients this shift and agree with her findings.
[2022-11-17 07:07] LABS: Absolute Lymphocyte Count 2.46 X10^3/uL (0.83-4.51); Absolute Neutrophil Count 8.4 X10^3/uL (2.0-7.7); Basophil# 0.04 X10^3/uL; Basophil% 0.3 % (0-1); Eosinophils% 0.8 % (0-5); Hematocrit 41.9 % (37-47); Hemoglobin 13.6 g/dL (12.0-15.0); Lymphocyte # 2.46 X10^3/ul (0.83-4.51); Lymphocyte % 20.6 % (19-41); Mean Corp Hgb Conc 32.5 g/dL (32-36); Mean Corpuscular Hgb 30.1 pg (27.0-32.0); Mean Corpuscular Volume 92.7 fL (81-99); Mean Platelet Vol. 9.3 fl (6.2-12.0); Monocyte% 7.6 % (0-10); NRBC Flagged by Analyzer 0 % (0-5); Neutrophil # 8.39 X10^3/uL (2.7-7.7); Neutrophil % 70.4 % (47-70); Platelet Count 316 K/mm3 (150-450); RBC Distribution Width CV 13.9 % (11.6-14.6); RBC Distribution Width SD 47.6 fl (35.1-43.9); Red Blood Count 4.52 M/mm3 (4.2-5.4); White Blood Count 11.9 K/mm3 (4.4-11.0)
[2022-11-17 07:37] LABS: Anion Gap 4 (5-15); BUN 16 mg/dL (7-18); BUN/Creat Ratio 34.8 RATIO (10-20); Calcium,Total 8.5 mg/dL (8.5-10.1); Chloride 112 mmol/L (98-107); Creatinine, Serum 0.46 mg/dL (0.55-1.02); EST Glomerular Filtration Rate 140 mL/min (>60); Est Glom Filt Rate - Afr Amer 170 mL/min (>60); Estimated Creatinine Clearance 41.33 ml/min; Glucose 104 mg/dL (74-106); Potassium 3.8 mmol/L (3.5-5.1); Sodium Level 140 mmol/L (136-145)
[2022-11-17 07:58] VITALS: O2SAT 96
--- NOTE | 2022-11-17 08:03 | MRI_ITS ---
STUDY: MRI BRAIN WITH AND WITHOUT CONTRAST REASON FOR EXAM: Female, 77 years old. seizure, RT frontal ICH, craniectomy 08/12/21, drain placed and amp; removed, evacuation of hematoma, new seizure TECHNIQUE: Standardized multiplanar fat and water weighted pulse sequences were obtained. clariscan 17ml was administered for the contrast portion of the examination. COMPARISON: CT brain November 15, 2022 FINDINGS: Central atrophy and mild to moderate periventricular white matter ischemic changes without evidence for acute infarct. . There is disproportionate dilatation of the lateral ventricles cortical sulci raising question of communicating hydrocephalus or NPH. 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 Normal thalami. There is no extra-axial fluid accumulation. Normal flow voids within the major intracranial circulation suggesting patency by spin echo criteria. Normal venous enhancement. There is no enhancing intra-axial or extra-axial abnormality. Normal sella turcica, pituitary gland, infundibular stalk, optic chiasm and hypothalamus. Normal tectal plate and pineal gland. Normal midbrain, brianne and medulla. Normal cerebellum. Normal basal cisterns. Normal bilateral temporal bones. Normal bilateral internal auditory canals. Postop change status post right frontoparietal craniotomy.. Normal visualized paranasal sinuses. Normal calvarium and skull base. Normal visualized soft tissue structures. Normal visualized upper cervical spine. 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 [id number] periventricular white matter ischemic changes without evidence for acute infarct Other findings which also may be consistent with communicating hydrocephalus or normal pressure hydrocephalus Electronically Signed: Faizan Joyce MD at 20:30 EDT ,
[2022-11-17 08:05] VITALS: BP 125/80; PULSE 88; RESP 16; TEMP 37.1; O2SAT 95
[2022-11-17] MEDS: Ceftriaxone 1 GM/50 ML BAG IV (11:09)
[2022-11-17] MEDS: Enoxaparin 40 MG/0.4 ML Syringe SC (11:10)
[2022-11-17] MEDS: Atorvastatin Calcium 40 MG Tablet PO (11:10)
--- NOTE | 2022-11-17 13:39 | CASEMGMT ---
CHRIS MERAZ Follow-up: 1145: Call placed to pt's spouse in follow-up to discussion yesterday regarding discharge plan. Pt's spouse Nabeel requested that this CHRIS MERAZ contact their daughter Oumou to discuss. 1335: Call placed to pt's daughter Oumou. Reviewed pt's therapy evaluation and inability to ambulate which is different than pt's baseline. Pt's daughter states that it is their preference that pt be discharged to a SNF for additional tx prior to returning home. [facility] states that they cannot currently provide for pt's current needs 07/09 but can obtain additional COVERING MACHINE OPERATOR time in the future. Per O[facility], their first preference is [facility] as pt has been there in the past. Will provide a list of alternative SNF facilities if pt not accepted. Referral called to Kathy at [facility] with referral review request. DC Plan: SNF, TCU referral pending. Jessica Mcdonald RN CM
[2022-11-17 14:28] VITALS: BP 120/69; PULSE 122; RESP 16; TEMP 36.9; O2SAT 97
[2022-11-17 14:50] VITALS: BP 120/69; PULSE 122; RESP 16; TEMP 36.9; O2SAT 97
--- NOTE | 2022-11-17 16:40 | CASEMGMT ---
CHRIS MERAZ Follow-up: Backline message to Kathy at [facility] for referral update. Pt is still under review, awaiting pharmacy review. Curtis Mcdonald RN CM
[2022-11-17 22:11] VITALS: BP 133/61; PULSE 102; RESP 18; TEMP 37.2; O2SAT 95
[2022-11-18] VITALS (10 sets, daily range): BP systolic 113–129; BP diastolic 67–80; PULSE 81–122; RESP 16–18; TEMP 36.4–37; O2SAT 93–97
[2022-11-18 07:09] LABS: KEPPRA (LEVETIRACETAM) 13.1 ug/mL (10.0-40.0)
[2022-11-18 07:11] LABS: Absolute Lymphocyte Count 2.12 X10^3/uL (0.83-4.51); Absolute Neutrophil Count 7.4 X10^3/uL (2.0-7.7); Basophil# 0.04 X10^3/uL; Basophil% 0.4 % (0-1); Eosinophil# 0.09 X10^3/uL; Eosinophils% 0.8 % (0-5); Hematocrit 44.2 % (37-47); Hemoglobin 14.2 g/dL (12.0-15.0); Lymphocyte # 2.12 X10^3/ul (0.83-4.51); Mean Corp Hgb Conc 32.1 g/dL (32-36); Mean Corpuscular Hgb 30.1 pg (27.0-32.0); Mean Corpuscular Volume 93.6 fL (81-99); Mean Platelet Vol. 9.3 fl (6.2-12.0); Monocyte# 0.91 X10^3/uL; Monocyte% 8.6 % (0-10); NRBC Flagged by Analyzer 0 % (0-5); Neutrophil # 7.44 X10^3/uL (2.7-7.7); Platelet Count 310 K/mm3 (150-450); RBC Distribution Width CV 14.1 % (11.6-14.6); RBC Distribution Width SD 48.3 fl (35.1-43.9); Red Blood Count 4.72 M/mm3 (4.2-5.4); White Blood Count 10.6 K/mm3 (4.4-11.0)
[2022-11-18 07:38] LABS: Anion Gap 5 (5-15); BUN 20 mg/dL (7-18); BUN/Creat Ratio 40.7 RATIO (10-20); Chloride 113 mmol/L (98-107); Creatinine, Serum 0.49 mg/dL (0.55-1.02); EST Glomerular Filtration Rate 130 mL/min (>60); Est Glom Filt Rate - Afr Amer 157 mL/min (>60); Estimated Creatinine Clearance 41.33 ml/min; Glucose 113 mg/dL (74-106); Potassium 3.5 mmol/L (3.5-5.1); Sodium Level 141 mmol/L (136-145)
[2022-11-18] MEDS: Atorvastatin Calcium 40 MG Tablet PO (09:38)
[2022-11-18] MEDS: Ceftriaxone 1 GM/50 ML BAG IV (09:38)
[2022-11-18] MEDS: Enoxaparin 40 MG/0.4 ML Syringe SC (09:38)
--- NOTE | 2022-11-18 11:03 | CASEMGMT ---
TCU can take patient. SW will notify patient's family. Pre-cert has been started. Krystina SCHRADER
--- NOTE | 2022-11-18 11:05 | CASEMGMT ---
HAZEL called patient's daughter Ouomu and let her know TCU can take patient. HAZEL will notify [facility] once insurance approves. Plan: d/c to [facility] pending insurance approval. Krystina SCHRADER
--- NOTE | 2022-11-18 14:38 | PN_ITS ---
Subjective Subjective Patient seen and examined. She felt well and had no active complaints. She had an uneventful night. Review of systems is otherwise negative. She has remained stable. Objective Data Objective Data Vital Signs: Vital Signs Temp Pulse Resp BP Pulse Ox O2 Del Method O2 Flow Rate 97.6 F L 98 18 119/67 95 Room Air 2 11/18/22 08:40 11/18/22 08:40 11/18/22 09:20 11/18/22 08:40 11/18/22 09:21 11/18/22 13:53 11/16/22 11:50 Oxygen Flow Rate (L/min) 2 Oxygen Delivery Method Room Air Weight: 178 lb 5.663 oz Body Mass Index (BMI) 30.6 Intake & Output: Intake and Output for Last 24 Hours 11/16/22 11/17/22 11/18/22 23:59 23:59 23:59 Intake Total 150 / 200 220 / 220 410 / 410 Output Total 500 / 650 875 / 875 200 / 200 Balance -350 / -450 -655 / -655 210 / 210 Lab / Micro Data 11/18/22 06:54 11/18/22 06:54 Labs: Laboratory Results - last 24 hr 11/15/22 12:23: Levetiracetam 13.1 11/18/22 06:54: WBC 10.6, RBC 4.72, Hgb 14.2, Hct 44.2, MCV 93.6, MCH 30.1, MCHC 32.1, RDW Std Deviation 48.3 H, RDW Coeff of Jeovanny 14.1, Plt Count 310, MPV 9.3, Immature Gran % (Auto) 0.200, Neut % (Auto) 70.0, Lymph % (Auto) 20.0, [place] % (Auto) 8.6, Eos % (Auto) 0.8, Baso % (Auto) 0.4, Absolute Neuts (auto) 7.4, Absolute Lymphs (auto) 2.12, Nucleated RBC % 0, Sodium 141, Potassium 3.5, Chloride 113 H, Carbon Dioxide 23.0, Anion Gap 5, BUN 20 H, Creatinine 0.49 L, Estim Creat Clear Calc 41.33, Est GFR (MDRD) Af Amer 157, Est GFR (MDRD) Non-Af 130, BUN/Creatinine Ratio 40.7 H, Glucose 113 H, Calcium 9.0 Micro: Microbiology 11/15/22 12:20 Blood Culture (Wb) - Arm Left Blood Culture - Preliminary No growth in 48 hours. 11/15/22 10:40 Blood Culture (Wb) - Arm Right Blood Culture - Preliminary No growth in 48 hours. 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 [id number] periventricular white matter ischemic changes without evidence for acute infarct Other findings which also may be consistent with communicating hydrocephalus or normal pressure hydrocephalus Electronically Signed: Faizan Joyce MD at 20:30 EDT Reading Location ID and State: [facility] / [place] Tel , Service support , Physical Exam Const alert, oriented x3 and well nourished General Appearance: cooperative HEENT normocephalic, head/scalp atraumatic, hearing grossly normal bilaterally, moist oral mucous membranes and oropharynx normal Eyes PERRL and EOMs intact bilaterally Neck no lymphadenopathy and supple Lymph Lymphatic: no lymphadenopathy noted and no lymphedema noted Resp normal respiratory effort, normal air movement, no retractions, no use of accessory muscles and clear to auscultation bilaterally Auscultation: Negative for rales, rhonchi or wheezes Cardio regular rate, regular rhythm, S1 normal heart sound, S2 normal heart sound, no murmurs, no rub, no gallops and no clicks GI normal to inspection, nondistended, normoactive bowel sounds, soft to palpation and non-tender Extremity normal capillary refill, no clubbing, cyanosis or edema and no calf tenderness Extremity Narrative: Pedal pulses are 1+ bilaterally General Extremity: clubbing Skin General Skin Exam: no breakdown Neuro oriented x3, CN's II-XII intact bilaterally, no focal motor deficits, no sensory deficits noted and deep tendon reflexes 2+ bilaterally Neuro Narrative: Able to move all extremities Speech: speech normal Psych thought process normal and cooperative Psych Narrative: Affect is flat Mood & Affect: flat affect Assessment & Plan Assessment/Plan (1) Epileptic seizure: (2) Urinary tract infection: PLAN: Plan #Seizures * admitted with a complaint of seizure. Hadnt had seizure in the past, though she was on Keppra o.a of history of frontal hemorrhagic stroke. * She had EEG in August 2022 which showed a left epileptogenic structural abnormality in the right temporal region with superimposed mild to moderate diffuse encephalopathy with no seizure patterns. * Keppra increased to 750 mg twice daily. She did have an EEG done today. Read is pending. * SOC neurology consulted. Await recommendations. * Seizure precautions. PT OT also on board. Fall precautions. 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 On IV ceftriaxone. 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 K is 3.5. #Lactic acidosis. Thought to be due to seizure activity. resolved. #History of right hemorrhagic stroke * Status postcraniotomy. On Keppra prophylactically to prevent seizures. * Follows up with Dr. Wei outpatient basis. * #Hypertension: not on any baseline meds. BP has been in the normal range here. #Hyperlipidemia: on statin DVT prophylaxis; lovenox Charges/Coding Visit Charges Inpatient E&M: 81892 Subs Hosp L2
[2022-11-18] MEDS: levETIRAcetam 750 MG Tablet PO ×2 (15:48→21:39)
[2022-11-19 02:00] VITALS: BP 118/68; PULSE 91; RESP 16; TEMP 36.9; O2SAT 94
[2022-11-19 03:00] VITALS: BP 121/69; PULSE 89; RESP 16; TEMP 36.6; O2SAT 95
[2022-11-19 06:41] LABS: Absolute Neutrophil Count 6.7 X10^3/uL (2.0-7.7); Basophil# 0.05 X10^3/uL; Basophil% 0.5 % (0-1); Eosinophil# 0.16 X10^3/uL; Eosinophils% 1.5 % (0-5); Hemoglobin 13.6 g/dL (12.0-15.0); Lymphocyte % 22.9 % (19-41); Mean Corp Hgb Conc 30.9 g/dL (32-36); Mean Corpuscular Hgb 29.8 pg (27.0-32.0); Mean Corpuscular Volume 96.5 fL (81-99); Mean Platelet Vol. 9.8 fl (6.2-12.0); Monocyte# 1.15 X10^3/uL; NRBC Flagged by Analyzer 0 % (0-5); Neutrophil # 6.67 X10^3/uL (2.7-7.7); Neutrophil % 63.6 % (47-70); Platelet Count 291 K/mm3 (150-450); RBC Distribution Width CV 14.2 % (11.6-14.6); RBC Distribution Width SD 50.1 fl (35.1-43.9); Red Blood Count 4.56 M/mm3 (4.2-5.4); White Blood Count 10.5 K/mm3 (4.4-11.0)
[2022-11-19 07:28] LABS: Anion Gap 8 (5-15); BUN 21 mg/dL (7-18); BUN/Creat Ratio 36.1 RATIO (10-20); Chloride 113 mmol/L (98-107); Creatinine, Serum 0.58 mg/dL (0.55-1.02); EST Glomerular Filtration Rate 107 mL/min (>60); Est Glom Filt Rate - Afr Amer 129 mL/min (>60); Estimated Creatinine Clearance 41.33 ml/min; Glucose 102 mg/dL (74-106); Potassium 3.4 mmol/L (3.5-5.1); Sodium Level 143 mmol/L (136-145)
[2022-11-19 08:27] VITALS: BP 126/70; PULSE 78; RESP 16; TEMP 36.6; O2SAT 96
[2022-11-19] MEDS: Enoxaparin 40 MG/0.4 ML Syringe SC (08:30)
[2022-11-19] MEDS: levETIRAcetam 750 MG Tablet PO (08:31)
[2022-11-19] MEDS: Atorvastatin Calcium 40 MG Tablet PO (08:31)
[2022-11-19 08:49] VITALS: O2SAT 96
[2022-11-19] MEDS: Acetaminophen 325 MG Tablet PO (08:58)
[2022-11-19] MEDS: Ceftriaxone 1 GM/50 ML BAG IV (08:59)
[2022-11-19] MEDS: Potassium Chloride Oral Tablet 20 MEQ 40 MEQ PO (08:59)
--- NOTE | 2022-11-19 12:54 | PN_ITS ---
Subjective Subjective Patient seen and examined. She feels well and has no complaints. She had an uneventful night and review of symptoms otherwise negative. She has remained hemodynamically stable. Objective Data Objective Data Vital Signs: Vital Signs Temp Pulse Resp BP Pulse Ox O2 Del Method O2 Flow Rate 97.8 F 78 16 126/70 H 96 Room Air 2 11/19/22 08:27 11/19/22 08:27 11/19/22 08:27 11/19/22 08:27 11/19/22 08:49 11/19/22 08:49 11/16/22 11:50 Oxygen Flow Rate (L/min) 2 Oxygen Delivery Method Room Air Weight: 178 lb 5.663 oz Body Mass Index (BMI) 30.6 Intake & Output: Intake and Output for Last 24 Hours 11/17/22 11/18/22 11/19/22 23:59 23:59 23:59 Intake Total 220 / 220 470 / 520 100 / 100 Output Total 875 / 875 200 / 200 0 / 0 Balance -655 / -655 270 / 320 100 / 100 Lab / Micro Data 11/19/22 06:22 11/19/22 06:22 Labs: Laboratory Results - last 24 hr 11/19/22 06:22: WBC 10.5, RBC 4.56, Hgb 13.6, Hct 44.0, MCV 96.5, MCH 29.8, MCHC 30.9 L, RDW Std Deviation 50.1 H, RDW Coeff of Jeovanny 14.2, Plt Count 291, MPV 9.8, Immature Gran % (Auto) 0.500, Neut % (Auto) 63.6, Lymph % (Auto) 22.9, Bledsoe % (Auto) 11.0 H, Eos % (Auto) 1.5, Baso % (Auto) 0.5, Absolute Neuts (auto) 6.7, Absolute Lymphs (auto) 2.40, Nucleated RBC % 0, Sodium 143, Potassium 3.4 L, Chloride 113 H, Carbon Dioxide 22.0, Anion Gap 8, BUN 21 H, Creatinine 0.58, Estim Creat Clear Calc 41.33, Est GFR (MDRD) Af Amer 129, Est GFR (MDRD) Non-Af 107, BUN/Creatinine Ratio 36.1 H, Glucose 102, Calcium 9.0 Micro: Microbiology 11/15/22 12:20 Blood Culture (Wb) - Arm Left Blood Culture - Preliminary No growth in 48 hours. 11/15/22 10:40 Blood Culture (Wb) - Arm Right Blood Culture - Preliminary No growth in 48 hours. 11/15/22 11:30 Urine Catheter - Catheter Urine Culture - Final Escherichia coli Physical Exam Const alert, oriented x3, no apparent distress and well nourished General Appearance: cooperative Orientation / Consciousness: lethargic HEENT normocephalic, head/scalp atraumatic, hearing grossly normal bilaterally, moist oral mucous membranes and oropharynx normal Eyes PERRL and EOMs intact bilaterally Neck no lymphadenopathy and supple Lymph Lymphatic: no lymphadenopathy noted and no lymphedema noted Resp normal respiratory effort, normal air movement, no retractions, no use of accessory muscles and clear to auscultation bilaterally Auscultation: Negative for rales, rhonchi or wheezes Cardio regular rate, regular rhythm, S1 normal heart sound, S2 normal heart sound, no murmurs, no rub, no gallops and no clicks GI normal to inspection, nondistended, normoactive bowel sounds, soft to palpation and non-tender Extremity normal capillary refill, no clubbing, cyanosis or edema and no calf tenderness Extremity Narrative: Pedal pulses are 1+ bilaterally General Extremity: clubbing Skin General Skin Exam: no breakdown Neuro oriented x3, CN's II-XII intact bilaterally, no focal motor deficits, no sensory deficits noted and deep tendon reflexes 2+ bilaterally Neuro Narrative: Able to move all extremities Speech: speech normal Motor Exam: strength 5/5 throughout Psych thought process normal and cooperative Mood & Affect: flat affect Assessment & Plan Assessment/Plan (1) Epileptic seizure: (2) Urinary tract infection: PLAN: Plan #Seizures * admitted with a complaint of seizure. Hadnt had seizure in the past, though she was on Keppra o.a of history of frontal hemorrhagic stroke. * She had EEG in August 2022 which showed a left epileptogenic structural abnormality in the right temporal region with superimposed mild to moderate diffuse encephalopathy with no seizure patterns. * Keppra increased to 750 mg twice daily. She did have an EEG done today. Read is pending. * SOC neurology consulted. Await recommendations. * Seizure precautions. PT OT also on board. Fall precautions. 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 On IV ceftriaxone. Urine cultures growing E coli. Blood cultures negative. To complete 5 days of IV ceftriaxone #Hypokalemia: potassium is 3.4 today. Will replace and trend. #Lactic acidosis. Thought to be due to seizure activity. resolved. #History of right hemorrhagic stroke * Status postcraniotomy. On Keppra prophylactically to prevent seizures. * Follows up with Dr. Wei outpatient basis. * #Hypertension: not on any baseline meds. BP has been in the normal range here. #Hyperlipidemia: on statin DVT prophylaxis; DC Lovenox and placed on SCDs as MRI showed a small focus of hemorrhage which is likely from her old hemorrhagic stroke. Disposition: Awaiting placement. Charges/Coding Visit Charges Inpatient E&M: 45911 Subs Hosp L2
[2022-11-19 14:00] VITALS: BP 112/58; PULSE 79; RESP 18; TEMP 36.6; O2SAT 98
[2022-11-19 14:40] VITALS: BP 112/58; PULSE 73; RESP 18; TEMP 36.4; O2SAT 97
--- NOTE | 2022-11-19 15:45 | TREXTCAR_ITS ---
Diet Diet Order/Speech Therapy: 11/15/22 14:04 Diet: Cardiac - Heart Healthy Food consistency:: Regular Liquid Consistency:: Regular/Thin Is pt able to select menu?: Yes Routine Orders/Code Status Enema Type: Fleetz Enema Frequency: Daily PRN Suppository Type: Dulcolax 10mg Suppository Frequency: Daily PRN O2 Frequency: PRN Keep PO Greater than or Equal to (%): 90 Therapies Weight Bearing: Weight bearing as tolerated Physical Therapy: Eval and Treat Occupational Therapy: Eval and Treat Problem/Diagnosis (1) Epileptic seizure: Status: Acute Code(s): G40.909 - Epilepsy, unspecified, not intractable, without status epilepticus (2) Urinary tract infection: Status: Acute Code(s): N39.0 - Urinary tract infection, site not specified Plan #Seizures * admitted with a complaint of seizure. Hadnt had seizure in the past, though she was on Keppra o.a of history of frontal hemorrhagic stroke. * She had EEG in August 2022 which showed a left epileptogenic structural abnormality in the right temporal region with superimposed mild to moderate diffuse encephalopathy with no seizure patterns. * Keppra increased to 750 mg twice daily. She did have an EEG done today. Read is pending. * SOC neurology consulted. Await recommendations. * Seizure precautions. PT OT also on board. Fall precautions. 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 On IV ceftriaxone. Urine cultures growing E coli. Blood cultures negative. To complete 5 days of IV ceftriaxone #Hypokalemia: potassium is 3.4 today. Will replace and trend. #Lactic acidosis. Thought to be due to seizure activity. resolved. #History of right hemorrhagic stroke * Status postcraniotomy. On Keppra prophylactically to prevent seizures. * Follows up with Dr. Wei outpatient basis. * #Hypertension: not on any baseline meds. BP has been in the normal range here. #Hyperlipidemia: on statin DVT prophylaxis; DC Lovenox and placed on SCDs as MRI showed a small focus of hemorrhage which is likely from her old hemorrhagic stroke. Disposition: Awaiting placement. Allergies/Procedures Done in Hospital Allergies Sulfa (Sulfonamide Antibiotics) Allergy (Verified 11/15/22 10:20) Rash Procedures: Electroencephalogram Type of Care/Length of Stay Estimated LOS: Convalescent Care Less Than 30 days Type of Care Needed: Skilled Rehab Potential: Fair Prognosis: Fair Additional Orders/Day of Discharge Day of Discharge: 11/19/22 Dietary and Speech Recommendations Dietitian Recommendations/Changes: Continue Cardiac diet to manage medical conditions. Discharge Plan Admission Admit Date/Time: 11/15/22 13:08 Primary Reason for Your Visit: seizures, UTI Attending Provider: Yudith Ruth Primary Care Provider: Ariana Muniz Consulting Providers: Cynthia Abraham Instructions Patient Instructions: ED Seizure New Onset Unknown ... Discharge Orders/Prescriptions Prescriptions: New levetiracetam 750 mg Tablet 750 mg PO BID Qty: 60 2RF cefdinir 300 mg capsule 300 mg PO BID Qty: 6 0RF Continued atorvastatin 40 mg tablet 40 mg PO DAILY Qty: 30 5RF Discontinued levetiracetam 500 mg tablet 500 mg PO BID Qty: 60 4RF Referrals / Follow Up: Ariana Muniz DO [Primary Care Provider] - Within 1 Week Fan Wei MD [Non-Staff -Ordering Privileges] - Within 2 Weeks Disposition Disposition (needs filled in before D/C Order can be placed): Residential Facility
--- NOTE | 2022-11-19 15:46 | DS.PCM_ITS ---
Providers Date of Admission: 11/15/22 Date of Discharge: 11/19/22 Primary Care Physician: Ariana Muniz DO Reason For Visit: SIEZURE/UTI Diagnosis Discharge Diagnosis (1) Epileptic seizure: Status: Acute Code(s): G40.909 - Epilepsy, unspecified, not intractable, without status epilepticus (2) Urinary tract infection: Status: Acute Code(s): N39.0 - Urinary tract infection, site not specified Plan #Seizures * admitted with a complaint of seizure. Hadnt had seizure in the past, though she was on Keppra o.a of history of frontal hemorrhagic stroke. * She had EEG in August 2022 which showed a left epileptogenic structural abnormality in the right temporal region with superimposed mild to moderate diffuse encephalopathy with no seizure patterns. * Keppra increased to 750 mg twice daily. She did have an EEG done today. Read is pending. * SOC neurology consulted. Await recommendations. * Seizure precautions. PT OT also on board. Fall precautions. 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 On IV ceftriaxone. Urine cultures growing E coli. Blood cultures negative. To complete 5 days of IV ceftriaxone #Hypokalemia: potassium is 3.4 today. Will replace and trend. #Lactic acidosis. Thought to be due to seizure activity. resolved. #History of right hemorrhagic stroke * Status postcraniotomy. On Keppra prophylactically to prevent seizures. * Follows up with Dr. Wei outpatient basis. * #Hypertension: not on any baseline meds. BP has been in the normal range here. #Hyperlipidemia: on statin DVT prophylaxis; DC Lovenox and placed on SCDs as MRI showed a small focus of hemorrhage which is likely from her old hemorrhagic stroke. Disposition: Awaiting placement. Medications at Discharge Home Medications atorvastatin 40 mg tablet 40 mg PO DAILY cholesterol #30 tabs 08/20/22 cefdinir 300 mg capsule 300 mg PO BID antibiotic #6 caps 11/19/22 levetiracetam 750 mg tablet 750 mg PO BID seizure #60 tabs 11/19/22 Hospital Course Operations None Procedures Electroencephalogram Summary of Care Provided Minutes Spent on Discharge: 55 Hospital Course: Patient is a 77-year-old female with a past medical history as outlined was admitted through the ED on 11/15/2022 with a complaint of new onset seizure. Patient had had a right frontal hemorrhagic stroke in 2021 was subsequently placed on Keppra prophylactically. She had not had any seizures at that time. On the day of admission she had a generalized tonic-clonic seizure which lasted about 1 minute and so the EMS was called. There was concern that she also had new onset left-sided weakness though daughter said this was chronic. In the emergency room she had another generalized tonic-clonic seizure which was aborted by half milligram of Ativan. She had also had urinary frequency. On admission lactic acid was elevated at 6.1 but this was thought to be due to the seizure activity. EKG shows first-degree AV block and no acute ST changes. Urinalysis showed evidence of UTI. CT of the brain showed no acute pathology. She was loaded with Keppra in the ED and started on IV ceftriaxone for UTI. Urine cultures were sent. She had an MRI of the brain which showed post surgical encephalomalacia of the right frontal lobe s/p craniotomy with porencephalic dilatation of the frontal horn of right lateral ventricle and small focus of subacute hemorrhage, Hxng-nx-xkhflshd periventricular white kwame er ischemic changes without evidence for acute infarct; Other findings which also may be consistent with communicating hydrocephalus or normal pressure hydrocephalus. She had an EEG which showed a highly epileptogenic structural abnormality in the right temporal lobe superimposed on moderate diffuse encephalopathy. 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 Neurology also recommended that her Keppra be increased to 750 mg twice daily. Patient did well during her admission and remained stable. Her urine cultures grew E. coli sensitive to ceftriaxone. Blood cultures were negative. She was skilled to a shelter and was discharged [facility] on 11/[facility]22. She is to follow-up with her primary care doctor and follow-up with neurology on outpatient basis. Patient seen and examined prior to discharge. She felt well and had no complaints. She had uneventful night. Review of systems otherwise negative. Labs and vitals reviewed. Home medication reviewed and reconciled. Of note she was also discharged with a prescription for p.o. cefdinir 300 mg twice daily for 6 tablets to complete a 7-day course in total of antibiotics. Physical Exam Const alert, oriented x3, no apparent distress and well nourished General Appearance: cooperative and comfortable Orientation / Consciousness: lethargic HEENT normocephalic, head/scalp atraumatic, hearing grossly normal bilaterally, moist oral mucous membranes and oropharynx normal Mouth: oral and palatal mucosa normal Eyes PERRL and EOMs intact bilaterally Neck no lymphadenopathy and supple Lymph Lymphatic: no lymphadenopathy noted and no lymphedema noted Resp normal respiratory effort, normal air movement, no retractions, no use of accessory muscles and clear to auscultation bilaterally Auscultation: Negative for rales, rhonchi or wheezes Cardio regular rate, regular rhythm, S1 normal heart sound, S2 normal heart sound, no murmurs, no rub, no gallops and no clicks GI normal to inspection, nondistended, normoactive bowel sounds, soft to palpation and non-tender Extremity normal to inspection, full ROM, normal capillary refill, no clubbing, cyanosis or edema and no calf tenderness Extremity Narrative: Pedal pulses are 1+ bilaterally General Extremity: clubbing Skin no rashes or lesions noted General Skin Exam: no breakdown Neuro oriented x3, CN's II-XII intact bilaterally, moves all extremities, no focal motor deficits, no sensory deficits noted and deep tendon reflexes 2+ bilaterally Speech: speech normal Psych thought process normal and cooperative Psych Narrative: Affect is flat Mood & Affect: flat affect Weight / BMI Weight Weight: 178 lb 5.663 oz Body Mass Index (BMI) 30.6 ABG / Lab / Microbiology Data 11/19/22 06:22 11/19/22 06:22 Laboratory: Laboratory Results - last 24 hr 11/19/22 06:22: WBC 10.5, RBC 4.56, Hgb 13.6, Hct 44.0, MCV 96.5, MCH 29.8, MCHC 30.9 L, RDW Std Deviation 50.1 H, RDW Coeff of Jeovanny 14.2, Plt Count 291, MPV 9.8, Immature Gran % (Auto) 0.500, Neut % (Auto) 63.6, Lymph % (Auto) 22.9, [place]cculloch % (Auto) 11.0 H, Eos % (Auto) 1.5, Baso % (Auto) 0.5, Absolute Neuts (auto) 6.7, Absolute Lymphs (auto) 2.40, Nucleated RBC % 0, Sodium 143, Potassium 3.4 L, Chloride 113 H, Carbon Dioxide 22.0, Anion Gap 8, BUN 21 H, Creatinine 0.58, Estim Creat Clear Calc 41.33, Est GFR (MDRD) Af Amer 129, Est GFR (MDRD) Non-Af 107, BUN/Creatinine Ratio 36.1 H, Glucose 102, Calcium 9.0 Microbiology: Microbiology 11/15/22 12:20 Blood Culture (Wb) - Arm Left Blood Culture - Preliminary No growth in 48 hours. 11/15/22 10:40 Blood Culture (Wb) - Arm Right Blood Culture - Preliminary No growth in 48 hours. 11/15/22 11:30 Urine Catheter - Catheter Urine Culture - Final Escherichia coli Meaningful Use Info Meaningful Use Diagnoses (Choose all that apply): None applicable Discharge Plan Admission Admit Date/Time: 11/15/22 13:08 Primary Reason for Your Visit: seizures, UTI Attending Provider: Yudith Ruth Primary Care Provider: Ariana Muniz Consulting Providers: Cynthia Abraham Instructions Patient Instructions: ED Seizure New Onset Unknown ... Discharge Orders/Prescriptions Prescriptions: New levetiracetam 750 mg Tablet 750 mg PO BID Qty: 60 2RF cefdinir 300 mg capsule 300 mg PO BID Qty: 6 0RF Continued atorvastatin 40 mg tablet 40 mg PO DAILY Qty: 30 5RF Discontinued levetiracetam 500 mg tablet 500 mg PO BID Qty: 60 4RF Referrals / Follow Up: Ariana Muniz DO [Primary Care Provider] - Within 1 Week Fan Wei MD [Non-Staff -Ordering Privileges] - Within 2 Weeks Disposition Disposition (needs filled in before D/C Order can be placed): [facility] Charges/Coding Visit Charges Inpatient E&M: 25328 Disch Hosp >30min
== END 2022-11-19 17:37 | disposition skilled nursing facility (03) | DRG 57 ==
LOC: ED 13:16 → PCU 13:31
PROVIDERS: Admitting Provider Internal Medicine; Emergency Provider Emergency Medicine; PCP Family Medicine; Visit Provider Student in an Organized Health Care Education/Training Program
DX: I69.198 Other sequelae of nontraumatic intracerebral hemorrhage (principal); E87.20 Acidosis, unspecified; G91.0 Communicating hydrocephalus; I69.354 Hemiplegia and hemiparesis following cerebral infarction affecting left non-dominant side; N30.00 Acute cystitis without hematuria; G40.409 Other generalized epilepsy and epileptic syndromes, not intractable, without status epilepticus; I10 Essential (primary) hypertension; E78.5 Hyperlipidemia, unspecified; E87.6 Hypokalemia; E66.9 Obesity, unspecified; B96.20 Unspecified Escherichia coli [E. coli] as the cause of diseases classified elsewhere; Z68.30 Body mass index [BMI] 30.0-30.9, adult; Z66 Do not resuscitate; Z79.899 Other long term (current) drug therapy
CPT/HCPCS: 36415; 70450; 70553; 71045; 80048; 80053; 80076; 80177; 81001; 83605; 83735; 84100; 84443; 84484; 85025; 85610; 85730; 87040; 87077; 87086; 87088; 87186; 93005; 95819; 97162; 97166; 97530; 97535; 99285; A9575; J7030; A4216

== ENCOUNTER 2022-11-19 17:57 | Inpatient (IN) | payer MEDICARE, SELFPAY ==
[2022-11-19 18:05] VITALS: BP 123/55; PULSE 88; RESP 16; TEMP 36.2; O2SAT 96; BMI 27.3
[2022-11-19 20:02] VITALS: PULSE 88; RESP 16; O2SAT 96
--- NOTE | 2022-11-19 20:21 | HP.PCM_ITS ---
HPI - General General Date of Admission: 11/19/22 Date of Service: 11/19/22 Chief Complaint: Here for rehabilitation. HPI Narrative 11/15/2022 MARILUZ DREW, is a 77 Female who presents to [facility] Emergency Department with seizure. Seizure history, hemorrhagic stroke, on Keppra for seizure. 1 minute seizure, postictal, left hemiplegia chronic, urine foul. WBC 12.2 Urinalysis consistent with urinary tract infection, urine culture sent, blood culture sent, IV fluids given. Seized again, Ativan 0.5mg, Keppra 500mg IV given, Lactate 6.1, thought secondary to seizure, no sepsis. 11/15/2022 Admit to Hospital. EEG for seizures. Increase Keppra to 500mg twice daily for seizures. Ceftriaxone IV for urinary tract infection, urine culture pending. 11/16/2022 EEG done, highly epileptogenic structural abnormality in right temporal region, superimposed on diffuse metabolic encephalopathy, no seizure patterns PT/OT debility. Urine culture growing gram negative rods. Replace potassium 3.4. 11/18/2022 Keppra increased to 750mg twice daily for seizure disorder. 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 Ceftriaxone for urinary tract infection, Urine culture growing gram negative rods. 11/19/2022 Neurology thought communicating hydrocephalus incidental, outpatient neurology follow up recommended. Urine culture growing E. Coli, complete 5 days IV Ceftriaxone. 11/19/2022 Admit to TCU with debility, here for rehabilitation, strengthening, prior to discharge home with . [facility] Medical History (Updated 11/19/22 @ 20:[address] Peter Narayanan MD) Arthritis Dysphagia Epilepsy Hemorrhagic stroke History of stroke Hyperlipidemia Hypertension Lab test negative for COVID-19 virus Stroke/cerebrovascular accident Home Medications atorvastatin 40 mg tablet 40 mg PO DAILY cholesterol #30 tabs 08/20/22 [Rx Last Taken 11/19/22] cefdinir 300 mg capsule 300 mg PO BID antibiotic #6 caps 11/19/22 [Rx Last Taken 11/19/22] levetiracetam 750 mg tablet 750 mg PO BID seizure #60 tabs 11/19/22 [Rx Last Taken Unknown] Allergy/AdvReac Type Severity Reaction Status Date / Time Sulfa (Sulfonamide Allergy Rash Verified 11/15/22 10:20 Antibiotics) Surgical History H/O: hysterectomy History of craniotomy History of embolic filter insertion History of gastrostomy History of laparoscopic cholecystectomy History of tracheostomy Social History household members: spouse Smoking Status: Never smoker alcohol intake: never substance use type: does not use ROS Constitutional Constitutional: Denies chills, fever(s) or weight gain ENT HEENT: Denies headache(s), nasal congestion or nasal discharge Cardiovascular Cardiovascular: Denies chest pain or palpitations Respiratory/Chest Respiratory/Chest: Denies cough, excessive phlegm production or shortness of breath with exertion Gastrointestinal Gastrointestinal: Denies abdominal pain, nausea or vomiting Genitourinary Genitourinary: Denies dysuria Musculoskeletal Musculoskeletal: Denies joint pain or joint swelling Integumentary Integumentary: Denies rash or wounds Neurologic Neurologic: Denies focal weakness, numbness or tingling Psychiatric Psychiatric: Denies anxiety, auditory hallucinations, depression, homicidal ideation or suicidal ideation Vital Signs Vital Signs Vital Signs: 11/19/22 18:05 11/19/22 20:02 Temperature 97.1 F L Temperature Source Temporal Pulse Rate 88 88 Pulse Rhythm Regular Pulse Strength Normal (2+) Respiratory Rate 16 16 Respiratory Effort Normal Non-Labored Respiratory Depth Normal Respiratory Pattern Normal Blood Pressure 123/55 H Blood Pressure Mean 77 Blood Pressure Source Monitor Blood Pressure Position Semi-Fowlers Blood Pressure Location Right Forearm Pulse Ox 96 96 Oxygen Delivery Method Room Air Room Air Weight Weight: 79.2 kg Body Mass Index (BMI) 27.3 Physical Exam Const alert General Appearance: cooperative HEENT normocephalic Eyes PERRL and EOMs intact bilaterally Neck supple, no JVD and no carotid bruits Resp normal respiratory effort, normal air movement and clear to auscultation bilaterally Cardio regular rate and regular rhythm GI normal to inspection, nondistended, normoactive bowel sounds, non-tender and non-distended Extremity normal capillary refill General Extremity: Negative for edema Skin no rashes or lesions noted General Skin Exam: no breakdown Neuro Neuro Narrative: Left hemiplegia. Psych affect normal Appearance: appropriate Assessment & Plan Assessment/Plan (1) Debility: (2) Epileptic seizure: (3) Urinary tract infection: (4) Communicating hydrocephalus: (5) Hemorrhagic stroke: (6) Left hemiplegia: (7) Hypertension: (8) Hyperlipidemia: (9) Dysphagia: PLAN: Plan 77 year old female with below past medical history hospitalized for seizure, complicated by urinary tract infection, incidental communicating hydrocephalus, admitted to TCU with debility, here for rehabilitation, strengthening, prior to discharge home with . * Debility - PT/OT. * Pain - Tylenol 1000mg q6 prn pain (1-10). * Bowel - senna/colace 1 tablet bid, Dulcolax 10mg pr daily prn. * Adult immunization - Administer pneumonia vaccine, covid19 vaccine, flu vaccine as appropriate. * DVT prophylaxis - Hold, history hemorrhagic stroke. * Hyperlipidemia - Atorvastatin 40mg qhs. * E. Coli urinary tract infection - Cefdinir 300mg bid thru 11/22/2022. * Seizure disorder - Keppra 750mg twice daily. * Communicating hydrocephalus - Follow up with Dr. Wei after discharge.
[2022-11-19] MEDS: levETIRAcetam 750 MG Tablet PO (22:06)
[2022-11-19] MEDS: Senna/Docusate Sodium 1 Tablet PO (22:06)
[2022-11-19] MEDS: Cefdinir 300 MG Capsule PO (22:06)
[2022-11-20 05:44] LABS: Absolute Lymphocyte Count 2.34 X10^3/uL (0.83-4.51); Absolute Neutrophil Count 8.4 X10^3/uL (2.0-7.7); Basophil# 0.05 X10^3/uL; Basophil% 0.4 % (0-1); Eosinophil# 0.09 X10^3/uL; Eosinophils% 0.8 % (0-5); Hematocrit 44.3 % (37-47); Lymphocyte # 2.34 X10^3/ul (0.83-4.51); Mean Corp Hgb Conc 31.6 g/dL (32-36); Mean Corpuscular Hgb 30.2 pg (27.0-32.0); Mean Corpuscular Volume 95.5 fL (81-99); Mean Platelet Vol. 9.9 fl (6.2-12.0); Monocyte# 0.78 X10^3/uL; Monocyte% 6.7 % (0-10); NRBC Flagged by Analyzer 0.3 % (0-5); Neutrophil # 8.41 X10^3/uL (2.7-7.7); Neutrophil % 71.8 % (47-70); Platelet Count 288 K/mm3 (150-450); RBC Distribution Width CV 14.2 % (11.6-14.6); RBC Distribution Width SD 49.1 fl (35.1-43.9); Red Blood Count 4.64 M/mm3 (4.2-5.4); White Blood Count 11.7 K/mm3 (4.4-11.0)
[2022-11-20] MEDS: Bisacodyl 10 MG Suppository RC (06:17)
--- NOTE | 2022-11-20 06:22 | NURSING ---
Pt unable to answer questions appropriately during assessments will need assistance to finish admission forms.
--- NOTE | 2022-11-20 06:24 | NURSING ---
Addendum entered by Carol Denton 11/20/22 19:31: contacted patient investment representative/spouse per contact list (Nabeel) to notify of need for admission paper work to be signed due to patients continued confusion/alert to self and inappropriate for patient to complete paper work at this time. Per rep (Nabeel) he will attempt to arrive with weekend with adult child to sign paper work. Original Note: Patient alert to self, patient investment representative will need to complete admission paperwork due to cognitive status
[2022-11-20 06:27] LABS: Anion Gap 4 (5-15); BUN 18 mg/dL (7-18); BUN/Creat Ratio 32.4 RATIO (10-20); Calcium,Total 9.1 mg/dL (8.5-10.1); Chloride 114 mmol/L (98-107); Creatinine, Serum 0.56 mg/dL (0.55-1.02); EST Glomerular Filtration Rate 113 mL/min (>60); Est Glom Filt Rate - Afr Amer 137 mL/min (>60); Estimated Creatinine Clearance 46.54 ml/min; Glucose 123 mg/dL (74-106); Potassium 4.5 mmol/L (3.5-5.1); Sodium Level 141 mmol/L (136-145)
--- NOTE | 2022-11-20 06:34 | NURSING ---
Pt not had BM since 11/15 rectal suppository given, tolerated well. Abdomen firm and round. Bowel sounds present hypo.
[2022-11-20 07:03] VITALS: O2SAT 95
[2022-11-20 09:55] VITALS: BP 134/83; PULSE 96; RESP 17; TEMP 36.6; O2SAT 95
[2022-11-20] MEDS: Miconazole Nitrate 43 GM Bottle 1 APPLIC TOPICAL ×2 (09:58→21:24)
[2022-11-20] MEDS: levETIRAcetam 750 MG Tablet PO ×2 (09:59→21:25)
[2022-11-20] MEDS: Cefdinir 300 MG Capsule PO ×2 (09:59→21:25)
[2022-11-20] MEDS: Atorvastatin Calcium 40 MG Tablet PO (09:59)
[2022-11-20] MEDS: Menthol/Lanolin/Calamine/Znox 113 GM Tube 1 APPLIC TOPICAL ×2 (10:00→21:24)
[2022-11-20] MEDS: Senna/Docusate Sodium 1 Tablet PO ×2 (10:01→21:25)
[2022-11-20] MEDS: Tuberculin,Purif.prot.deriv. 50 TU/ML Vial 0.1 ML ID (10:11)
--- NOTE | 2022-11-20 11:05 | PCM.PN.DRR ---
TCU RX Drug Regimen Review Subjective/Objective Subjective/Objective: Subjective: 77 YOF admitted to TCU 11/19/22 s/p hospitalization at [facility] for UTI/ seizures. Patient admitted to TCU for strengthening and rehabilitation prior to discharge home where she resides with her . Objective: Allergies Sulfa (Sulfonamide Antibiotics) Allergy (Verified 11/15/22 10:20) Rash Current Medications Generic Name Dose Route Start Last Admin Trade Name Freq PRN Reason Stop Dose Admin Acetaminophen 1,000 mg 11/19/22 20:43 Acetaminophen 500 Mg Tablet PO Q6H PRN PRN Pain Score 1-10 Atorvastatin Calcium 40 mg 11/20/22 10:00 11/20/22 09:59 Atorvastatin Calcium 40 Mg Tablet PO 40 mg DAILY REBEKA Administration Bisacodyl 10 mg 11/19/22 18:15 11/20/22 06:17 Bisacodyl 10 Mg Suppository RC 10 mg DAILY PRN PRN Administration Constipation Calamine/Phenol 1 applic 11/20/22 10:00 11/20/22 10:00 Menthol/Lanolin/Calamine/Znox 113 Gm Tube TOPICAL 1 applic BID REBEKA Administration Protocol Cefdinir 300 mg 11/19/22 22:00 11/20/22 09:59 Cefdinir 300 Mg Capsule PO 11/22/22 10:01 300 mg BID REBEKA Administration Levetiracetam 750 mg 11/19/22 22:00 11/20/22 09:59 Levetiracetam 750 Mg Tablet PO 750 mg BID REBEKA Administration Miconazole Nitrate 1 applic 11/20/22 10:00 11/20/22 09:58 Miconazole Nitrate 43 Gm Bottle TOPICAL 1 applic BID REBEKA Administration Protocol Nystatin 500,000 unit 11/20/22 12:00 Nystatin 500,000 Unit/5 Ml Udc PO 11/30/22 12:01 4X/DAY REBEKA Senna/Docusate Sodium 1 tablet 11/19/22 22:00 11/20/22 10:01 Senna/Docusate Sodium 1 Tablet PO 1 tablet BID REBEKA Administration Sodium Chloride 10 - 40 ml 11/19/22 18:08 0.9% Saline Lock 10 Ml Syringe IV UD PRN SALINE FLUSH Tuberculin PPD 0.1 ml 11/27/22 10:00 Tuberculin,Purif.Prot.Deriv. 50 Tu/Ml Vial ID 11/27/22 10:01 X1 ONE Problem List (Updated 11/19/22 @ 20:[address] Peter Narayanan MD) Dysphagia (Acute) Hypertension (Chronic) Left hemiplegia (Acute) Hemorrhagic stroke (Acute) Communicating hydrocephalus (Acute) Epileptic seizure (Acute) Urinary tract infection (Acute) Debility (Acute) Hyperlipidemia (Chronic) Vital Signs Temp Pulse Resp BP Pulse Ox O2 Del Method 97.8 F 96 17 134/83 H 95 Room Air 11/20/22 09:55 11/20/22 09:55 11/20/22 09:55 11/20/22 09:55 11/20/22 09:55 11/20/22 09:55 Oxygen Delivery Method Room Air Weight: 79.2 kg Body Mass Index (BMI) 27.3 Sodium 141 mmol/L (136-145) 11/20/22 05:34 Potassium 4.5 mmol/L (3.5-5.1) 11/20/22 05:34 Chloride 114 mmol/L (98-107) H 11/20/22 05:34 Carbon Dioxide 23.0 mmol/L (21.0-32.0) 11/20/22 05:34 Anion Gap 4 (5-15) L 11/20/22 05:34 BUN 18 mg/dL (7-18) 11/20/22 05:34 Creatinine 0.56 mg/dL (0.55-1.02) 11/20/22 05:34 Est GFR (MDRD) Af Amer 137 mL/min (>60) 11/20/22 05:34 Est GFR (MDRD) Non-Af 113 mL/min (>60) 11/20/22 05:34 BUN/Creatinine Ratio 32.4 RATIO (10-20) H 11/20/22 05:34 Glucose 123 mg/dL (74-106) H 11/20/22 05:34 Assessment/Plan: 1. Pain: Tylenol 1000mg PO Q6h PRN Pain 1-10. Please continue to monitor for increased/decreased S/S pain, PRN medication usage, LFT with frequent Tylenol use. -To sate, the patient has required zero doses of PRN Tylenol. Pain appears to be managed at this time. 2. UTI: Cefdinir 300mg PO BID thru 11/22/22. Please continue to monitor for resolution of infection, CrCl (46mL/min on 11/20), nausea, vomiting, diarrhea. -Patient's culture data from 11/15 shows e.coli which is sensitive to current therapy with cefdinir. 3. Seizure Disorder: Keppra 750mg PO BID. Please continue to monitor for seizure activity, drowsiness, headache. This is a Beer's Criteria medication which can increase the risk of falls/fractures in population >65. Please continue to monitor closely, medication benefit appears to outweigh risk at this time. 4. History of Stroke/HLD: Lipitor 40mg PO Daily. Please continue to monitor lipid panel annually or sooner if clinically indicated. Patient does not have a lipid panel on file per EMR review, please consider obtaining lipid panel if clinically indicated, thank you. 5. Bowel: Senna/Docusate 1 tab PO BID, Dulcolax 10mg [place] Daily PRN. Please continue to monitor for increased/decreased constipation and/or diarrhea. -The patient has not yet had a BM since admission, however it has been <24hrs. If patient does not have BM in the next 48hrs, please consider PRN suppository administration. 6. Skin Integrity: Calmoseptine topically BID, Miconazole powder topically BID. Please continue to monitor for S/S skin irritation, redness, ulcer formation. 7. Thrush: Nystatin 50,000 unit/5ml PO 4x/day thru 11/30. Please continue to monitor for resolution of infection, mouth/oral discomfort. Assessment/Plan for indications treated with psychotropic medications: The patient is not currently being maintained on any antipsychotic medications at time of medication review. Medical chart and medication regimen reviewed. The following medication irregularities or issues were identified: 1. History of Stroke/HLD: Patient does not have a lipid panel on file per EMR review, please consider obtaining lipid panel if clinically indicated, thank you. Date Date of Note:: 11/20/22
--- NOTE | 2022-11-20 13:18 | CASEMGMT ---
Social Work Met with patient, introduced self and role. Pt unable to effectively communicate. SW phoned . sounded frail and admitted to having own health issues recently. A woman was speaking in the background and stated that was an aide. SW spoke with the aide, whom stated she is self-employed and provided 8 hrs of care M-F to pt, and now to since needs assistance. Aide stated she has assists with ADLs and IADLs. SW thanked aide and for information. SW phoned dtr to inquire about home situation with pt and . Dtr agreed aide was providing pt care and has had several hospitalizations in the last month. Dtr admitted pt and need 24/7 care at home, and the 3 other children assist during the night but are looking to hire aides for night time care. SW inquired about SNF placement. Dtr stated pt has been to SNF prior and did not have a good experience, plus the cost will substantial for both pt and , and would prefer to keep pt and in the home. Dtr stated if pt cannot be more mobile and is more than a one person assist at time of DC, pt will need to go to a SNF for further rehab, otherwise, pt will DC home. SW expressed understanding and offered assistance with DC planning. Educated to [facility] insurance with NRD 11/23 and continued stay is not guaranteed. Dtr appreciative. BRIANNA PhanW
[2022-11-20] MEDS: NYSTATIN 500,000 UNIT/5 ML UDC 500000 UNIT PO ×3 (13:23→21:25)
--- NOTE | 2022-11-20 13:45 | NURSING ---
Notified Dr. Narayanan last Keppra level was drawn 11/15. New order to draw Keppra level in the morning.
[2022-11-20] MEDS: 0.9% Saline Lock 10 ML Syringe IV (20:34)
[2022-11-20 20:38] VITALS: PULSE 98; RESP 14; O2SAT 97
[2022-11-21] MEDS: NYSTATIN 500,000 UNIT/5 ML UDC 500000 UNIT PO ×4 (05:19→20:37)
[2022-11-21 05:27] VITALS: PULSE 85; RESP 16; O2SAT 97
[2022-11-21] MEDS: levETIRAcetam 750 MG Tablet PO ×2 (10:37→21:02)
[2022-11-21] MEDS: Cefdinir 300 MG Capsule PO ×2 (10:37→20:37)
[2022-11-21] MEDS: Senna/Docusate Sodium 1 Tablet PO ×2 (10:37→20:37)
[2022-11-21] MEDS: Miconazole Nitrate 43 GM Bottle 1 APPLIC TOPICAL ×2 (10:37→20:41)
[2022-11-21] MEDS: Atorvastatin Calcium 40 MG Tablet PO (10:37)
[2022-11-21] MEDS: Menthol/Lanolin/Calamine/Znox 113 GM Tube 1 APPLIC TOPICAL ×2 (10:38→20:41)
[2022-11-21 10:40] VITALS: BP 106/68; PULSE 94; RESP 17; TEMP 36.3; O2SAT 96
[2022-11-21] MEDS: 0.9% Saline Lock 10 ML Syringe IV (10:45)
[2022-11-21 15:26] VITALS: BP 106/60; PULSE 91; RESP 16; TEMP 36.1; O2SAT 94
[2022-11-22] MEDS: NYSTATIN 500,000 UNIT/5 ML UDC 500000 UNIT PO ×4 (05:57→21:01)
[2022-11-22] MEDS: Miconazole Nitrate 43 GM Bottle 1 APPLIC TOPICAL ×2 (10:05→21:03)
[2022-11-22] MEDS: Menthol/Lanolin/Calamine/Znox 113 GM Tube 1 APPLIC TOPICAL ×2 (10:06→21:02)
[2022-11-22] MEDS: Senna/Docusate Sodium 1 Tablet PO ×2 (10:07→21:01)
[2022-11-22] MEDS: Cefdinir 300 MG Capsule PO (10:08)
[2022-11-22] MEDS: Atorvastatin Calcium 40 MG Tablet PO (10:08)
[2022-11-22] MEDS: levETIRAcetam 750 MG Tablet PO ×2 (10:08→21:01)
[2022-11-22] MEDS: 0.9% Saline Lock 10 ML Syringe IV (11:16)
[2022-11-22 15:56] VITALS: BP 106/67; PULSE 67; RESP 18; TEMP 36.7; O2SAT 91
[2022-11-23] MEDS: NYSTATIN 500,000 UNIT/5 ML UDC 500000 UNIT PO ×4 (05:43→20:00)
[2022-11-23] MEDS: levETIRAcetam 750 MG Tablet PO ×2 (08:28→20:00)
[2022-11-23] MEDS: Atorvastatin Calcium 40 MG Tablet PO (08:28)
[2022-11-23] MEDS: Senna/Docusate Sodium 1 Tablet PO ×2 (08:28→20:00)
[2022-11-23] MEDS: Miconazole Nitrate 43 GM Bottle 1 APPLIC TOPICAL ×2 (08:29→20:03)
[2022-11-23] MEDS: Menthol/Lanolin/Calamine/Znox 113 GM Tube 1 APPLIC TOPICAL ×2 (08:32→20:03)
[2022-11-23 12:03] VITALS: BP 116/60; PULSE 103; RESP 16; TEMP 36.6; O2SAT 98
--- NOTE | 2022-11-23 14:43 | NS ---
MST score = 4 d/t unknown UBW and unable to obtain wt loss hx. No food dislikes named. Provided written copy of daily specials/first choice menu.
[2022-11-23 16:25] VITALS: O2SAT 94
[2022-11-24] MEDS: NYSTATIN 500,000 UNIT/5 ML UDC 500000 UNIT PO ×4 (05:48→22:05)
[2022-11-24 06:42] VITALS: BMI 27.7
[2022-11-24] MEDS: Atorvastatin Calcium 40 MG Tablet PO (09:23)
[2022-11-24] MEDS: Miconazole Nitrate 43 GM Bottle 1 APPLIC TOPICAL ×2 (09:23→22:06)
[2022-11-24] MEDS: Senna/Docusate Sodium 1 Tablet PO ×2 (09:23→22:05)
[2022-11-24] MEDS: Menthol/Lanolin/Calamine/Znox 113 GM Tube 1 APPLIC TOPICAL ×2 (09:23→22:05)
[2022-11-24] MEDS: levETIRAcetam 750 MG Tablet PO ×2 (09:23→22:05)
[2022-11-24] MEDS: Flu Vacc QS2023-24(65YR UP)/PF 240 MCG/0.7 ML Syringe IM (10:17)
[2022-11-24 14:15] VITALS: BP 128/76; PULSE 80; RESP 16; TEMP 36.3; O2SAT 97
--- NOTE | 2022-11-24 16:15 | CHAPLAIN ---
Type of Pastoral Visit _x__ Initial Visit ___ Follow-up Visit ___ On-call Visit ___ General Patient Visit ___ Spiritual Assessment ___ Family Conference ___ Bereavement ___ Rapid Response ___ Code Blue ___ Other (describe below) Pastoral Care Referral From _x__ Patient ___ Family ___ Nurse ___ Physician ___ Rental Clerk Tool And Equipment ___ Central Station Operator ___ Other (describe below) Sacrament/Intervention _x__ Active listening ___ Anointing ___ Jain ___ Bereavement ___ Communion ___ Citlaly exploration ___ _x__ Life review _x__ Prayer ___ Reconciliation ___ Sacrament of Sick _x__ Supportive presence ___ Wedding ___ Other (describe below) Pastoral Comments patient is pleasant and is able to converse although at times she is slow to answer the questions and hesitant as if thinking long before she speaks; pt talks about family and states several times that grandchildren can walk to our house; pt has a jehovah's witness community; pt welcomes presence and prayer
[2022-11-24 17:07] LABS: KEPPRA (LEVETIRACETAM) 14.3 ug/mL (10.0-40.0)
[2022-11-25] MEDS: NYSTATIN 500,000 UNIT/5 ML UDC 500000 UNIT PO ×4 (05:04→21:38)
[2022-11-25 07:10] VITALS: O2SAT 95
[2022-11-25] MEDS: Senna/Docusate Sodium 1 Tablet PO ×2 (10:22→21:38)
[2022-11-25] MEDS: Atorvastatin Calcium 40 MG Tablet PO (10:22)
[2022-11-25] MEDS: Miconazole Nitrate 43 GM Bottle 1 APPLIC TOPICAL ×2 (10:23→21:43)
[2022-11-25] MEDS: levETIRAcetam 750 MG Tablet PO ×2 (10:23→21:38)
[2022-11-25] MEDS: Menthol/Lanolin/Calamine/Znox 113 GM Tube 1 APPLIC TOPICAL ×2 (10:23→21:43)
[2022-11-25 10:30] VITALS: PULSE 110; RESP 18; O2SAT 94
[2022-11-25] MEDS: 0.9% Saline Lock 10 ML Syringe IV (10:39)
--- NOTE | 2022-11-25 13:01 | CASEMGMT ---
Social Work IDT met with patient, , two sons, and caregiver for care plan meeting. Discussed patient's progress in PT/OT/ST/SN. Educated to [facility] insurance with NRD 12/02, EDC 12/05, and continued stay is not guaranteed with each review. Requested family bring in copies of advanced directives. Inquired about LOC pt needs to be at to return home. Caregiver stated pt to be one person assist, step in shower, walk with a walker. Pt has all DME needed. SW inquired about DC plan if pt does not reach PLOF. Offered SNF placement. Family agree pt will need SNF if not improved enough. Coworker provided printed list of SNFs in [facility] with quality and resource data via [employer] Guide. Family to provide this worker with choices. Family is aware SNF would be private pay. SW will continue to follow for DC planning. Jillian Marrufo MSW MEDIA ARTS PROFESSOR
[2022-11-25 13:21] VITALS: BP 112/68; PULSE 92; RESP 16; TEMP 36.4; O2SAT 98
[2022-11-26] MEDS: NYSTATIN 500,000 UNIT/5 ML UDC 500000 UNIT PO ×4 (06:16→21:48)
[2022-11-26 07:36] VITALS: O2SAT 90
[2022-11-26] MEDS: Senna/Docusate Sodium 1 Tablet PO ×2 (08:41→21:48)
[2022-11-26] MEDS: levETIRAcetam 750 MG Tablet PO ×2 (08:41→21:47)
[2022-11-26] MEDS: Atorvastatin Calcium 40 MG Tablet PO (08:41)
[2022-11-26] MEDS: Miconazole Nitrate 43 GM Bottle 1 APPLIC TOPICAL ×2 (08:42→20:31)
[2022-11-26] MEDS: Menthol/Lanolin/Calamine/Znox 113 GM Tube 1 APPLIC TOPICAL ×2 (08:42→20:31)
[2022-11-26 11:31] VITALS: PULSE 97; RESP 16
--- NOTE | 2022-11-26 12:32 | CASEMGMT ---
Social Work BIMS and PHQ-2 completed for MDS assessment. jeffery hayes, FISH ICER FARM TRACTOR OPERATOR
[2022-11-26 13:21] VITALS: BP 122/63; PULSE 78; RESP 14; TEMP 36.3; O2SAT 97
[2022-11-26] MEDS: 0.9% Saline Lock 10 ML Syringe IV (20:40)
[2022-11-27] MEDS: NYSTATIN 500,000 UNIT/5 ML UDC 500000 UNIT PO ×4 (05:30→21:09)
[2022-11-27 05:37] LABS: Absolute Lymphocyte Count 2.63 X10^3/uL (0.83-4.51); Basophil# 0.03 X10^3/uL; Basophil% 0.4 % (0-1); Eosinophil# 0.14 X10^3/uL; Eosinophils% 1.6 % (0-5); Hematocrit 36.8 % (37-47); Hemoglobin 11.6 g/dL (12.0-15.0); Lymphocyte # 2.63 X10^3/ul (0.83-4.51); Lymphocyte % 30.9 % (19-41); Mean Corp Hgb Conc 31.5 g/dL (32-36); Mean Corpuscular Hgb 29.7 pg (27.0-32.0); Mean Corpuscular Volume 94.4 fL (81-99); Mean Platelet Vol. 9.1 fl (6.2-12.0); Monocyte# 0.73 X10^3/uL; Monocyte% 8.6 % (0-10); NRBC Flagged by Analyzer 0 % (0-5); Neutrophil # 4.95 X10^3/uL (2.7-7.7); Neutrophil % 58.1 % (47-70); Platelet Count 306 K/mm3 (150-450); RBC Distribution Width CV 14.1 % (11.6-14.6); RBC Distribution Width SD 48.4 fl (35.1-43.9); White Blood Count 8.5 K/mm3 (4.4-11.0)
[2022-11-27 06:03] LABS: Anion Gap 5 (5-15); BUN 11 mg/dL (7-18); BUN/Creat Ratio 18.1 RATIO (10-20); Calcium,Total 8.7 mg/dL (8.5-10.1); Chloride 112 mmol/L (98-107); Creatinine, Serum 0.61 mg/dL (0.55-1.02); EST Glomerular Filtration Rate 102 mL/min (>60); Est Glom Filt Rate - Afr Amer 123 mL/min (>60); Estimated Creatinine Clearance 46.54 ml/min; Glucose 99 mg/dL (74-106); Potassium 3.3 mmol/L (3.5-5.1); Sodium Level 144 mmol/L (136-145)
[2022-11-27] MEDS: Menthol/Lanolin/Calamine/Znox 113 GM Tube 1 APPLIC TOPICAL ×2 (08:05→21:08)
[2022-11-27] MEDS: Miconazole Nitrate 43 GM Bottle 1 APPLIC TOPICAL ×2 (08:05→21:09)
[2022-11-27] MEDS: Senna/Docusate Sodium 1 Tablet PO ×2 (08:06→21:09)
[2022-11-27] MEDS: Atorvastatin Calcium 40 MG Tablet PO (08:06)
[2022-11-27] MEDS: levETIRAcetam 750 MG Tablet PO ×2 (08:06→21:09)
[2022-11-27] MEDS: Potassium Chloride Oral Tablet 20 MEQ 40 MEQ PO (09:43)
[2022-11-27] MEDS: Tuberculin,Purif.prot.deriv. 50 TU/ML Vial 0.1 ML ID (09:44)
[2022-11-27 15:59] VITALS: BP 111/75; PULSE 77; RESP 16; TEMP 35.8; O2SAT 96
[2022-11-27 21:10] VITALS: PULSE 76; RESP 16; O2SAT 95
[2022-11-27 21:45] VITALS: BP 132/76; PULSE 84; RESP 18; TEMP 36.6; O2SAT 97
--- NOTE | 2022-11-27 21:45 | NURSING ---
Patient attempting to get OOB and up to BR per self, Aides heard bed alarm sound and found pt standing shakily at bedside- Aides gently lowered pt to floor. This nurse in room, VSS- pt denies head strike, and no obvious injuries noted. With max assist of 3 persons was able to get pt into bed and into a position of comfort. Pt repeated she was trying to get up and use the BR, alert and oriented to self only at this time, this nurse re-oriented to time and place and reinforced use of call light for needs.
--- NOTE | 2022-11-27 22:03 | NURSING ---
Dr. valadez notified patient lowered to floor by staff as reported by LINING CEMENTER x2 and MANUAL TRAINING TEACHER, no head strike, no obvious injury, not on blood thinner. Patient assessed and in no distress. No new orders at this time.
[2022-11-27] MEDS: Acetaminophen 500 MG Tablet 1000 MG PO (22:14)
[2022-11-28] MEDS: 0.9% Saline Lock 10 ML Syringe IV (00:04)
[2022-11-28] MEDS: Acetaminophen 500 MG Tablet 1000 MG PO (05:06)
[2022-11-28] MEDS: NYSTATIN 500,000 UNIT/5 ML UDC 500000 UNIT PO ×4 (05:06→20:05)
[2022-11-28] MEDS: Senna/Docusate Sodium 1 Tablet PO ×2 (09:06→20:04)
[2022-11-28] MEDS: Miconazole Nitrate 43 GM Bottle 1 APPLIC TOPICAL ×2 (09:06→20:08)
[2022-11-28] MEDS: Atorvastatin Calcium 40 MG Tablet PO (09:06)
[2022-11-28] MEDS: levETIRAcetam 750 MG Tablet PO ×2 (09:06→20:04)
[2022-11-28] MEDS: Menthol/Lanolin/Calamine/Znox 113 GM Tube 1 APPLIC TOPICAL ×2 (09:07→20:07)
[2022-11-28 09:36] LABS: Anion Gap 5 (5-15); BUN 9 mg/dL (7-18); BUN/Creat Ratio 12.8 RATIO (10-20); Chloride 110 mmol/L (98-107); EST Glomerular Filtration Rate 86 mL/min (>60); Est Glom Filt Rate - Afr Amer 104 mL/min (>60); Estimated Creatinine Clearance 46.54 ml/min; Glucose 164 mg/dL (74-106); Potassium 3.4 mmol/L (3.5-5.1); Sodium Level 141 mmol/L (136-145)
[2022-11-28 15:52] VITALS: BP 118/62; PULSE 77; RESP 18; TEMP 36.9; O2SAT 94
[2022-11-28 17:30] VITALS: BP 141/67; PULSE 88; RESP 16; O2SAT 97
--- NOTE | 2022-11-28 17:40 | NURSING ---
Pt. found on floor sitting beside head. Bed alarm was on but did not go off when pt. exited bed. Pt. states that she wanted to get to chair but was unable. Pt. also states that she did not hit her head. Complains of slight right knee pain but able to move and stand on knee. No visible injuries noted to right knee. No visible injuries elsewhere. Pt. able to stand with assistance and put back in bed with new bed alarm. Vital signs obtained. Dr. Narayanan notified.
--- NOTE | 2022-11-28 18:43 | NURSING ---
Pt.'s notified of positive COVID on the floor as well as patient falling this evening. Pt. had no further questions and appreciative of update.
--- NOTE | 2022-11-28 22:37 | NURSING ---
Pt's alarm heard by this nurse. Upon entering room, pt observed partially out of bed and sliding to the floor with weight on her knees. Post-fall assessment completed. Pt not able to state why she was trying to get out of bed. 2 staff members assisted pt back into bed. Floor mats places beside bed. Call light educated reinforced.
[2022-11-29] MEDS: NYSTATIN 500,000 UNIT/5 ML UDC 500000 UNIT PO ×4 (05:03→22:46)
[2022-11-29] MEDS: Atorvastatin Calcium 40 MG Tablet PO (10:56)
[2022-11-29] MEDS: levETIRAcetam 750 MG Tablet PO ×2 (10:56→22:47)
[2022-11-29] MEDS: Potassium Chloride Oral Tablet 20 MEQ 40 MEQ PO (10:57)
[2022-11-29] MEDS: Senna/Docusate Sodium 1 Tablet PO (10:57)
[2022-11-29] MEDS: Menthol/Lanolin/Calamine/Znox 113 GM Tube 1 APPLIC TOPICAL ×2 (10:57→22:46)
[2022-11-29] MEDS: Miconazole Nitrate 43 GM Bottle 1 APPLIC TOPICAL ×2 (10:58→22:46)
[2022-11-29 11:45] LABS: Mucous, Urine 0 SEEN /hpf (<or=2+); Red Blood Cells-Urine 0 SEEN /hpf (0-5); Squamous Epithelial Cells - UA 0 SEEN /hpf (5-10); White Blood Cells 0 SEEN /hpf (0-5)
[2022-11-29 11:55] LABS: Color, Urine Yellow (Yellow); Glucose, Dipstick Normal (Normal); Ketone-Dipstick Negative (Negative); Leukocyte Esterase-Dipstick 25 /ul (Negative); Nitrite-Dipstick Positive (Negative); Occult Blood-Urine Negative /ul (Negative); Protein-Dipstick Negative (Negative); Specific Gravity, Urine 1.015 (1.002-1.030); Urine Bilirubin Dipstick Negative (Negative); Urine Clarity Clear (Clear); Urine Urobilinogen Normal (Normal); Urine pH 6.5 (5.0 - 8.0)
[2022-11-29 12:07] LABS: Bacteria 1+ /hpf (None Seen)
--- NOTE | 2022-11-29 13:49 | NURSING ---
Resident started on KDUR for low potassium, N.O. for U/a C&S for increased confusion and frequent falls
[2022-11-29] MEDS: Ciprofloxacin 250 MG Tablet PO ×2 (14:54→22:47)
[2022-11-29 16:00] VITALS: BP 116/63; PULSE 80; RESP 16; TEMP 37; O2SAT 93
[2022-11-30] MEDS: NYSTATIN 500,000 UNIT/5 ML UDC 500000 UNIT PO ×2 (06:02→11:35)
[2022-11-30 06:33] LABS: Anion Gap 4 (5-15); BUN 8 mg/dL (7-18); BUN/Creat Ratio 14.3 RATIO (10-20); Calcium,Total 8.6 mg/dL (8.5-10.1); Chloride 116 mmol/L (98-107); Creatinine, Serum 0.56 mg/dL (0.55-1.02); EST Glomerular Filtration Rate 112 mL/min (>60); Est Glom Filt Rate - Afr Amer 135 mL/min (>60); Estimated Creatinine Clearance 46.54 ml/min; Glucose 94 mg/dL (74-106); Potassium 3.8 mmol/L (3.5-5.1); Sodium Level 145 mmol/L (136-145)
[2022-11-30] MEDS: Ciprofloxacin 250 MG Tablet PO ×2 (07:53→22:31)
[2022-11-30] MEDS: Potassium Chloride Oral Tablet 20 MEQ PO (07:53)
[2022-11-30] MEDS: levETIRAcetam 750 MG Tablet PO ×2 (07:54→22:31)
[2022-11-30] MEDS: Menthol/Lanolin/Calamine/Znox 113 GM Tube 1 APPLIC TOPICAL ×2 (07:54→22:32)
[2022-11-30] MEDS: Senna/Docusate Sodium 1 Tablet PO ×2 (07:55→22:31)
[2022-11-30] MEDS: Miconazole Nitrate 43 GM Bottle 1 APPLIC TOPICAL ×2 (07:55→22:31)
[2022-11-30] MEDS: Atorvastatin Calcium 40 MG Tablet PO (10:53)
[2022-11-30 15:25] VITALS: BP 117/55; PULSE 91; RESP 16; TEMP 36.1; O2SAT 97
[2022-11-30 22:25] VITALS: BP 120/62; PULSE 67; RESP 16; TEMP 35.6; O2SAT 98
[2022-12-01] MEDS: Menthol/Lanolin/Calamine/Znox 113 GM Tube 1 APPLIC TOPICAL ×2 (08:21→22:30)
[2022-12-01] MEDS: levETIRAcetam 750 MG Tablet PO ×2 (08:21→22:30)
[2022-12-01] MEDS: Ciprofloxacin 250 MG Tablet PO ×2 (08:21→22:29)
[2022-12-01] MEDS: Potassium Chloride Oral Tablet 20 MEQ PO (08:21)
[2022-12-01] MEDS: Senna/Docusate Sodium 1 Tablet PO ×2 (08:22→22:30)
[2022-12-01] MEDS: Miconazole Nitrate 43 GM Bottle 1 APPLIC TOPICAL ×2 (08:22→22:30)
[2022-12-01] MEDS: Atorvastatin Calcium 40 MG Tablet PO (08:22)
--- NOTE | 2022-12-01 08:33 | MDS.RN ---
Information for the mds was obtained from review of the clinical record, interview of resident, staff, and direct observation of resident's care.
[2022-12-01 10:00] VITALS: PULSE 66; RESP 14; O2SAT 98
[2022-12-01 10:14] VITALS: BMI 27.8
--- NOTE | 2022-12-01 13:30 | NURSING ---
Patient and family in room, offered covid vaccine, info about vaccine provided. They refused at this time.
[2022-12-01 15:15] VITALS: BP 117/54; PULSE 87; RESP 16; TEMP 36.3; O2SAT 92
--- NOTE | 2022-12-01 16:23 | NURSING ---
Notified patient and family (by phone) that patient tested covid positive.
[2022-12-02 06:11] VITALS: PULSE 62; RESP 16; O2SAT 95
[2022-12-02 08:15] VITALS: BP 126/56; PULSE 75; RESP 17; TEMP 36.3; O2SAT 94
[2022-12-02] MEDS: Menthol/Lanolin/Calamine/Znox 113 GM Tube 1 APPLIC TOPICAL ×2 (08:16→20:03)
[2022-12-02] MEDS: Potassium Chloride Oral Tablet 20 MEQ PO (08:16)
[2022-12-02] MEDS: Atorvastatin Calcium 40 MG Tablet PO (08:17)
[2022-12-02] MEDS: Senna/Docusate Sodium 1 Tablet PO ×2 (08:17→20:03)
[2022-12-02] MEDS: Miconazole Nitrate 43 GM Bottle 1 APPLIC TOPICAL ×2 (08:17→20:03)
[2022-12-02] MEDS: levETIRAcetam 750 MG Tablet PO ×2 (08:17→20:02)
[2022-12-02] MEDS: Nitrofurantoin Macrocrystals 100 MG Capsule PO ×2 (11:29→20:03)
--- NOTE | 2022-12-02 16:00 | CASEMGMT ---
Social Work Insurance issued LCD 12/04, DC 11/16. SW phoned dtr, left voicemail. SW phoned to notify. inquired about x1-2 assist. Educated via therapy notes, pt is x2 for SPT. states he will update family and determine DC plan, then notify this worker. SW offered to assist with HHC vs SNF referrals. Will continue to follow. Plan: DC 12/05, unknown plan BRIANNA PhanW
[2022-12-03] MEDS: Potassium Chloride Oral Tablet 20 MEQ PO (08:40)
[2022-12-03] MEDS: Menthol/Lanolin/Calamine/Znox 113 GM Tube 1 APPLIC TOPICAL ×2 (08:40→20:59)
[2022-12-03] MEDS: Miconazole Nitrate 43 GM Bottle 1 APPLIC TOPICAL ×2 (08:40→21:00)
[2022-12-03] MEDS: Atorvastatin Calcium 40 MG Tablet PO (08:41)
[2022-12-03] MEDS: Nitrofurantoin Macrocrystals 100 MG Capsule PO ×2 (08:41→21:00)
[2022-12-03] MEDS: Senna/Docusate Sodium 1 Tablet PO ×2 (08:41→21:00)
[2022-12-03] MEDS: levETIRAcetam 750 MG Tablet PO ×2 (08:41→21:00)
[2022-12-03] MEDS: Acetaminophen 500 MG Tablet 1000 MG PO (08:45)
--- NOTE | 2022-12-03 11:54 | CASEMGMT ---
Addendum entered by Jillian Marrufo 12/03/22 16:02: SW followed up with [facility] and Yudelka had not received the referral via [employer]. SW emailed referral. Awaiting response Original Note: Social Work Received call from stating the son has not gotten in contact with the other facility of interest and is requesting referral to [facility], as another option. SW agreed. Sent referral to [facility] via [employer]. Will await outcome. Jillian Marrufo, BRIANNA MEDELLINW
[2022-12-03 15:12] VITALS: BP 115/54; PULSE 71; RESP 16; TEMP 36; O2SAT 97
--- NOTE | 2022-12-03 19:58 | PCM.DC.SUM ---
Providers Date of Admission: 11/19/22 Primary Care Physician: Ariana Muniz DO Reason For Visit: SEIZURE/UTI Diagnosis Discharge Diagnosis (1) Debility: Status: Acute Code(s): R53.81 - Other malaise (2) Epileptic seizure: Status: Inactive Code(s): G40.909 - Epilepsy, unspecified, not intractable, without status epilepticus (3) Urinary tract infection: Status: Inactive Code(s): N39.0 - Urinary tract infection, site not specified (4) Communicating hydrocephalus: Status: Acute Code(s): G91.0 - Communicating hydrocephalus (5) Hemorrhagic stroke: Status: Acute Code(s): I61.9 - Nontraumatic intracerebral hemorrhage, unspecified (6) Left hemiplegia: Status: Acute Code(s): G81.94 - Hemiplegia, unspecified affecting left nondominant side (7) Hypertension: Status: Chronic Code(s): I10 - Essential (primary) hypertension (8) Hyperlipidemia: Status: Chronic Code(s): E78.5 - Hyperlipidemia, unspecified (9) Dysphagia: Status: Acute Code(s): R13.10 - Dysphagia, unspecified Plan 77 year old female with below past medical history hospitalized for seizure, complicated by urinary tract infection, incidental communicating hydrocephalus, admitted to TCU with debility, here for rehabilitation, strengthening, prior to discharge home with . Debility - PT/OT. Pain - Tylenol 1000mg q6 prn pain (1-10). Bowel - senna/colace 1 tablet bid, Dulcolax 10mg pr daily prn. Adult immunization - Administer pneumonia vaccine, covid19 vaccine, flu vaccine as appropriate. DVT prophylaxis - Hold, history hemorrhagic stroke. Hyperlipidemia - Atorvastatin 40mg qhs. E. Coli urinary tract infection - Cefdinir 300mg bid thru 11/22/2022. Seizure disorder - Keppra 750mg twice daily. Communicating hydrocephalus - Follow up with Dr. Wei after discharge. Medications at Discharge Home Medications atorvastatin 40 mg tablet 40 mg PO DAILY cholesterol #30 tabs 08/20/22 levetiracetam 750 mg tablet 750 mg PO BID seizure #60 tabs 11/19/22 acetaminophen 500 mg tablet 1,000 mg (2 x 500 mg) PO Q6H PRN PRN Pain Score 1-10 #0 tabs 12/03/22 menthol 0.44 %-zinc oxide 20.6 % topical ointment (Calmoseptine) 1 applic topical BID #0 grams 12/03/22 miconazole nitrate 2 % topical powder (Desenex) 1 applic topical BID #0 grams 12/03/22 potassium chloride 20 mEq tablet,extended release(part/cryst) (Klor-Con M) 20 meq PO DAILYCM #0 tabs 12/03/22 sennosides 8.6 mg-docusate sodium 50 mg tablet (Stool Softener-Stimulant Laxative) 1 tab PO BID #0 tabs 12/03/22 Hospital Course Operations None Procedures None Summary of Care Provided Minutes Spent on Discharge: 35 Hospital Course: 77 year old female with below past medical history hospitalized for seizure, complicated by urinary tract infection, incidental communicating hydrocephalus, admitted to TCU with debility, here for rehabilitation, strengthening, prior to discharge home with . 11/29/2022 Staph Epi urinary tract infection treated with Nitrofurantoin 100mg twice daily x 7 days. Discharge to [facility] 12/05/2022, intermediate, part B therapies. Physical Exam Const alert General Appearance: cooperative HEENT normocephalic Eyes PERRL and EOMs intact bilaterally Neck supple, no JVD and no carotid bruits Resp normal respiratory effort, normal air movement and clear to auscultation bilaterally Cardio regular rate and regular rhythm GI normal to inspection, nondistended, normoactive bowel sounds, non-tender and non-distended Extremity normal capillary refill General Extremity: Negative for edema Skin no rashes or lesions noted General Skin Exam: no breakdown Psych affect normal Appearance: appropriate Weight / BMI Weight Weight: 80.558 kg Body Mass Index (BMI) 27.8 ABG / Lab / Microbiology Data 11/27/22 05:27 11/30/22 05:26 Microbiology: Microbiology 12/01/22 05:28 Nasal Secretion SARS-CoV-2 Antigen (Rapid) - Final 11/29/22 11:15 Urine Catheter - Catheter Urine Culture - Final Staphylococcus epidermidis 11/28/22 06:00 Nasal Secretion SARS-CoV-2 Antigen (Rapid) - Final 11/25/22 03:10 Nasal Secretion SARS-CoV-2 Antigen (Rapid) - Final 11/22/22 06:00 Nasal Secretion SARS-CoV-2 Antigen (Rapid) - Final D/C Instructions Discharge Diet: No restrictions Discharge Activity: Return to Normal Activity, May Shower and Use Walker Weight Bearing Status: Weight bearing as tolerated Call your doctor if you observe: Fever of 101 or Higher, Inability to urinate, Inability to have a bowel movement, Shortness of breath, Dizziness, Fainting spells, Swelling in the ankles, Chest pain and Uncontrolled pain Additional Instructions: Discharge to [facility] 12/05/2022, intermediate, part B therapies. Please Follow Up With: Fan Wei MD When: As scheduled. Meaningful Use Info Meaningful Use Diagnoses (Choose all that apply): None applicable Discharge Plan Admission Admit Date/Time: 11/19/22 17:57 Primary Reason for Your Visit: Debility. Attending Provider: Peter Narayanan Chi Primary Care Provider: Ariana Muniz Instructions Additional Instructions / Restrictions: Discharge to [facility] 12/05/2022, intermediate, part B therapies. Discharge Orders/Prescriptions Prescriptions: New acetaminophen 500 mg Tablet 1,000 mg PO Q6H PRN PRN (Reason: Pain Score 1-10) Qty: 0 0RF menthol-zinc oxide [Calmoseptine] 0.44-20.6 % Ointment 1 applic topical BID Qty: 0 0RF Protocol: *Topical Application Instructions APPLICATION INSTRUCTIONS: bilat buttocks redness miconazole nitrate [Desenex] 2 % Powder 1 applic topical BID Qty: 0 0RF Protocol: *Topical Application Instructions APPLICATION INSTRUCTIONS: under breasts sennosides-docusate sodium [Stool Softener-Stimulant Laxat] 8.6-50 mg Tablet 1 tab PO BID Qty: 0 0RF potassium chloride [Klor-Con M20] 20 mEq Tablet,Er Particles/Crystals 20 meq PO DAILYCM Qty: 0 0RF Continued atorvastatin 40 mg tablet 40 mg PO DAILY Qty: 30 5RF levetiracetam 750 mg Tablet 750 mg PO BID Qty: 60 2RF Discontinued cefdinir 300 mg capsule 300 mg PO BID Qty: 6 0RF Referrals / Follow Up: Ariana Muniz DO [Primary Care Provider] - Disposition Disposition (needs filled in before D/C Order can be placed): NonSkilled NH/Intermed Care
--- NOTE | 2022-12-03 20:03 | PCM.TXEXTCAR ---
Diet Diet Order/Speech Therapy: 11/20/22 06:10 Diet: Cardiac - Heart Healthy Food consistency:: Regular Liquid Consistency:: Regular/Thin Is pt able to select menu?: No Routine Orders/Code Status Code Status: DNRCC-A (No intubation.) Therapies Weight Bearing: Weight bearing as tolerated Extremity Affected:: Bilateral Lower Physical Therapy: Eval and Treat Occupational Therapy: Eval and Treat Speech Therapy: Eval and Treat Problem/Diagnosis (1) Debility: Status: Acute Code(s): R53.81 - Other malaise (2) Epileptic seizure: Status: Inactive Code(s): G40.909 - Epilepsy, unspecified, not intractable, without status epilepticus (3) Urinary tract infection: Status: Inactive Code(s): N39.0 - Urinary tract infection, site not specified (4) Communicating hydrocephalus: Status: Acute Code(s): G91.0 - Communicating hydrocephalus (5) Hemorrhagic stroke: Status: Acute Code(s): I61.9 - Nontraumatic intracerebral hemorrhage, unspecified (6) Left hemiplegia: Status: Acute Code(s): G81.94 - Hemiplegia, unspecified affecting left nondominant side (7) Hypertension: Status: Chronic Code(s): I10 - Essential (primary) hypertension (8) Hyperlipidemia: Status: Chronic Code(s): E78.5 - Hyperlipidemia, unspecified (9) Dysphagia: Status: Acute Code(s): R13.10 - Dysphagia, unspecified Plan 77 year old female with below past medical history hospitalized for seizure, complicated by urinary tract infection, incidental communicating hydrocephalus, admitted to TCU with debility, here for rehabilitation, strengthening, prior to discharge home with . Debility - PT/OT. Pain - Tylenol 1000mg q6 prn pain (1-10). Bowel - senna/colace 1 tablet bid, Dulcolax 10mg pr daily prn. Adult immunization - Administer pneumonia vaccine, covid19 vaccine, flu vaccine as appropriate. DVT prophylaxis - Hold, history hemorrhagic stroke. Hyperlipidemia - Atorvastatin 40mg qhs. E. Coli urinary tract infection - Cefdinir 300mg bid thru 11/22/2022. Seizure disorder - Keppra 750mg twice daily. Communicating hydrocephalus - Follow up with Dr. Wei after discharge. Allergies/Procedures Done in Hospital Allergies Sulfa (Sulfonamide Antibiotics) Allergy (Verified 11/15/22 10:20) Rash Procedures: None Type of Care/Length of Stay Estimated LOS: More Than 30 Days Type of Care Needed: Intermediate Rehab Potential: Poor Prognosis: Fair Additional Orders/Day of Discharge Additional Orders: part B therapies Day of Discharge: 12/05/22 Dietary and Speech Recommendations Dietitian Recommendations/Changes: Continue Cardiac diet to manage medical conditions. RD will assess need for ONS at follow-up based on PO intakes. Speech Linguistic Eval Summary: Informal cognitive evaluation completed at this date to assess functional cognition to safely d/c home w/ , Nabeel. Hx of cognitive impairment s/p CVA. Orientation - Patient oriented to first/last name only, difficulty w/ . Independently only able to ID month of birthday, however given choice array of 2 able to ID the date and year of birthday. Disoriented to current month, year, location and situation. Given a choice array of 2 - able to correctly ID the current season only. Continues w/ disorientation of current month and year. Slow processing w/ extended time appreciated. Automatic speech tasks - able to independently count from 1-10 independently. SPECIALTY FINISHING UTILITY PERSON had to provide a minimal prompt to recall SARA (e.g. what is the first day of the week?) w/ patient success 100% 08/21 independently. SPECIALTY FINISHING UTILITY PERSON had to provide patient w/ first month to recall SARA. After the initial prompt was provided, the patient able to recall 10/11 remaining months w/ 1 noted error. Patient w/ difficulty initiating tasks d/t underlying neurological impairment. Auditory comprehension - Patient able to follow 1 step commands w/ 100% acc no cues required. Increased complexity to 2 step commands w/ decreased acc to 50% w/ 100% verbal prompting required. Patient impulsive, difficulty waiting for both steps of the commands to be given prior to following the command. Verbal speech - To assess verbal expression - tasked pt. w/ confrontation naming task w/ patient success 04/21 ZACHARY w/ noted semantic AND phonemic paraphasias w/ some words unrelated (e.g. ashtray for hoffman). Ex of Paraphasias - calculator for remote, birthday for bird. Memory - During assessment of orientation ability, patient oriented to self only. SPECIALTY FINISHING UTILITY PERSON provided direct instruction on where the patient is, why she is here. Given a 3 min delay - patient able to recall [facility]. Given 10 delay (7+ additional minutes) - patient unable to recall where she was and stated she was in the library. Given an additional 5 minute delay - again patient was unable to recall where she was and stated she was in the library. Significant STM impairments w/ avg length of recall somewhere between 3-5 minutes. LT grossly intact as she was able to recall self, family and personal information. Reading - Patient able to read at the single word / sentence level. Follow Up Care Please Follow Up With: Fan Wei MD When: x 2 weeks Discharge Plan Admission Admit Date/Time: 11/19/22 17:57 Primary Reason for Your Visit: Debility. Attending Provider: Peter Narayanan Chi Primary Care Provider: Ariana Muniz Instructions Additional Instructions / Restrictions: Discharge to [facility] 12/05/2022, intermediate, part B therapies. Discharge Orders/Prescriptions Prescriptions: New acetaminophen 500 mg Tablet 1,000 mg PO Q6H PRN PRN (Reason: Pain Score 1-10) Qty: 0 0RF menthol-zinc oxide [Calmoseptine] 0.44-20.6 % Ointment 1 applic topical BID Qty: 0 0RF Protocol: *Topical Application Instructions APPLICATION INSTRUCTIONS: bilat buttocks redness miconazole nitrate [Desenex] 2 % Powder 1 applic topical BID Qty: 0 0RF Protocol: *Topical Application Instructions APPLICATION INSTRUCTIONS: under breasts sennosides-docusate sodium [Stool Softener-Stimulant Laxat] 8.6-50 mg Tablet 1 tab PO BID Qty: 0 0RF potassium chloride [Klor-Con M20] 20 mEq Tablet,Er Particles/Crystals 20 meq PO DAILYCM Qty: 0 0RF Continued atorvastatin 40 mg tablet 40 mg PO DAILY Qty: 30 5RF levetiracetam 750 mg Tablet 750 mg PO BID Qty: 60 2RF Discontinued cefdinir 300 mg capsule 300 mg PO BID Qty: 6 0RF Referrals / Follow Up: Ariana Muniz DO [Primary Care Provider] - Disposition Disposition (needs filled in before D/C Order can be placed): NonSkilled NH/Intermed Care
[2022-12-04 05:47] LABS: Absolute Lymphocyte Count 2.22 X10^3/uL (0.83-4.51); Absolute Neutrophil Count 5.2 X10^3/uL (2.0-7.7); Basophil# 0.04 X10^3/uL; Basophil% 0.5 % (0-1); Eosinophil# 0.13 X10^3/uL; Eosinophils% 1.6 % (0-5); Hematocrit 39.3 % (37-47); Hemoglobin 12.2 g/dL (12.0-15.0); Lymphocyte # 2.22 X10^3/ul (0.83-4.51); Lymphocyte % 26.9 % (19-41); Mean Corpuscular Hgb 29.8 pg (27.0-32.0); Mean Corpuscular Volume 95.9 fL (81-99); Mean Platelet Vol. 8.9 fl (6.2-12.0); Monocyte# 0.67 X10^3/uL; Monocyte% 8.1 % (0-10); NRBC Flagged by Analyzer 0 % (0-5); Neutrophil # 5.16 X10^3/uL (2.7-7.7); Neutrophil % 62.7 % (47-70); Platelet Count 397 K/mm3 (150-450); RBC Distribution Width CV 14.1 % (11.6-14.6); RBC Distribution Width SD 49.3 fl (35.1-43.9); White Blood Count 8.2 K/mm3 (4.4-11.0)
[2022-12-04 06:26] LABS: Anion Gap 4 (5-15); BUN 9 mg/dL (7-18); BUN/Creat Ratio 14.4 RATIO (10-20); Chloride 114 mmol/L (98-107); Creatinine, Serum 0.62 mg/dL (0.55-1.02); EST Glomerular Filtration Rate 99 mL/min (>60); Est Glom Filt Rate - Afr Amer 119 mL/min (>60); Estimated Creatinine Clearance 46.54 ml/min; Glucose 93 mg/dL (74-106); Sodium Level 146 mmol/L (136-145)
[2022-12-04 09:23] VITALS: BP 120/64; PULSE 90; RESP 16; TEMP 35.8; O2SAT 96
[2022-12-04] MEDS: Miconazole Nitrate 43 GM Bottle 1 APPLIC TOPICAL ×2 (09:26→21:15)
[2022-12-04] MEDS: Menthol/Lanolin/Calamine/Znox 113 GM Tube 1 APPLIC TOPICAL ×2 (09:26→21:15)
[2022-12-04] MEDS: Potassium Chloride Oral Tablet 20 MEQ PO (09:29)
[2022-12-04] MEDS: Nitrofurantoin Macrocrystals 100 MG Capsule PO ×2 (09:29→21:12)
[2022-12-04] MEDS: Atorvastatin Calcium 40 MG Tablet PO (09:29)
[2022-12-04] MEDS: levETIRAcetam 750 MG Tablet PO ×2 (09:29→21:12)
[2022-12-04] MEDS: Senna/Docusate Sodium 1 Tablet PO ×2 (09:30→21:12)
--- NOTE | 2022-12-04 14:21 | CASEMGMT ---
Social Work After several correspondences with [facility], pt is accepted. PASRR completed, however, triggered Level II results. Pt will remain over the weekend/until results are received. SW updated [facility], IDT and phoned to notify. expressed understanding. Jillian aMrrufo, FINANCIAL ADMINISTRATOR FIRE PRODUCTION OPERATOR
[2022-12-05] MEDS: Nitrofurantoin Macrocrystals 100 MG Capsule PO ×2 (08:52→21:34)
[2022-12-05] MEDS: Atorvastatin Calcium 40 MG Tablet PO (08:52)
[2022-12-05] MEDS: Senna/Docusate Sodium 1 Tablet PO ×2 (08:52→21:34)
[2022-12-05] MEDS: Potassium Chloride Oral Tablet 20 MEQ PO (08:52)
[2022-12-05] MEDS: levETIRAcetam 750 MG Tablet PO ×2 (08:52→21:34)
[2022-12-05] MEDS: Menthol/Lanolin/Calamine/Znox 113 GM Tube 1 APPLIC TOPICAL ×2 (08:52→21:33)
[2022-12-05] MEDS: Miconazole Nitrate 43 GM Bottle 1 APPLIC TOPICAL ×2 (08:53→21:32)
[2022-12-05 08:58] VITALS: BP 111/50; PULSE 74; RESP 18; TEMP 36.4; O2SAT 95
[2022-12-06] MEDS: Nitrofurantoin Macrocrystals 100 MG Capsule PO ×2 (08:15→22:09)
[2022-12-06] MEDS: levETIRAcetam 750 MG Tablet PO ×2 (08:15→22:09)
[2022-12-06] MEDS: Potassium Chloride Oral Tablet 20 MEQ PO (08:15)
[2022-12-06] MEDS: Senna/Docusate Sodium 1 Tablet PO ×2 (08:15→22:09)
[2022-12-06] MEDS: Atorvastatin Calcium 40 MG Tablet PO (08:16)
[2022-12-06] MEDS: Menthol/Lanolin/Calamine/Znox 113 GM Tube 1 APPLIC TOPICAL ×2 (08:19→22:08)
[2022-12-06] MEDS: Miconazole Nitrate 43 GM Bottle 1 APPLIC TOPICAL ×2 (08:19→22:08)
[2022-12-06 16:00] VITALS: BP 126/68; PULSE 83; RESP 12; TEMP 36.1; O2SAT 94
--- NOTE | 2022-12-06 21:40 | NURSING ---
Spoke w/ Dr. Narayanan to update pt's tongue remains partially white coated even w/ good hygiene practices, swabbing tongue w/ toothettes. New order received and read back for Nystatin swish and swallow 5 ml 4 times daily x 10 days.
[2022-12-06] MEDS: NYSTATIN 500,000 UNIT/5 ML UDC 500000 UNIT PO (22:09)
[2022-12-07] MEDS: NYSTATIN 500,000 UNIT/5 ML UDC 500000 UNIT PO ×4 (05:02→21:53)
[2022-12-07] MEDS: Potassium Chloride Oral Tablet 20 MEQ PO (08:47)
[2022-12-07] MEDS: Menthol/Lanolin/Calamine/Znox 113 GM Tube 1 APPLIC TOPICAL ×2 (08:47→21:57)
[2022-12-07] MEDS: Senna/Docusate Sodium 1 Tablet PO ×2 (08:48→21:53)
[2022-12-07] MEDS: Nitrofurantoin Macrocrystals 100 MG Capsule PO ×2 (08:48→21:53)
[2022-12-07] MEDS: levETIRAcetam 750 MG Tablet PO ×2 (08:48→21:53)
[2022-12-07] MEDS: Miconazole Nitrate 43 GM Bottle 1 APPLIC TOPICAL ×2 (08:48→21:57)
[2022-12-07] MEDS: Atorvastatin Calcium 40 MG Tablet PO (08:48)
[2022-12-07 13:57] VITALS: BP 119/69; PULSE 83; RESP 14; TEMP 36.1; O2SAT 93
[2022-12-07 22:00] VITALS: PULSE 64; RESP 16; O2SAT 94
[2022-12-08] MEDS: NYSTATIN 500,000 UNIT/5 ML UDC 500000 UNIT PO ×4 (05:31→20:41)
[2022-12-08 06:07] VITALS: PULSE 70; RESP 16; O2SAT 96
[2022-12-08] MEDS: Potassium Chloride Oral Tablet 20 MEQ PO (08:54)
[2022-12-08] MEDS: Nitrofurantoin Macrocrystals 100 MG Capsule PO ×2 (08:54→20:42)
[2022-12-08] MEDS: Atorvastatin Calcium 40 MG Tablet PO (08:54)
[2022-12-08] MEDS: Miconazole Nitrate 43 GM Bottle 1 APPLIC TOPICAL ×2 (08:54→20:46)
[2022-12-08] MEDS: levETIRAcetam 750 MG Tablet PO ×2 (08:54→20:42)
[2022-12-08] MEDS: Senna/Docusate Sodium 1 Tablet PO ×2 (08:54→20:42)
[2022-12-08] MEDS: Menthol/Lanolin/Calamine/Znox 113 GM Tube 1 APPLIC TOPICAL ×2 (08:55→20:46)
[2022-12-08 11:00] VITALS: BMI 27.2
[2022-12-08 15:02] VITALS: BP 109/55; PULSE 82; RESP 14; TEMP 36.6; O2SAT 95
[2022-12-08] MEDS: Hydrocortisone 2.5% Crm 1 APPLIC TOPICAL (20:41)
[2022-12-09] MEDS: NYSTATIN 500,000 UNIT/5 ML UDC 500000 UNIT PO ×4 (06:05→20:29)
[2022-12-09 10:00] VITALS: PULSE 81; RESP 16; O2SAT 94
[2022-12-09] MEDS: Potassium Chloride Oral Tablet 20 MEQ PO (10:16)
[2022-12-09] MEDS: Menthol/Lanolin/Calamine/Znox 113 GM Tube 1 APPLIC TOPICAL ×2 (10:16→20:29)
[2022-12-09] MEDS: Atorvastatin Calcium 40 MG Tablet PO (10:17)
[2022-12-09] MEDS: Nitrofurantoin Macrocrystals 100 MG Capsule PO (10:17)
[2022-12-09] MEDS: Senna/Docusate Sodium 1 Tablet PO ×2 (10:17→20:29)
[2022-12-09] MEDS: Miconazole Nitrate 43 GM Bottle 1 APPLIC TOPICAL ×2 (10:17→20:29)
[2022-12-09] MEDS: levETIRAcetam 750 MG Tablet PO ×2 (10:17→20:29)
[2022-12-09 15:42] VITALS: BP 119/62; PULSE 79; RESP 16; TEMP 36.2; O2SAT 95
[2022-12-10] MEDS: NYSTATIN 500,000 UNIT/5 ML UDC 500000 UNIT PO ×4 (05:07→20:37)
[2022-12-10] MEDS: Potassium Chloride Oral Tablet 20 MEQ PO (08:50)
[2022-12-10] MEDS: Menthol/Lanolin/Calamine/Znox 113 GM Tube 1 APPLIC TOPICAL ×2 (08:51→20:38)
[2022-12-10] MEDS: levETIRAcetam 750 MG Tablet PO ×2 (08:51→20:37)
[2022-12-10] MEDS: Atorvastatin Calcium 40 MG Tablet PO (08:51)
[2022-12-10] MEDS: Senna/Docusate Sodium 1 Tablet PO ×2 (08:51→20:37)
[2022-12-10] MEDS: Miconazole Nitrate 43 GM Bottle 1 APPLIC TOPICAL ×2 (08:53→20:38)
[2022-12-10 13:40] VITALS: BP 110/58; PULSE 76; RESP 16; TEMP 36.3; O2SAT 96
--- NOTE | 2022-12-10 17:27 | NURSING ---
MATHEMATICS FACULTY MEMBER reported to this nurse that resident hit left hand during transfer and received a skin tear. This nurse assessed resident and noted a 1.5cm x0.5cm skin tear to left hand, area cleansed with NS and steri strips applied.
[2022-12-11] MEDS: NYSTATIN 500,000 UNIT/5 ML UDC 500000 UNIT PO ×4 (05:17→20:50)
[2022-12-11 05:51] LABS: Absolute Lymphocyte Count 3.24 X10^3/uL (0.83-4.51); Absolute Neutrophil Count 4.7 X10^3/uL (2.0-7.7); Basophil# 0.05 X10^3/uL; Basophil% 0.6 % (0-1); Eosinophil# 0.27 X10^3/uL; Hematocrit 40.1 % (37-47); Hemoglobin 12.5 g/dL (12.0-15.0); Lymphocyte # 3.24 X10^3/ul (0.83-4.51); Lymphocyte % 36.1 % (19-41); Mean Corp Hgb Conc 31.2 g/dL (32-36); Mean Corpuscular Hgb 29.7 pg (27.0-32.0); Mean Corpuscular Volume 95.2 fL (81-99); Mean Platelet Vol. 9.3 fl (6.2-12.0); Monocyte# 0.66 X10^3/uL; Monocyte% 7.4 % (0-10); NRBC Flagged by Analyzer 0 % (0-5); Neutrophil # 4.73 X10^3/uL (2.7-7.7); Neutrophil % 52.7 % (47-70); Platelet Count 335 K/mm3 (150-450); RBC Distribution Width CV 14.1 % (11.6-14.6); RBC Distribution Width SD 49.1 fl (35.1-43.9); Red Blood Count 4.21 M/mm3 (4.2-5.4)
[2022-12-11 06:41] LABS: Anion Gap 4 (5-15); BUN 13 mg/dL (7-18); BUN/Creat Ratio 22.1 RATIO (10-20); Calcium,Total 8.9 mg/dL (8.5-10.1); Chloride 115 mmol/L (98-107); Creatinine, Serum 0.59 mg/dL (0.55-1.02); EST Glomerular Filtration Rate 105 mL/min (>60); Est Glom Filt Rate - Afr Amer 128 mL/min (>60); Estimated Creatinine Clearance 46.54 ml/min; Glucose 91 mg/dL (74-106); Sodium Level 144 mmol/L (136-145)
[2022-12-11] MEDS: levETIRAcetam 750 MG Tablet PO ×2 (08:54→20:51)
[2022-12-11] MEDS: Potassium Chloride Oral Tablet 20 MEQ PO (08:54)
[2022-12-11] MEDS: Senna/Docusate Sodium 1 Tablet PO (08:54)
[2022-12-11] MEDS: Atorvastatin Calcium 40 MG Tablet PO (09:03)
[2022-12-11] MEDS: Miconazole Nitrate 43 GM Bottle 1 APPLIC TOPICAL ×2 (09:03→20:51)
[2022-12-11] MEDS: Menthol/Lanolin/Calamine/Znox 113 GM Tube 1 APPLIC TOPICAL ×2 (09:03→21:00)
[2022-12-11 09:16] VITALS: BP 114/59; PULSE 76; RESP 16; O2SAT 95
[2022-12-11 10:00] VITALS: PULSE 74; RESP 16; O2SAT 95
[2022-12-11 12:16] VITALS: TEMP 36.1
[2022-12-12] MEDS: NYSTATIN 500,000 UNIT/5 ML UDC 500000 UNIT PO ×4 (05:30→21:37)
[2022-12-12 08:20] VITALS: BP 126/55; PULSE 69; RESP 16; TEMP 36.2; O2SAT 97
[2022-12-12] MEDS: Menthol/Lanolin/Calamine/Znox 113 GM Tube 1 APPLIC TOPICAL ×2 (08:24→21:38)
[2022-12-12] MEDS: Miconazole Nitrate 43 GM Bottle 1 APPLIC TOPICAL ×2 (08:24→21:36)
[2022-12-12] MEDS: levETIRAcetam 750 MG Tablet PO ×2 (08:26→21:37)
[2022-12-12] MEDS: Atorvastatin Calcium 40 MG Tablet PO (08:26)
[2022-12-12] MEDS: Potassium Chloride Oral Tablet 20 MEQ PO (08:26)
[2022-12-12] MEDS: Acetaminophen 500 MG Tablet 1000 MG PO (16:50)
[2022-12-12] MEDS: Hydrocortisone 2.5% Crm 1 APPLIC TOPICAL (19:10)
[2022-12-12 19:53] VITALS: PULSE 71; RESP 14; O2SAT 94
[2022-12-13] MEDS: NYSTATIN 500,000 UNIT/5 ML UDC 500000 UNIT PO ×4 (05:48→21:52)
[2022-12-13 05:56] VITALS: PULSE 68; RESP 16; O2SAT 97
[2022-12-13 08:46] VITALS: BP 104/62; PULSE 78; RESP 16; TEMP 36.7; O2SAT 94
[2022-12-13] MEDS: Potassium Chloride Oral Tablet 20 MEQ PO (08:50)
[2022-12-13] MEDS: Menthol/Lanolin/Calamine/Znox 113 GM Tube 1 APPLIC TOPICAL ×2 (08:50→21:51)
[2022-12-13] MEDS: Miconazole Nitrate 43 GM Bottle 1 APPLIC TOPICAL ×2 (08:51→21:51)
[2022-12-13] MEDS: levETIRAcetam 750 MG Tablet PO ×2 (08:51→21:52)
[2022-12-13] MEDS: Senna/Docusate Sodium 1 Tablet PO ×2 (08:52→21:52)
[2022-12-13] MEDS: Atorvastatin Calcium 40 MG Tablet PO (08:52)
[2022-12-14] MEDS: NYSTATIN 500,000 UNIT/5 ML UDC 500000 UNIT PO (06:19)
--- NOTE | 2022-12-14 08:42 | CASEMGMT ---
Social Work Level II PASRR results received and is a rule out. Pt okay to DC to [facility] today. SW updated IDT. Phoned [facility] and can accept. SW scheduled cot transport through [facility] for 1100. Phoned to update on DC today. Plan: DC 12/14 to [facility], intermediate, as planned. Jillian Marrufo, LADLE BUILDER DIRECTOR VOICE
[2022-12-14 09:51] VITALS: BP 125/63; PULSE 81; RESP 16; TEMP 35.7; O2SAT 94
[2022-12-14] MEDS: Senna/Docusate Sodium 1 Tablet PO (09:53)
[2022-12-14] MEDS: Potassium Chloride Oral Tablet 20 MEQ PO (09:53)
[2022-12-14] MEDS: levETIRAcetam 750 MG Tablet PO (09:53)
[2022-12-14] MEDS: Atorvastatin Calcium 40 MG Tablet PO (09:53)
[2022-12-14] MEDS: Menthol/Lanolin/Calamine/Znox 113 GM Tube 1 APPLIC TOPICAL (09:53)
[2022-12-14] MEDS: Miconazole Nitrate 43 GM Bottle 1 APPLIC TOPICAL (09:53)
--- NOTE | 2022-12-14 10:56 | NURSING ---
report called to Socorro gutiérrez at [facility].
--- NOTE | 2022-12-14 11:44 | CASEMGMT ---
Social Work Staff assessment completed for MDS assessment. Jillian Marrufo, MANUFACTURING CLERK SUPERVISOR PIT AND AUXILIARIES
--- NOTE | 2022-12-14 11:46 | CASEMGMT ---
Social Work BIMS and PHQ-2 completed for MDS assessment. Jillian Marrufo, PAYROLL MANAGER RISK AND INSURANCE MANAGER
== END 2022-12-14 11:15 | disposition intermediate care facility (04) | DRG 101 ==
PROVIDERS: Admitting Provider Family Medicine Geriatric Medicine; PCP Family Medicine; Visit Provider Family Medicine Geriatric Medicine
DX: G40.909 Epilepsy, unspecified, not intractable, without status epilepticus (principal); G81.94 Hemiplegia, unspecified affecting left nondominant side; G91.0 Communicating hydrocephalus; N39.0 Urinary tract infection, site not specified; I10 Essential (primary) hypertension; E78.5 Hyperlipidemia, unspecified; B96.20 Unspecified Escherichia coli [E. coli] as the cause of diseases classified elsewhere; R13.10 Dysphagia, unspecified; Z79.899 Other long term (current) drug therapy; Z23 Encounter for immunization; Z86.73 Personal history of transient ischemic attack (TIA), and cerebral infarction without residual deficits
CPT/HCPCS: 36415; 80048; 80177; 81001; 85025; 87077; 87086; 87088; 87186; 87811; 92507; 92523; 92526; 92610; 97110; 97116; 97162; 97166; 97530; 97535; 90662; A4216

== ENCOUNTER → 2022-12-22 | Outpatient (CLI) | payer MEDICARE, SELFPAY ==
[2022-12-22 18:15] LABS: Ammonia < 10.0 umol/L (11-32)
== END | disposition home or self-care (01) ==
LOC: MTLAB 14:59
PROVIDERS: PCP Family Medicine; Referring Provider Psychiatry & Neurology Neurology; Visit Provider Psychiatry & Neurology Neurology
DX: G40.909 Epilepsy, unspecified, not intractable, without status epilepticus (principal)
CPT/HCPCS: 36415; 82140

== ENCOUNTER → 2022-12-23 | Outpatient (REF) | payer MEDICARE, SELFPAY ==
[2022-12-23 08:59] LABS: Hemoglobin 12.3 g/dL (12.0-15.0); Mean Corp Hgb Conc 30.8 g/dL (32-36); Mean Corpuscular Hgb 29.3 pg (27.0-32.0); Mean Corpuscular Volume 95.2 fL (81-99); Mean Platelet Vol. 10.2 fl (6.2-12.0); Platelet Count 274 K/mm3 (150-450); RBC Distribution Width CV 13.8 % (11.6-14.6); RBC Distribution Width SD 48.8 fl (35.1-43.9); White Blood Count 10.1 K/mm3 (4.4-11.0)
[2022-12-23 09:09] LABS: Anion Gap 5 (5-15); BUN 7 mg/dL (7-18); BUN/Creat Ratio 11.7 RATIO (10-20); Calcium,Total 8.7 mg/dL (8.5-10.1); Chloride 110 mmol/L (98-107); EST Glomerular Filtration Rate 103 mL/min (>60); Est Glom Filt Rate - Afr Amer 125 mL/min (>60); Glucose 99 mg/dL (74-106); Potassium 3.8 mmol/L (3.5-5.1); Sodium Level 143 mmol/L (136-145)
== END ==
LOC: OLS.WCC 05:00
PROVIDERS: PCP Family Medicine; Visit Provider Family Medicine
DX: I10 Essential (primary) hypertension (principal); E78.5 Hyperlipidemia, unspecified
CPT/HCPCS: 36415; 80048; 85027

== ENCOUNTER → 2023-03-24 | Outpatient (REF) | payer MEDICARE, SELFPAY ==
[2023-03-24 09:30] LABS: Hematocrit 38.4 % (37-47); Hemoglobin 12.4 g/dL (12.0-15.0); Mean Corp Hgb Conc 32.3 g/dL (32-36); Mean Corpuscular Hgb 29.2 pg (27.0-32.0); Mean Corpuscular Volume 90.4 fL (81-99); Mean Platelet Vol. 9.9 fl (6.2-12.0); Platelet Count 291 K/mm3 (150-450); RBC Distribution Width CV 14.7 % (11.6-14.6); Red Blood Count 4.25 M/mm3 (4.2-5.4); White Blood Count 8.7 K/mm3 (4.4-11.0)
[2023-03-24 11:12] LABS: Anion Gap 4 (5-15); BUN 11 mg/dL (7-18); BUN/Creat Ratio 22.3 RATIO (10-20); Calcium,Total 9.1 mg/dL (8.5-10.1); Chloride 111 mmol/L (98-107); Cholesterol 148 mg/dL (200); Creatinine, Serum 0.49 mg/dL (0.55-1.02); EST Glomerular Filtration Rate 129 mL/min (>60); Est Glom Filt Rate - Afr Amer 157 mL/min (>60); Glucose 93 mg/dL (74-106); High Density Lipoprotein 41 mg/dL; Potassium 3.9 mmol/L (3.5-5.1); Sodium Level 139 mmol/L (136-145); Triglycerides 107 mg/dL; Very Low Density Lipoprotein 21 mg/dL (5-40)
[2023-03-26 07:08] LABS: KEPPRA (LEVETIRACETAM) 16.1 ug/mL (10.0-40.0)
== END ==
LOC: OLS.WCC 05:00
PROVIDERS: PCP Family Medicine; Visit Provider Family Medicine
DX: I10 Essential (primary) hypertension (principal); Z79.899 Other long term (current) drug therapy
CPT/HCPCS: 36415; 80048; 80061; 80177; 85027